=== PATIENT | female | born 1945 | race Caucasian/White ===

== ENCOUNTER 2024-03-21 19:04 | Inpatient (IN) ==
--- NOTE | 2024-03-21 19:21 | Emergency Department Note ---
Impression & Plan AMS (altered mental status), Elevated troponin, Elevated bilirubin, Anemia ED Provider Note NAME: TAMIKA PORTER AGE: 78 SEX: F : 1945 ARRIVES VIA: Ambulance INFORMANT: Patient ED PROVIDER(S): Riaz Donahue DO CHIEF COMPLAINT: Altered mental status HPI: Patient is a 78-year-old female who was just admitted [facility] today from [place] following left knee replacement. Per EMS she has been deteriorating over the past 2 days and has become more combative and more confused. Patient denies any headache or chest pain. No belly pain. History is fairly limited as she has no complaints at this time and is confused. ADDITIONAL HISTORY OBTAINED: Per HPI Chronic Medical/Social Conditions Affecting Care: Per HPI PAST MEDICAL HISTORY:See Below PAST SURGICAL HISTORY:See Below FAMILY HISTORY:See Below SOCIAL HISTORY:See Below HOME MEDICATIONS:See Below ALLERGIES:See Below VITALS:See Below PHYSICAL EXAMINATION: GENERAL: Sitting up in bed, alert, no acute distress, disheveled EYE EXAM: normal conjunctiva. PERRL and EOM's grossly intact. OROPHARYNX: no exudate, no erythema, lips, buccal mucosa, and tongue normal and mucous membranes are moist NECK: supple, no nuchal rigidity, no adenopathy, non-tender LUNGS: Clear to auscultation. Normal chest wall mechanics HEART: no murmurs, S1 normal and S2 normal ABDOMEN: abdomen soft, non-tender, normo-active bowel sounds, no masses, no rebound or guarding. UPPER EXTREMITIES: upper extremities are grossly normal. LOWER EXTREMITIES: Incision is clean dry and intact over the left knee. DPs and PTs 2 out of 4. Gross sensation intact. NEURO EXAM: Awake alert oriented to person but not place or year moving upper extremities and lower extremities without any focal deficit MEDICAL DECISION MAKING: Patient is a 78-year-old female who presents the ER for confusion. She was just discharged from [facility] to rehab facility. Upon arrival at the rehab facility she was shipped here for the confusion. IV was established medicals obtained. Labs show no significant leukocytosis. Mild anemia at 9.8. INR unremarkable. BMP with glucose 123. VBG was fairly unremarkable as well. Lactate and magnesium are unremarkable. LFTs were normal. Troponin was mildly elevated at 116. Pro-Ovidio was normal. UA without white cells to suggest infection. CT of the head was unremarkable. Chest x-ray with no focal infiltrate. Patient was updated bedside discussed case with the hospitalist for further evaluation management treatment. She was given IV fluids and Rocephin upon arrival for possible UTI and setting of altered mental status. Consults/Care Managements Discussions: Per [facility] Triage Nursing notes reviewed. Limited review of prior medical records performed Vital Signs: reviewed and remarkable for HTN Differential diagnosis: Differential diagnoses includes but is not limited to toxic, metabolic, infectious, traumatic, cardiac, neurologic, hematologic, psychiatric and inflammatory etiologies. ER treatment provided: See below Diagnostics interpreted by me include EKG and cardiac monitoring as listed below: -Cardiac Monitoring: An order was placed for continuous cardiac monitoring. The monitor shows a rate of 80 with sinus rhythm. -ECG: Sinus rhythm rate 85 Normal axis No PVCs QTc 468 -Laboratory studies:Interpreted by me as stated above in MDM and shown below. Imaging studies: Xrays: As interpreted by me: Portable AP upright 1 view of the chest shows no focal CTs show: CT head was negative per radiology Procedures:none Critical Care: None Past Med/Surg History Problem List (Updated 03/21/24 @ 23:15 by Riaz Donahue DO) Anemia (Acute) Elevated bilirubin (Acute) Elevated troponin (Acute) AMS (altered mental status) (Acute) Home Meds Home Medications Medication Instructions Recorded Confirmed acetaminophen 325 mg capsule 325 mg PO QID PRN Pain 03/21/24 03/21/24 (Tylenol) albuterol sulfate 90 mcg/actuation 2 puff inhalation QID PRN sob 03/21/24 03/21/24 aerosol inhaler (Ventolin HFA) alendronate 70 mg tablet 70 mg PO WK 03/21/24 03/21/24 amoxicillin 500 mg capsule 2,000 mg PO USEASDIRECTD PRN 03/21/24 03/21/24 Dental Procedures apixaban 2.5 mg tablet (Eliquis) 2.5 mg PO BID 03/21/24 03/21/24 atorvastatin 20 mg tablet 20 mg PO 1XD 03/21/24 03/21/24 cephalexin 500 mg capsule 500 mg PO 4XD 03/21/24 03/21/24 citalopram 20 mg tablet 20 mg PO 1XD 03/21/24 03/21/24 fluticasone propionate 50 1 spray intranasal DIRECTED PRN 03/21/24 03/21/24 mcg/actuation nasal Congestion spray,suspension hydrochlorothiazide 25 mg tablet 25 mg PO QAM 03/21/24 03/21/24 loratadine 10 mg tablet 10 mg PO PM 03/21/24 03/21/24 losartan 100 mg tablet 100 mg PO 1XD 03/21/24 03/21/24 melatonin 3 mg disintegrating 3 mg PO HS PRN Insomnia 03/21/24 03/21/24 tablet metformin 500 mg tablet 500 mg PO 1XD 03/21/24 03/21/24 metoprolol succinate 25 mg 25 mg PO DAILY 03/21/24 03/21/24 tablet,extended release 24 hr polyethylene glycol 3350 17 gram 17 g PO QAM 03/21/24 03/21/24 oral powder packet (Miralax) prednisolone acetate 1 % eye 1 drp ophthalmic (eye) QID 03/21/24 03/21/24 drops,suspension [id number] 1 mg 1 tab PO 1XD 03/21/24 03/21/24 tablet tramadol 25 mg tablet 25 mg PO Q8 PRN Pain 03/21/24 03/21/24 trazodone 50 mg tablet 50 mg PO HS 03/21/24 03/21/24 Results & Data (ED) Vital Signs Vital Signs - 24 hr 03/21/24 19:13 03/21/24 19:15 03/21/24 19:30 Temperature 36.9 C Temperature Source Axillary Pulse Rate 86 85 86 Respiratory Rate 22 24 Respiratory Effort / Characteristics Non-Labored Spontaneous Respiratory Depth Normal Respiratory Pattern Regular Blood Pressure 167/79 H Blood Pressure Mean 108 Pulse Oximetry 93 93 Oxygen Delivery Method Room Air Room Air Sepsis Recent Fever Within 48 Hours No Sepsis New/Unexplained Change in Mental Status Yes Sepsis Action Taken by Nursing Physician Notified 03/21/24 19:48 03/21/24 19:54 03/21/24 20:19 Temperature Temperature Source Pulse Rate 85 85 Respiratory Rate 22 23 Respiratory Effort / Characteristics Respiratory Depth Respiratory Pattern Blood Pressure 185/89 H Blood Pressure Mean 148 Pulse Oximetry 97 94 Oxygen Delivery Method Room Air Room Air Sepsis Recent Fever Within 48 Hours Sepsis New/Unexplained Change in Mental Status Sepsis Action Taken by Nursing 03/21/24 20:21 03/21/24 20:30 03/21/24 21:00 Temperature Temperature Source Pulse Rate 88 93 H 90 Respiratory Rate 21 17 22 Respiratory Effort / Characteristics Respiratory Depth Respiratory Pattern Blood Pressure Blood Pressure Mean Pulse Oximetry 95 94 93 Oxygen Delivery Method Room Air Room Air Room Air Sepsis Recent Fever Within 48 Hours Sepsis New/Unexplained Change in Mental Status Sepsis Action Taken by Nursing 03/21/24 21:27 03/21/24 21:31 03/21/24 21:44 Temperature Temperature Source Pulse Rate 101 H Respiratory Rate 17 Respiratory Effort / Characteristics Respiratory Depth Respiratory Pattern Blood Pressure 135/88 157/101 H Blood Pressure Mean 114 109 Pulse Oximetry 92 Oxygen Delivery Method Room Air Sepsis Recent Fever Within 48 Hours Sepsis New/Unexplained Change in Mental Status Sepsis Action Taken by Nursing 03/21/24 21:48 Temperature Temperature Source Pulse Rate 90 Respiratory Rate 21 Respiratory Effort / Characteristics Respiratory Depth Respiratory Pattern Blood Pressure Blood Pressure Mean Pulse Oximetry 95 Oxygen Delivery Method Room Air Sepsis Recent Fever Within 48 Hours Sepsis New/Unexplained Change in Mental Status Sepsis Action Taken by Nursing Laboratory Data 03/21/24 20:42 03/21/24 20:42 Lab Results 03/21/24 03/21/24 03/21/24 Range/Units 19:26 19:59 20:42 WBC 5.57 (4.8-10.8) K/ul RBC 3.28 L (4.20-5.40) M/uL Hgb 9.8 L (12.0-16.0) g/dl Hct 28.6 L (37.0-47.0) % MCV 87.2 (80.0-100.0) fL MCH 29.9 (25.0-34.0) pg MCHC 34.3 (32.0-36.0) g/dL RDW Std Deviation 40.2 (36.4-46.3) fL RDW Coeff of [place] 12.6 (11.5-14.5) % Plt Count 176 (130-400) K/uL MPV 9.3 L (9.4-12.4) fL Immature Gran % (Auto) 0.4 % Neut % (Auto) 55.1 % Lymph % (Auto) 23.2 % Stone % (Auto) 17.6 % Eos % (Auto) 3.2 % Baso % (Auto) 0.5 % Neut # (Auto) 3.07 (1.40-6.50) K/uL Lymph # (Auto) 1.29 (1.20-3.40) K/uL Stone # (Auto) 0.98 H (0.11-0.59) K/uL Eos # (Auto) 0.18 (0.00-0.50) K/uL Baso # (Auto) 0.03 (0.00-0.20) K/uL Immature Gran # (Auto) 0.02 (0.01-0.20) K/uL PT 11.3 (9.0-12.0) Seconds INR 1.0 (0.9-1.1) VBG pH 7.49 H (7.36-7.41) VBG pCO2 32 L (38-50) mmHg VBG pO2 80 mmHg VBG HCO3 24 mmol/L VBG O2 Saturation 98.0 % VBG Base Excess 1.7 mEq/L Sodium 138 (136-145) mmol/L Potassium 3.8 (3.5-5.1) mmol/L Chloride 107 (98-107) mmol/L Carbon Dioxide 23 (21-32) mmol/L Anion Gap 8 (3-11) BUN 22 (6-23) mg/dl Creatinine 0.73 (0.6-1.2) mg/dl Est Cr Clr Drug Dosing Not Reportable Est GFR ( Amer) 92.1 ml/min Est GFR (Non-Af Amer) 79.4 ml/min BUN/Creatinine Ratio 30.1 H (10-20) Glucose 123 H (70-99(Fasting)) mg/dl Lactate 1.0 (0.4-2.0) mmol/L Calcium 8.3 L (8.6-10.3) mg/dl Magnesium 1.7 (1.7-2.4) mg/dl Total Bilirubin 1.9 H (0.2-1.0) mg/dl Direct Bilirubin 0.4 H (0-0.2) mg/dl AST 26 (13-39) U/L ALT 12 (7-52) U/L Alkaline Phosphatase 51 (34-104) U/L Troponin I High Sens 116.5 H* (0-14) pg/ml Total Protein 5.7 L (6.0-8.3) gm/dl Albumin 3.2 L (3.4-5.0) gm/dl Procalcitonin 0.38 (0-0.5) ng/ml Urine Color Dark Yellow Urine Appearance Clear (Clear) Urine pH 5.5 (4.5-7.5) Ur Specific [place] 1.021 (1.000-1.030) Urine Protein Trace H (Negative) Urine Glucose (UA) Negative (Negative) Urine Ketones Trace H (Negative) Urine Blood Negative (Negative) Urine Nitrite Negative (Negative) Urine Bilirubin 1+ H (Negative) Urine Urobilinogen Positive H (Negative) Ur Leukocyte Esterase Trace H (Negative) Urine WBC (Auto) 0-5 (0-5) /hpf Urine RBC (Auto) 6-10 H (0-2) /hpf U Hyaline Cast (Auto) 0-2 (0-2) /lpf U Epithel Cells (Auto) 0-2 (0-2) /hpf Urine Bacteria (Auto) None Seen (None Seen) Administered Medications Discontinued Medications Sodium Chloride (Nss) 1,000 mls @ 999 mls/hr IV .Q1H1M MAGUI Stop: 03/21/24 20:15 Last Admin: 03/21/24 20:17 Dose: 999 mls/hr Documented By: [facility] Ceftriaxone Sodium (Rocephin) 2,000 mg in 50 mls @ 100 mls/hr IV NOW STA Stop: 03/21/24 19:40 Last Infusion: 03/21/24 22:24 Dose: Infused Documented By: [facility] Admin: 03/21/24 21:01 Dose: 100 mls/hr Documented By: TEENA Sodium Chloride (Nss) 1,000 mls @ 999 mls/hr IV .Q1H1M ONE Stop: 03/21/24 20:11 Last Infusion: 03/21/24 22:24 Dose: Infused Documented By: [facility] Admin: 03/21/24 20:17 Dose: 999 mls/hr Documented By: [facility] Imaging Data Radiologist's Impression: Head CT 03/21/24 19:15 Exam(s): CT HEAD Without Contrast EXAM: CT Head Without Intravenous Contrast CLINICAL HISTORY: Reason for exam: ams. TECHNIQUE: Axial computed tomography images of the head/brain without intravenous contrast. CTDI is 114.84 mGy and DLP is 938 mGy-cm. Automated exposure control was utilized for the study. A dose lowering technique was utilized adhering to the principles of ALARA. COMPARISON: No relevant prior studies available. FINDINGS: Brain: Unremarkable. No hemorrhage. No significant white matter disease. No edema. Ventricles: Unremarkable. No ventriculomegaly. Bones/joints: Unremarkable. No acute fracture. Soft tissues: Unremarkable. Sinuses: Chronic right sphenoid sinusitis. No acute sinusitis. Mastoid air cells: Unremarkable as visualized. No mastoid effusion. IMPRESSION: No evidence of acute intracranial pathology. Chronic obstructive right sphenoid sinusitis. Recommend ENT consult to evaluate for obstructing lesion. Electronically signed by: Jessie Lema MD 03/21/24 23:02 PM Discharge Plan Visit Data Chief Complaint: Altered Mental Status Stated Complaint: ALTERED MENTAL STATUS, COMBATIVE ED Provider: Riaz Donahue Discharge Problem: AMS (altered mental status), Elevated troponin, Elevated bilirubin, Anemia Forms Stand Alone Forms: My [facility] Prescriptions Prescriptions: No Action amoxicillin 500 mg Capsule 2,000 mg PO USEASDIRECTD PRN (Reason: Dental Procedures) metformin 500 mg tablet 500 mg PO 1XD atorvastatin 20 mg tablet 20 mg PO 1XD trazodone 50 mg Tablet 50 mg PO HS polyethylene glycol 3350 [Miralax] 17 gram Powder In Packet 17 g PO QAM alendronate 70 mg tablet 70 mg PO WK citalopram 20 mg tablet 20 mg PO 1XD prednisolone acetate 1 % drops,suspension 1 drp ophthalmic (eye) QID Rx Instructions: Instill 1 drop into both eyes in the morning and 1 drop at noon and 1 drop in the evening and 1 drop before bedtime cephalexin 500 mg capsule 500 mg PO 4XD 1 mg Tablet 1 tab PO 1XD hydrochlorothiazide 25 mg tablet 25 mg PO QAM metoprolol succinate 25 mg Tablet Extended Release 24 Hr 25 mg PO DAILY albuterol sulfate [Ventolin HFA] 90 mcg/actuation Hfa Aerosol Inhaler 2 puff INHALATION QID PRN (Reason: sob) losartan 100 mg tablet 100 mg PO 1XD fluticasone propionate [Flonase] 50 mcg/actuation [place],Suspension 1 spray INTRANASAL DIRECTED PRN (Reason: Congestion) Rx Instructions: administer into each nostril loratadine 10 mg Tablet 10 mg PO PM acetaminophen [Tylenol] 325 mg Capsule 325 mg PO QID PRN (Reason: Pain) Eliquis 2.5 mg tablet 2.5 mg PO BID melatonin 3 mg Tablet,Disintegrating 3 mg PO HS PRN (Reason: Insomnia) tramadol 25 mg Tablet 25 mg PO Q8 PRN (Reason: Pain) Referrals Referrals: PCP,NO [Physician] - Discharge Problem: AMS (altered mental status) Qualifiers: Altered mental status type: unspecified Qualified Code(s): R41.82 - Altered mental status, unspecified Anemia Qualifiers: Anemia type: unspecified type Qualified Code(s): D64.9 - Anemia, unspecified
[2024-03-21] MEDS: SODIUM CHLORIDE 0.9% 1,000 ML IV ONE (20:17)
[2024-03-21] MEDS: SODIUM CHLORIDE 0.9% 1,000 ML IV SCH (20:17)
[2024-03-21 20:35] LABS: Appearance Urine Clear (Clear); Bacteria Urine Automated None Seen (None Seen); Bilirubin Urine 1+ (Negative); Blood Urine Negative (Negative); Cast Urine Automated 0-2 /lpf (0-2); Color Urine Dark Yellow; Epithelial Cell Urine Auto 0-2 /hpf (0-2); Glucose Urine UA Negative (Negative); Ketones Urine Trace (Negative); Leukocyte Esterase Urine Trace (Negative); Nitrite Urine Negative (Negative); Protein Urine Trace (Negative); Specific Gravity Urine 1.021 (1.000-1.030); Urobilinogen Urine Positive (Negative); WBC Urine Automated 0-5 /hpf (0-5); pH Urine 5.5 (4.5-7.5)
[2024-03-21 20:58] LABS: Base Excess VBG 1.7 mEq/L; HCO3 VBG 24 mmol/L; PCO2 VBG 32 mmHg (38-50); PO2 VBG 80 mmHg; pH VBG 7.49 (7.36-7.41)
[2024-03-21] MEDS: cefTRIAXone SODIUM 2,000 MG/50 ML BAG IV STA (21:01)
[2024-03-21 21:09] LABS: Basophils # (auto) 0.03 K/uL (0.00-0.20); Basophils % (auto) 0.5 %; Eosinophils # (auto) 0.18 K/uL (0.00-0.50); Eosinophils % (auto) 3.2 %; Hematocrit (blood only) 28.6 % (37.0-47.0); Hemoglobin 9.8 g/dl (12.0-16.0); Immature Granulocytes # (auto) 0.02 K/uL (0.01-0.20); Immature Granulocytes % (auto) 0.4 %; Lymphocytes # (auto) 1.29 K/uL (1.20-3.40); Lymphocytes % (auto) 23.2 %; Mean Corpuscular Hemoglobin 29.9 pg (25.0-34.0); Mean Corpuscular Hgb Conc 34.3 g/dL (32.0-36.0); Mean Corpuscular Volume 87.2 fL (80.0-100.0); Mean Platelet Volume 9.3 fL (9.4-12.4); Monocytes # (auto) 0.98 K/uL (0.11-0.59); Monocytes % (auto) 17.6 %; Neutrophils # (auto) 3.07 K/uL (1.40-6.50); Neutrophils % (auto) 55.1 %; Platelet Count 176 K/uL (130-400); RDW Coefficient of Variation 12.6 % (11.5-14.5); RDW Standard Deviation 40.2 fL (36.4-46.3); Red Blood Count 3.28 M/uL (4.20-5.40); White Blood Count 5.57 K/ul (4.8-10.8)
[2024-03-21 21:27] LABS: Alanine Aminotransferase 12 U/L (7-52); Albumin Level 3.2 gm/dl (3.4-5.0); Alkaline Phosphatase 51 U/L (34-104); Anion Gap 8 (3-11); Aspartate Aminotransferase 26 U/L (13-39); BUN Creatinine Ratio 30.1 (10-20); Bilirubin Direct 0.4 mg/dl (0-0.2); Bilirubin,Total 1.9 mg/dl (0.2-1.0); Blood Urea Nitrogen 22 mg/dl (6-23); Calcium 8.3 mg/dl (8.6-10.3); Carbon Dioxide 23 mmol/L (21-32); Chloride 107 mmol/L (98-107); Est GFR (African American) 92.1 ml/min; Est GFR (Non-African American) 79.4 ml/min; Glucose 123 mg/dl (70-99(Fasting)); Magnesium 1.7 mg/dl (1.7-2.4); Potassium 3.8 mmol/L (3.5-5.1); Sodium 138 mmol/L (136-145); Total Protein 5.7 gm/dl (6.0-8.3)
[2024-03-21 21:53] LABS: Prothrombin Time 11.3 Seconds (9.0-12.0)
[2024-03-21 22:21] LABS: Troponin I High Sensitivity 116.5 pg/ml (0-14)
[2024-03-21] MEDS ORDERED: OLANZapine 10 MG/2.1 ML SDV IM PRN (22:29)
[2024-03-21] MEDS: OLANZapine 10 MG/2.1 ML SDV IM ONE ×2 (22:41→23:09)
--- NOTE | 2024-03-21 23:03 | CT Scan Report ---
Exam(s): CT HEAD Without Contrast EXAM: CT Head Without Intravenous Contrast CLINICAL HISTORY: Reason for exam: ams. TECHNIQUE: Axial computed tomography images of the head/brain without intravenous contrast. CTDI is 114.84 mGy and DLP is 938 mGy-cm. Automated exposure control was utilized for the study. A dose lowering technique was utilized adhering to the principles of ALARA. COMPARISON: No relevant prior studies available. FINDINGS: Brain: Unremarkable. No hemorrhage. No significant white matter disease. No edema. Ventricles: Unremarkable. No ventriculomegaly. Bones/joints: Unremarkable. No acute fracture. Soft tissues: Unremarkable. Sinuses: Chronic right sphenoid sinusitis. No acute sinusitis. Mastoid air cells: Unremarkable as visualized. No mastoid effusion. IMPRESSION: No evidence of acute intracranial pathology. Chronic obstructive right sphenoid sinusitis. Recommend ENT consult to evaluate for obstructing lesion. Electronically signed by: Jessie Lema MD 03/21/24 23:02 PM
--- NOTE | 2024-03-21 23:21 | History & Physical Report ---
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 bronchial asthma, CLEMENT[place] CPAP noncompliant, pulmonary hypertension, patient currently without lung issues DM2 on oral medications, well-controlled as of recent hemoglobin A1c of 5.7 last month cirrhosis as per records, likely NAFLD anxiety/mood disorder postop UTI ongoing Keflex Rx Medical telemetry Zyprexa as needed agitation not relieved by trazodone as needed IV Lopressor 1 dose now, titrate home BP meds Follow troponin, TTE for progression Monitor CPK response to IVF Follow H&H, transfuse PRBC if hemoglobin less than 8 and or for symptomatic anemia (hx CAD as per records), hold Eliquis for now until H&H stable ISS BG goal 1 10-1 40, carb count coverage DVT prophylaxis. SCDs while Eliquis on hold Full code Patient family requesting updates providers. Ms. Karolina Hogan (daughter), contact #[phone] Mr. Devon Groves (), contact #[phone] Text document was generated using [employer] voice recognition software. It may contain grammatical or spelling errors. Kindly contact undersigned for clarification of any documentation item in question. History of Present Illness Chief Complaint: Agitation as per records Primary Care Provider: Tabitha Cunningham MD History obtained from patient, family, and records. Limited history from patient secondary to confusion. Medical history significant for nonocclusive CAD, status post TAVR, mild MR/TR, hypertension, bronchial asthma, CLEMENT[place] CPAP noncompliance, pulmonary hypertension, DM2 on oral medications, GERD, cirrhosis as per records, anxiety/mood disorder, chronic back pain status post surgery, recent left knee surgery, postop UTI ongoing Keflex Rx. Recent confinement [facility] last March 17 to 2023 for elective left knee surgery. Marked delirium postprocedure. Patient started on Keflex course for possible UTI. Specimen not sent for urine CS. CT head was negative. Psychiatry note pharmacologic recommendations as follows: Continue patient's home trazodone 50 mg p.o. HS. Melatonin 3 mg p.o. at bedtime as needed insomnia Trazodone 12.5 mg 3 times daily as needed agitation Zyprexa 2.5 mg PO/IM every 6 hours as needed agitation not responsive to trazodone. Patient still not back to baseline upon discharge to rehab facility today as per daughter. Postop hemoglobin on discharge last March 20 was 10.9. Patient discharged on Xarelto for postop DVT prophylaxis. Home aspirin held on discharge. Patient noted to be combative and agitated upon arrival at [facility] rehab facility. Patient unable to answer questions regarding chest pain, SOB, abdominal pain, or worsening knee pain. Patient brought to ER for evaluation. 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 Allergies Allergy/AdvReac Type Severity Reaction Status Date / Time No Known Allergies Allergy Unverified 03/22/24 00:04 Home Medications Medication Instructions Recorded Confirmed Type acetaminophen 325 mg capsule 325 mg PO QID PRN Pain 03/21/24 03/21/24 History (Tylenol) albuterol sulfate 90 mcg/actuation 2 puff inhalation QID PRN sob 03/21/24 03/21/24 History aerosol inhaler (Ventolin HFA) alendronate 70 mg tablet 70 mg PO WK 03/21/24 03/21/24 History amoxicillin 500 mg capsule 2,000 mg PO USEASDIRECTD PRN 03/21/24 03/21/24 History Dental Procedures apixaban 2.5 mg tablet (Eliquis) 2.5 mg PO BID 03/21/24 03/21/24 History atorvastatin 20 mg tablet 20 mg PO 1XD 03/21/24 03/21/24 History cephalexin 500 mg capsule 500 mg PO 4XD 03/21/24 03/21/24 History citalopram 20 mg tablet 20 mg PO 1XD 03/21/24 03/21/24 History fluticasone propionate 50 1 spray intranasal DIRECTED PRN 03/21/24 03/21/24 History mcg/actuation nasal Congestion spray,suspension hydrochlorothiazide 25 mg tablet 25 mg PO QAM 03/21/24 03/21/24 History loratadine 10 mg tablet 10 mg PO PM 03/21/24 03/21/24 History losartan 100 mg tablet 100 mg PO 1XD 03/21/24 03/21/24 History melatonin 3 mg disintegrating 3 mg PO HS PRN Insomnia 03/21/24 03/21/24 History tablet metformin 500 mg tablet 500 mg PO 1XD 03/21/24 03/21/24 History metoprolol succinate 25 mg 25 mg PO DAILY 03/21/24 03/21/24 History tablet,extended release 24 hr polyethylene glycol 3350 17 gram 17 g PO QAM 03/21/24 03/21/24 History oral powder packet (Miralax) prednisolone acetate 1 % eye 1 drp ophthalmic (eye) QID 03/21/24 03/21/24 History drops,suspension [id number] 1 mg 1 tab PO 1XD 03/21/24 03/21/24 History tablet tramadol 25 mg tablet 25 mg PO Q8 PRN Pain 03/21/24 03/21/24 History trazodone 50 mg tablet 50 mg PO HS 03/21/24 03/21/24 History Past Med/Surg History Problem List (Updated 03/22/24 @ 03:57 by Kahlil Garcia MD) Delirium Anemia (Acute) Elevated bilirubin (Acute) Elevated troponin (Acute) AMS (altered mental status) (Acute) Social History Hx Alcohol Use: No (unknown pt confused) Hx Substance Use: No (unknown pt confused) Preferred Language: Pakistani Communication Ability: Impaired 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: No Beliefs That Will Affect Care: None Review of Systems Review of Systems: Could not be reliably obtained secondary to agitation Physical Exam Physical Exam: GENERAL: Agitated, uncomfortable, obese, no respiratory distress SKIN: Pallor, warm HEENT: Pale palpebral conjunctivae, no ptosis, dry buccal mucosa NECK : Supple, short neck, no tenderness CHEST : Decreased breath sounds, no tenderness HEART : Tachycardic,, no obvious murmurs ABDOMEN: Some distention, nontender EXTREMITIES : LE swelling, minimal left knee tenderness, no other conspicuous deformities noted NEUROLOGIC : Agitated, no facial asymmetry, gait and stance not assessed Results & Data Results & Data Vital Signs (Past 12 Hours) Vital Signs Temp Pulse Resp BP Pulse Ox O2 Del Method 03/21/24 23:16 108 H 03/21/24 21:48 90 21 95 Room Air 03/21/24 21:44 157/101 H 03/21/24 21:31 135/88 03/21/24 21:27 101 H 17 92 Room Air 03/21/24 21:00 90 22 93 Room Air 03/21/24 20:30 93 H 17 94 Room Air 03/21/24 20:21 88 21 95 Room Air 03/21/24 20:19 185/89 H 03/21/24 19:54 85 23 94 Room Air 03/21/24 19:48 85 22 97 Room Air 03/21/24 19:30 86 24 93 Room Air 03/21/24 19:15 85 03/21/24 19:13 36.9 C 86 22 167/79 H 93 Room Air Laboratory Results Laboratory Results WBC 5.57 K/ul (4.8-10.8) 03/21/24 20:42 RBC 3.28 M/uL (4.20-5.40) L 03/21/24 20:42 Hgb 9.8 g/dl (12.0-16.0) L 03/21/24 20:42 Hct 28.6 % (37.0-47.0) L 03/21/24 20:42 MCV 87.2 fL (80.0-100.0) 03/21/24 20:42 MCH 29.9 pg (25.0-34.0) 03/21/24 20:42 MCHC 34.3 g/dL (32.0-36.0) 03/21/24 20:42 RDW Std Deviation 40.2 fL (36.4-46.3) 03/21/24 20:42 RDW Coeff of [place] 12.6 % (11.5-14.5) 03/21/24 20:42 Plt Count 176 K/uL (130-400) 03/21/24 20:42 MPV 9.3 fL (9.4-12.4) L 03/21/24 20:42 Immature Gran % (Auto) 0.4 % 03/21/24 20:42 Neut % (Auto) 55.1 % 03/21/24 20:42 Lymph % (Auto) 23.2 % 03/21/24 20:42 [place] % (Auto) 17.6 % 03/21/24 20:42 Eos % (Auto) 3.2 % 03/21/24 20:42 Baso % (Auto) 0.5 % 03/21/24 20:42 Neut # (Auto) 3.07 K/uL (1.40-6.50) 03/21/24 20:42 Lymph # (Auto) 1.29 K/uL (1.20-3.40) 03/21/24 20:42 [place] # (Auto) 0.98 K/uL (0.11-0.59) H 03/21/24 20:42 Eos # (Auto) 0.18 K/uL (0.00-0.50) 03/21/24 20:42 Baso # (Auto) 0.03 K/uL (0.00-0.20) 03/21/24 20:42 Immature Gran # (Auto) 0.02 K/uL (0.01-0.20) 03/21/24 20:42 PT 11.3 Seconds (9.0-12.0) 03/21/24 20:42 INR 1.0 (0.9-1.1) 03/21/24 20:42 VBG pH 7.49 (7.36-7.41) H 03/21/24 20:42 VBG pCO2 32 mmHg (38-50) L 03/21/24 20:42 VBG pO2 80 mmHg 03/21/24 20:42 VBG HCO3 24 mmol/L 03/21/24 20:42 VBG O2 Saturation 98.0 % 03/21/24 20:42 VBG Base Excess 1.7 mEq/L 03/21/24 20:42 Sodium 138 mmol/L (136-145) 03/21/24 20:42 Potassium 3.8 mmol/L (3.5-5.1) 03/21/24 20:42 Chloride 107 mmol/L (98-107) 03/21/24 20:42 Carbon Dioxide 23 mmol/L (21-32) 03/21/24 20:42 Anion Gap 8 (3-11) 03/21/24 20:42 BUN 22 mg/dl (6-23) 03/21/24 20:42 Creatinine 0.73 mg/dl (0.6-1.2) 03/21/24 20:42 Est Cr Clr Drug Dosing Not Reportable 03/21/24 20:42 Est GFR ( Amer) 92.1 ml/min 03/21/24 20:42 Est GFR (Non-Af Amer) 79.4 ml/min 03/21/24 20:42 BUN/Creatinine Ratio 30.1 (10-20) H 03/21/24 20:42 Glucose 123 mg/dl (70-99(Fasting)) H 03/21/24 20:42 Lactate 1.0 mmol/L (0.4-2.0) 03/21/24 19:26 Calcium 8.3 mg/dl (8.6-10.3) L 03/21/24 20:42 Magnesium 1.7 mg/dl (1.7-2.4) 03/21/24 20:42 Total Bilirubin 1.9 mg/dl (0.2-1.0) H 03/21/24 20:42 Direct Bilirubin 0.4 mg/dl (0-0.2) H 03/21/24 20:42 AST 26 U/L (13-39) 03/21/24 20:42 ALT 12 U/L (7-52) 03/21/24 20:42 Alkaline Phosphatase 51 U/L (34-104) 03/21/24 20:42 Troponin I High Sens 116.5 pg/ml (0-14) H* 03/21/24 20:42 Total Protein 5.7 gm/dl (6.0-8.3) L 03/21/24 20:42 Albumin 3.2 gm/dl (3.4-5.0) L 03/21/24 20:42 Procalcitonin 0.38 ng/ml (0-0.5) 03/21/24 20:42 Urine Color Dark Yellow 03/21/24 19:59 Urine Appearance Clear (Clear) 03/21/24 19:59 Urine pH 5.5 (4.5-7.5) 03/21/24 19:59 Ur Specific [place] 1.021 (1.000-1.030) 03/21/24 19:59 Urine Protein Trace (Negative) H 03/21/24 19:59 Urine Glucose (UA) Negative (Negative) 03/21/24 19:59 Urine Ketones Trace (Negative) H 03/21/24 19:59 Urine Blood Negative (Negative) 03/21/24 19:59 Urine Nitrite Negative (Negative) 03/21/24 19:59 Urine Bilirubin 1+ (Negative) H 03/21/24 19:59 Urine Urobilinogen Positive (Negative) H 03/21/24 19:59 Ur Leukocyte Esterase Trace (Negative) H 03/21/24 19:59 Urine WBC (Auto) 0-5 /hpf (0-5) 03/21/24 19:59 Urine RBC (Auto) 6-10 /hpf (0-2) H 03/21/24 19:59 U Hyaline Cast (Auto) 0-2 /lpf (0-2) 03/21/24 19:59 U Epithel Cells (Auto) 0-2 /hpf (0-2) 03/21/24 19:59 Urine Bacteria (Auto) None Seen (None Seen) 03/21/24 19:[address] 03/21/24 19:15 Exam(s): CT HEAD Without Contrast EXAM: CT Head Without Intravenous Contrast CLINICAL HISTORY: Reason for exam: ams. TECHNIQUE: Axial computed tomography images of the head/brain without intravenous contrast. CTDI is 114.84 mGy and DLP is 938 mGy-cm. Automated exposure control was utilized for the study. A dose lowering technique was utilized adhering to the principles of ALARA. COMPARISON: No relevant prior studies available. FINDINGS: Brain: Unremarkable. No hemorrhage. No significant white matter disease. No edema. Ventricles: Unremarkable. No ventriculomegaly. Bones/joints: Unremarkable. No acute fracture. Soft tissues: Unremarkable. Sinuses: Chronic right sphenoid sinusitis. No acute sinusitis. Mastoid air cells: Unremarkable as visualized. No mastoid effusion. IMPRESSION: No evidence of acute intracranial pathology. Chronic obstructive right sphenoid sinusitis. Recommend ENT consult to evaluate for obstructing lesion. Electronically signed by: Jessie Lema MD 03/21/24 23:02 PM Diagnostic Findings EKG as per my interpretation : Rate 85, NSR, LAD, LAFB, nonspecific T wave abnormalities, PVCs
[2024-03-21] MEDS ORDERED: PROMETHAZINE HCL 6.25 MG in SODIUM CHLORIDE 0.9% 50 ML IV PRN (23:25)
[2024-03-21] MEDS: Patient's ALLERGY Info needs ENTERED STA (23:51)
[2024-03-22] MEDS: OLANZapine 10 MG/2.1 ML SDV IM STA ×2 (00:20→00:56)
[2024-03-22] MEDS: ZIPRASIDONE 20 MG/ML SDV IM STA ×2 (00:23→00:54)
[2024-03-22] MEDS: ACETAMINOPHEN 1,000 MG/100 ML VIAL IV STA (00:27)
[2024-03-22] MEDS: NSS + 20MEQ KCL 20 MEQ/1,000 ML BAG IV ONE (00:27)
[2024-03-22] MEDS: MAGNESIUM SULFATE / D5W 1 GM/100 ML BAG IV ONE (00:27)
[2024-03-22] MEDS: traZODone HCL 50 MG TAB PO SCH ×2 (00:36→03:27)
[2024-03-22] MEDS: Patient's ALLERGY Info needs ENTERED STA (00:36)
[2024-03-22] MEDS: METOPROLOL TARTRATE 1 MG/ML VIAL IV STA ×2 (00:42→04:07)
[2024-03-22] MEDS ORDERED: OLANZapine 10 MG/2.1 ML SDV IM PRN (00:46)
[2024-03-22] MEDS ORDERED: GLUCOSE 40% GEL 15 GM TUBE PO PRN (02:50)
[2024-03-22] MEDS ORDERED: GLUCAGON FOR INJ 1 MG VIAL SQ PRN (02:50)
[2024-03-22] MEDS ORDERED: FLUTICASONE PROPIONATE NA SPR 16 GM BTL PRN (02:50)
[2024-03-22] MEDS ORDERED: DEXTROSE 50% 50 ML SYRINGE IV PRN (02:50)
[2024-03-22] MEDS ORDERED: GLUCOSE 10 TAB/TUBE PO PRN (02:50)
[2024-03-22] MEDS ORDERED: CARBOHYDRATES FOR HYPOGLYCEMIA PO PRN (02:50)
[2024-03-22] MEDS: ACETAMINOPHEN 325 MG TAB PO PRN (03:14)
[2024-03-22] MEDS: MELATONIN 3 MG TAB PO PRN (03:15)
[2024-03-22] MEDS: INSULIN ASPART PER UNIT CHARGE SC SCH (03:26)
[2024-03-22 04:25] LABS: Thyroid Stimulating Hormone 1.899 uIu/ml (0.300-4.500)
[2024-03-22 04:36] LABS: Basophils # (auto) 0.03 K/uL (0.00-0.20); Basophils % (auto) 0.5 %; Eosinophils # (auto) 0.15 K/uL (0.00-0.50); Eosinophils % (auto) 2.7 %; Hematocrit (blood only) 29.2 % (37.0-47.0); Hemoglobin 9.9 g/dl (12.0-16.0); Immature Granulocytes # (auto) 0.01 K/uL (0.01-0.20); Immature Granulocytes % (auto) 0.2 %; Lymphocytes # (auto) 1.46 K/uL (1.20-3.40); Lymphocytes % (auto) 26.6 %; Mean Corpuscular Hemoglobin 30.3 pg (25.0-34.0); Mean Corpuscular Hgb Conc 33.9 g/dL (32.0-36.0); Mean Corpuscular Volume 89.3 fL (80.0-100.0); Mean Platelet Volume 9.1 fL (9.4-12.4); Monocytes # (auto) 0.84 K/uL (0.11-0.59); Monocytes % (auto) 15.3 %; Neutrophils # (auto) 2.99 K/uL (1.40-6.50); Neutrophils % (auto) 54.7 %; Platelet Count 156 K/uL (130-400); RDW Coefficient of Variation 12.6 % (11.5-14.5); RDW Standard Deviation 41.4 fL (36.4-46.3); Red Blood Count 3.27 M/uL (4.20-5.40); White Blood Count 5.48 K/ul (4.8-10.8)
[2024-03-22 04:45] LABS: Calcium 8.5 mg/dl (8.6-10.3); Creatinine Clr Calc Pharmacy 69.3 ml/min; Est GFR (African American) 82.4 ml/min; Est GFR (Non-African American) 71.1 ml/min; Potassium 4.2 mmol/L (3.5-5.1)
--- OUTSIDE RECORDS SUMMARY | 2024-03-22 07:42 | External Medical Summary ---
Author Name Unknown Address Unknown Organization : Laboratory Report Ordering Provider Test Date Status JANIS CAMPUZANO 03/21/2024 08:01:21 Final Observation Date Value Abnormality Reference (Units ) Status Glucose Point of Care 03/21/2024 08:01:21 124 Above high normal 70-120 (mg/dL) Final Performing Location
--- OUTSIDE RECORDS SUMMARY | 2024-03-22 07:42 | External Medical Summary ---
Author Name Unknown Address Unknown Organization [id number]:LABORATORY [place] [address] [place] [address] Laboratory Report Ordering Provider Test Date Status JANIS CAMPUZANO 03/21/2024 04:24:00 Final Observation Date Value Abnormality Reference (Units ) Status Magnesium 03/21/2024 04:24:00 1.7 1.5-2.6 (m g/dL) Final Performing Location LABORATORY [address] [place] [address]
--- OUTSIDE RECORDS SUMMARY | 2024-03-22 07:42 | External Medical Summary ---
Author Name Unknown Address Unknown Organization : Laboratory Report Ordering Provider Test Date Status JANIS CAMPUZANO 03/20/2024 20:53:22 Final Observation Date Value Abnormality Reference (Units ) Status Glucose Point of Care 03/20/2024 20:53:22 132 Above high normal 70-120 (mg/dL) Final Performing Location
--- OUTSIDE RECORDS SUMMARY | 2024-03-22 07:42 | External Medical Summary ---
Author Name Unknown Address Unknown Organization [id number]:LABORATORY [facility] - [address] [place] [address] [place] [address] Laboratory Report Ordering Provider Test Date Status JANIS CAMPUZANO 03/20/2024 14:13:10 Final Observation Date Value Abnormality Reference (Units ) Status Color of Urine by Auto 03/20/2024 14:13:10 Yellow Light Yellow, Yellow, Dark Yellow Final Clarity, Urine 03/20/2024 14:13:10 Clear Clear Final Glucose [Mass/volume] in Urine by Automated test strip 03/20/2024 14:13:10 Negative Negative (mg/dL) Final Bilirubin.total [Presence] in Urine by Automated test strip 03/20/2024 14:13:10 Negative Negative Final Ketones [Mass/volume] in Urine by Automated test strip 03/20/2024 14:13:10 Negative Negative (mg/dL) Final Specific gravity, Urine 03/20/2024 14:13:10 1.019 1.003-1.030 Final Hemoglobin [Presence] in Urine by Automated test strip 03/20/2024 14:13:10 Negative Negative Final pH, Urine 03/20/2024 14:13:10 6.5 5.0-7.5 (Units) Final Protein [Mass/volume] in Urine by Automated test strip 03/20/2024 14:13:10 Trace Abnormal Negative (mg/dL) Final Urobilinogen [Mass/volume] in Urine by Automated test strip 03/20/2024 14:13:10 4.0 Abnormal 0.2, 1.0 (mg/dL) Final Nitrite [Presence] in Urine by Automated test strip 03/20/2024 14:13:10 Negative Negative Final Leukocyte esterase [Presence] in Urine by Automated test strip 03/20/2024 14:13:10 Negative Negative Final RBC, Urine 03/20/2024 14:13:10 0-2 0-2 (/HPF) Final WBC, Urine 03/20/2024 14:13:10 0-2 0-2 (/HPF) Final Bacteria [#/area] in Urine sediment by Microscopy high power field 03/20/2024 14:13:10 0-25 0-25 (/HPF) Final CULTURE, URINE - [facility] 03/20/2024 14:13:10 Final Culture not indicated by uri nalysis results\[id number]\ Performing Location LABORATORY [facility] - [address] [facility] [address]
--- OUTSIDE RECORDS SUMMARY | 2024-03-22 07:42 | External Medical Summary ---
Author Name Unknown Address Unknown Organization : Laboratory Report Ordering Provider Test Date Status JANIS CAMPUZANO 03/20/2024 11:32:08 Final Observation Date Value Abnormality Reference (Units ) Status Glucose Point of Care 03/20/2024 11:32:08 138 Above high normal 70-120 (mg/dL) Final Performing Location
--- OUTSIDE RECORDS SUMMARY | 2024-03-22 07:42 | External Medical Summary ---
Author Name Unknown Address Unknown Organization [id number]:LABORATORY [facility] [place] - [address] [place] [address] Laboratory Report Ordering Provider Test Date Status JANIS CAMPUZANO 03/21/2024 04:24:00 Final Observation Date Value Abnormality Reference (Units ) Status Iron 03/21/2024 04:24:00 22 Below low normal 33-151 (ug/dL) Final Iron-binding capacity 03/21/2024 04:24:00 206 Below low normal 250-425 (ug/dL) Final Transferrin Sat % 03/21/2024 04:24:00 11 Below low normal 15-55 (%) Final Performing Location LABORATORY [facility] - [address] [place] [address]
--- OUTSIDE RECORDS SUMMARY | 2024-03-22 07:42 | External Medical Summary ---
Author Name Unknown Address Unknown Organization [id number]:LABORATORY [facility] [place] - [address] [place] [address] Laboratory Report Ordering Provider Test Date Status JANIS CAMPUZANO 03/21/2024 04:24:00 Final Observation Date Value Abnormality Reference (Units ) Status Vitamin B12 03/21/2024 04:24:00 205 Below low normal 2 32-1245 (pg/mL) Final Performing Location LABORATORY [facility] - [address] [place] [address]
--- OUTSIDE RECORDS SUMMARY | 2024-03-22 07:42 | External Medical Summary ---
Author Name Unknown Address Unknown Organization K0X:LABORATORY [place] [address] [place] [address] Laboratory Report Ordering Provider Test Date Status JANIS CAMPUZANO 03/20/2024 07:31:00 Final Observation Date Value Abnormality Reference (Units ) Status Magnesium 03/20/2024 07:31:00 1.7 1.5-2.6 (m g/dL) Final Performing Location LABORATORY [address] [place] [address]
--- OUTSIDE RECORDS SUMMARY | 2024-03-22 07:42 | External Medical Summary ---
Author Name Unknown Address Unknown Organization : Laboratory Report Ordering Provider Test Date Status JANIS CAMPUZANO 03/21/2024 11:38:06 Final Observation Date Value Abnormality Reference (Units ) Status Glucose Point of Care 03/21/2024 11:38:06 120 70-120 (mg/dL) Final Performing Location
--- OUTSIDE RECORDS SUMMARY | 2024-03-22 07:42 | External Medical Summary ---
Author Name Unknown Address Unknown Organization K0X:LABORATORY [address] [place] [address] Laboratory Report Ordering Provider Test Date Status JANIS CAMPUZANO 03/21/2024 04:24:00 Final Observation Date Value Abnormality Reference (Units ) Status BUN 03/21/2024 04:24:00 19 6-20 (mg/dL) Final Creatinine 03/21/2024 04:24:00 0.8 0.5-1.0 (mg/dL) Final Glomerular filtration rate/1.73 sq M.predicted [Volume Rate/Area] in Serum, Plasma or Blood by Creatinine-based formula (CKD-EPI) 03/21/2024 04:24:00 74 >=60 (mL/min) Final eGFR is calculated based on the CKD-EPI 2020 equation Sodium 03/21/2024 04:24:00 137 135-146 (m mol/L) Final Potassium 03/21/2024 04:24:00 3.8 3.5-5.1 (m mol/L) Final Cl 03/21/2024 04:24:00 101 98-107 (mm ol/L) Final CO2 03/21/2024 04:24:00 26 22-32 (mmo l/L) Final Anion gap 03/21/2024 04:24:00 10 7-15 (mmol /L) Final Glucose 03/21/2024 04:24:00 116 70-120 (mg /dL) Final Calcium 03/21/2024 04:24:00 8.9 8.4-10.2 ( mg/dL) Final Performing Location LABORATORY [address] [place] [facility] [place] [address]
--- OUTSIDE RECORDS SUMMARY | 2024-03-22 07:42 | External Medical Summary ---
Author Name Unknown Address Unknown Organization : Laboratory Report Ordering Provider Test Date Status JANIS CAMPUZANO 03/20/2024 16:05:56 Final Observation Date Value Abnormality Reference (Units ) Status Glucose Point of Care 03/20/2024 16:05:56 126 Above high normal 70-120 (mg/dL) Final Performing Location
--- OUTSIDE RECORDS SUMMARY | 2024-03-22 07:42 | External Medical Summary ---
Author Name Unknown Address Unknown Organization [id number]:LABORATORY [facility] [place] - [address] [place] [address] Laboratory Report Ordering Provider Test Date Status JANIS CAMPUZANO 03/21/2024 04:24:00 Final Observation Date Value Abnormality Reference (Units ) Status Folic Acid 03/21/2024 04:24:00 12.7 >4.5 (ng/ mL) Final Performing Location LABORATORY [facility] - [address] [place] [address]
--- OUTSIDE RECORDS SUMMARY | 2024-03-22 07:43 | External Medical Summary ---
Author Name Unknown Address Unknown Organization : Laboratory Report Ordering Provider Test Date Status JANIS CAMPUZANO 03/19/2024 11:47:13 Final Observation Date Value Abnormality Reference (Units ) Status Glucose Point of Care 03/19/2024 11:47:13 103 70-120 (mg/dL) Final Performing Location
--- OUTSIDE RECORDS SUMMARY | 2024-03-22 07:43 | External Medical Summary ---
Author Name Unknown Address Unknown Organization : Laboratory Report Ordering Provider Test Date Status CHRISTINA DE LEÓN 03/17/2024 21:01:06 Final Observation Date Value Abnormality Reference (Units ) Status Glucose Point of Care 03/17/2024 21:01:06 169 Above high normal 70-120 (mg/dL) Final Performing Location
--- OUTSIDE RECORDS SUMMARY | 2024-03-22 07:43 | External Medical Summary ---
Author Name Unknown Address Unknown Organization : Laboratory Report Ordering Provider Test Date Status JAVIER MERCADO 03/17/2024 08:35:28 Final Observation Date Value Abnormality Reference (Units ) Status Glucose Point of Care 03/17/2024 08:35:28 122 Above high normal 70-120 (mg/dL) Final Performing Location
--- OUTSIDE RECORDS SUMMARY | 2024-03-22 07:43 | External Medical Summary ---
Author Name Unknown Address Unknown Organization K0X:LABORATORY [address] [place] [address] Laboratory Report Ordering Provider Test Date Status JANIS CAMPUZANO 03/20/2024 04:10:00 Final Observation Date Value Abnormality Reference (Units ) Status SYNC LEUKOCYTES IN BLOOD BY AUTOMATED COUNT 03/20/2024 04:10:00 6.50 4.00-10.80 (K/uL) Final Segs 03/20/2024 04:10:00 64.0 40.0-75.0 (%) Final Lymphs % 03/20/2024 04:10:00 20.3 18.0-42.0 (%) Final Monos 03/20/2024 04:10:00 12.6 Above high normal 1.0-11.0 (%) Final Eosinophils 03/20/2024 04:10:00 2.3 0.0-6.0 (%) Final Basos 03/20/2024 04:10:00 0.5 0.0-2.0 (%) Final Immature Granulocyte, Percent 03/20/2024 04:10:00 0.3 0.0-2.0 (%) Final Absolute Segs 03/20/2024 04:10:00 4.16 1.80-7.70 (K/uL) Final Lymphs, absolute 03/20/2024 04:10:00 1.32 1.00-4.80 (K/ul) Final Monos, Abs 03/20/2024 04:10:00 0.82 0.00-1.10 (K/uL) Final Eos, Abs 03/20/2024 04:10:00 0.15 0.00-0.70 (K/uL) Final Basos, Abs 03/20/2024 04:10:00 0.03 0.00-0.20 (K/uL) Final Immature Granulocytes, Number 03/20/2024 04:10:00 0.02 0.00-0.20 (K/uL) Final Performing Location LABORATORY [facility] - [address] [facility] [address]
--- OUTSIDE RECORDS SUMMARY | 2024-03-22 07:43 | External Medical Summary ---
Author Name Unknown Address Unknown Organization K0X:LABORATORY [address] [place] [address] Laboratory Report Ordering Provider Test Date Status GADIEL PARRISH 03/18/2024 16:40:00 Final Observation Date Value Abnormality Reference (Units ) Status Body temperature 03/18/2024 16:40:00 37.0 (C) Final pH of Venous blood 03/18/2024 16:40:00 7.342 7.320-7.430 (units) Final Carbon dioxide [Partial pressure] in Venous blood 03/18/2024 16:40:00 54.7 40.0-60.0 (mmHg) Final Oxygen [Partial pressure] in Venous blood 03/18/2024 16:40:00 25.2 25.0-50.0 (mmHg) Final Base excess, Capillary 03/18/2024 16:40:00 2.7 Above high normal -2.0-2.0 (mmol/L) Final Hemoglobin [Mass/volume] in Blood by Oximetry 03/18/2024 16:40:00 12.6 12.0-15.3 (g/dL) Final Oxyhemoglobin, Venous (FO2HB) 03/18/2024 16:40:00 46.9 40.0-85.0 (% total Hgb) Final Carboxyhemoglobin 03/18/2024 16:40:00 1.9 Above high normal <=1.5 (% total Hgb) Final Smokers: 0-9.0 % Methemoglobin 03/18/2024 16:40:00 1.0 <=1.5 (% total Hgb) Final Deoxyhemoglobin/Hemoglobin.t otal in Venous blood 03/18/2024 16:40:00 50.2 (% total Hgb) Ilana l Oxygen content in Venous blood 03/18/2024 16:40:00 8.3 7.0-18.0 (%vol) Final Bicarbonate, Venous, POC (i-STAT) 03/18/2024 16:40:00 29.6 23.0-31.0 (mmol/L) Fi nal Performing Location LABORATORY [facility] - [address] [facility] [address]
--- OUTSIDE RECORDS SUMMARY | 2024-03-22 07:43 | External Medical Summary ---
Author Name Unknown Address Unknown Organization : Laboratory Report Ordering Provider Test Date Status JANIS CAMPUZANO 03/19/2024 07:22:59 Final Observation Date Value Abnormality Reference (Units ) Status Glucose Point of Care 03/19/2024 07:22:59 151 Above high normal 70-120 (mg/dL) Final Performing Location
--- OUTSIDE RECORDS SUMMARY | 2024-03-22 07:43 | External Medical Summary ---
Author Name Unknown Address Unknown Organization : Laboratory Report Ordering Provider Test Date Status GADIEL PARRISH 03/18/2024 07:10:54 Final Observation Date Value Abnormality Reference (Units ) Status Glucose Point of Care 03/18/2024 07:10:54 151 Above high normal 70-120 (mg/dL) Final Performing Location
--- OUTSIDE RECORDS SUMMARY | 2024-03-22 07:43 | External Medical Summary | Summary of Care ---
Author Name Unknown Organization [facility] Address [address] [place] [address] Phone [phone] Care Team Providers Care Sap Mobility Architect Name Role Phone Tabitha Cunningham MD Primary Care Provider [phone] Reason for Visit * Reason Onset Date Comments Other 03/09/2024 Encounter Details Date Type Department Care Team (Late st Contact Info) Description 03/09/2024 Telephone Orthopaedics [facility] [address] [place] [address] Rodriguez Jones MD [address] [place] [address] Other Allergies Active Allergy Reactions Criticality Noted Date Comments Adhesive Tape 07/06/1998 rash Lisinopril 04/04/2014 cough Oxycodone-Acetaminophen Other (Please comment) 02/05/2017 "jittery" Nauseated Silver Sulfadiazine Rash 12/07/2002 rash Carisoprodol Other (Please comment) 03/29/2012 Restless, jittery Sulfa Antibiotics 10/15/1998 Tendency towards yeast infections. documented as of this encounter (statuses as of 03/09/2024) Medications Medication Sig Dispensed Refills Start Date End Date Status ASPIRIN EC LOW STRENGTH 81 MG PO TBECIndications:Other nonspecific abnormal cardiovascular system function study one by mouth daily 34 5 09/12/2005 Active Amoxicillin 500 MG Oral Capsule (Amoxil) Take 4 tablets by mouth one hour prior to any dental procedure or cleaning 12 Cap 03 12/04/2020 Active Loratadine 10 MG Oral Tablet (Claritin)Indications :Allergic disorder, subsequent encounter One tab each julisa for allergies 30 Tab 5 12/10/2020 Active Fluticasone Propionate 50 MCG/ACT Nasal Suspension Administer [address] [place] into nostril as needed. 15.8 mL 3 01/22/2021 Active Tylenol 325 MG Oral Capsule (Acetaminophen) Take 325 mg by mouth every 6 hours. 30 Capsule 07/25/2021 Active traZODone HCl 50 MG Oral Tablet (Desyrel)Indications: Fatigue, unspecified type TAKE ONE TABLET BY MOUTH NIGHTLY AT BEDTIME 90 Tablet 3 10/20/2022 Active Ventolin HFA 108 (90 Base) MCG/ACT Inhalation Aerosol SolutionIndications:M ild intermittent extrinsic asthma without complication Inhale 2 Puffs by mouth 4 times a day as needed for Cough or Shortness of Breath. 18 g 3 12/24/2022 Active Polyethylene Glycol 3350 17 GM/SCOOP Oral Powder (MiraLax) Take 17 g by mouth in the morning. Active hydroCHLOROthiazide 25 MG Oral Tablet (Hydrodiuril)Indicati ons:HTN, goal below 140/90 TAKE ONE TABLET BY MOUTH EVERY MORNING for fluid and blood pressure 90 Tablet 3 09/09/2023 Active Atorvastatin Calcium 20 MG Oral Tablet (Lipitor)Indications: Mixed hyperlipidemia TAKE ONE (1) TABLET BY MOUTH EVERY DAY 90 Tablet 1 09/28/2023 Active Metoprolol Succinate ER 25 MG Oral Tablet Extended Release 24 Hour (toPROL XL) TAKE ONE (1) TABLET BY MOUTH EVERY DAY 90 Tablet 3 12/28/2023 Active prednisoLONE Acetate 1 % Ophthalmic Suspension (Pred Forte) Instill 1 Drop into both eyes in the morning and 1 Drop at noon and 1 Drop in the evening and 1 Drop before bedtime. 10 mL 12/28/2023 Active metFORMIN HCl 500 MG Oral Tablet (Glucophage)Indicatio ns:Type 2 diabetes mellitus with hemoglobin A1c goal of 7.0%-8.0% (HCC) TAKE ONE (1) TABLET BY MOUTH EVERY DAY 90 Tablet 1 12/29/2023 Active Alendronate Sodium 70 MG Oral Tablet (Fosamax) Take 1 tablet once weekly 30 minutes before breakfast with 8oz of water. Remain upright for 30 minutes after taking medication. 12 Tablet 1 01/01/2024 Active Losartan Potassium 100 MG Oral Tablet (Cozaar)Indications:H TN, goal below 140/90 TAKE ONE (1) TABLET BY MOUTH EVERY DAY. Must make appt for refills 90 Tablet 02/16/2024 Active Citalopram Hydrobromide 20 MG Oral Tablet (CeleXA)Indications:A djustment disorder with depressed mood TAKE ONE TABLET BY MOUTH EVERY DAY IN THE MORNING. for mood 90 Tablet 1 03/07/2024 Active documented as of this encounter (statuses as of 03/09/2024) Active Problems Problem Noted Date Diagnosed Date Chronic kidney disease, stage 3a 09/14/2023 Overview: Per CKD protocol Type 2 diabetes mellitus with diabetic neuropath y 01/15/2022 Bilateral carpal tunnel syndrome 07/08/2021 Overview: Bilateral by EMG mild median nerve Hypertensive heart disease with heart failure S/P TAVR (transcatheter aortic valve replacement ) 11/27/2020 Iron deficiency anemia secondary to blood loss ( chronic) 11/23/2020 Severe aortic stenosis 11/15/2020 H. pylori infection 11/05/2020 Overview: by EGD at [facility] Other cirrhosis of liver 10/29/2020 Portal hypertension 10/29/2020 Morbid obesity due to excess calories 10/19/2020 Iron deficiency anemia 10/12/2020 S/P insertion of spinal cord stimulator 06/06/20 Overview: at [facility] per Dr Doty HTN, goal below 150/90 04/02/2020 Sleep apnea in adult 09/07/2018 Overview: seen by Dr Jenifer Carson sleep medicine Obesity, Class II, BMI 35-39.9, isolated (see ac tual BMI) 09/28/2017 Lumbar spine pain 12/23/2016 Adjustment disorder with depressed mood 08/30/20 15 ACEI/ARB contraindicated 05/18/2014 Overview: hypotension Hyperlipemia 12/17/2011 Spinal stenosis of lumbar re gion without neurogenic claudication 03/06/2010 Osteoarthritis of knee 08/27/2009 POSTLAMINECT SYND-LUMBAR 11/10/2005 ADVANCE DIRECTIVE INFORMATION 01/28/2005 Overview: No, Advance Directive brochure given to patient. GERD (gastroesophageal reflux disease) 3 Menopause GENERAL OSTEOARTHROSIS SENSORNEUR HEAR LOSS NOS Allergic rhinitis Other osteoporosis without current pathological fracture Overview: by DEXA ICD-10 update of inactive term Type 2 diabetes mellitus wit h hemoglobin A1c goal of less than 8.0% Overview: ICD-10 update of inactive term Asthma in remission Overview: Asthma, mild, intermittent----sees Dr. Lundy documented as of this encounter (statuses as of 03/09/2024) Resolved Problems Problem Noted Date Diagnosed Date Resolved Date Anemia 11/05/2020 11/15/2020 Chronic back pain 06/07/2020 11/15/2020 Encounter for examination fo r normal comparison and control in clinical research program 09/14/2018 04/09/2020 Overview: DO NOT DELETE [facility] DETECT Study: Project # [id number], Hr Operations Advisor: Sarbjit Garcia, PhD. SUMMARY: Goal: Establish test characteristics (sensitivity, specificity, PPV, NPV) of a circulating tumor DNA (ctDNA)-based test for cancer. Hypothesis: Circulating tumor DNA (ctDNA) and elevated protein biomarkers (together, the marker panel) can be detected in asymptomatic individuals with early cancer. Specific Aim 1: Determine the prevalence of a positive marker panel test in a prospective clinical cohort of 10,000 asymptomatic women ages 65 to 75 years. Specific Aim 2: Determine the sensitivity, specificity, positive predictive value (PPV) and negative predictive value (NPV) of a marker panel test to identify histologically proven cancers that develop within 5-years of the marker panel evaluation. CONTACTS: During normal business hours, contact study staff at ; after hours Hr Operations Advisor via the [facility] hospital nitric acid plant operator . Please contact study team before resolving/deleting from patients problem list. Study phone number: [phone]. Diagnosis changed due to Research Module. Go to Snapshot for study details. Encounter for examination fo r normal comparison and control in clinical research program 09/14/2018 05/08/2022 Overview: DO NOT DELETE - Richy Cisneros PINKY Study: Project # [id number], Hr Operations Advisor: Mario Rene, MS, MPH. SUMMARY: Goal: Establish test characteristics (sensitivity, specificity, PPV, NPV) of a circulating tumor DNA (ctDNA)-based test for cancer. - Hypothesis: Circulating tumor DNA (ctDNA) and elevated protein biomarkers (together, the marker panel) can be detected in asymptomatic individuals with early cancer. - Specific Aim 1: Determine the prevalence of a positive marker panel test in a prospective clinical cohort of 10,000 asymptomatic women ages 65 to 75 years. - Specific Aim 2: Determine the sensitivity, specificity, positive predictive value (PPV) and negative predictive value (NPV) of a marker panel test to identify histologically proven cancers that develop within 5-years of the marker panel evaluation. - CONTACTS: During normal business hours, contact study staff at ; after hours Hr Operations Advisor via the [facility] hospital nitric acid plant operator . - Please contact study team before resolving/deleting from patients problem list. Study phone number: [phone]. Diagnosis changed due to Research Module. Go to Snapshot for study details. Extrinsic asthma without complication 09/28/2017 10/11/2020 Body mass index (BMI) of 40. 0 to 44.9 in adult 06/08/2017 09/28/2017 Overview: Per Obesity protocol #1 Full thickness rotator cuff tear 12/20/2015 09/28/2017 MEDICATION USE AGREEMENT 08/16/2014 Overview: 08/16/2014 - Vicodin Type 2 diabetes mellitus wit h hemoglobin A1c goal of 7.0%-8.0% 08/11/2013 10/11/2020 Overview: ICD-10 update of inactive term Myofascial muscle pain 06/30/201209/28 Myalgia and myositis 06/30/2012 018 Joint pain, knee 08/27/2009 09/28/2017 Inflammation of sacroiliac joint 03/15/2007 01/22/2015 Thoracic and lumbosacral neuritis 11/10/2005 09/28/2017 dependent edema 10/15/1998 09/28/2017 Back disorder 09/28/2017 Adjustment disorder with depressed mood 03/12/2016 Dyslipidemia, goal to be determined 08/25/2005 Diabetes mellitus due to und erlying condition without complications 05/13/2014 Diabetes mellitus due to und erlying condition without complications 05/13/2014 documented as of this encounter (statuses as of 03/09/2024) Immunizations Name Administration Dates Next Due COVID-19 mRNA, LNP-s, No Pre serve, 2-Dose Series (Moderna) 09/13/2021,12/03/2020 Pneumococcal Conjugate Vacc, 13 Valent (Prevnar) 08/30/2015 Pneumococcal Polysaccharide PPV23 (Pneumovax) 12/16/2011 Season Influenza, Cell Cultu re, 18+ Yrs, With Preserv (Flucelvax) 08/03/2013 Seasonal Influenza, PF, 6 M & above, IM , (FluLaval or Fluzone) 08/24/2020,11/17/2018,09/28/2017 Seasonal Influenza, Quadriva lent Hd (Fluzone Hd) 06/23/2023,07/01/2021 Seasonal Influenza, Quadriva lent, No Preserve, IM 07/01/2016 Seasonal Influenza, Split, I IV3, With Preserve, Inj 05/30/2014,07/23/2012,06/03/2011,09/09,06/11/2009 Seasonal Influenza, Trivalen t, Adjuvanted, 65+ yrs 09/22/2019 Seasonal Influenza, Trivalen t, High Dose, No Preserve, IM 08/30/2015 TD, Preservative Free 03/30/2017 TDAP, Age 7 and older, IM (Adacel) 11/05/2006 Varicella Zoster Vaccine (Adult) 08/11/2013 documented as of this encounter Social History Tobacco Use Types Packs/Day Years Used Date Smoking Tobacco: Never Smokeless Tobacco: Never Alcohol Use Standard Drinks/Week Comments No 0 (1 standard drink = 0.6 oz pur e alcohol) PHQ-2 Answer Date Recorded PHQ Adult Total Score 2 04/10/2023 Hunger Vital Sign Answer Date Recorded Within the past 12 months, y ou worried that your food would run out before you got the money to buy more. Never true 10/21/19 24 Within the past 12 months, t he food you bought just didn't last and you didn't have money to get more. Never true 10/21/2023 Childcare Answer Date Recorded Do you feel overwhelmed with taking care of a child, family member or friend? No 10/21/2023 Does your family need help f inding childcare? (Household - for ages 0-17 years) Not on file 10/21/2023 Clothing Answer Date Recorded Have you been unable to get clothing when it was really needed? No 10/21/2023 Is your family able to get c lothes or diapers when needed? (Household - for ages 0-17 years) Not on file 10/21/2023 Personal Safety Answer Date Recorded Do you feel unsafe or have concerns for your saf ety? No 10/21/2023 Do you have concerns for you r family's safety? (Household - for ages 0-17 years) Not on file 10/21/2023 Utilities Answer Date Recorded Do you have trouble paying y our heating, water, or electric bill? No 10/21/2023 Is your family able to pay t he heat, water, or electric bill? (Household - for ages 0-17 years) Not on file 10/21/2023 Does your family have access to good internet? (Household - for ages 0-17 years) Not on file 10/21/2023 Employment Status Answer Date Recorded Are you unemployed or without regular income? No 10/21/2023 Does the household have a [facility] source [facility] income? (Household - for ages 0-17 years) Not on file 10/21/2023 Social Connections Answer Date Recorded How often do you feel lonely or isolated from th ose around you? Never 10/21/2023 Financial Resource Strain Answer Date R ecorded Do you have any trouble payi ng for your medications, or do you think you might in the future? No 10/21/2023 Does your family have troubl e paying for medicine? (Household - for ages 0-17 years) Not on file 10/21/2023 Transportation Needs Answer Date Record ed READ ONLY Do you have troubl e getting a ride to medical visits or work? Never True 10/21/2023 Does your family have a hard time getting a ride to doctors visits? (Household - for ages 0-17 years) Not on file 10/21/2023 Has lack of transportation k ept you from medical appointments, meetings, work, or from getting things needed for daily living? Check all that apply. (Adult - for ages 18 years and over) Not on file 10/21/2023 Do you (or your family) have trouble finding or paying for a ride (transportation)? (Household - for ages 0-17 years) Not on file 10/21/2023 Housing Stability Answer Date Recorded Do you currently live in a s helter or have no steady place to sleep at night? No 10/21/2023 READ ONLY Do you think you a re at risk of becoming homeless? No 10/21/2023 Does your family worry about paying for your home or becoming homeless? (Household - for ages 0-17 years) Not on file 0 10/21/2023 Are you homeless or worried that you might be in the future? (Adult - for ages 18 years and over) Not on file Are you (or your family) oanh eless or worried that you might be in the future? (Household - for ages 0-17 years) Not on file Food Insecurity Answer Date Recorded Do you need food for this week? No 10/21/2023 Are you able to get enough f ood for your family? (Household - for ages 0-17 years) Not on file 10/21/2023 Does your family need food t his week? (Household - for ages 0-17 years) Not on file 10/21/2023 Do you always have enough fo od for your family? (Household - for ages 0-17 years) Not on file 10/21/2023 Sex and Gender Information Value Date Recorded Sex Assigned at Female 10/18/2019 10:37 AM EST Gender Identity Female 10/18/2019 10:37 AM EST Sexual Orientation Straight 10/18/2019 10 :37 AM EST Job Start Date Occupation Industry Not on file Not on file Not on file documented as of this encounter Functional Status Functional Status Response Date of Assess ment Are you deaf or do you have serious difficulty h earing? No 01/09/2023 Are you blind or do you have serious difficulty seeing, even when wearing glasses? No 01/09/2023 Do you have serious difficul ty walking or climbing stairs? (5 years old or older) No 01/09/2023 Do you have difficulty dress ing or bathing? (5 years old or older) No 01/09/2023 Because of a physical, menta l, or emotional condition, do you have difficulty doing errands alone such as visiting a doctor s office or shopping? (15 years old or older) No 01/10/20 Cognitive Status Response Date of Assessm ent Because of a physical, menta l, or emotional condition, do you have serious difficulty concentrating, remembering, or making decisions? (5 years old or older) No 01/09/2023 documented as of this encounter Miscellaneous Notes * Telephone Encounter - Alexia Burns RN - 03/09/2024 9:01 AM EDT Called patient, spouse answered. Spouse does not believe that she has any open areas. He will have her call if there are any concerns. Alexia Burns RN documented in this encounter Plan of Treatment Upcoming Encounters Date Type Department Care Team (Late st Contact Info) Description 03/17/2024 8:45 AM EDT Hospital Encounter OR [facility], Operating Room [facility] 1st [address] [place] [address] Rodriguez Jones MD [address] [place] [address] 03/17/2024 8:45 AM EDT - 03/17/2024 11:02 AM EDT Surgery OR [facility], Operating Room [address] [address] Rodriguez Jones MD [address] [place] [id number] ROBOTIC ARTHROPLASTY KNEE TOTAL 04/18/2024 9:00 AM EDT Office Visit [facility] [address] [facility] [place] [address] Tabitha Cunningham MD [address] [facility] [place] [address] 04/20/2024 12:00 PM EDT Office Visit Cardiology, [place] [address] [place] [address] Bernarda De Los Santos CRNP [address] [place] [address] 06/28/2024 8:30 AM EDT [facility] [address] [place] [phone] Sarbjit Vera MD [address] [place] [address] 08/18/2024 9:20 AM EST Office Visit Hepatology, [facility] [address] [place] [id number] Cassi Pugh MD [address] [place] [address] 09/16/2024 8:20 AM EST Office Visit [facility] [address] [facility] [place] [address] Tabitha Cunningham MD [address] [place] [address] 11/04/2024 8:45 AM EST [facility] [address] [facility] [place] [address] Franck Soriano DO [address] [facility] [address] Scheduled Procedures Name Priority Associated Diagnoses Date/Ti nh ROBOTIC ARTHROPLASTY KNEE TOTAL Primary osteoarthritis of left knee 03/17/2024 8:45 AM EDT Computer-Assisted Musculoskeletal Surgical Navigation CT/MRI Primary osteoarthritis of left knee 03/17/2024 8:45 AM EDT ROBOTIC SURGICAL SYSTEM Primary osteoarthritis of left knee 03/17/2024 8:45 AM EDT COLONOSCOPY FLEXIBLE PROXIMAL DIAGNOSTIC Recall Change in bowel habits Health Maintenance Due Date Last Done Comments CKD PHOS USE SMARTSET 58169 1963 Hepatitis B Vaccine (1 of 3 - Risk 3-dose series) 2006 Zoster Vaccines (2 of 3) 10/06/2013 08/11/2013 COVID-19 Vaccine ( season) 2023 09/13/2021, 12/03/2020 Albumin/Creatinine Ratio 03/31/2024 023, 01/15/2022, 08/16/2014, Additional history exists B-12 03/31/2024 03/31/2023, 03/08, 10/11/2020, Additional history exists Depression Screening 04/10/2024 04/10/2023 Influenza Vaccine (FLU shot) (#1) 2024 06/23/2023, 07/01/2021, 08/24/2020, Additional history exists GFR 09/01/2024 03/02/2024, 08/07, 03/31/2023, Additional history exists HbA1c 09/01/2024 03/02/2024, 08/07, 03/31/2023, Additional history exists Diabetic Foot Exam 10/21/2024 10/21/2023, 1 10/16/2021, 11/15/2020, Additional history exists DXA Scan 11/13/2024 11/13/2022, 10/08, 10/05/2017, Additional history exists Diabetic Eye Exam 01/24/2025 01/25/2024, , 01/25/2024, Additional history exists CKD HGB USE SMARTSET 50326 03/02/202503/02, 03/02/2024, 08/21/2023, Additional history exists Colonoscopy 11/06/2025 11/06/2020, 10/2020, 09/21/2014, Additional history exists DTaP,Tdap,and Td Vaccines (3 - Td or Tdap) 03/30/2027 03/30/2017, 11/05/2006, 10/17/1996 Pneumococcal Vaccine: 65+ Years Completed 08/30/2015, 12/16/2011 VITAMIN D LEVEL ONCE IN A LIFETIME-USE SMARTSET# 06236 Completed 03/30/2017, 09/17/2009 RETIRED - COLONOSCOPY-EVERY 5 YRS AGES 18-100 Discontinued 11/06/2020, 11/06/2020, 09/21/2014, Additional history exists HPV (Gardasil) Vaccine Aged Out No lo nger eligible based on patient's age to complete this topic MENINGOCOCCAL (MENACTRA/MENVEO) Aged Out No longer eligible based on patient's age to complete this topic documented as of this encounter Medical Devices Implanted Type Area Watch Band Assembler Device Identifier Shelf Expiration Date Model / Serial / Lot Dbx 10cc [id number] - [id number] Implanted:Qt y: 1 on 03/15/2010 at OR [facility] Tissue - Human N/A: Spine Lumbar MUSCULOSKELETAL TRANSPLANT FND 12/14/2011 [id number] / [id number] / Chip Cancellous 30cc [id number] - [id number] - [id number] Implanted:Qt y: 1 on 01/09/2023 by Sarbjit Vera MD at OR [facility] Tissue - Human N/A: Spine Lumbar MUSCULOSKELETAL TRANSPLANT FND 10/12/2024 [id number] / [id number] / [id number] Screw 7x50 Poly Si [id number] - [id number] Implanted:Qt y: 2 on 03/15/2010 at OR [facility] N/A: Spine Lumbar JNJ : [employer] [id number] / / Corkscrew Bio Composite - [id number] Implanted:Qt y: 2 on 01/25/2016 by Ken Will MD at OR [facility] Left: Shoulder [employer] 06/06/2016 [id number] / / [id number] Dbx 2.5cc [id number] - [id number] Implanted:Qt y: 1 on 02/18/2017 by Sarbjit Vera MD at OR [facility] N/A: Spine Lumbar MUSCULOSKELETAL TRANSPLANT FND 09/26/2018 [id number] / / Screw 7x45 Poly Si [id number] - [id number] Implanted:Qt y: 2 on 02/18/2017 by Sarbjit Vera MD at OR [facility] N/A: Spine Lumbar JNJ : [employer] [id number] / / Description:In Set Expedium Ti Sfx 5.5 Lat A5 - [id number] Implanted:Qt y: 1 on 02/18/2017 by Sarbjit Vera MD at OR [facility] N/A: Spine Lumbar JNJ : [employer] [id number] / / Description:In Set Clik Lolo - [id number] Implanted:Qt y: 1 on 06/06/2020 by Sarbjit Vera MD at OR [facility] N/A: Spine Thoracic [employer] : PAIN MGMT 04/17/2022 [id number] / / [id number] Description:bilateral Valve Lexie 3 Ultra 23mm - [id number] Implanted:Qt y: 1 on 11/27/2020 at CARDIAC LABS [facility] [employer] [id number] / / Gener Wvewriter Alpha Prime 16 - [id number] Implanted:Qt y: 1 on 02/14/2022 by Sarbjit Vera MD at OR [facility] Left: Back [employer] 01/20/2024 [id number] / / [id number] Description:left lower back Screw 6x40 Poly Si [id number] - [id number] Implanted:Qt y: 1 on 01/09/2023 by Sarbjit Vera MD at OR [facility] N/A: Spine Lumbar JNJ : [employer] [id number] / / Screw Set Sng Inner [id number] - [id number] Implanted:Qt y: 8 on 01/09/2023 by Sarbjit Vera MD at OR [facility] N/A: Spine Lumbar JNJ : [employer] [id number] / / Expedium Ti Sfx 5.5 Lat A5 - [id number] Implanted:Qt y: 1 on 01/09/2023 by Sarbjit Vera MD at OR [facility] N/A: Spine Lumbar JNJ : [employer] [id number] / / Screw 6x45 Poly Si [id number] - [id number] Implanted:Qt y: 3 on 01/09/2023 by Sarbjit Vera MD at OR [facility] N/A: Spine Lumbar JNJ : [employer] [id number] / / 100mm [place] Implanted:Qt y: 2 on 01/09/2023 by Sarbjit Vera MD at OR [facility] N/A: Spine Lumbar [employer] 0 / / Graft Infuse Bone Lg [id number] - [id number] Implanted:Qt y: 1 on 01/09/2023 by Sarbjit Vera MD at OR [facility] N/A: Spine Lumbar [employer] : NEURO CARE [id number] 09/06/2024 [id number] / / [id number] documented as of this encounter Advance Directives * Full Code (Latest Code Status on File) Date Activated Date Inactivated Comments 01/09/2023 1:45 PM 01/13/2023 4:00 PM This order ref lects the patients wishes and were consensually agreed upon. Question Answer Comments Discussion of Advance Directives occurred with: Patient Does the patient have a Living Will? No Does the patient have Health Care Power of Attor arnold? No * Full Code Date Activated Date Inactivated Comments 01/09/2023 9:33 AM 01/09/2023 1:45 PM This order ref lects the patients wishes and were consensually agreed upon. Question Answer Comments Discussion of Advance Directives occurred with: Patient Does the patient have a Living Will? No Does the patient have Health Care Power of Attor arnold? No * Full Code Date Activated Date Inactivated Comments 02/14/2022 8:41 AM 02/15/2022 4:12 PM This order r eflects the patients wishes and were consensually agreed upon. Question Answer Comments Discussion of Advance Directives occurred with: Not Discussed * Full Code Date Activated Date Inactivated Comments 04/05/2021 6:52 AM 04/05/2021 3:34 PM This order r eflects the patients wishes and were consensually agreed upon. Question Answer Comments Discussion of Advance Directives occurred with: Not Discussed * Full Code Date Activated Date Inactivated Comments 11/27/2020 9:56 AM 11/28/2020 4:59 PM This order r eflects the patients wishes and were consensually agreed upon. Question Answer Comments Discussion of Advance Directives occurred with: Patient Does the patient have a Living Will? No Does the patient have Health Care Power of Attor arnold? No Care Teams Sap Mobility Architect Relationship Specialty Start Date End Date Tabitha Cunningham MD [address] [facility] [place] [address] PCP - General 04/21/1996 documented as of this encounter
--- OUTSIDE RECORDS SUMMARY | 2024-03-22 07:43 | External Medical Summary ---
Author Name Unknown Address Unknown Organization : Laboratory Report Ordering Provider Test Date Status JAVIER MERCADO 03/17/2024 11:38:48 Final Observation Date Value Abnormality Reference (Units ) Status Glucose Point of Care 03/17/2024 11:38:48 137 Above high normal 70-120 (mg/dL) Final Performing Location
--- OUTSIDE RECORDS SUMMARY | 2024-03-22 07:43 | External Medical Summary ---
Author Name Unknown Address Unknown Organization : Laboratory Report Ordering Provider Test Date Status JANIS CAMPUZANO 03/19/2024 16:51:07 Final Observation Date Value Abnormality Reference (Units ) Status Glucose Point of Care 03/19/2024 16:51:07 123 Above high normal 70-120 (mg/dL) Final Performing Location
--- OUTSIDE RECORDS SUMMARY | 2024-03-22 07:43 | External Medical Summary ---
Author Name Unknown Address Unknown Organization [facility] [address] [place] [address] Laboratory Report Ordering Provider Test Date Status GADILE PARRISH 03/18/2024 16:40:00 Final Observation Date Value Abnormality Reference (Units ) Status WBC, Total 03/18/2024 16:40:00 6.99 4.00-10.80 (K/uL) Final RBC 03/18/2024 16:40:00 3.96 3.85-5.15 (M/uL) Final Hemoglobin 03/18/2024 16:40:00 11.9 Below low normal 12.0-15.3 (g/dL) Final HCT 03/18/2024 16:40:00 36.2 36.0-45.2 (%) Final MCV 03/18/2024 16:40:00 91.4 81.5-97.5 (fL) Final MCH 03/18/2024 16:40:00 30.1 27.0-34.0 (pg) Final MCHC 03/18/2024 16:40:00 32.9 32.0-36.0 (g/dL) Final RDW 03/18/2024 16:40:00 12.4 11.5-15.5 (%) Final Platelets 03/18/2024 16:40:00 101 Below low normal 140-400 (K/uL) Final MPV 03/18/2024 16:40:00 9.4 6.6-11.1 (fL) Final Nucleated erythrocytes/100 leukocytes [Ratio] in Blood by Automated count 03/18/2024 16:40:00 0 <=0 (/100 WBCs) Final Performing Location LABORATORY [address] [place] [address]
--- OUTSIDE RECORDS SUMMARY | 2024-03-22 07:43 | External Medical Summary ---
Author Name Unknown Address Unknown Organization [facility] [address] [place] [address] Laboratory Report Ordering Provider Test Date Status VALARIE DE LEÓNR 03/18/2024 04:12:00 Final Observation Date Value Abnormality Reference (Units ) Status WBC, Total 03/18/2024 04:12:00 5.10 4.00-10.80 (K/uL) Final RBC 03/18/2024 04:12:00 3.80 3.85-5.15 (M/uL) Final Hemoglobin 03/18/2024 04:12:00 11.7 Below low normal 12.0-15.3 (g/dL) Final HCT 03/18/2024 04:12:00 34.5 Below low normal 36.0-45.2 (%) Final MCV 03/18/2024 04:12:00 90.8 81.5-97.5 (fL) Final MCH 03/18/2024 04:12:00 30.8 27.0-34.0 (pg) Final MCHC 03/18/2024 04:12:00 33.9 32.0-36.0 (g/dL) Final RDW 03/18/2024 04:12:00 12.5 11.5-15.5 (%) Final Platelets 03/18/2024 04:12:00 88 Below low normal 140-400 (K/uL) Final MPV 03/18/2024 04:12:00 9.9 6.6-11.1 (fL) Final Nucleated erythrocytes/100 leukocytes [Ratio] in Blood by Automated count 03/18/2024 04:12:00 0 <=0 (/100 WBCs) Final Performing Location LABORATORY [address] [place] [address]
--- OUTSIDE RECORDS SUMMARY | 2024-03-22 07:43 | External Medical Summary ---
Author Name Unknown Address Unknown Organization [facility] [address] [place] [address] Laboratory Report Ordering Provider Test Date Status JANIS CAMPUZANO 03/20/2024 04:10:00 Final Observation Date Value Abnormality Reference (Units ) Status WBC, Total 03/20/2024 04:10:00 6.50 4.00-10.80 (K/uL) Final RBC 03/20/2024 04:10:00 3.58 3.85-5.15 (M/uL) Final Hemoglobin 03/20/2024 04:10:00 10.9 Below low normal 12.0-15.3 (g/dL) Final HCT 03/20/2024 04:10:00 32.4 Below low normal 36.0-45.2 (%) Final MCV 03/20/2024 04:10:00 90.5 81.5-97.5 (fL) Final MCH 03/20/2024 04:10:00 30.4 27.0-34.0 (pg) Final MCHC 03/20/2024 04:10:00 33.6 32.0-36.0 (g/dL) Final RDW 03/20/2024 04:10:00 12.3 11.5-15.5 (%) Final Platelets 03/20/2024 04:10:00 116 Below low normal 140-400 (K/uL) Final MPV 03/20/2024 04:10:00 9.8 6.6-11.1 (fL) Final Nucleated erythrocytes/100 leukocytes [Ratio] in Blood by Automated count 03/20/2024 04:10:00 0 <=0 (/100 WBCs) Final Performing Location LABORATORY [address] [place] [address]
--- OUTSIDE RECORDS SUMMARY | 2024-03-22 07:43 | External Medical Summary ---
Author Name Unknown Address Unknown Organization : Laboratory Report Ordering Provider Test Date Status JANIS CAMPUZANO 03/20/2024 07:15:01 Final Observation Date Value Abnormality Reference (Units ) Status Glucose Point of Care 03/20/2024 07:15:01 132 Above high normal 70-120 (mg/dL) Final Performing Location
--- OUTSIDE RECORDS SUMMARY | 2024-03-22 07:43 | External Medical Summary ---
Author Name Unknown Address Unknown Organization : Laboratory Report Ordering Provider Test Date Status CHRISTINA DE LEÓN 03/17/2024 17:04:43 Final Observation Date Value Abnormality Reference (Units ) Status Glucose Point of Care 03/17/2024 17:04:43 167 Above high normal 70-120 (mg/dL) Final Performing Location
--- OUTSIDE RECORDS SUMMARY | 2024-03-22 07:43 | External Medical Summary ---
Author Name Unknown Address Unknown Organization [facility] [address] [place] [address] Laboratory Report Ordering Provider Test Date Status GADIEL PARRISH 03/19/2024 04:13:00 Final Observation Date Value Abnormality Reference (Units ) Status WBC, Total 03/19/2024 04:13:00 7.03 4.00-10.80 (K/uL) Final RBC 03/19/2024 04:13:00 3.75 3.85-5.15 (M/uL) Final Hemoglobin 03/19/2024 04:13:00 11.5 Below low normal 12.0-15.3 (g/dL) Final HCT 03/19/2024 04:13:00 34.1 Below low normal 36.0-45.2 (%) Final MCV 03/19/2024 04:13:00 90.9 81.5-97.5 (fL) Final MCH 03/19/2024 04:13:00 30.7 27.0-34.0 (pg) Final MCHC 03/19/2024 04:13:00 33.7 32.0-36.0 (g/dL) Final RDW 03/19/2024 04:13:00 12.4 11.5-15.5 (%) Final Platelets 03/19/2024 04:13:00 101 Below low normal 140-400 (K/uL) Final MPV 03/19/2024 04:13:00 9.9 6.6-11.1 (fL) Final Nucleated erythrocytes/100 leukocytes [Ratio] in Blood by Automated count 03/19/2024 04:13:00 0 <=0 (/100 WBCs) Final Performing Location LABORATORY [address] [place] [address]
--- OUTSIDE RECORDS SUMMARY | 2024-03-22 07:43 | External Medical Summary ---
Author Name Unknown Address Unknown Organization [facility] [address] [place] [address] Laboratory Report Ordering Provider Test Date Status JANIS CAMPUZANO 03/20/2024 07:31:00 Final Observation Date Value Abnormality Reference (Units ) Status BUN 03/20/2024 07:31:00 18 6-20 (mg/dL) Final Creatinine 03/20/2024 07:31:00 0.8 0.5-1.0 (mg/dL) Final Glomerular filtration rate/1.73 sq M.predicted [Volume Rate/Area] in Serum, Plasma or Blood by Creatinine-based formula (CKD-EPI) 03/20/2024 07:31:00 72 >=60 (mL/min) Final eGFR is calculated based on the CKD-EPI 2020 equation Sodium 03/20/2024 07:31:00 137 135-146 (m mol/L) Final Potassium 03/20/2024 07:31:00 3.5 3.5-5.1 (m mol/L) Final Cl 03/20/2024 07:31:00 100 98-107 (mm ol/L) Final CO2 03/20/2024 07:31:00 24 22-32 (mmo l/L) Final Anion gap 03/20/2024 07:31:00 13 7-15 (mmol /L) Final Glucose 03/20/2024 07:31:00 127 Above high normal 70 -120 (mg/dL) Final Calcium 03/20/2024 07:31:00 8.7 8.4-10.2 ( mg/dL) Final Performing Location LABORATORY [address] [place] [address]
--- OUTSIDE RECORDS SUMMARY | 2024-03-22 07:43 | External Medical Summary ---
Author Name Unknown Address Unknown Organization : Laboratory Report Ordering Provider Test Date Status GADIEL PARRISH 03/18/2024 11:16:13 Final Observation Date Value Abnormality Reference (Units ) Status Glucose Point of Care 03/18/2024 11:16:13 145 Above high normal 70-120 (mg/dL) Final Performing Location
--- OUTSIDE RECORDS SUMMARY | 2024-03-22 07:43 | External Medical Summary ---
Author Name Unknown Address Unknown Organization [facility] [address] [place] [address] Laboratory Report Ordering Provider Test Date Status CHRISTINA DE LEÓN 03/18/2024 04:12:00 Final Observation Date Value Abnormality Reference (Units ) Status BUN 03/18/2024 04:12:00 14 6-20 (mg/dL) Final Creatinine 03/18/2024 04:12:00 0.8 0.5-1.0 (mg/dL) Final Glomerular filtration rate/1.73 sq M.predicted [Volume Rate/Area] in Serum, Plasma or Blood by Creatinine-based formula (CKD-EPI) 03/18/2024 04:12:00 74 >=60 (mL/min) Final eGFR is calculated based on the CKD-EPI 2020 equation Sodium 03/18/2024 04:12:00 136 135-146 (m mol/L) Final Potassium 03/18/2024 04:12:00 3.8 3.5-5.1 (m mol/L) Final Cl 03/18/2024 04:12:00 102 98-107 (mm ol/L) Final CO2 03/18/2024 04:12:00 24 22-32 (mmo l/L) Final Anion gap 03/18/2024 04:12:00 10 7-15 (mmol /L) Final Glucose 03/18/2024 04:12:00 170 Above high normal 70 -120 (mg/dL) Final Calcium 03/18/2024 04:12:00 8.3 Below low normal 8.4 -10.2 (mg/dL) Final Performing Location LABORATORY [address] [place] [address]
--- OUTSIDE RECORDS SUMMARY | 2024-03-22 07:44 | External Medical Summary | Summary of Care ---
Author Name Unknown Organization [facility] Address [address] [place] [address] Phone [phone] Care Team Providers Care Warranty Administrator Name Role Phone Tabitha Cunningham MD Primary Care Provider [phone] Reason for Visit * Reason Comments Outpatient Testing Encounter Details Date Type Department Care Team (Late st Contact Info) Description 03/02/2024 2:50 PM EDT [facility] [phone] [address] [phone] Pre-operative cardiovascular examination; Type 2 diabetes mellitus with diabetic mononeuropathy, unspecified whether [facility] insulin use ([facility]) Allergies Active Allergy Reactions Criticality Noted Date Comments Adhesive Tape 07/06/1998 rash Lisinopril 04/04/2014 cough Oxycodone-Acetaminophen Other (Please comment) 02/05/2017 "jittery" Nauseated Silver Sulfadiazine Rash 12/07/2002 rash Carisoprodol Other (Please comment) 03/29/2012 Restless, jittery Sulfa Antibiotics 10/15/1998 Tendency towards yeast infections. documented as of this encounter (statuses as of 03/02/2024) Medications Medication Sig Dispensed Refills Start Date [...] Propionate 50 MCG/ACT Nasal Suspension Administer 1 [place] into nostril as needed. 15.8 mL 3 [...] of Breath. 18 g 3 12/24/2022 Active Citalopram Hydrobromide 20 MG Oral Tablet (CeleXA)Indications:A djustment disorder with depressed mood TAKE 1 TABLET BY MOUTH DAILY in the morning for mood. 90 Tablet 3 03/02/2023 Active Polyethylene Glycol 3350 17 GM/SCOOP Oral [...] appt for refills 90 Tablet 02/16/2024 Active documented as of this encounter (statuses as of 03/02/2024) Active Problems Problem Noted Date Diagnosed Date [...] pylori infection 11/05/2020 Overview: by [place] [facility] Other cirrhosis of liver 10/29/2020 Portal hypertension 10/29/2020 Morbid obesity due to excess calories 10/19/2020 Iron deficiency anemia 10/12/2020 S/P insertion of spinal cord stimulator 06/06/20 20 Overview: at [facility] [place] Doty HTN, goal below 150/90 [...] as of this encounter (statuses as of 03/02/2024) Resolved Problems Problem Noted Date Diagnosed Date Resolved Date Anemia 11/05/2020 11/15/2020 Chronic back pain 06/07/2020 11/15/2020 Encounter for examination fo r normal comparison and control in clinical research program 09/14/2018 04/09/2020 Overview: DO NOT DELETE [facility] [place] DETECT Study: Project # [id number], Licensed Practical Nurse: Sarbjit Garcia, PhD. SUMMARY: Goal: Establish test [...] contact study staff at ; after hours Licensed Practical Nurse via the [facility] hospital slitter operator . Please contact study team before resolving/deleting from patients problem list. Study phone number: [phone]. Diagnosis changed due to Research Module. Go to Snapshot for study details. Encounter for examination fo r normal comparison and control in clinical research program 09/14/2018 05/08/2022 Overview: DO NOT DELETE - [facility] [place] DETECT Study: Project # [id number], Licensed Practical Nurse: Mario Rene, MS, MPH. SUMMARY: Goal: Establish [...] contact study staff at ; after hours Licensed Practical Nurse via the [facility] hospital slitter operator . - Please contact study team before resolving/deleting from patients problem list. Study phone number: [phone]. Diagnosis changed due to Research Module. Go [...] as of this encounter (statuses as of 03/02/2024) Immunizations Name Administration Dates Next Due COVID-19 [...] No 10/21/2023 Does the household have a re gular source of income? (Household - for ages [...] No 01/09/2023 documented as of this encounter Plan of Treatment Upcoming Encounters Date Type Department Care Team (Late st Contact Info) Description 03/17/2024 8:45 AM EDT Hospital Encounter OR [facility], Operating Room [facility] [address] [place] [address] Rodriguez Jones MD [address] [place] [address] 03/17/2024 8:45 AM EDT - 03/17/2024 11:02 AM EDT Surgery OR [facility], Operating Room [facility] [address]st [address] [place] [address] Rodriguez Jones MD [address] [place] [address] ROBOTIC ARTHROPLASTY KNEE TOTAL 04/18/2024 9:00 AM EDT Office Visit Jenelle Small [address] [facility] [place] [address] Tabitha Cunningham MD [address] [facility] [place] [address] 04/20/2024 12:00 PM EDT Office Visit Cardiology, [place] [address] [facility] [place] [address] Bernarda De Los Santos CRNP [address] [facility] [place] [address] 06/28/2024 8:30 AM EDT Office Visit Orthopaedics Spine Surgery, [place] [address] [place] [address] Sarbjit Vera MD [address] [place] [address] 09/16/2024 8:20 AM EST Office Visit Family [facility], [place] [address] [facility] [place] [address] Tabitha Cunningham MD 27 [place] [address] 11/04/2024 8:45 AM EST Office Visit Ophthalmology, [place] [address] [place] [phone] Franck Soriano DO [address] [place] [phone] Pending Results Name Type Priority Associated Diagnoses Date /Time ALBUMIN Lab Routine Pre-operative cardiovascular examination 03/02/2024 2:47 PM EDT BASIC METABOLIC PANEL Lab Routine Pre-operative cardiovascular examination 03/02/2024 2:47 PM EDT CBC WITH WBC DIFFERENTIAL AND ANEMIA REFLEX WORKUP Lab Routine Pre-operative cardiovascular examination 03/02/2024 2:47 PM EDT TYPE AND SCREEN Lab Routine Pre-operative cardiovascular examination 03/02/2024 2:47 PM EDT HEMOGLOBIN A1C Lab Routine Type 2 diabetes mellitus with diabetic mononeuropathy, unspecified whether terminal operations manager insulin use (HCC) 03/02/2024 2:47 PM EDT ANEMIA CBC Lab Routine Pre-operative cardiovascular examination 03/02/2024 2:47 PM EDT DIFFERENTIAL, AUTOMATED Lab Routine Pre-operative cardiovascular examination 03/02/2024 2:47 PM EDT ANEMIA REFLEX CHEMISTRY HOLD Lab Routine Pre-operative cardiovascular examination 03/02/2024 2:47 PM EDT Scheduled Procedures Name Priority Associated Diagnoses Date/Ti me ROBOTIC ARTHROPLASTY KNEE TOTAL Primary osteoarthritis of left knee 03/17/2024 8:45 AM EDT Computer-Assisted Musculoskeletal Surgical Navigation CT/MRI Primary osteoarthritis of left knee 03/17/2024 8:45 AM EDT ROBOTIC SURGICAL SYSTEM Primary osteoarthritis of left knee 03/17/2024 8:45 AM EDT COLONOSCOPY FLEXIBLE PROXIMAL DIAGNOSTIC Recall Change in bowel habits Health Maintenance Due Date Last Done Comments CKD PHOS USE SMARTSET 21248 1963 Hepatitis B (1 of 3 - Risk 3-dose series) 2006 Zoster Vaccines (2 of 3) 10/06/2013 08/11/2013 COVID-19 Vaccine ( season) 2023 09/13/2021, 12/03/2020 GFR 02/20/2024 08/21/2023, 03/08, 01/30/2023, Additional history exists HbA1c 02/20/2024 08/21/2023, 03/08, 12/04/2022, Additional history exists Albumin/Creatinine Ratio 03/31/2024 023, 01/15/2022, 08/16/2014, Additional history exists B-12 03/31/2024 03/31/2023, 03/08, 10/11/2020, Additional history exists Depression Screening 04/10/2024 04/10/2023 CKD HGB USE SMARTSET 91115 08/21/202408/21, 08/21/2023, 01/30/2023, Additional history exists Diabetic Foot Exam 10/21/2024 10/21/2023, 1 10/16/2021, 11/15/2020, Additional history exists DXA Scan 11/13/2024 11/13/2022, 10/08, 10/05/2017, Additional history exists Diabetic Eye Exam 01/24/2025 01/25/2024, , 01/25/2024, Additional history exists Colonoscopy 11/06/2025 11/06/2020, 10/2020, 09/21/2014, Additional history exists DTaP,Tdap,and Td Vaccines (3 - Td or Tdap) 03/30/2027 03/30/2017, 11/05/2006, 10/17/1996 Pneumococcal Vaccine: 65+ Years Completed 08/30/2015, 12/16/2011 VITAMIN D LEVEL ONCE IN A LIFETIME-USE SMARTSET# 38333 Completed 03/30/2017, 09/17/2009 RETIRED - COLONOSCOPY-EVERY 5 YRS AGES 18-100 Discontinued 11/06/2020, 11/06/2020, 09/21/2014, Additional history exists Influenza Vaccine (FLU shot) Completed 06/23/2023, 07/01/2021, 08/24/2020, Additional history exists GARDASIL-HPV IMMUNIZATION SERIES Aged Out No longer eligible based on patient's age to complete this topic MENINGOCOCCAL (MENACTRA/MENVEO) Aged Out No longer eligible based on patient's age to complete this topic documented as of this encounter Medical Devices Implanted Type Area Risk Investigator Device Identifier Shelf Expiration Date Model / Serial / Lot Dbx 10cc [id number] - [id number] Implanted:Qt y: 1 on 03/15/2010 at [place] [facility] Tissue - Human N/A: Spine Lumbar MUSCULOSKELETAL TRANSPLANT FND 12/14/2011 [id number] / [id number] / Chip Cancellous 30cc [id number] - [id number] - [id number] Implanted:Qt y: 1 on 01/09/2023 by Sarbjit Vera MD at OR [facility] Tissue - Human N/A: Spine Lumbar MUSCULOSKELETAL TRANSPLANT FND 10/12/2024 [id number] / [id number] / [id number] Screw 7x50 Poly Si [id number] - [id number] Implanted:Qt y: 2 on 03/15/2010 at OR [facility] N/A: Spine Lumbar JNJ : [employer] [id number] / / TitusIndotradingrajesh [employer] - [id number] Implanted:Qt y: 2 on 01/25/2016 by Ken Will MD at OR [facility] Left: Shoulder [employer] 06/06/2016 [id number] / / [id number] Dbx 2.5cc [id number] - [id number] Implanted:Qt y: 1 on 02/18/2017 by Sarbjit Vera MD at [place] [facility] N/A: Spine Lumbar MUSCULOSKELETAL TRANSPLANT FND 09/26/2018 [id number] / / Screw 7x45 Poly Si [id number] - [id number] Implanted:Qt y: 2 on 02/18/2017 by Sarbjit Vera MD at [place] [facility] N/A: Spine Lumbar JNJ : [employer] [id number] / / Description:In Set Expedium Ti Sfx 5.5 Lat A5 - [id number] Implanted:Qt y: 1 on 02/18/2017 by Sarbjit Vera MD at [place] [facility] N/A: Spine Lumbar JNJ : [employer] [id number] / / Description:In Set [employer] [place] - [id number] Implanted:Qt y: 1 on 06/06/2020 by Sarbjit Vera MD at [place] [facility] N/A: Spine Thoracic [employer] : PAIN MGMT 04/17/2022 [id number] / / [id number] Description:bilateral Valve Lexie 3 Ultra 23mm - [id number] Implanted:Qt y: 1 on 11/27/2020 at CARDIAC [facility]S [facility] [employer] [id number] / / Gener Wvewriter Alpha Prime 16 - [id number] Implanted:Qt y: 1 on 02/14/2022 by Sarbjit Vera MD at OR [facility] Left: Back [employer] 01/20/2024 [id number] / / [id number] Description:left lower back Screw 6x40 Poly Si [id number] - [id number] Implanted:Qt y: 1 on 01/09/2023 by Sarbjit Vera MD at OR [facility] N/A: Spine Lumbar JNJ : [employer] [id number] / / Screw Set Sng Inner [id number] - [id number] Implanted:Qt y: 8 on 01/09/2023 by Sarbjit Vera MD at [place] [facility] N/A: Spine Lumbar JNJ : [employer] [id number] / / Expedium Ti Sfx 5.5 Lat A5 - [id number] Implanted:Qt y: 1 on 01/09/2023 by Sarbjit Vera MD at OR [facility] N/A: Spine Lumbar JNJ : [employer] [id number] / / Screw 6x45 Poly Si [id number] - [id number] Implanted:Qt y: 3 on 01/09/2023 by Sarbjit Vera MD at OR [facility] N/A: Spine Lumbar JNJ : [employer] [id number] / / 100mm [place] Implanted:Qt y: 2 on 01/09/2023 by Sarbjit Vera MD at OR [facility] N/A: Spine Lumbar [employer] 0 / / Graft Infuse Bone Lg [id number] - [id number] Implanted:Qt y: 1 on 01/09/2023 by Sarbjit Vera MD at OR [facility] N/A: Spine Lumbar [employer] : NEURO CARE [id number] 09/06/2024 [id number] / / [id number] documented as of this encounter Visit Diagnoses Diagnosis Osteoarthritis of knee- Primary Osteoarthrosis, unspecified whether generalized or localized, lower leg Pre-operative cardiovascular examination Type 2 diabetes mellitus with diabetic mononeuropathy, unspecified whether terminal operations manager insulin use (HCC) Primary osteoarthritis of left knee Primary localized osteoarthrosis, lower leg documented in this encounter Advance Directives * Full Code [...] Power of Attor arnold? No Care Teams Warranty Administrator Relationship Specialty Start Date End Date Tabitha Cunningham MD [address] [facility] [address] [place] [address] PCP - General 04/21/1996 documented as of this encounter
--- OUTSIDE RECORDS SUMMARY | 2024-03-22 07:44 | External Medical Summary | Summary of Care ---
Author Name Unknown Organization [facility] Address [address] [place] [address] Phone [phone] Care Team Providers Care Pants Presser Name Role Phone Tabitha Brink MD Primary Care Provider [phone] Reason for Visit * Reason Comments eRx-Medication Refill Encounter Details Date Type Department Care Team (Late st Contact Info) Description 03/07/2024 Refill [facility], [place] [address] [facility] [place] [id number] Tabitha Brink MD [address] [facility] [place] [address] Adjustment disorder with depressed mood Allergies Active Allergy Reactions Criticality Noted Date Comments Adhesive Tape 07/06/1998 rash Lisinopril 04/04/2014 cough Oxycodone-Acetaminophen Other (Please comment) 02/05/2017 "jittery" Nauseated Silver Sulfadiazine Rash 12/07/2002 rash Carisoprodol Other (Please comment) 03/29/2012 Restless, jittery Sulfa Antibiotics 10/15/1998 Tendency towards yeast infections. documented as of this encounter (statuses as of 03/07/2024) Medications Medication Sig Dispensed Refills Start Date End Date Status ASPIRIN EC LOW STRENGTH 81 MG PO TBECIndications:Oth er nonspecific abnormal cardiovascular system function study one by mouth daily 34 5 6 Active Amoxicillin 500 MG Oral Capsule (Amoxil) Take 4 tablets by mouth one hour prior to any dental procedure or cleaning 12 Cap 03 1 Active Loratadine 10 MG Oral Tablet (Claritin)Indicatio ns:Allergic disorder, subsequent encounter One tab each julisa for allergies 30 Tab 5 1 Active Fluticasone Propionate 50 MCG/ACT Nasal Suspension Administer 1 [place] into nostril as needed. 15.8 mL 3 1 Active Tylenol 325 MG Oral Capsule (Acetaminophen) Take 325 mg by mouth every 6 hours. 30 Capsule 1 Active traZODone HCl 50 MG Oral Tablet (Desyrel)Indication s:Fatigue, unspecified type TAKE ONE TABLET BY MOUTH NIGHTLY AT BEDTIME 90 Tablet 3 3 Active Ventolin HFA 108 (90 Base) MCG/ACT Inhalation Aerosol SolutionIndications :Mild intermittent extrinsic asthma without complication Inhale 2 Puffs by mouth 4 times a day as needed for Cough or Shortness of Breath. 18 g 3 3 Active Polyethylene Glycol 3350 17 GM/SCOOP Oral Powder (MiraLax) Take 17 g by mouth in the morning. Active hydroCHLOROthiazide 25 MG Oral Tablet (Hydrodiuril)Indica tions:HTN, goal below 140/90 TAKE ONE TABLET BY MOUTH EVERY MORNING for fluid and blood pressure 90 Tablet 3 4 Active Atorvastatin Calcium 20 MG Oral Tablet (Lipitor)Indication s:Mixed hyperlipidemia TAKE ONE (1) TABLET BY MOUTH EVERY DAY 90 Tablet 1 4 Active Metoprolol Succinate ER 25 MG Oral Tablet Extended Release 24 Hour (toPROL XL) TAKE ONE (1) TABLET BY MOUTH EVERY DAY 90 Tablet 3 4 Active prednisoLONE Acetate 1 % Ophthalmic Suspension (Pred Forte) Instill 1 Drop into both eyes in the morning and 1 Drop at noon and 1 Drop in the evening and 1 Drop before bedtime. 10 mL 4 Active metFORMIN HCl 500 MG Oral Tablet (Glucophage)Indicat ions:Type 2 diabetes mellitus with hemoglobin A1c goal of 7.0%-8.0% (HCC) TAKE ONE (1) TABLET BY MOUTH EVERY DAY 90 Tablet 1 4 Active Alendronate Sodium 70 MG Oral Tablet (Fosamax) Take 1 tablet once weekly 30 minutes before breakfast with 8oz of water. Remain upright for 30 minutes after taking medication. 12 Tablet 1 4 Active Losartan Potassium 100 MG Oral Tablet (Cozaar)Indications :HTN, goal below 140/90 TAKE ONE (1) TABLET BY MOUTH EVERY DAY. Must make appt for refills 90 Tablet 4 Active Citalopram Hydrobromide 20 MG Oral Tablet (CeleXA)Indications :Adjustment disorder with depressed mood TAKE ONE TABLET BY MOUTH EVERY DAY IN THE MORNING. for mood 90 Tablet 1 4 Active Citalopram Hydrobromide 20 MG Oral Tablet (CeleXA)Indications :Adjustment disorder with depressed mood TAKE 1 TABLET BY MOUTH DAILY in the morning for mood. 90 Tablet 3 3 03/07/20 24 Discontinued documented as of this encounter (statuses as of 03/07/2024) Active Problems Problem Noted Date Diagnosed Date [...] pylori infection 11/05/2020 [place] [facility] Other cirrhosis of liver 10/29/2020 Portal hypertension 10/29/2020 Morbid obesity due to excess calories 10/19/2020 Iron deficiency anemia 10/12/2020 S/P insertion of spinal cord stimulator 06/06/20 20 Overview: [place] [facility] [place] Doty HTN, goal below 150/90 [...] as of this encounter (statuses as of 03/07/2024) Resolved Problems Problem Noted Date Diagnosed Date Resolved Date Anemia 11/05/2020 11/15/2020 Chronic back pain 06/07/2020 11/15/2020 Encounter for examination fo r normal comparison and control in clinical research program 09/14/2018 04/09/2020 Overview: DO NOT DELETE [facility] DETECT Study: Project # [id number], Electric Truck Crane Operator: Sarbjit Garcia, PhD. SUMMARY: Goal: Establish test [...] contact study staff at ; after hours [employer] Operator via the [facility] beauty operator . Please contact study team before resolving/deleting from patients problem list. Study phone number: [phone]. Diagnosis changed due to Research Module. Go to Snapshot for study details. Encounter for examination fo r normal comparison and control in clinical research program 09/14/2018 05/08/2022 Overview: DO NOT DELETE - [facility] DETECT Study: Project # [id number], Electric Truck Crane Operator: Mario Rene, MS, MPH. SUMMARY: Goal: Establish [...] contact study staff at ; after hours Electric [employer] Crane Operator via the [facility] beauty operator . - Please contact study team before resolving/deleting from patients problem list. Study phone number: [phone]. Diagnosis changed due to Research Module. Go [...] as of this encounter (statuses as of 03/07/2024) Immunizations Name Administration Dates Next Due COVID-19 [...] (15 years old or older) No 01/10/20 23 Cognitive Status Response Date of Assessm ent Because of a physical, menta l, or emotional condition, do you have serious difficulty concentrating, remembering, or making decisions? (5 years old or older) No 01/09/2023 documented as of this encounter Miscellaneous Notes * Telephone Encounter - Tabitha Brink MD - 03/07/2024 1:10 PM EDTSigned Prescriptions: Disp Refills Citalopram Hydrobromide 20 MG Oral Tablet *90 Tab*1 Sig: TAKE ONE TABLET BY MOUTH EVERY DAY IN THE MORNING. for moodAuthorizing Provider: TABITHA BRINK * Telephone Encounter - Dwayne Woodward LPN - 03/07/2024 11:40 AM EDTPending Prescriptions: Disp Refills Citalopram Hydrobromide 20 MG Oral Tablet *90 Tab*0 Sig: TAKE ONE TABLET BY MOUTH EVERY DAY IN THE MORNING. for mood * Telephone Encounter - Dwayne Woodward LPN - 03/07/2024 11:39 AM EDT Did you pend patient's preferred pharmacy and medication before forwarding?yes Pharmacy: [id number] [place] Pending Prescriptions: Disp Refills Citalopram Hydrobromide 20 MG Oral Tablet*90 Tab*0 Sig: TAKE ONE TABLET BY MOUTH EVERY DAY IN THE MORNING. for mood Last Visit: 10/21/2023 (in office), Visit date not found (telemedicine) Next Visit: 04/18/2024 If no future appointments scheduled, and last appointment is greater than a year ago, please schedule patient for a follow-up appointment Last date the medication was ordered: 03/02/23 Is this request for a controlled substance?No Urine Drug Screen:No results found. However, due to the size of the patient record, not all encounters were searched. Please check Results Review for a complete set of results. Patient Phone Numbers Labs: Lab Results Component Value Date/Time CREAT 1.0 03/02/2024 02:47 PM CREAT 0.9 06/07/2020 05:35 AM CREAT 0.7 10/17/1996 12:00 PM POTASSIUM 4.0 03/02/2024 02:47 PM POTASSIUM 3.8 06/07/2020 05:35 AM POTASSIUM 4.4 10/17/1996 12:00 PM TSH 3.05 10/11/2020 11:37 AM TSH 3.65 11/17/2018 10:26 AM LDLCALC 64 08/21/2023 12:00 PM LDLCALC 90 06/01/2019 09:07 AM LDLDIRECT 123 03/28/2021 11:09 AM LDLDIRECT 118 11/17/2018 10:26 AM ALT 26 08/21/2023 12:00 PM ALT 24 06/01/2019 09:07 AM ALT 28 10/17/1996 12:00 PM HGBA1C 5.5 03/02/2024 02:47 PM HGBA1C 6.0 (H) 05/29/2020 01:23 PM documented in this encounter Plan of Treatment Upcoming Encounters Date Type Department Care Team (Late st Contact Info) Description 03/17/2024 8:45 AM EDT Hospital Encounter [facility], Operating Room [address] Floor [address] [place] [id number] Rodriguez Jones MD [address] [place] [address] 03/17/2024 8:45 AM EDT - 03/17/2024 11:02 AM EDT Surgery [facility], Operating Room [address] [address] Rodriguez Jones MD [address] [place] [address] ROBOTIC ARTHROPLASTY KNEE TOTAL 04/18/2024 9:00 AM EDT Office Visit [facility] [address] [place] [address] Tabitha Brink MD [address] [place] [address] 04/20/2024 12:00 PM EDT Office Visit Cardiology, [place] [address] [facility] [place] [address] Bernarda De Los Santos CRNP [address] [facility] [place], [place] [id number] 06/28/2024 8:30 AM EDT Office Visit Orthopaedics Spine Surgery, [place] [address] [facility] [phone] Sarbjit Vera MD [address] [place] [address] 08/18/2024 9:20 AM EST Office Visit Hepatology, [facility] [address] [place] [address] Cassi Pugh MD [address] [place] [address] 09/16/2024 8:20 AM EST Office Visit [facility] [address] [place] [address] Tabitha Brink MD [address] [place] [address] 11/04/2024 8:45 AM EST [facility] [address] [place] [address] Renuka Soriano DO [address] [place] [address] Scheduled Procedures Name Priority Associated Diagnoses Date/Ti [...] Last Done Comments CKD PHOS USE SMARTSET 33988 1963 Hepatitis B (1 of 3 - [...] Additional history exists CKD HGB USE SMARTSET 97064 03/02/202503/02, 03/02/2024, 08/21/2023, Additional history exists Colonoscopy 11/06/2025 11/06/2020, 10/2020, 09/21/2014, Additional history exists DTaP,Tdap,and Td Vaccines (3 - Td or Tdap) 03/30/2027 03/30/2017, 11/05/2006, 10/17/1996 Pneumococcal Vaccine: 65+ Years Completed 08/30/2015, 12/16/2011 VITAMIN D LEVEL ONCE IN A LIFETIME-USE SMARTSET# 78550 Completed 03/30/2017, 09/17/2009 RETIRED - COLONOSCOPY-EVERY 5 YRS AGES 18-100 Discontinued 11/06/2020, 11/06/2020, 09/21/2014, Additional history exists GARDASIL-HPV IMMUNIZATION SERIES Aged Out No longer eligible based on patient's age to complete this topic MENINGOCOCCAL (MENACTRA/MENVEO) Aged Out No longer eligible based on patient's age to complete this topic documented as of this encounter Medical Devices Implanted Type Area Brass Sorter Device Identifier Shelf Expiration Date Model / Serial / Lot Dbx 10cc [id number] - [id number] Implanted:Qt y: 1 on 03/15/2010 [place] [facility] Tissue - Human N/A: Spine Lumbar MUSCULOSKELETAL TRANSPLANT FND 12/14/2011 [id number] / [id number] / Chip Cancellous 30cc [id number] - [id number] - [id number] Implanted:Qt y: 1 on 01/09/2023 by Sarbjit Vera MD [place] [facility] Tissue - Human N/A: Spine Lumbar MUSCULOSKELETAL TRANSPLANT FND 10/12/2024 [id number] / [id number] / [id number] Screw 7x50 Poly Si [id number] - [id number] Implanted:Qt y: 2 on 03/15/2010 at [place] [facility] N/A: Spine Lumbar JNJ : [employer] [id number] / / Corkscrew [employer] Composite - [id number] Implanted:Qt y: 2 on 01/25/2016 by Ken Will MD at OR [facility] Left: Shoulder [employer] 06/06/2016 [id number] / / [id number] Dbx 2.5cc [id number] - [id number] Implanted:Qt y: 1 on 02/18/2017 by Sarbjit Vera MD [place] [facility] N/A: Spine Lumbar MUSCULOSKELETAL TRANSPLANT FND 09/26/2018 [id number] / / Screw 7x45 Poly Si [id number] - [id number] Implanted:Qt y: 2 on 02/18/2017 by Sarbjit Vera MD at [place] [facility] N/A: Spine Lumbar JNJ : [employer] [id number] / / Description:In Set Expedium Ti Sfx 5.5 Lat A5 - [id number] Implanted:Qt y: 1 on 02/18/2017 by Sarbjit Vera MD at [place] [facility] N/A: Spine Lumbar JNJ : [employer] [id number] / / Description:In Set Clik Adams - [id number] Implanted:Qt y: 1 on 06/06/2020 by Sarbjit Vera MD at [place] [facility] N/A: Spine Thoracic [employer] : PAIN MGMT 04/17/2022 [id number] / / [id number] Description:bilateral Valve Lexie 3 Ultra 23mm - [id number] Implanted:Qt y: 1 on 11/27/2020 at [facility] [employer] [id number] / / Gener Wvewriter Alpha Prime 16 - [id number] Implanted:Qt y: 1 on 02/14/2022 by Sarbjit Vera MD at [place] [facility] Left: Back [employer] 01/20/2024 [id number] / / [id number] Description:left lower back Screw 6x40 Poly Si [id number] - [id number] Implanted:Qt y: 1 on 01/09/2023 by Sarbjit Vera MD at [place] [facility] N/A: Spine Lumbar JNJ : [employer] [id number] / / Screw Set Sng Inner [id number] - [id number] Implanted:Qt y: 8 on 01/09/2023 by Sarbjit Vera MD [place] [facility] N/A: Spine Lumbar JNJ : [employer] [id number] / / Expedium Ti Sfx 5.5 Lat A5 - [id number] Implanted:Qt y: 1 on 01/09/2023 by Sarbjit Vera MD [place] [facility] N/A: Spine Lumbar JNJ : [employer] [id number] / / Screw 6x45 Poly Si [id number] - [id number] Implanted:Qt y: 3 on 01/09/2023 by Sarbjit Vera MD [place] [facility] N/A: Spine Lumbar JNJ : [employer] [id number] / / 100mm [place] Implanted:Qt y: 2 on 01/09/2023 by Sarbjit Vera MD at [place] [facility] N/A: Spine Lumbar [employer] 0 / / Graft Infuse Bone Lg [id number] - [id number] Implanted:Qt y: 1 on 01/09/2023 by Sarbjit Vera MD at [place] [facility] N/A: Spine Lumbar [employer] : NEURO CARE [id number] 09/06/2024 [id number] / / [id number] documented as of this encounter Visit Diagnoses Diagnosis Osteoarthritis of knee- Primary Osteoarthrosis, unspecified whether generalized or localized, lower leg Adjustment disorder with depressed mood Primary osteoarthritis of left knee Primary localized [...] Power of Attor arnold? No Care Teams Pants Presser Relationship Specialty Start Date End Date Tabitha Brink MD [address] [facility] [place] [address] PCP - General 04/21/1996 documented as of this encounter
--- OUTSIDE RECORDS SUMMARY | 2024-03-22 07:44 | External Medical Summary | Summary of Care ---
Author Name Unknown Organization [facility] Address [address] [place] [address] Phone [phone] Care Team Providers Care Sound Art Instructor Name Role Phone Tabitha Cunningham MD Primary Care Provider [phone] Reason for Visit * Reason Comments Follow Up H and p Encounter Details Date Type Department Care Team (Late st Contact Info) Description 03/02/2024 2:00 PM EDT Office Visit Orthopaedics [facility] [address] [place] [address] Jyoti Phelan PA-C [address] [place] [address] Type 2 diabetes mellitus with diabetic mononeuropathy, unspecified whether director long term care insulin use (HCC)*; Pre-operative cardiovascular examination; Arthralgia of left lower leg Allergies Active Allergy Reactions Criticality Noted Date [...] Propionate 50 MCG/ACT Nasal Suspension Administer 1 [place] into nostril as needed. 15.8 mL 3 [...] pylori infection 11/05/2020 Overview: by EGD at [facility] Other cirrhosis of liver 10/29/2020 Portal hypertension 10/29/2020 Morbid obesity due to excess calories 10/19/2020 Iron deficiency anemia 10/12/2020 S/P insertion of spinal cord stimulator 06/06/20 Overview: at [facility] per Dr Doty HTN, goal below 150/90 [...] program 09/14/2018 04/09/2020 Overview: DO NOT DELETE [facility] DETECT Study: Project # [id number], [employer]: Tyler Garcia, PhD. SUMMARY: Goal: Establish test characteristics [...] contact study staff at ; after hours [employer] via the [facility] roll operator . Please contact study team before resolving/deleting from patients problem list. Study phone number: [phone]. Diagnosis changed due to Research Module. Go to Snapshot for study details. Encounter for examination fo r normal comparison and control in clinical research program 09/14/2018 05/08/2022 Overview: DO NOT DELETE - [facility] PINKY Study: Project # [id number], [employer]: Mario Rene, MS, MPH. SUMMARY: Goal: Establish [...] contact study staff at ; after hours [employer] via the [facility] roll operator . - Please contact study team before resolving/deleting from patients problem list. Study phone number: [phone]. Diagnosis changed due to Research Module. Go [...] on file documented as of this encounter Last Filed Vital Signs Vital Sign Reading Time Taken Comments Blood Pressure - - Pulse - - Temperature - - Respiratory Rate - - Oxygen Saturation - - Inhaled Oxygen Concentration - - Weight 89.4 kg (197 lb) 03/02/2024 1:38 PM EDT Height 160 cm (5' 3") 03/02/2024 1:38 PM EDT Body Mass Index 34.9 03/02/2024 1:38 PM EDT documented in this encounter Functional Status Functional Status Response [...] No 01/09/2023 documented as of this encounter Progress Notes * Jyoti Phelan PA-C - 03/02/2024 2:40 PM EDT Orthopaedic Clinic History and Physical 03/02/2024 Name: Hannah Groves [id number] History of Present Illness: Patient is a 78 year old female presenting to clinic for a pre-operative evaluation prior to left total knee arthroplasty. The patient has been seen and evaluated previously and has been scheduled for surgery. The patient has function limiting pain secondary to osteoarthritis. The patient does not use any assistive devices and has tried intra-articular injections of corticosteroid without significant, persistent relief of pain. Past Medical History: Diagnosis Date Allergic rhinitis Asthma in remission Asthma, mild, intermittent----sees Dr. Lundy Benign neoplasm of colon 09/28/2012 adenomatous polyps, repeat 2 yrs Bilateral carpal tunnel syndrome 07/08/2021 Bilateral by EMG mild median nerve COVID-19 08/2023 presumed positive Diverticulosis of sigmoid colon 09/21/2014 DM type 2, goal A1C below 8.0 Dyslipidemia, goal to be determined Full thickness rotator cuff tear 12/20/2015 Generalized osteoarthritis GERD (gastroesophageal reflux disease) 11/2002 H. pylori infection 11/2020 by EGD at [facility] HTN, goal below 140/90 INFORMATION 02/05/1998 R Ovarian Cyst--Us by [employer] INFORMATION 12/18/1997 Neuroma, B feet---saw Dr. Ariza Lumbar spine pain 12/23/2016 Menopause Other osteoporosis 11/2008 by DEXA Other specified glaucoma 07/09/2004 narrow angle glaucoma suspect OU, Dr. Mccallum S/P insertion of spinal cord stimulator 06/06/2020 at [facility] per Dr Doty Sensorineural hearing loss left ear hearing aid Sleep apnea in adult 09/[address] Jenifer Carson sleep medicine Spinal stenosis of lumbar region without neurogenic claudication 03/06/2010 Type 2 diabetes mellitus with hemoglobin A1c goal of less than 8.0% ([facility]) ICD-10 update of inactive term Past Surgical History: Procedure Laterality Date ANESTH, LUMBAR SPINE/CORD SURGERY 02/17/2000 lumbar stenosis surgery at [facility] per Dr Medina L4-5-see scan ARTHO,SHOUL,W/ROTATOR CUFF Left 01/25/2016 ARTHROSCOPY SHOULDER ROTATOR CUFF performed by Jassi Dooley MD at [facility] CARDIAC CATHETERIZATION REPORT 11/06/2020 Right Heart Catheterization: RA = 14 mmHg; RV = 54/14 mmHg; PA = 44/14 (26) mmHg; PW = 26 mmHg; CO (Janak) = 6.18 L/min, CI = 3.1 L/min/m2; Saturations: Arterial 95% and PA 53%. Elevated filling pressures. * Left Cx has 30% stenosis in the mid-segment. Other vessels without any disease CARPAL TUNNEL SURGERY Right 07/25/2021 NEUROPLASTY MEDIAN NERVE AT CARPAL TUNNEL performed by [facility] COLONOSCOPY 11/24/2001 wnl per Yoav COLONOSCOPY 11/06/2020 wnl COLONOSCOPY, DIAGNOSTIC (RECTUM) 09/28/2012 adenomatous polyps, repeat 2 yrs/COLONOSCOPY FLEXIBLE PROXIMAL DIAGNOSTIC performed by Sloan Day MD at [facility]COPY [facility] COLONOSCOPY, DIAGNOSTIC (RECTUM) N/A 09/21/2014 Diverticulosis in the sigmoid colon. several hyperplastic polyps, repeat in 5 yrs/COLONOSCOPY FLEXIBLE PROXIMAL DIAGNOSTIC performed by Sloan Day MD at [facility] COLONOSCOPY, DIAGNOSTIC (RECTUM) N/A 11/06/2020 COLONOSCOPY FLEXIBLE PROXIMAL DIAGNOSTIC performed by Kavita Solomon DO at ENDOSCOPY [facility] CORONARY ANGIOGRAPHY W/RIGHT+LEFT CATH 11/05/2020 CORONARY ANGIOGRAPHY W/RIGHT+LEFT CATH performed by Richard Leggett MD at [facility] CREATE SPINAL CORD LESION/STEREOTAX 06/06/2020 spinal cord stimulator [id number] GENERATOR(NO MRI) [id number] LEAD implant at [facility] per Dr Falcon CT 3D RECON TAVR 11/27/2020 at [facility] DECOMPRESS LUMBAR SPINAL CORD SEG 02/18/2017 HWR L3-4, L2-3 lami, psf per Dr Navarro at [facility] DEXA SCAN/BONE MINERAL AXIAL 11/08/2008 high risk-start tx DEXA SCAN/BONE MINERAL AXIAL 01/20/2011 still high risk-no tx change-repeat 2yr ECHO (2-D COMPLETE) 10/07/2005 mild LVH but essentially wnl ECHO (2-D COMPLETE) 10/31/2020 Severe aortic stenosis EF 67% EGD, FLEXIBLE, DIAGNOSTIC N/A 11/06/2020 ESOPHAGOGASTRODUODENOSCOPY (EGD), FLEXIBLE, TRANSORAL, DIAGNOSTIC performed by Kavita Solomon DO at ENDOSCOPY [facility] EMG 2 EXTREMITY 07/08/2021 Mild bilateral medial carpal tunnel syndrome FLUORO UPPER GI WITHOUT AIR WO KUB 11/2002 reflux IMPLANT EPIDURAL NEUROELECTRODES Bilateral 06/06/2020 LAMINECTOMY POSTERIOR FOR IMPLANTATION NEUROSTIMULATOR ELECTRODES EPIDURAL performed by Tyler Vera MD at OR [facility] INFORMATION 02/05/1998 R Ovarian cyst INJECTION LUMBAR/SACRAL 11/27/2005 at [facility]-steroid injection INJECTION LUMBAR/SACRAL winter 2006 Dr June [facility] KNEE ARTHROSCOPY/MENISCECTOMY 09/25/2009 ARTHROSCOPY KNEE MEDIAL OR LATERAL MENISCECTOMY performed by JASSI DOOLEY at OR [facility]-left LAMINECTOMY FOR EXPLORATION/DECOMPRESSION OF SPINAL CORD AND/OR CAUDA EQUINA, MO 01/08/[address] [facility] Dr Rutherford-Post op HWR L3-4, L2-3 laminectomy, L1-3 psf, L1-4 instrumentation LAMINOTOMY, SINGLE LUMBAR 03/15/2010 Revision spine , L3/L4 Laminectomy and PSFper Lydia LUMBAR HEMILAMINECTOMY 01/27/2006 L4-L5 laminectomy posterior spinal fusion LUMBAR SPINE FUSION, POSTEROLATERAL 03/15/2010 ARTHRODESIS SPINE POSTERIOR LUMBAR performed by TYLER VERA at [facility] LUMBAR SPINE FUSION, POSTEROLATERAL N/A 02/18/2017 ARTHRODESIS SPINE POSTERIOR LUMBAR L2-3 performed by Tyler Vera MD at [facility] LUMBAR SPINE FUSION, POSTEROLATERAL N/A 01/09/2023 ARTHRODESIS SPINE POSTERIOR LUMBAR performed by Tyler Vera MD at [facility] MOBILE DXA 10/19/2015 mod risk-no tx-repeat 2 yr MRI L SPINE WO CONTRAST 01/31/2010 L3-4 disc bulging is resulting in moderate to severe central spinal canal stenosis which has worsened since the prior examination. REMOVAL OF EYELID LESION 08/19/2011 lesion WILMAN/LLL REMOVE FOOT NERVE LESION (ROBINS) 07/1998 BILAT- DONE BY JOANN REMOVE LUMBAR SPINE LAMINA, 1 SEG 03/15/2010 LAMINECTOMY FACETECTOMY AND FORAMINOTOMY LUMBAR performed by TYLER VERA at [facility] REMOVE LUMBAR SPINE LAMINA, 1 SEG N/A 02/18/2017 LAMINECTOMY FACETECTOMY AND FORAMINOTOMY LUMBAR performed by Tyler Vera MD at OR [facility] REMOVE LUMBAR SPINE LAMINA, 1-2 N/A 01/09/2023 LAMINECTOMY POSTERIOR LUMBAR ONE OR TWO SEGMENTS performed by Tyler Vera MD at OR [facility] REMOVE SPINE FIXATION DEVICE, POST 03/15/2010 REMOVAL POSTERIOR SPINAL NONSEGMENTAL INSTRUMENTATION performed by TYLER VERA at [facility] REMOVE SPINE FIXATION DEVICE, POST N/A 02/18/2017 REMOVAL POSTERIOR SPINAL NONSEGMENTAL INSTRUMENTATION performed by Tyler Vera MD at OR [facility] REPLACE AORTIC VALVE, PERCUTANEOUS FEMORAL N/A 11/27/2020 REPLACE AORTIC VALVE, PERCUTANEOUS FEMORAL performed by Richard Leggett MD at [facility] REPLACE AORTIC VALVE, PERCUTANEOUS FEMORAL 11/27/2020 REPLACE AORTIC VALVE, PERCUTANEOUS FEMORAL performed by Fernando Garcia MD at [facility] REVISE/REMOVE SPINAL NEURORECEIVER N/A 04/05/2021 REVISION OR REMOVAL IMPLANTED SPINAL NEUROSTIMULATOR performed by Tyler Vera MD at OR [facility] REVISE/REMOVE SPINAL NEURORECEIVER N/A 01/09/2023 REVISION OR REMOVAL IMPLANTED SPINAL NEUROSTIMULATOR performed by Tyler Vera MD at OR [facility] SACROILIAC JOINT INJECT W/GUIDANCE Bilateral 12/24/2023 INJECTION SACROILIAC JOINT performed by Rosa Rojas MD at OR [facility] SHOULDER ARTHROSCOPY SURGERY Left 01/25/[address] [facility] [address] Dooley SHOULDER ARTHROSCOPY SURGERY Left 01/25/2016 ARTHROSCOPY SHOULDER DISTAL CLAVICLE RESECTION performed by Jassi Dooley MD at [facility] SHOULDER ARTHROSCOPY/DECOMPRESSION Left 01/25/2016 ARTHROSCOPY SHOULDER SUBACROMIAL DECOMPRESSION performed by Jassi Dooley MD at [facility] SPINAL NEUROSTIM ELECTRODE PERC ARRAY,REMOV N/A 02/14/2022 REMOVAL SPINAL NEUROSTIM ELECTRODE PERC ARRAY performed by Tyler Vera MD at OR [facility] SPINAL NEUROSTIM ELECTRODE PERC ARRAY,EVELYN N/A 02/14/2022 REVISION SPINAL NEUROSTIM ELECTRODE PERC ARRAY performed by Tyler Vera MD at OR [facility] SPINE FUSION, EACH ADD'L INTERSPACE N/A 01/09/2023 ARTHRODESIS SPINE POSTERIOR WITH LAMINECTOMY EACH ADDITIONAL performed by Tyler Vera MD atOR [facility] TENDON SHEATH INCISION, FINGER Right 07/25/2021 TRIGGER FINGER RELEASE performed by Emmett H[facility] MD at [facility] TOTAL HYSTERECTOMY age 37 USO US ABDOMEN LIMITED 10/2002 neg for gallstones Family History: Non-contributory Social History: Social History Socioeconomic History Marital status: Occupational History 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 (Adult - for ages 18 years and over): No Food Insecurity: No Food Insecurity (10/21/2023) Food Insecurity Do you need food for this week? (Adult - for ages 18 years and over): No Transportation Needs: No Transportation Needs (10/21/2023) Transportation Needs Do you have trouble getting a ride to medical visits or work? (Adult - for ages 18 years and over):Never True Social Connections: Socially Integrated (10/21/2023) Social Connections How often do you feel lonely or isolated from those around you? (Adult - for ages 18 years and over): Never Housing Stability: Low Risk (10/21/2023) Housing Stability Do you currently live in a halfway or have no steady place to sleep at night? (Adult - for ages 18 years and over): No Do you think you are at risk of becoming homeless? (Adult - for ages 18 years and over): No Smoking cessation discussed? The patient is a current nonsmoker; smoking cessation is not indicated. Social History Substance and Sexual Activity Drug Use No Medications Current Outpatient Medications Medication Sig Dispense Refill ASPIRIN EC LOW STRENGTH 81 MG PO TBEC one by mouth daily 34 5 Amoxicillin 500 MG Oral Capsule (Amoxil) Take 4 tablets by mouth one hour prior to any dental procedure or cleaning 12 Cap 03 Loratadine 10 MG Oral Tablet (Claritin) One tab each julisa for allergies 30 Tab 5 Fluticasone Propionate 50 MCG/ACT Nasal Suspension Administer 1 [place] into nostril as needed. 15.8 mL 3 Tylenol 325 MG Oral Capsule (Acetaminophen) Take 325 mg by mouth every 6 hours. 30 Capsule 0 traZODone HCl 50 MG Oral Tablet (Desyrel) TAKE ONE TABLET BY MOUTH NIGHTLY AT BEDTIME 90 Tablet 3 Ventolin HFA 108 (90 Base) MCG/ACT Inhalation Aerosol Solution Inhale 2 Puffs by mouth 4 times a day as needed for Cough or Shortness of Breath. 18 g 3 Citalopram Hydrobromide 20 MG Oral Tablet (CeleXA) TAKE 1 TABLET BY MOUTH DAILY in the morning for mood. 90 Tablet 3 Polyethylene Glycol 3350 17 GM/SCOOP Oral Powder (MiraLax) Take 17 g by mouth in the morning. hydroCHLOROthiazide 25 MG Oral Tablet (Hydrodiuril) TAKE ONE TABLET BY MOUTH EVERY MORNING for fluid and blood pressure 90 Tablet 3 Atorvastatin Calcium 20 MG Oral Tablet (Lipitor) TAKE ONE (1) TABLET BY MOUTH EVERY DAY 90 Tablet 1 Metoprolol Succinate ER 25 MG Oral Tablet Extended Release 24 Hour (toPROL XL) TAKE ONE (1) TABLET BY MOUTH EVERY DAY 90 Tablet 3 prednisoLONE Acetate 1 % Ophthalmic Suspension (Pred Forte) Instill 1 Drop into both eyes in the morning and 1 Drop at noon and 1 Drop in the evening and 1 Drop before bedtime. 10 mL 0 metFORMIN HCl 500 MG Oral Tablet (Glucophage) TAKE ONE (1) TABLET BY MOUTH EVERY DAY 90 Tablet 1 Alendronate Sodium 70 MG Oral Tablet (Fosamax) Take 1 tablet once weekly 30 minutes before breakfast with 8oz of water. Remain upright for 30 minutes after taking medication. 12 Tablet 1 Losartan Potassium 100 MG Oral Tablet (Cozaar) TAKE ONE (1) TABLET BY MOUTH EVERY DAY. Must make appt for refills 90 Tablet 0 No current facility-administered medications for this visit. Allergies Review of patient's allergies indicates: Allergen Reactions Adhesive Tape rash Lisinopril cough Percocet [Oxycodone-Acetaminophen] Other (Please comment) "jittery" Nauseated Silver Sulfadiazine Rash rash Soma [Carisoprodol] Other (Please comment) Restless, jittery Sulfa Antibiotics Tendency towards yeast infections. Review of Systems CONSTITUTIONAL: no weight loss, no weakness, and no fatigue RESP: no cough, no sputum, no wheezing, and no SOB CARDIAC: no chest pain, no orthopnea, and no dyspnea on exertion GI: no pain, no heartburn, no diarrhea, no constipation MSK: as above NEURO: no memory loss and no weakness PSYCH: denies feeling down, depressed or hopeless in past month, denies being bothered by little interest or pleasure in doing things in past month, and no insomnia HEME: no fever, no chills, no sweats, and no bleeding/bruising ENDO: no unplanned weight change SKIN: no rash, no itching, and no new/changing skin lesions Physical Exam Ht 1.6 m (5' 3") | Wt 89.4 kg (197 lb) | BMI 34.90 kg/m | BSA 1.99 m CONSTITUTIONAL State of Health: well Level of consciousness: alert Distress: none Build: average NEURO: oriented to self, place, and time PSYCH: normal mood and affect EYES: sclera and conjunctiva normal HEART: normal rate, normal rhythm LUNGS: normal respiratory effort, breath sounds normal SKIN: warm, dry, intact MUSCULOSKELETAL GAIT: normal, does not use any assistive devices Left Lower Extremity KNEE: no gross lesions or skin abnormalities; normal alignment; no tenderness to palpation; cool totouch; full extension; ; LEG: no deformity ANKLE/FOOT: 5/5 dorsiflexion; ; cool to touch Labs: Ordered at this encounter Imaging: Knee radiograph shows severe DJD with osteophytes Were Outside Films reviewed? Not Applicable Assessment and Plan: 78 year old, female with function limiting pain secondary to osteoarthritis. Due to failure of non-operative interventions, a total knee arthroplasty is indicated. -surgery scheduled for 03/17/24 -Chlorhexidine information and education presented to the patient? Yes -TXA indicated? Yes Consent obtained/confirmed Use of chronic narcotics for greater than or equal to 90 days: No Patient does not have pain in the non-operative lower extremity. The patient does not have back pain. -Patient uses ASA and has been instructed to discontinue 10 days before surgery. Jyoti Phelan PA-C 03/02/2024 2:41 PM documented in this encounter Plan of Treatment Upcoming Encounters Date Type Department Care Team (Late st Contact Info) Description 03/17/2024 8:45 AM EDT Hospital Encounter [facility], Operating Room [facility] 1st Floor [address] [place] [address] Rodriguez Jones MD [address] [place] [address] 03/17/2024 8:45 AM EDT - 03/17/2024 11:02 AM EDT Surgery [facility], Operating Room [address] [address] Rodriguez Jones MD [address] [place] [address] ROBOTIC ARTHROPLASTY KNEE TOTAL 04/18/2024 9:00 AM EDT Office Visit [facility] [address] [place] [address] Tabitha Cunningham MD [address] [place] [address] 04/20/2024 12:00 PM EDT Office Visit Cardiology, [place] [address] [place] [address] Bernarda De Los Santos CRNP [address] [place] [address] 06/28/2024 8:30 AM EDT [facility] [address] [place] [phone] Tyler Vera MD [facility] [place] [address] 09/16/2024 8:20 AM EST Office Visit [facility] [address] [place] [address] Tabitha Cunningham MD [address] [place] [address] 11/04/2024 8:45 AM EST Office Visit Ophthalmology, [place] [address] [place] [address] Franck Soriano DO [address] [place] [address] Pending Results Name Type Priority Associated Diagnoses [...] diabetes mellitus with diabetic mononeuropathy, unspecified whether alf insulin use (HCC) 03/02/2024 2:47 PM EDT Scheduled Orders Name Type Priority Associated Diagnoses Orde r Schedule ALBUMIN Lab Routine Pre-operative cardiovascular examination Expected: 03/02/2024 (Approximate), Expires: 04/13/2024 BASIC METABOLIC PANEL Lab Routine Pre-operative cardiovascular examination Expected: 03/02/2024 (Approximate), Expires: 08/29/2024 CBC WITH WBC DIFFERENTIAL AND ANEMIA REFLEX WORKUP Lab Routine Pre-operative cardiovascular examination Expected: 03/02/2024 (Approximate), Expires: 04/13/2024 STAPH AUREUS PCR Lab Routine Pre-operative cardiovascular examination Ordered: 03/02/2024 TYPE AND SCREEN Lab Routine Pre-operative cardiovascular examination Expected: 03/02/2024 (Approximate), Expires: 08/29/2024 HEMOGLOBIN A1C Lab Routine Type 2 diabetes mellitus with diabetic mononeuropathy, unspecified whether director long term care insulin use (HCC) Expected: 03/02/2024, Expires: 03/02/2025 EKG EKG Routine Pre-operative cardiovascular examination Expected: 03/02/2024 (Approximate), Expires: 04/01/2025 Scheduled Procedures Name Priority Associated Diagnoses Date/Ti [...] Last Done Comments CKD PHOS USE SMARTSET 10159 1964 Hepatitis B (1 of 3 - Risk 3-dose series) 2006 Zoster Vaccines (2 of 3) 10/06/2013 08/11/2013 COVID-19 Vaccine ( - season) 2023 09/13/2021, 12/03/2020 GFR 02/20/2024 08/21/2023, 03/08, 01/30/2023, Additional history exists HbA1c 02/20/2024 08/21/2023, 03/08, 12/04/2022, Additional history exists Albumin/Creatinine Ratio 03/31/2024 023, 01/15/2022, 08/16/2014, Additional history exists B-12 03/31/2024 03/31/2023, 03/08, 10/11/2020, Additional history exists Depression Screening 04/10/2024 04/10/2023 CKD HGB USE SMARTSET 59843 08/21/202408/21, 08/21/2023, 01/30/2023, Additional history exists Diabetic Foot Exam 10/21/2024 10/21/2023, 1 10/16/2021, 11/15/2020, Additional history exists DXA Scan 11/13/2024 11/13/2022, 10/08, 10/05/2017, Additional history exists Diabetic Eye Exam 01/24/2025 01/25/2024, , 01/25/2024, Additional history exists Colonoscopy 11/06/2025 11/06/2020, 03/0 10/2020, 09/21/2014, Additional history exists DTaP,Tdap,and Td Vaccines (3 - Td or Tdap) 03/30/2027 03/30/2017, 11/05/2006, 10/17/1996 Pneumococcal Vaccine: 65+ Years Completed 08/30/2015, 12/16/2011 VITAMIN D LEVEL ONCE IN A LIFETIME-USE SMARTSET# 43156 Completed 03/30/2017, 09/17/2009 RETIRED - COLONOSCOPY-EVERY 5 [...] this encounter Medical Devices Implanted Type Area Beef Pusher Device Identifier Shelf Expiration Date Model / Serial / Lot Dbx 10cc [id number] - [id number] Implanted:Qt y: 1 on 03/15/2010 at OR [facility] Tissue - Human N/A: Spine Lumbar MUSCULOSKELETAL TRANSPLANT FND 12/14/2011 [id number] / [id number] / Chip Cancellous 30cc [id number] - [id number] - [id number] Implanted:Qt y: 1 on 01/09/2023 by Tyler Vera MD at OR [facility] Tissue - Human N/A: Spine Lumbar MUSCULOSKELETAL TRANSPLANT FND 10/12/2024 [id number] / [id number] / [id number] Screw 7x50 Poly Si [id number] - [id number] Implanted:Qt y: 2 on 03/15/2010 at OR [facility] N/A: Spine Lumbar JNJ : [employer] [id number] / / [employer] - [id number] Implanted:Qt y: 2 on 01/25/2016 by Jassi Dooley MD at OR [facility] Left: Shoulder [employer] 06/06/2016 [id number] / / [id number] Dbx 2.5cc [id number] - [id number] Implanted:Qt y: 1 on 02/18/2017 by Tyler Vera MD at OR [facility] N/A: Spine Lumbar MUSCULOSKELETAL TRANSPLANT FND 09/26/2018 [id number] / / Screw 7x45 Poly Si [id number] - [id number] Implanted:Qt y: 2 on 02/18/2017 by Tyler Vera MD at OR [facility] N/A: Spine Lumbar JNJ : [employer] [id number] / / Description:In Set Expedium Ti Sfx 5.5 Lat A5 - [id number] Implanted:Qt y: 1 on 02/18/2017 by Tyler Vera MD at OR [facility] N/A: Spine Lumbar JNJ : [employer] [id number] / / Description:In Set [employer] [place] - [id number] Implanted:Qt y: 1 on 06/06/2020 by Tyler Vera MD at OR [facility] N/A: Spine Thoracic [employer] : PAIN MGMT 04/17/2022 [id number] / / [id number] Description:bilateral Valve Lexie 3 Ultra 23mm - [id number] Implanted:Qt y: 1 on 11/27/2020 at [facility] [employer] [id number] / / Gener Wvewriter Alpha Prime 16 - [id number] Implanted:Qt y: 1 on 02/14/2022 by Tyler Vera MD at OR [facility] Left: Back Conecta 2 01/20/2024 [id number] / / [id number] Description:left lower back Screw 6x40 Poly Si [id number] - [id number] Implanted:Qt y: 1 on 01/09/2023 by Tyler Vera MD at OR [facility] N/A: Spine Lumbar JNJ : [employer] [id number] / / Screw Set Sng Inner [id number] - [id number] Implanted:Qt y: 8 on 01/09/2023 by Tyler Vera MD at OR [facility] N/A: Spine Lumbar JNJ : [employer] [id number] / / Expedium Ti Sfx 5.5 Lat A5 - [id number] Implanted:Qt y: 1 on 01/09/2023 by Tyler Vera MD at OR [facility] N/A: Spine Lumbar JNJ : [employer] [id number] / / Screw 6x45 Poly Si [id number] - [id number] Implanted:Qt y: 3 on 01/09/2023 by Tyler Vera MD at OR [facility] N/A: Spine Lumbar JNJ : [employer] [id number] / / 100mm Sidney Implanted:Qt y: 2 on 01/09/2023 by Tyler Vera MD at OR [facility] N/A: Spine Lumbar [employer] 0 / / Graft Infuse Bone Lg [id number] - [id number] Implanted:Qt y: 1 on 01/09/2023 by Tyler Vera MD at OR [facility] N/A: Spine Lumbar [employer] : NEURO CARE [id number] 09/06/2024 [id number] / / [id number] documented as of this encounter Visit Diagnoses Diagnosis Osteoarthritis of knee- Primary Osteoarthrosis, unspecified whether generalized or localized, lower leg Type 2 diabetes mellitus with diabetic mononeuropathy, unspecified whether director long term care insulin use (HCC)- Primary Pre-operative cardiovascular examination Arthralgia of left lower leg Pain in joint, lower leg Primary osteoarthritis of left knee Primary localized [...] Power of Attor arnold? No Care Teams Sound Art Instructor Relationship Specialty Start Date End Date Tabitha Cunningham MD [address] [place] [address] PCP - General 04/21/1996 documented as of this encounter
--- OUTSIDE RECORDS SUMMARY | 2024-03-22 07:44 | External Medical Summary ---
Author Name Unknown Address Unknown Organization K01:[facility] B LOOD BANK - [address] [place] [address] Laboratory Report Ordering Provider Test Date Status CORNELIUS PENA 03/02/2024 14:47:00 Final Observation Date Value Abnormality Reference (Units ) Status ABO 03/02/2024 14:47:00 B Final RH 03/02/2024 14:47:00 Positive Final RED BLOOD CELL ANTIBODY SCREEN 03/02/2024 14:47:00 Negative Final SPECIMEN EXPIRATION DATE 03/02/2024 14:47:00 03/20/2024 23:59 Final Performing Location [facility] BLOOD BANK - [address] [place] [address]
--- OUTSIDE RECORDS SUMMARY | 2024-03-22 07:44 | External Medical Summary ---
Author Name Unknown Address Unknown Organization K01:[facility] [place] - [address] [facility] [place] [address] Laboratory Report Ordering Provider Test Date Status CORNELIUS PENA 03/02/2024 14:47:00 Final Observation Date Value Abnormality Reference (Units ) Status SYNC LEUKOCYTES IN BLOOD BY AUTOMATED COUNT 03/02/2024 14:47:00 5.28 4.00-10.80 (K/uL) Final Segs 03/02/2024 14:47:00 50.0 40.0-75.0 (%) Final Lymphs % 03/02/2024 14:47:00 36.2 18.0-42.0 (%) Final Monos 03/02/2024 14:47:00 8.9 1.0-11.0 (%) Final Eosinophils 03/02/2024 14:47:00 3.6 0.0-6.0 (%) Final Basos 03/02/2024 14:47:00 0.9 0.0-2.0 (%) Final Immature Granulocyte, Percent 03/02/2024 14:47:00 0.4 0.0-2.0 (%) Final Absolute Segs 03/02/2024 14:47:00 2.64 1.80-7.70 (K/uL) Final Lymphs, absolute 03/02/2024 14:47:00 1.91 1.00-4.80 (K/ul) Final Monos, Abs 03/02/2024 14:47:00 0.47 0.00-1.10 (K/uL) Final Eos, Abs 03/02/2024 14:47:00 0.19 0.00-0.70 (K/uL) Final Basos, Abs 03/02/2024 14:47:00 0.05 0.00-0.20 (K/uL) Final Immature Granulocytes, Number 03/02/2024 14:47:00 0.02 0.00-0.20 (K/uL) Final Performing Location [facility] [place] - [address] [facility] [place] [address]
--- OUTSIDE RECORDS SUMMARY | 2024-03-22 07:45 | External Medical Summary | Summary of Care ---
Author Name Unknown Organization [facility] Address [address] [place] [address] Phone [phone] Care Team Providers Care Anaesthetic Technician Name Role Phone Tabitha Cunningham MD Primary Care Provider [phone] Encounter Details Date Type Department Care Team (Late st Contact Info) Description 02/15/2024 Orders Only Outcomes Research Department [address] [place] [address] Ade Astorga CHRA MyCode Research Other*[id number] Allergies Active Allergy Reactions Criticality Noted Date Comments Adhesive Tape 07/06/1998 rash Lisinopril 04/04/2014 cough Oxycodone-Acetaminophen Other (Please comment) 02/05/2017 "jittery" Nauseated Silver Sulfadiazine Rash 12/07/2002 rash Carisoprodol Other (Please comment) 03/29/2012 Restless, jittery Sulfa Antibiotics 10/15/1998 Tendency towards yeast infections. documented as of this encounter (statuses as of 02/15/2024) Medications Medication Sig Dispensed Refills Start Date [...] Propionate 50 MCG/ACT Nasal Suspension Administer 1 [place] into nostril as needed. 15.8 mL 3 [...] EVERY DAY 90 Tablet 1 09/28/2023 Active Losartan Potassium 100 MG Oral Tablet (Cozaar)Indications:H TN, goal below 140/90 TAKE ONE (1) TABLET BY MOUTH EVERY DAY 90 Tablet 11/19/2023 Active Metoprolol Succinate ER 25 MG Oral [...] taking medication. 12 Tablet 1 01/01/2024 Active documented as of this encounter (statuses as of 02/15/2024) Active Problems Problem Noted Date Diagnosed Date [...] pylori infection 11/05/2020 Overview: [place] [facility] Other cirrhosis of liver 10/29/2020 Portal hypertension 10/29/2020 Morbid obesity due to excess calories 10/19/2020 Iron deficiency anemia 10/12/2020 S/P insertion of spinal cord stimulator 06/06/20 Overview: [place] [facility] [place] Doty HTN, goal below 150/90 [...] as of this encounter (statuses as of 02/15/2024) Resolved Problems Problem Noted Date Diagnosed Date Resolved Date Anemia 11/05/2020 11/15/2020 Chronic back pain 06/07/2020 11/15/2020 Encounter for examination fo r normal comparison and control in clinical research program 09/14/2018 04/09/2020 Overview: DO NOT DELETE [facility] DETECT Study: Project # [id number], Odd Bundle Worker: Sarbjit Garcia, PhD. SUMMARY: Goal: Establish test [...] contact study staff at ; after hours Odd Bundle Worker via the [facility] tunnel kiln operator . Please contact study team before resolving/deleting from patients problem list. Study phone number: [phone]. Diagnosis changed due to Research Module. Go to Snapshot for study details. Encounter for examination fo r normal comparison and control in clinical research program 09/14/2018 05/08/2022 Overview: DO NOT DELETE - [facility] DETECT Study: Project # [id number], Odd Bundle Worker: Mario Rene, MS, MPH. SUMMARY: Goal: Establish [...] contact study staff at ; after hours Odd Bundle Worker via the [facility] hospital tunnel kiln operator . - Please contact study team before resolving/deleting from patients problem list. Study phone number: [phone]. Diagnosis changed due to Research Module. Go [...] as of this encounter (statuses as of 02/15/2024) Immunizations Name Administration Dates Next Due COVID-19 [...] money to get more. Never true 10/21/2023 Sex and Gender Information Value Date [...] 03/02/2024 2:00 PM EDT [facility] [address] [place] [id number] Jyoti Phelan PA-C [address] [place] [address] 03/17/2024 10:58 AM EDT Hospital Encounter [facility], Operating Room [facility] 1st Floor [address] [place] [address] Rodriguez Jones MD [address] [facility] [place] [address] 03/17/2024 10:58 AM EDT - 03/17/2024 1:45 PM EDT Surgery [facility], Operating Room [facility] 1st Floor [address] [place] [address] Rodriguez Jones MD [address] [place] [address] ROBOTIC ARTHROPLASTY KNEE TOTAL 04/18/2024 9:00 AM EDT Office Visit [facility] [address] [place] [address] Tabitha Cunningham MD [address] [place] [address] 06/28/2024 8:30 AM EDT [facility] [address] [place] [address] Sarbjit Vera MD [address] [place] [address] 09/16/2024 8:20 AM EST Office Visit [facility] [address] [place] [address] Tabitha Cunningham MD [address] [place] [address] 11/04/2024 8:45 AM EST Office Visit Ophthalmology, [place] [address] [facility] [place] [address] Franck Soriano DO [address] [facility] [place] [address] Scheduled Orders Name Type Priority Associated Diagnoses Orde r Schedule MYCODE SUBSEQUENT ADULT Lab Routine MyCode Research Other*[id number] Every 6 Months for 2 Occurrences starting 02/15/2024 until 03/06/2025 Scheduled Procedures Name Priority Associated Diagnoses Date/Ti mi ROBOTIC ARTHROPLASTY KNEE TOTAL Primary osteoarthritis of left knee 03/17/2024 10:58 AM EDT Computer-Assisted Musculoskeletal Surgical Navigation CT/MRI Primary osteoarthritis of left knee 03/17/2024 10:58 AM EDT ROBOTIC SURGICAL SYSTEM Primary osteoarthritis of left knee 03/17/2024 10:58 AM EDT COLONOSCOPY FLEXIBLE PROXIMAL DIAGNOSTIC Recall Change in bowel habits Health Maintenance Due Date Last Done Comments CKD PHOS USE SMARTSET 50478 1963 Hepatitis B (1 of 3 - Risk 3-dose series) 2006 Zoster Vaccines (2 of 3) 10/06/2013 08/11/2013 COVID-19 Vaccine (3 - season) 2023 09/13/2021, 12/03/2020 GFR 02/20/2024 08/21/2023, 03/08, 01/30/2023, Additional history exists HbA1c 02/20/2024 08/21/2023, 03/08, 12/04/2022, Additional history exists Albumin/Creatinine Ratio 03/31/2024 023, 01/15/2022, 08/16/2014, Additional history exists B-12 03/31/2024 03/31/2023, 03/08, 10/11/2020, Additional history exists Depression Screening 04/10/2024 04/10/2023 CKD HGB USE SMARTSET 93278 08/21/202408/21, 08/21/2023, 01/30/2023, Additional history exists Diabetic [...] D LEVEL ONCE IN A LIFETIME-USE SMARTSET# 27218 Completed 03/30/2017, 09/17/2009 RETIRED - COLONOSCOPY-EVERY 5 [...] this encounter Medical Devices Implanted Type Area Accounts Payable Accountant Device Identifier Shelf Expiration Date Model / Serial / Lot Dbx 10cc [id number] - [id number] Implanted:Qt y: 1 on 03/15/2010 at [place] [facility] Tissue - Human N/A: Spine Lumbar MUSCULOSKELETAL TRANSPLANT FND 12/14/2011 [id number] / [id number] / Chip Cancellous 30cc [id number] - [id number] - [id number] Implanted:Qt y: 1 on 01/09/2023 by Sarbjit Vera MD at [place] [facility] Tissue - Human N/A: Spine Lumbar MUSCULOSKELETAL TRANSPLANT FND 10/12/2024 [id number] / [id number] / [id number] Screw 7x50 Poly Si [id number] - [id number] Implanted:Qt y: 2 on 03/15/2010 at [place] [facility] N/A: Spine Lumbar JNJ : [employer] [id number] / / Corkscrew [employer] - [id number] Implanted:Qt y: 2 on 01/25/2016 by Ken Will MD at [facility] Left: Shoulder [employer] 06/06/2016 [id number] / / [id number] Dbx 2.5cc [id number] - [id number] Implanted:Qt y: 1 on 02/18/2017 by Sarbjit Vera MD at [facility] N/A: Spine Lumbar MUSCULOSKELETAL TRANSPLANT FND 09/26/2018 [id number] / / Screw 7x45 Poly Si [id number] - [id number] Implanted:Qt y: 2 on 02/18/2017 by Sarbjit Vera MD [place] [facility] N/A: Spine Lumbar JNJ : [employer] [id number] / / Description:In Set Expedium Ti Sfx 5.5 Lat A5 - [id number] Implanted:Qt y: 1 on 02/18/2017 by Sarbjit Vera MD at [place] [facility] N/A: Spine Lumbar JNJ : [employer] [id number] / / Description:In Set [employer] [place] - [id number] Implanted:Qt y: 1 on 06/06/2020 by Sarbjit Vera MD at [place] [facility] N/A: Spine Thoracic [employer] : PAIN MGMT 04/17/2022 [id number] / / [id number] Description:bilateral Valve Lexie 3 Ultra 23mm - [id number] Implanted:Qt y: 1 on 11/27/2020 at [facility] [employer] [id number] / / Gener Wvewriter Alpha Prime 16 - [id number] Implanted:Qt y: 1 on 02/14/2022 by Sarbjit Vera MD at [place] [facility] Left: Back [employer] 01/20/2024 [id number] / / [id number] Description:left lower back Screw 6x40 Poly Si [id number] - [id number] Implanted:Qt y: 1 on 01/09/2023 by Sarbjit Vera MD at [place] [facility] N/A: Spine Lumbar JNJ : [employer] [id number] / / Screw Set Sng Inner [id number] - [id number] Implanted:Qt y: 8 on 01/09/2023 by Sarbjit Vera MD at [place] [facility] N/A: Spine Lumbar JNJ : [employer] [id number] / / Expedium Ti Sfx 5.5 Lat A5 - [id number] Implanted:Qt y: 1 on 01/09/2023 by Sarbjit Vera MD at [place] [facility] N/A: Spine Lumbar JNJ : [employer] [id number] / / Screw 6x45 Poly Si [id number] - [id number] Implanted:Qt y: 3 on 01/09/2023 by Sarbjit Vera MD at [place] [facility] N/A: Spine Lumbar JNJ : [employer] [id number] / / 100mm [place] Implanted:Qt y: 2 on 01/09/2023 by Sarbjit Vera MD at [place] [facility] N/A: Spine Lumbar [employer] 0 / / Graft Infuse Bone Lg [id number] - [id number] Implanted:Qt y: 1 on 01/09/2023 by Sarbjit Vera MD at [place] [facility] N/A: Spine Lumbar [employer] : NEURO CARE [id number] 09/06/2024 [id number] / / [id number] documented as of this encounter Visit Diagnoses Diagnosis Osteoarthritis of knee- Primary Osteoarthrosis, unspecified whether generalized or localized, lower leg MyCode Research Other*[id number] Primary osteoarthritis of left knee Primary localized [...] Power of Attor arnold? No Care Teams Anaesthetic Technician Relationship Specialty Start Date End Date Tabitha Cunningham MD [address] [facility] [place] [address] PCP - General 04/21/1996 documented as of this encounter
--- OUTSIDE RECORDS SUMMARY | 2024-03-22 07:45 | External Medical Summary | Summary of Care ---
Author Name Unknown Organization [facility] Address [address] [place] [address] Phone [phone] Care Team Providers Care Hair Or Beauty Salon Manager Name Role Phone Tabitha Cunningham MD Primary Care Provider [phone] Encounter Details Date Type Department Care Team (Latest Contact Info) Description 01/18/2024 8:10 AM EDT - 01/18/2024 11:59 PM EDT Hospital Encounter Radiology [facility] [address] [place] [address] Arrived Discharge Disposition: Home - Self Care Allergies Active Allergy Reactions Criticality Noted Date Comments Adhesive Tape 07/06/1998 rash Lisinopril 04/04/2014 cough Oxycodone-Acetaminophen Other (Please comment) 02/05/2017 "jittery" Nauseated Silver Sulfadiazine Rash 12/07/2002 rash Carisoprodol Other (Please comment) 03/29/2012 Restless, jittery Sulfa Antibiotics 10/15/1998 Tendency towards yeast infections. documented as of this encounter (statuses as of 01/19/2024) Medications Medication Sig Dispensed Refills Start Date End Date Status ASPIRIN EC LOW STRENGTH 81 MG PO TBECIndications:Other nonspecific abnormal cardiovascular system function study one by mouth daily 34 5 09/12/2005 Active Amoxicillin 500 MG Oral Capsule (Amoxil) Take 4 tablets by mouth one hour prior to any dental procedure or cleaning 12 Cap 3 12/04/2020 Active Loratadine 10 MG Oral Tablet (Claritin)Indications :Allergic disorder, subsequent encounter One tab each julisa for allergies 30 Tab 5 12/10/2020 Active Fluticasone Propionate 50 MCG/ACT Nasal Suspension Administer 1 [place] into nostril as needed. 15.8 mL 3 01/22/2021 Active Tylenol 325 MG Oral Capsule (Acetaminophen) Take 325 mg by mouth every 6 hours. 30 Capsule 0 07/25/2021 Active traZODone HCl 50 MG Oral [...] 17 g by mouth in the morning. 0 Active hydroCHLOROthiazide 25 MG Oral Tablet (Hydrodiuril)Indicati [...] TABLET BY MOUTH EVERY DAY 90 Tablet 0 11/19/2023 Active Metoprolol Succinate ER 25 MG [...] 1 Drop before bedtime. 10 mL 0 12/28/2023 Active metFORMIN HCl 500 MG Oral [...] as of this encounter (statuses as of 01/19/2024) Active Problems Problem Noted Date Diagnosed Date [...] pylori infection 11/05/2020 Overview: by EGD at [facility] Other cirrhosis of liver 10/29/2020 Portal hypertension 10/29/2020 Morbid obesity due to excess calories 10/19/2020 Iron deficiency anemia 10/12/2020 S/P insertion of spinal cord stimulator 06/06/20 20 Overview: at [facility] per Dr Doty HTN, goal below 150/90 [...] as of this encounter (statuses as of 01/19/2024) Resolved Problems Problem Noted Date Diagnosed Date Resolved Date Anemia 11/05/2020 11/15/2020 Chronic back pain 06/07/2020 11/15/2020 Encounter for examination fo r normal comparison and control in clinical research program 09/14/2018 04/09/2020 Overview: DO NOT DELETE [facility] DETECT Study: Project # [id number], Casino Runner: Sarbjit Garcia, PhD. SUMMARY: Goal: Establish test [...] contact study staff at ; after hours Casino Runner via the [facility] hospital threshing machine operator . Please contact study team before resolving/deleting from patients problem list. Study phone number: [phone]. Diagnosis changed due to Research Module. Go to Snapshot for study details. Encounter for examination fo r normal comparison and control in clinical research program 09/14/2018 05/08/2022 Overview: DO NOT DELETE - [facility] DETECT Study: Project # [id number], Casino Runner: Mario Rene, MS, MPH. SUMMARY: Goal: Establish [...] contact study staff at ; after hours Casino Runner via the [facility] hospital threshing machine operator . - Please contact study team before resolving/deleting from patients problem list. Study phone number: [phone]. Diagnosis changed due to Research Module. Go [...] as of this encounter (statuses as of 01/19/2024) Immunizations Name Administration Dates Next Due COVID-19 [...] Preserve, IM 08/30/2015 TD, Preservative Free 03/30/2017 TDAP (age 11 and older)(Adacel) 11/05/2006 Varicella Zoster Vaccine (Adult) 08/11/2013 documented [...] Care Team (Late st Contact Info) Description 01/20/2024 10:30 AM EDT Office Visit Interventional Pain Center, [facility] [address] [place] [address] [facility] [address] [facility] [address] 01/25/2024 1:30 PM EDT Office Visit Ophthalmology, [place] [address] [place] [address] Franck Soriano DO [address] [place] [address] 03/02/2024 2:00 PM EDT Office Visit Orthopaedics [facility] [address] [place] [id number] Jyoti Phelan PA-C [address] [place] [address] 03/17/2024 10:58 AM EDT Hospital Encounter [facility], Operating Room [facility] 1st Floor [address] [place] [address] Rodriguez Jones MD [address] [place] [address] 03/17/2024 10:58 AM EDT - 03/17/2024 1:45 PM EDT Surgery [facility], Operating Room [facility] [address]st Floor [address] [place] [address] Rodriguez Jones MD [address] [place] [address] ROBOTIC ARTHROPLASTY KNEE TOTAL 04/18/2024 9:00 AM EDT Office Visit [facility] [address] [place] [address] Tabitha Cunningham MD [address] [place] [address] 06/28/2024 8:30 AM EDT [facility] [address] [place] [address] Sarbjit Vera MD [address] [place] [address] 09/16/2024 8:20 AM EST Office Visit [facility] [address] [place] [address] Tabitha Cunningham MD [address] [place] [address] Scheduled Procedures Name Priority Associated Diagnoses Date/Ti [...] Last Done Comments CKD PHOS USE SMARTSET 89740 1964 Hepatitis B (1 of 3 - Risk 3-dose series) 2006 Zoster Vaccines (2 of 3) 10/06/2013 08/11/2013 Diabetic Eye Exam 12/04/2022 12/04/2021, , 02/14/2019, Additional history exists COVID-19 Vaccine ( season) 2023 09/13/2021, 12/03/2020 GFR 02/20/2024 08/21/2023, 03/08, 01/30/2023, Additional history exists HbA1c 02/20/2024 08/21/2023, 03/08, 12/04/2022, Additional history exists Albumin/Creatinine Ratio 03/31/2024 023, 01/15/2022, 08/16/2014, Additional history exists B-12 03/31/2024 03/31/2023, 03/08, 10/11/2020, Additional history exists Depression Screening 04/10/2024 04/10/2023 CKD HGB USE SMARTSET 01215 08/21/202408/21, 08/21/2023, 01/30/2023, Additional history exists Diabetic Foot Exam 10/21/2024 10/21/2023, 1 10/16/2021, 11/15/2020, Additional history exists DXA Scan 11/13/2024 11/13/2022, 10/08, 10/05/2017, Additional history exists Colonoscopy 11/06/2025 11/06/2020, 0310/2020, 09/21/2014, Additional history exists DTaP,Tdap,and Td Vaccines (3 - Td or Tdap) 03/30/2027 03/30/2017, 11/05/2006, 10/17/1996 Pneumococcal Vaccine: 65+ Years Completed 08/30/2015, 12/16/2011 VITAMIN D LEVEL ONCE IN A LIFETIME-USE SMARTSET# 97193 Completed 03/30/2017, 09/17/2009 RETIRED - COLONOSCOPY-EVERY 5 [...] this encounter Medical Devices Implanted Type Area Personal Lines Insurance Advisor Device Identifier Shelf Expiration Date Model / Serial / Lot Dbx 10cc [id number] - [id number] Implanted:Qt y: 1 on 03/15/2010 at OR [facility] Tissue - Human N/A: Spine Lumbar MUSCULOSKELETAL TRANSPLANT FND 12/14/2011 [id number] / [id number] / Chip Cancellous 30cc [id number] - [id number] - [id number] Implanted:Qt y: 1 on 01/09/2023 by Sarbjit Vera MD at OR [facility] Tissue - Human N/A: Spine Lumbar MUSCULOSKELETAL TRANSPLANT FND 10/12/2024 [id number] / [id number] / [id number] Screw 7x50 Poly Si [id number] - [id number] Implanted:Qt y: 2 on 03/15/2010 at OR [facility] N/A: Spine Lumbar JNJ : [employer] [id number] / / CorSwoopow [employer]posite - [id number] Implanted:Qt y: 2 on 01/25/2016 by Ken Will MD at OR [facility] Left: Shoulder [employer] 06/06/2016 [id number] / / [id number] Dbx 2.5cc [id number] - [id number] Implanted:Qt y: 1 on 02/18/2017 by Sarbjit Vera MD at OR [facility] N/A: Spine Lumbar MUSCULOSKELETAL TRANSPLANT FND 09/26/2018 [id number] / / Screw 7x45 Poly Si [id number] - [id number] Implanted:Qt y: 2 on 02/18/2017 by Sarbjit Vera MD at OR [facility] N/A: Spine Lumbar JNJ : [employer] [id number] / / Description:In Set Expedium Ti Sfx 5.5 Lat A5 - [id number] Implanted:Qt y: 1 on 02/18/2017 by Sarbjit Vera MD at OR [facility] N/A: Spine Lumbar JNJ : [employer] [id number] / / Description:In Set Clik [place] - [id number] Implanted:Qt y: 1 on 06/06/2020 by Sarbjit Vera MD at OR [facility] N/A: Spine Thoracic [employer] : PAIN MGMT 04/17/2022 [id number] / / [id number] Description:bilateral Valve Lexie 3 Ultra 23mm - [id number] Implanted:Qt y: 1 on 11/27/2020 at CARDIAC LABS [facility] [employer] [id number] / / Gener Wvewriter Alpha Prime 16 - [id number] Implanted:Qt y: 1 on 02/14/2022 by Sarbjit Vera MD at OR [facility] Left: Back [employer] 01/20/2024 [id number] / / [id number] Description:left lower back Screw 6x40 Poly Si [id number] - [id number] Implanted:Qt y: 1 on 01/09/2023 by Sarbjit Vera MD at OR [facility] N/A: Spine Lumbar JNJ : [employer] [id number] / / Screw Set Sng Inner [id number] - [id number] Implanted:Qt y: 8 on 01/09/2023 by Sarbjit Vera MD at OR [facility] N/A: Spine Lumbar JNJ : [employer] [id number] / / Expedium Ti Sfx 5.5 Lat A5 - [id number] Implanted:Qt y: 1 on 01/09/2023 by Sarbjit Vera MD at OR [facility] N/A: Spine Lumbar JNJ : [employer] [id number] / / Screw 6x45 Poly Si [id number] - [id number] Implanted:Qt y: 3 on 01/09/2023 by Sarbjit Vera MD at OR [facility] N/A: Spine Lumbar JNJ : [employer] [id number] / / 100mm [place] Implanted:Qt y: 2 on 01/09/2023 by Sarbjit Vera MD at OR [facility] N/A: Spine Lumbar [employer] 0 / / Graft Infuse Bone Lg [id number] - [id number] Implanted:Qt y: 1 on 01/09/2023 by Sarbjit Vera MD at OR [facility] N/A: Spine Lumbar [employer] : NEURO CARE [id number] 09/06/2024 [id number] / / [id number] documented as of this encounter Procedures Procedure Name Priority Date/Time Associated Diagnosis Comments XR KNEE 3 VIEWS Routine 01/18/2024 8:28 AM EDT documented in this encounter Results * XR KNEE 3 VIEWS (01/18/2024 8:28 AM EDT) Anatomical Region Laterality Modality Knee, Lower Extremity Computed R adiography 01/18/2024 7:56 PM EDT Impressions 01/18/2024 7:53 PM EDT IMPRESSION Moderate bilateral knee arthrosis as above with moderate chondrocalcinosis. Right lateral patellar tilt. Narrative 01/18/2024 7:53 PM EDT EXAM Bilateral knees -01/18/2024 8:28 am HISTORY b/l knee pain with no injury or falls COMPARISON 12/25/2021 TECHNIQUE Three views of each knee FINDINGS Moderate medial compartment arthrosis bilaterally. Moderate chondrocalcinosis bilaterally. At least mild right lateral patellar tilt. Mild bilateral patellofemoral arthrosis, left greater than right. No significant joint effusion. Bulky quadriceps and patellar tendon enthesophytes. Procedure Note Brandan Gutierrez MD - 01/18/2024 EXAM Bilateral knees -01/18/2024 8:28 am HISTORY b/l knee pain with no injury or falls COMPARISON 12/25/2021 TECHNIQUE Three views of each knee FINDINGS Moderate medial compartment arthrosis bilaterally. Moderatechondrocalcinosis bilaterally. At least mild right lateral patellar tilt.Mild bilateral patellofemoral arthrosis, left greater than right. Nosignificant joint effusion. Bulky quadriceps and patellar tendonenthesophytes. IMPRESSION IMPRESSION Moderate bilateral knee arthrosis as above with moderatechondrocalcinosis. Right lateral patellar tilt. [facility] (RAD GENE RAL) documented in this encounter Advance Directives Latest Code Status on File Code Status Date Activated Date Inactivated Comments Full Code 01/09/2023 1:45 PM 01/13/2023 4:00 PM This or sabrina reflects the patients wishes and were consensually agreed upon. Question Answer Comments Discussion of Advance Directives occurred with: Patient Does the patient have a Living Will? No Does the patient have Health Care Power of County Home Demonstration Agent? No Code Status History Code Status Date Activated Date Inactivated Comments Full Code 01/09/2023 9:33 AM 01/09/2023 1:45 PM This or sabrina reflects the patients wishes and were consensually agreed upon. Question Answer Comments Discussion of Advance Directives occurred with: Patient Does the patient have a Living Will? No Does the patient have Health Care Power of County Home Demonstration Agent? No Full Code 02/14/2022 8:41 AM 02/15/2022 4:12 PM This order reflects the patients wishes and were consensually agreed upon. Question Answer Comments Discussion of Advance Directives occurred with: Not Discussed Full Code 04/05/2021 6:52 AM 04/05/2021 3:34 PM This order reflects the patients wishes and were consensually agreed upon. Question Answer Comments Discussion of Advance Directives occurred with: Not Discussed Full Code 11/27/2020 9:56 AM 11/28/2020 4:59 PM This order reflects the patients wishes and were consensually agreed upon. Question Answer Comments Discussion of Advance Directives occurred with: Patient Does the patient have a Living Will? No Does the patient have Health Care Power of County Home Demonstration Agent? No Care Teams Hair Or Beauty Salon Manager Relationship Specialty Start Date End Date Tabitha Cunningham MD [address] [facility] [place] [address] PCP - General 04/21/1996 documented as of this encounter
--- OUTSIDE RECORDS SUMMARY | 2024-03-22 07:45 | External Medical Summary | Summary of Care ---
Author Name Unknown Organization [facility] Address [address] [facility] [place] [address] Phone [phone] Care Team Providers Care Therapy Site Coordinator Name Role Phone Tabitha Cunningham MD Primary Care Provider [phone] Reason for Visit * Reason Comments eRx-Medication Refill Encounter Details Date Type Department Care Team (Late st Contact Info) Description 02/15/2024 Refill Cardiology [place] Yamileth Ortiz [address] [place] [address] Sera Rondon [address] [facility] [place] [address] HTN, goal below 140/90 Allergies Active Allergy Reactions Criticality Noted Date Comments Adhesive Tape 07/06/1998 rash Lisinopril 04/04/2014 cough Oxycodone-Acetaminophen Other (Please comment) 02/05/2017 "jittery" Nauseated Silver Sulfadiazine Rash 12/07/2002 rash Carisoprodol Other (Please comment) 03/29/2012 Restless, jittery Sulfa Antibiotics 10/15/1998 Tendency towards yeast infections. documented as of this encounter (statuses as of 02/16/2024) Medications Medication Sig Dispensed Refills Start Date [...] Propionate 50 MCG/ACT Nasal Suspension Administer 1 [place] into nostril as needed. 15.8 mL 3 [...] of Breath. 18 g 3 3 Active Citalopram Hydrobromide 20 MG Oral Tablet (CeleXA)Indications :Adjustment disorder with depressed mood TAKE 1 TABLET BY MOUTH DAILY in the morning for mood. 90 Tablet 3 3 Active Polyethylene Glycol 3350 17 [...] mellitus with hemoglobin A1c goal of 7.0%-8.0% ([facility]) TAKE ONE (1) TABLET BY MOUTH EVERY [...] appt for refills 90 Tablet 4 Active Losartan Potassium 100 MG Oral Tablet (Cozaar)Indications :HTN, goal below 140/90 TAKE ONE (1) TABLET BY MOUTH EVERY DAY 90 Tablet 4 02/16/20 24 Discontinued documented as of this encounter (statuses as of 02/16/2024) Active Problems Problem Noted Date Diagnosed Date [...] pylori infection 11/05/2020 [place] [facility] [place] cirrhosis of liver 10/29/2020 Portal hypertension 10/29/2020 Morbid obesity due to excess calories 10/19/2020 Iron deficiency anemia 10/12/2020 S/P insertion of spinal cord stimulator 06/06/20 20 Overview: [place] [facility] [place] Doty HTN, [...] as of this encounter (statuses as of 02/16/2024) Resolved Problems Problem Noted Date Diagnosed Date Resolved Date Anemia 11/05/2020 11/15/2020 Chronic back pain 06/07/2020 11/15/2020 Encounter for examination fo r normal comparison and control in clinical research program 09/14/2018 04/09/2020 Overview: DO NOT DELETE [facility] DETECT Study: Project # [id number], Bond Writer: Sarbjit Garcia, PhD. SUMMARY: Goal: Establish test [...] contact study staff at ; after hours Bond Writer via the [facility] benzol still operator . Please contact study team before resolving/deleting from patients problem list. Study phone number: [phone]. Diagnosis changed due to Research Module. Go to Snapshot for study details. Encounter for examination fo r normal comparison and control in clinical research program 09/14/2018 05/08/2022 Overview: DO NOT DELETE - [facility] DETECT Study: Project # [id number], Bond Writer: Mario Rene, MS, MPH. SUMMARY: Goal: Establish [...] contact study staff at ; after hours Bond Writer via the [facility] benzol still operator . - Please contact study team before resolving/deleting from patients problem list. Study phone number: [phone]. Diagnosis changed due to Research Module. Go [...] as of this encounter (statuses as of 02/16/2024) Immunizations Name Administration Dates Next Due COVID-19 mRNA, LNP-s, No Pre serve, 2-Dose Series (Moderna) 09/13/2021,12/03/2020 PPD 08/17/1998 Pneumococcal Conjugate Vacc, 13 Valent (Prevnar) 08/30/2015 [...] t, High Dose, No Preserve, IM 08/30/2015 TD - Tetanus/Diptheria (ADULT) 10/17/1996 TD, Preservative Free 03/30/2017 TDAP, Age 8 [...] encounter Miscellaneous Notes * Telephone Encounter - Ju Mello OSA - 02/16/2024 2:51 PM EDT Contacted pt, scheduled appt for 04/20/24 * Telephone Encounter - Celi Nugent [facility] - 02/16/2024 9:50 AM EDTSigned Prescriptions: Disp Refills Losartan Potassium 100 MG Oral Tablet (Coz*90 Tab*0 Sig: TAKE ONE (1) TABLET BY MOUTH EVERY DAY. Must make appt for refillsAuthorizing Provider: BRANDIE DE LOS SANTOS User: CELI NUGENT * Telephone Encounter - Celi Nugent [facility] - 02/16/2024 9:50 AM EDT Pt needs appt, please schedule' 90 day supply with 0 refills * Telephone Encounter - Kim Valentine LPN - 02/15/2024 1:49 PM EDTPending Prescriptions: Disp Refills Losartan Potassium 100 MG Oral Tablet (Coz*90 Tab*3 Sig: TAKE ONE (1) TABLET BY MOUTH EVERY DAY * Telephone Encounter - Kim Valentine LPN - 02/15/2024 1:49 PM EDT Pending Prescriptions: Disp Refills Losartan Potassium 100 MG Oral Tablet (Co*90 Tab*3 Sig: TAKE ONE (1) TABLET BY MOUTH EVERY DAY documented in this encounter Plan of Treatment Upcoming Encounters Date Type Department Care Team (Late st Contact Info) Description 03/02/2024 2:00 PM EDT Office Visit Orthopaedics [facility] [address] [place] [address] Jyoti Phelan PA-C [address] [place] [address] 03/17/2024 10:58 AM EDT Hospital Encounter [facility], Operating Room [facility] [address]st [address] [place] [address] Rodriguez Jones MD [address] [place] [address] 03/17/2024 10:58 AM EDT - 03/17/2024 1:45 PM EDT Surgery [facility], Operating Room [address] [address] Rodriguez Jones MD [address] [place] [address] ROBOTIC ARTHROPLASTY KNEE TOTAL 04/18/2024 9:00 AM EDT [facility] [address] [place] [address] Tabitha Cunningham MD [address] [place] [address] 04/20/2024 12:00 PM EDT Office Visit CardiologyYamileth [address] [place] [id number] Brandie De Los Santos CRNP 400 [facility] [place] [address] 06/28/2024 8:30 AM EDT Office Visit Orthopaedics Spine [facility], [place] [address] [place] [address] Sarbjit Vera MD [address] [place], [place] [id number] 09/16/2024 8:20 AM EST Office Visit [facility] [place] [address] [place] [address] Tabitha Cunningham MD [address] [place] [address] 11/04/2024 8:45 AM EST Office Visit Ophthalmology, [place] [address] [place] [address] Franck Soriano DO [address] [place] [address] Scheduled Procedures Name Priority Associated Diagnoses Date/Ti [...] Last Done Comments CKD PHOS USE SMARTSET 83391 1963 Hepatitis B (1 of 3 - [...] Screening 04/10/2024 04/10/2023 CKD HGB USE SMARTSET 50702 08/21/202408/21, 08/21/2023, 01/30/2023, Additional history exists Diabetic [...] D LEVEL ONCE IN A LIFETIME-USE SMARTSET# 66932 Completed 03/30/2017, 09/17/2009 RETIRED - COLONOSCOPY-EVERY 5 [...] this encounter Medical Devices Implanted Type Area Survey Cad Technician Device Identifier Shelf Expiration Date Model / Serial / Lot Dbx 10cc [id number] - [id number] Implanted:Qt y: 1 on 03/15/[place] [facility] [place] - Human N/A: Spine Lumbar MUSCULOSKELETAL TRANSPLANT FND 12/14/2011 [id number] / [id number] / Chip Cancellous 30cc [id number] - [id number] 055 - [id number] Implanted:Qt y: 1 on 01/09/2023 by Sarbjit Vera MD [place] [facility] [place] - Human N/A: Spine Lumbar MUSCULOSKELETAL TRANSPLANT FND 10/12/2024 [id number] / [id number] / [id number] Screw 7x50 Poly Si [id number] - [id number] Implanted:Qt y: 2 on 03/15/2010 [place] [facility] [place] N/A: Spine Lumbar JNJ : [employer]ON [employer] [id number] / / Corkscrew [employer]posite - [id number] Implanted:Qt y: 2 on 01/25/2016 by Ken Will MD at [facility] Left: Shoulder [employer] 06/06/2016 [id number] / / [id number] Dbx 2.5cc [id number] - [id number] Implanted:Qt y: 1 on 02/18/2017 by Sarbjit Vera [place] [facility] [place]/A: Spine Lumbar MUSCULOSKELETAL TRANSPLANT FND 09/26/2018 [id number] / / Screw 7x45 Poly Si [id number] - [id number] Implanted:Qt y: 2 on 02/18/2017 by Sarbjit Vera MD [place] [facility] [place] N/A: Spine Lumbar JNJ : ETH[employer]ON C[employer]ATIONS [id number] / / Description:In Set Expedium Ti Sfx 5.5 Lat A5 - [id number] Implanted:Qt y: 1 on 02/18/2017 by Sarbjit Vera MD [place] [facility] [place]/A: Spine Lumbar JNJ : ETH[employer]ON C[employer]ATIONS [id number] / / Description:In Set Clik [place] - [id number] Implanted:Qt y: 1 on 06/06/2020 by Sarbjit Vera MD [place] [facility] [place]/A: Spine Thoracic [employer] : PAIN MGMT 04/17/2022 [id number] / / [id number] Description:bilateral Valve Lexie 3 Ultra 23mm - [id number] Implanted:Qt y: 1 on 11/27/2020 at [facility] [facility] [place] [employer] [id number] / / Gener Wvewriter Alpha Prime 16 - [id number] Implanted:Qt y: 1 on 02/14/2022 by Sarbjit Vera MD [place] [facility] [place] Left: Back [employer] 01/20/2024 [id number] / / [id number] Description:left lower back Screw 6x40 Poly Si [id number] - [id number] Implanted:Qt y: 1 on 01/09/2023 by Sarbjit Vera MD [place] [facility] [place] N/A: Spine Lumbar JNJ : [employer] [id number] / / Screw Set Sng Inner [id number] - [id number] Implanted:Qt y: 8 on 01/09/2023 by Sarbjit Vera MD [place] [facility] [place]/A: Spine Lumbar JNJ : [employer]ON [employer] [id number] / / Expedium Ti Sfx 5.5 Lat A5 - [id number] Implanted:Qt y: 1 on 01/09/2023 by Sarbjit Vrea MD [place] [facility] [place]/A: Spine Lumbar JNJ : [employer] [id number] / / Screw 6x45 Poly Si [id number] - [id number] Implanted:Qt y: 3 on 01/09/2023 by Sarbjit Vera MD [place] [facility] [place] N/A: Spine Lumbar JNJ : [employer] [id number] / / 100mm [place] Implanted:Qt y: 2 on 01/09/2023 by Sarbjit Vera MD at [place] [facility] [place] N/A: Spine Lumbar [employer] 0 / / Graft Infuse Bone Lg [id number] - [id number] Implanted:Qt y: 1 on 01/09/2023 by Sarbjit Vera MD [place] [facility] [place] N/A: Spine Lumbar [employer] : NEURO CARE [id number] 09/06/2024 [id number] / / [id number] documented as of this encounter Visit Diagnoses Diagnosis Osteoarthritis of knee- Primary Osteoarthrosis, unspecified whether generalized or localized, lower leg HTN, goal below 140/90 Unspecified essential hypertension Primary osteoarthritis of left knee Primary localized [...] Power of Attor arnold? No Care Teams Therapy Site Coordinator Relationship Specialty Start Date End Date Tabitha Cunningham MD [address] [facility] [place] [address] PCP - General 04/21/1996 documented as of this encounter
--- OUTSIDE RECORDS SUMMARY | 2024-03-22 07:45 | External Medical Summary | Summary of Care ---
Author Name Unknown Organization [facility] Address [address] [place] [address] Phone [phone] Care Team Providers Care Stoner Hand Name Role Phone Tabitha Cunningham MD Primary Care Provider [phone] Reason for Visit * Reason Comments eRx-Medication Refill Encounter Details Date Type Department Care Team (Late st Contact Info) Description 02/15/2024 Refill Cardiology [place] Yamileth Ortiz [address] [place] [address] Sera Rondon [address] [facility] [place] [address] HTN, goal below 140/90 Allergies Active [...] Propionate 50 MCG/ACT Nasal Suspension Administer 1 [place] into nostril as needed. 15.8 mL 3 [...] mellitus with hemoglobin A1c goal of 7.0%-8.0% ([facility]) TAKE ONE (1) TABLET BY MOUTH EVERY [...] spinal cord stimulator 06/06/20 20 Overview: at [facility] per Dr [...] 04/09/2020 Overview: DO NOT DELETE [facility] DETECT Study: Project # [id number], Regulatory Compliance Specialist: Sarbjit Garcia, PhD. SUMMARY: Goal: Establish test [...] contact study staff at ; after hours Regulatory Compliance Specialist via the [facility] pole lift operator . Please contact study team before resolving/deleting from patients problem list. Study phone number: [phone]. Diagnosis changed due to Research Module. Go to Snapshot for study details. Encounter for examination fo r normal comparison and control in clinical research program 09/14/2018 05/08/2022 Overview: DO NOT DELETE - [facility] DETECT Study: Project # [id number], Regulatory Compliance Specialist: Mario Rene, MS, MPH. SUMMARY: Goal: Establish [...] contact study staff at ; after hours Regulatory Compliance Specialist via the [facility] pole lift operator . - Please contact study team before resolving/deleting from patients problem list. Study phone number: [phone]. Diagnosis changed due to Research Module. Go [...] encounter Miscellaneous Notes * Telephone Encounter - Celi Nugent [facility] - 02/16/2024 9:50 AM EDTSigned Prescriptions: Disp Refills Losartan Potassium 100 MG Oral Tablet (Coz*90 Tab*0 Sig: TAKE ONE (1) TABLET BY MOUTH EVERY DAY. Must make appt for refillsAuthorizing Provider: BRANDIE AZAR User: CELI NUGENT * Telephone Encounter - Celi Nugent [facility] - 02/16/2024 9:50 AM EDT Pt needs appt, please schedule' 90 day supply with 0 refills * Telephone Encounter - Kim Valnetine LPN - 02/15/2024 1:49 PM EDTPending Prescriptions: Disp Refills Losartan Potassium 100 MG Oral Tablet (Coz*90 Tab*3 Sig: TAKE ONE (1) TABLET BY MOUTH EVERY DAY * Telephone Encounter - Kim aVlentine LPN - 02/15/2024 1:49 PM EDT Pending Prescriptions: Disp Refills Losartan Potassium 100 MG Oral Tablet (Co*90 Tab*3 Sig: TAKE ONE (1) TABLET BY MOUTH EVERY DAY documented in this encounter Plan of Treatment Upcoming Encounters Date Type Department Care Team (Late st Contact Info) Description 03/02/2024 2:00 PM EDT Office Visit Orthopaedic[address] [address] Jyoti Phelan PA-C [address] [place] [address] 03/17/2024 10:58 AM EDT Hospital Encounter [facility], Operating Room [facility] 1st Floor [address] [place] [address] Rodriguez Jones MD [address] [place] [address] 03/17/2024 10:58 AM EDT - 03/17/2024 1:45 PM EDT Surgery [facility], Operating Room [facility] 1st Floor [address] [place] [address] Rodriguez Jones MD [address] [place] [address] ROBOTIC ARTHROPLASTY KNEE TOTAL 04/18/2024 9:00 AM EDT Office Visit [facility] [place] [address] [place] [address] Tabitha Cunningham MD [address] [place] [address] 06/28/2024 8:30 AM EDT Office Visit Orthopaedics Spine Surgery, [place] [address] [place] [address] Sarbjit Vera MD [address] [place] [address] 09/16/2024 8:20 AM EST Office Visit [facility] [place] [address] [facility] [place] [address] Tabitha Cunningham MD [address] [place] [address] 11/04/2024 8:45 AM EST Office Visit Yamileth Carrillo [address] [place] [address] Franck Soriano, DO [address] [place] [address] Scheduled Procedures Name Priority Associated Diagnoses Date/Ti [...] Last Done Comments CKD PHOS USE SMARTSET 90371 1963 Hepatitis B (1 of 3 - [...] Screening 04/10/2024 04/10/2023 CKD HGB USE SMARTSET 35558 08/21/202408/21, 08/21/2023, 01/30/2023, Additional history exists Diabetic Foot Exam 10/21/2024 10/21/2023, 1 10/16/2021, 11/15/2020, Additional history exists DXA Scan 11/13/2024 11/13/2022, 0209/2020, 10/05/2017, Additional history exists Diabetic Eye Exam 01/24/2025 01/25/2024, , 01/25/2024, Additional history exists Colonoscopy 11/06/2025 11/06/2020, 10/2020, 09/21/2014, Additional history exists DTaP,Tdap,and Td Vaccines (3 - Td or Tdap) 03/30/2027 03/30/2017, 11/05/2006, 10/17/1996 Pneumococcal Vaccine: 65+ Years Completed 08/30/2015, 12/16/2011 VITAMIN D LEVEL ONCE IN A LIFETIME-USE SMARTSET# 72216 Completed 03/30/2017, 09/17/2009 RETIRED - COLONOSCOPY-EVERY 5 [...] this encounter Medical Devices Implanted Type Area Certified Indoor Environmentalist Device Identifier Shelf Expiration Date Model / Serial / Lot Dbx 10cc [id number] - [id number] Implanted:Qt y: 1 on 03/15/2010 at OR [facility] Tissue - Human N/A: Spine Lumbar MUSCULOSKELETAL TRANSPLANT FND 12/14/2011 [id number] / [id number] / Chip Cancellous 30cc 881665 - [id number] 055 - [id number] Implanted:Qt y: 1 on 01/09/2023 by Sarbjit Vera MD at OR [facility] Tissue - Human N/A: Spine Lumbar MUSCULOSKELETAL TRANSPLANT FND 10/12/2024 416935 / [id number] 1055 / [id number] Screw 7x50 Poly Si [id number] - [id number] Implanted:Qt y: 2 on 03/15/2010 at OR [facility] N/A: Spine Lumbar JNJ : ETH[employer]ON [employer] [id number] / / Cellay [employer]posite - [id number] Implanted:Qt y: 2 on 01/25/2016 by Ken Will MD at OR [facility] Left: Shoulder [employer] 06/06/2016 [id number] / / [id number] Dbx 2.5cc [id number] - [id number] Implanted:Qt y: 1 on 02/18/2017 by Sarbjit Vera MD at OR [facility] N/A: Spine Lumbar MUSCULOSKELETAL TRANSPLANT FND 09/26/2018 [id number] / / Screw 7x45 Poly Si [id number] - [id number] Implanted:Qt y: 2 on 02/18/2017 by Sarbjit Vera MD at OR [facility] N/A: Spine Lumbar JNJ : [employer] [id number] / / Description:In Set Expedium Ti Sfx 5.5 Lat A5 - [id number] Implanted:Qt y: 1 on 02/18/2017 by Sarbjit Vera MD at OR [facility] N/A: Spine Lumbar JNJ : ETH[employer] C[employer] [id number] / / Description:In Set Clik [place] - [id number] Implanted:Qt y: 1 on 06/06/2020 by Sarbjit Vera MD at OR [facility] N/A: Spine Thoracic [employer] : PAIN MGMT 04/17/2022 [id number] / / [id number] Description:bilateral Valve Lexie 3 Ultra 23mm - [id number] Implanted:Qt y: 1 on 11/27/2020 at CARDIAC LABS [facility] [employer] [id number] / / Gener Wvewriter Alpha Prime 16 - [id number] Implanted:Qt y: 1 on 02/14/2022 by Sarbjit Vera MD at OR [facility] Left: Back [employer] 01/20/2024 [id number] / / [id number] Description:left lower back Screw 6x40 Poly Si [id number] - [id number] Implanted:Qt y: 1 on 01/09/2023 by Sarbjit Vera MD at OR [facility] N/A: Spine Lumbar JNJ : [employer] [id number] / / Screw Set Sng Inner [id number] - [id number] Implanted:Qt y: 8 on 01/09/2023 by Sarbjit Vera MD at OR [facility] N/A: Spine Lumbar JNJ : [employer] [id number] / / Expedium Ti Sfx 5.5 Lat A5 - [id number] Implanted:Qt y: 1 on 01/09/2023 by Sarbjit Vera MD at OR [facility] N/A: Spine Lumbar JNJ : [employer] [id number] / / Screw 6x45 Poly Si [id number] - [id number] Implanted:Qt y: 3 on 01/09/2023 by Sarbjit Vera MD at OR [facility] N/A: Spine Lumbar JNJ : [employer] [id number] / / 100mm [place] Implanted:Qt y: 2 on 01/09/2023 by Sarbjit Vera MD at OR [facility] N/A: Spine Lumbar [employer] 0 / / Graft Infuse Bone Lg [id number] - [id number] Implanted:Qt y: 1 on 01/09/2023 by Sarbjit Vera MD at OR [facility] N/A: Spine Lumbar [employer] : NEURO CARE [id number] 09/06/2024 [id number] / / [id number] documented as of this encounter Visit Diagnoses [...] Power of Attor arnold? No Care Teams Stoner Hand Relationship Specialty Start Date End Date Tabitha Cunningham MD [address] [facility] [facility] [address] [place] [address] PCP - General 04/21/1996 documented as of this encounter
--- OUTSIDE RECORDS SUMMARY | 2024-03-22 07:45 | External Medical Summary ---
Author Name Unknown Address Unknown Organization K01:[facility] [address] [place] [address] Laboratory Report Ordering Provider Test Date Status CORNELIUS PENA 03/02/2024 14:47:00 Final Observation Date Value Abnormality Reference (Units ) Status Albumin 03/02/2024 14:47:00 4.6 3.8-5.0 (g /dL) Final Performing Location [facility] [address] [place] [address]
--- OUTSIDE RECORDS SUMMARY | 2024-03-22 07:45 | External Medical Summary | Summary of Care ---
Author Name Unknown Organization [facility] Address [address] [place] [address] Phone [phone] Care Team Providers Care Teacher Of The Emotionally Disturbed Name Role Phone Tabitha Cunningham MD Primary Care Provider [phone] Reason for Visit * Reason Onset Date Comments No Show 01/20/2024 Encounter Details Date Type Department Care Team (Late st Contact Info) Description 01/20/2024 Telephone Interventional [facility], [facility] [address] [place] [address] Rex Pickard CRNP [address] [place] [address] No Show Allergies Active Allergy Reactions Criticality Noted Date Comments Adhesive Tape 07/06/1998 rash Lisinopril 04/04/2014 cough Oxycodone-Acetaminophen Other (Please comment) 02/05/2017 "jittery" Nauseated Silver Sulfadiazine Rash 12/07/2002 rash Carisoprodol Other (Please comment) 03/29/2012 Restless, jittery Sulfa Antibiotics 10/15/1998 Tendency towards yeast infections. documented as of this encounter (statuses as of 01/20/2024) Medications Medication Sig Dispensed Refills Start Date [...] Propionate 50 MCG/ACT Nasal Suspension Administer 1 [place] into nostril as needed. 15.8 mL 3 [...] mellitus with hemoglobin A1c goal of 7.0%-8.0% ([facility]) TAKE ONE (1) TABLET BY MOUTH EVERY DAY 90 Tablet 1 12/29/2023 Active Alendronate Sodium 70 MG Oral Tablet (Fosamax) Take 1 tablet once weekly 30 minutes before breakfast with 8oz of water. Remain upright for 30 minutes after taking medication. 12 Tablet 1 01/01/2024 Active documented as of this encounter (statuses as of 01/20/2024) Active Problems Problem Noted Date Diagnosed Date [...] pylori infection 11/05/2020 Overview: [place] [facility] Other cirrhosis of liver 10/29/2020 Portal hypertension 10/29/2020 Morbid obesity due to excess calories 10/19/2020 Iron deficiency anemia 10/12/2020 S/P insertion of spinal cord stimulator 06/06/20 Overview: at [facility] [place] Doty HTN, goal below 150/90 [...] as of this encounter (statuses as of 01/20/2024) Resolved Problems Problem Noted Date Diagnosed Date Resolved Date Anemia 11/05/2020 11/15/2020 Chronic back pain 06/07/2020 11/15/2020 Encounter for examination fo r normal comparison and control in clinical research program 09/14/2018 04/09/2020 Overview: DO NOT DELETE [facility] DETECT Study: Project # [id number], Liquor Maker: Sarbjit Garcia, PhD. SUMMARY: Goal: Establish test [...] contact study staff at ; after hours Liquor Maker via the [facility] hospital engine room operator . Please contact study team before resolving/deleting from patients problem list. Study phone number: [phone]. Diagnosis changed due to Research Module. Go to Snapshot for study details. Encounter for examination fo r normal comparison and control in clinical research program 09/14/2018 05/08/2022 Overview: DO NOT DELETE - [facility] Study: Project # [id number], Liquor Maker: Mario Rene, MS, MPH. SUMMARY: Goal: Establish [...] contact study staff at ; after hours Liquor Maker via the [facility] hospital engine room operator . - Please contact study team before resolving/deleting from patients problem list. Study phone number: [phone]. Diagnosis changed due to Research Module. Go to [employer] for study details. Extrinsic asthma without complication [...] as of this encounter (statuses as of 01/20/2024) Immunizations Name Administration Dates Next Due COVID-19 [...] encounter Miscellaneous Notes * Telephone Encounter - Elizabeth Chin LPN - 01/20/2024 3:32 PM EDT No show letter printed. documented in this encounter Plan of Treatment Upcoming Encounters Date Type Department Care Team (Late st Contact Info) Description 01/25/2024 1:30 PM EDT Office Visit Ophthalmology, [place] [address] [place] [address] Franck Soriano DO [address] [place] [address] 03/02/2024 2:00 PM EDT Office Visit Orthopaedics [address] [phone] Jyoti Phelan PA-C [address] [place] [address] 03/17/2024 10:58 AM EDT Hospital Encounter [facility], Operating Room [facility] [address]st [address] [place] [address] Rodriguez Jones MD [address] [place] [address] 03/17/2024 10:58 AM EDT - 03/17/2024 1:45 PM EDT Surgery OR [facility], Operating Room [facility] 1st [address] [place] [address] Rodriguez Jones MD [address] [place] [address] ROBOTIC ARTHROPLASTY KNEE TOTAL 04/18/2024 9:00 AM EDT Office Visit [facility] [place] [address] [facility] [place] [address] Tabitha Cunningham MD [address] [place] [address] 06/28/2024 8:30 AM EDT [facility] [address] [place] [phone] Sarbjit Vera MD [address] [place] [address] 09/16/2024 8:20 AM EST Office Visit [facility] [address] [facility] [place] [address] Tabitha Cunningham MD [address] [place] [address] Scheduled Procedures Name Priority Associated Diagnoses Date/Ti [...] Last Done Comments CKD PHOS USE SMARTSET 83488 1963 Hepatitis B (1 of 3 - Risk 3-dose series) 2006 Zoster Vaccines (2 of 3) 10/06/2013 08/11/2013 Diabetic Eye Exam 12/04/2022 12/04/2021, , 02/14/2019, Additional history exists COVID-19 Vaccine ( season) 2023 09/13/2021, 12/03/2020 GFR 02/20/2024 08/21/2023, 03/08, 01/30/2023, Additional history exists HbA1c 02/20/2024 08/21/2023, 03/08, 12/04/2022, Additional history exists Albumin/Creatinine Ratio 03/31/2024 023, 01/15/2022, 08/16/2014, Additional history exists B-12 03/31/2024 03/31/2023, 072 10/2020, 10/11/2020, Additional history exists Depression Screening 04/10/2024 04/10/2023 CKD HGB USE SMARTSET 57960 08/21/202408/21, 08/21/2023, 01/30/2023, Additional history exists Diabetic Foot Exam 10/21/2024 10/21/2023, 1 10/16/2021, 11/15/2020, Additional history exists DXA Scan 11/13/2024 11/13/2022, 10/08, 10/05/2017, Additional history exists Colonoscopy 11/06/2025 11/06/2020, 030 10/2020, 09/21/2014, Additional history exists DTaP,Tdap,and Td Vaccines (3 - Td or Tdap) 03/30/2027 03/30/2017, 11/05/2006, 10/17/1996 Pneumococcal Vaccine: 65+ Years Completed 08/30/2015, 12/16/2011 VITAMIN D LEVEL ONCE IN A LIFETIME-USE SMARTSET# 28285 Completed 03/30/2017, 09/17/2009 RETIRED - COLONOSCOPY-EVERY 5 [...] this encounter Medical Devices Implanted Type Area [employer] Senior Sergeant Device Identifier Shelf Expiration Date Model / Serial / Lot Dbx 10cc [id number] - [id number] Implanted:Qt y: 1 on 03/15/2010 at [place] [facility] Tissue - Human N/A: Spine Lumbar MUSCULOSKELETAL TRANSPLANT FND 12/14/2011 [id number] / [id number] / Chip Cancellous 30cc [id number] - [id number] - [id number] Implanted:Qt y: 1 on 01/09/2023 by Sarbjit Vera MD at OR [facility] Tissue - Human N/A: Spine Lumbar MUSCULOSKELETAL TRANSPLANT FND 10/12/2024 [id number] / [id number] / [id number] Screw 7x50 Poly Si [id number] - [id number] Implanted:Qt y: 2 on 03/15/2010 at [place] [facility] N/A: Spine Lumbar JNJ : [employer] [id number] / / Corkscrejesse [employer] Composite - [id number] Implanted:Qt y: 2 on 01/25/2016 by Ken Will MD at OR [facility] Left: Shoulder [employer] 06/06/2016 [id number] / / [id number] Dbx 2.5cc [id number] - [id number] Implanted:Qt y: 1 on 02/18/2017 by Sarbjit Vera MD at OR [facility] N/A: Spine Lumbar MUSCULOSKELETAL TRANSPLANT FND 09/26/2018 [id number] / / Screw 7x45 Poly Si [id number] - [id number] Implanted:Qt y: 2 on 02/18/2017 by Sarbjit Vera MD at OR [facility] N/A: Spine Lumbar JNJ : ETH[employer]ON [employer]ATIONS [id number] / / Description:In Set Expedium Ti Sfx 5.5 Lat A5 - [id number] Implanted:Qt y: 1 on 02/18/2017 by Sarbjit Vera MD at OR [facility] N/A: Spine Lumbar JNJ : ETH[employer]ON C[employer]ATIONS [id number] / / Description:In Set Clik [place] - [id number] Implanted:Qt y: 1 on 06/06/2020 by Sarbjit Vera MD at OR [facility] N/A: Spine Thoracic [employer] : PAIN MGMT 04/17/2022 [id number] / / [id number] Description:bilateral Valve Lexie 3 Ultra 23mm - [id number] Implanted:Qt y: 1 on 11/27/2020 at [facility]ARDIAC [facility] [employer] [id number] / / Gener Wvewriter Alpha Prime 16 - [id number] Implanted:Qt y: 1 on 02/14/2022 by Sarbjit Vera MD at [place] [facility] Left: Back [employer] 01/20/2024 [id number] / / [id number] Description:left lower back Screw 6x40 Poly Si [id number] - [id number] Implanted:Qt y: 1 on 01/09/2023 by Sarbjit Vera MD at OR [facility] N/A: Spine Lumbar JNJ : [employer] [id number] / / Screw Set Sng Inner [id number] - [id number] Implanted:Qt y: 8 on 01/09/2023 by Sarbjit Vera MD at OR [facility] N/A: Spine Lumbar JNJ : [employer] [id number] / / Expedium Ti Sfx 5.5 Lat A5 - [id number] Implanted:Qt y: 1 on 01/09/2023 by Sarbjit Vera MD at OR [facility] N/A: Spine Lumbar JNJ : [employer] [id number] / / Screw 6x45 Poly Si [id number] - [id number] Implanted:Qt y: 3 on 01/09/2023 by Sarbjit Vera MD at OR [facility] N/A: Spine Lumbar JNJ : [employer] [id number] / / 100mm [place] Implanted:Qt y: 2 on 01/09/2023 by Sarbjit Vera MD at OR [facility] N/A: Spine Lumbar [employer] 0 / / Graft Infuse Bone Lg [id number] - [id number] Implanted:Qt y: 1 on 01/09/2023 by Sarbjit Vera MD at OR [facility] N/A: Spine Lumbar [employer] : NEURO CARE [id number] 09/06/2024 [id number] / / [id number] documented as of this encounter Advance Directives Latest Code Status on File Code Status Date Activated Date Inactivated Comments Full Code 01/09/2023 1:45 PM 01/13/2023 4:00 PM This or sabrina reflects the patients wishes and were consensually agreed upon. Question Answer Comments Discussion of Advance Directives occurred with: Patient Does the patient have a Living Will? No Does the patient have Health Care Power of Foot Orthopedist? No Code Status History Code Status Date Activated Date Inactivated Comments Full Code 01/09/2023 9:33 AM 01/09/2023 1:45 PM This or sabrina reflects the patients wishes and were consensually agreed upon. Question Answer Comments Discussion of Advance Directives occurred with: Patient Does the patient have a Living Will? No Does the patient have Health Care Power of Foot Orthopedist? No Full Code 02/14/2022 8:41 AM 02/15/2022 [...] the patient have Health Care Power of Foot Orthopedist? No Care Teams Teacher Of The Emotionally Disturbed Relationship Specialty Start Date End Date Tabitha Cunningham MD [address] [place] [address] PCP - General 04/21/1996 documented as of this encounter
--- OUTSIDE RECORDS SUMMARY | 2024-03-22 07:45 | External Medical Summary | Summary of Care ---
Author Name Unknown Organization [facility] Address [address] [place] [address] Phone [phone] Care Team Providers Care Dry Cleaning Teacher Name Role Phone Tabitha Cunningham MD Primary Care Provider [phone] Reason for Visit * Reason Onset Date Comments Advice 11/16/2023 Encounter Details Date Type Department Care Team (Late st Contact Info) Description 11/16[facility]2023 [facility] [address] [place] [address] Sarbjit Vera MD [address] [place] [address] Advice Allergies Active Allergy Reactions Criticality Noted Date [...] ASPIRIN EC LOW STRENGTH 81 MG PO TBECIndications:Ot her nonspecific abnormal cardiovascular system function study one by mouth daily 34 5 6 Active Amoxicillin 500 MG Oral Capsule (Amoxil) Take 4 tablets by mouth one hour prior to any dental procedure or cleaning 12 Cap 03 1 Active Loratadine 10 MG Oral Tablet (Claritin)Indicati ons:Allergic disorder, subsequent encounter One tab each julisa for allergies 30 Tab 5 1 Active Fluticasone Propionate 50 MCG/ACT Nasal Suspension Administer 1 [place] into nostril as needed. 15.8 mL 3 1 Active Tylenol 325 MG Oral Capsule (Acetaminophen) Take 325 mg by mouth every 6 hours. 30 Capsule 1 Active traZODone HCl 50 MG Oral Tablet (Desyrel)Indicatio ns:Fatigue, unspecified type TAKE ONE TABLET BY MOUTH NIGHTLY AT BEDTIME 90 Tablet 3 3 Active Ventolin HFA 108 (90 Base) MCG/ACT Inhalation Aerosol SolutionIndication s:Mild intermittent extrinsic asthma without complication Inhale 2 Puffs by mouth 4 times a day as needed for Cough or Shortness of Breath. 18 g 3 3 Active Citalopram Hydrobromide 20 MG Oral Tablet (CeleXA)Indication s:Adjustment disorder with depressed mood TAKE 1 TABLET BY MOUTH DAILY in the morning for mood. 90 Tablet 3 3 Active Polyethylene Glycol 3350 17 GM/SCOOP Oral Powder (MiraLax) Take 17 g by mouth in the morning. Active hydroCHLOROthiazid e 25 MG Oral Tablet (Hydrodiuril)Indic ations:HTN, goal below 140/90 TAKE ONE TABLET BY MOUTH EVERY MORNING for fluid and blood pressure 90 Tablet 3 4 Active Atorvastatin Calcium 20 MG Oral Tablet (Lipitor)Indicatio ns:Mixed hyperlipidemia TAKE ONE (1) TABLET BY MOUTH EVERY DAY 90 Tablet 1 4 Active Metoprolol Succinate ER 25 MG Oral Tablet Extended Release 24 Hour (toPROL XL) TAKE ONE (1) TABLET BY MOUTH EVERY DAY 90 Tablet 3 3 12/28/19 24 Discontinued(Re fill) Alendronate Sodium 70 MG Oral Tablet (Fosamax) Take 1 Tablet by mouth once a week. 3 11/30/19 24 Discontinued metFORMIN HCl 500 MG Oral Tablet (Glucophage)Indica tions:Type 2 diabetes mellitus with hemoglobin A1c goal of 7.0%-8.0% (HCC) TAKE ONE (1) TABLET BY MOUTH EVERY DAY 90 Tablet 1 3 12/29/19 24 Discontinued(Re fill) Losartan Potassium 100 MG Oral Tablet (Cozaar)Indication s:HTN, goal below 140/90 TAKE ONE (1) TABLET BY MOUTH EVERY DAY 90 Tablet 3 11/17/19 24 Discontinued(Re fill) documented as of this encounter (statuses as [...] pylori infection 11/05/2020 Overview: by EGD at [facility] Other cirrhosis of liver 10/29/2020 Portal hypertension 10/29/2020 Morbid obesity due to excess calories 10/19/2020 Iron deficiency anemia 10/12/2020 S/P insertion of spinal cord stimulator 06/06/20 Overview: at [facility] per Dr Doty HTN, goal below 150/90 [...] program 09/14/2018 04/09/2020 Overview: DO NOT DELETE [facility] DETECT Study: Project # [id number], Risk Prevention Engineer: Sarbjit Garcia, PhD. SUMMARY: Goal: Establish test [...] contact study staff at ; after hours Risk Prevention Engineer via the [facility] hospital data entry machine operator . Please contact study team before resolving/deleting from patients problem list. Study phone number: [phone]. Diagnosis changed due to Research Module. Go to Snapshot for study details. Encounter for examination fo r normal comparison and control in clinical research program 09/14/2018 05/08/2022 Overview: DO NOT DELETE - [facility] DETECT Study: Project # [id number], Risk Prevention Engineer: Mario Rene, MS, MPH. SUMMARY: Goal: Establish [...] contact study staff at ; after hours Risk Prevention Engineer via the [facility] hospital data entry machine operator . - Please contact study team before resolving/deleting from patients problem list. Study phone number: [phone]. Diagnosis changed due to Research Module. Go [...] encounter Miscellaneous Notes * Telephone Encounter - Elina Lizama MED ASSIST - 11/16/2023 8:08 AM EDT Patients ([place]) calling asking for sooner appointment , patients pain level has increased over the last week or so , please advise [phone] documented in this encounter Plan of Treatment Upcoming Encounters Date Type Department Care Team (Late st Contact Info) Description 03/02/2024 2:00 PM EDT Office Visit Orthopaedics [address] [place] [phone] [place] [address] 03/17/2024 10:58 AM EDT Hospital Encounter OR [facility], Operating Room [facility] 1st [address] [place] [address] Rodriguez Jones MD [address] [place] [address] 03/17/2024 10:58 AM EDT - 03/17/2024 1:45 PM EDT Surgery OR GSACH, Operating Room [facility] [address]st [address] [place] [address] Rodriguez Jones MD [address] [place] [address] ROBOTIC ARTHROPLASTY KNEE TOTAL 04/18/2024 9:00 AM EDT Office Visit [facility] [address] [place] [address] Tabitha Cunningham MD [address] [place] [address] 06/28/2024 8:30 AM EDT [facility] [address] [place] [phone] Sarbjit Vera MD [address] [place] [address] 09/16/2024 8:20 AM EST Office Visit [facility] [address] [facility] [place] [address] Tabitha Cunningham MD [address] [place] [address] 11/04/2024 8:45 AM EST Office Visit [place] [address] [facility] [place] [address] Franck Soriano DO [address] [place] [address] Scheduled Procedures Name Priority Associated Diagnoses Date/Ti [...] Last Done Comments CKD PHOS USE SMARTSET 47330 1963 Hepatitis B (1 of 3 - [...] Screening 04/10/2024 04/10/2023 CKD HGB USE SMARTSET 13345 08/21/202408/21, 08/21/2023, 01/30/2023, Additional history exists Diabetic [...] D LEVEL ONCE IN A LIFETIME-USE SMARTSET# 33013 Completed 03/30/2017, 09/17/2009 RETIRED - COLONOSCOPY-EVERY 5 [...] this encounter Medical Devices Implanted Type Area Radiographer Device Identifier Shelf Expiration Date Model / Serial / Lot Dbx 10cc [id number] - [id number] Implanted:Qt y: 1 on 03/15/2010 at OR [facility] Tissue - Human N/A: Spine Lumbar MUSCULOSKELETAL TRANSPLANT FND 12/14/2011 [id number] / [id number] / Chip Cancellous 30cc 114879 - [id number] - [id number] Implanted:Qt y: 1 on 01/09/2023 by Sarbjit Vera MD at OR [facility] Tissue - Human N/A: Spine Lumbar MUSCULOSKELETAL TRANSPLANT FND 10/12/2024 [id number] / [id number] / [id number] Screw 7x50 Poly Si [id number] - [id number] Implanted:Qt y: 2 on 03/15/2010 at OR [facility] N/A: Spine Lumbar JNJ : [employer] [id number] / / Titusksrajesh Bio Composite - [id number] Implanted:Qt y: 2 on 01/25/2016 by Ken Will MD at OR [facility] Left: Shoulder [employer] 06/06/2016 [id number] / / [id number] Dbx 2.5cc [id number] - [id number] Implanted:Qt y: 1 on 02/18/2017 by Sarbjit Vera MD at OR [facility] N/A: Spine Lumbar MUSCULOSKELETAL TRANSPLANT FND 09/26/2018 [id number] / / Screw 7x45 Poly Si [id number] - [id number] Implanted:Qt y: 2 on 02/18/2017 by Sarbjit Vera MD at OR [facility] N/A: Spine Lumbar JNJ : [employer] [id number] / / Description:In Set Expedium Ti Sfx 5.5 Lat A5 - [id number] Implanted:Qt y: 1 on 02/18/2017 by Sarbjit Vera MD at OR [facility] N/A: Spine Lumbar JNJ : [employer] [id number] / / Description:In Set Clik [place] - [id number] Implanted:Qt y: 1 on 06/06/2020 by Sarbjit Vera MD at OR [facility] N/A: Spine Thoracic [employer] : PAIN MGMT 04/17/2022 [id number] / / [id number] Description:bilateral Valve Lexie 3 Ultra 23mm - [id number] Implanted:Qt y: 1 on 11/27/2020 at [facility]ARDIAC LABS [facility] [employer] [id number] / / Gener Wvewriter Alpha Prime 16 - [id number] Implanted:Qt y: 1 on 02/14/2022 by Sarbjit Vera MD at OR [facility] Left: Back [employer] 01/20/2024 [id number] / / [id number] Description:left lower back Screw 6x40 Poly Si [id number] - [id number] Implanted:Qt y: 1 on 01/09/2023 by Sarbjit Vera MD at OR [facility] N/A: Spine Lumbar JNJ : [employer] [id number] / / Screw Set Sng Inner [id number] - [id number] Implanted:Qt y: 8 on 01/09/2023 by Sarbjit Vera MD at OR [facility] N/A: Spine Lumbar JNJ : [employer] [id number] / / Expedium Ti Sfx 5.5 Lat A5 - [id number] Implanted:Qt y: 1 on 01/09/2023 by Sarbjit Vera MD at OR [facility] N/A: Spine Lumbar JNJ : [employer] [id number] / / Screw 6x45 Poly Si [id number] - [id number] Implanted:Qt y: 3 on 01/09/2023 by Sarbjit Vera MD at OR [facility] N/A: Spine Lumbar JNJ : [employer] [id number] / / 100mm [place] Implanted:Qt y: 2 on 01/09/2023 by Sarbjit Vera MD at OR [facility] N/A: Spine Lumbar [employer] 0 / / Graft Infuse Bone Lg [id number] - [id number] Implanted:Qt y: 1 on 01/09/2023 by Sarbjit Vera MD at OR [facility] N/A: Spine Lumbar [employer] : NEURO CARE [id number] 09/06/2024 [id number] / / [id number] documented as of this encounter Advance Directives [...] Power of Attor arnold? No Care Teams Dry Cleaning Teacher Relationship Specialty Start Date End Date [facility]a [facility] [address] [facility] [address] PCP - General 04/21/1996 documented as of this encounter
--- OUTSIDE RECORDS SUMMARY | 2024-03-22 07:45 | External Medical Summary ---
Author Name Unknown Address Unknown Organization K01:LABORATORY [facility] - [address] [facility] [address] Laboratory Report Ordering Provider Test Date Status CORNELIUS PENA 03/02/2024 14:47:00 Final Observation Date Value Abnormality Reference (Units ) Status HbA1C 03/02/2024 14:47:00 5.5 4.0-5.6 (% ) Final The use of HbA1c to monitor glycemic status is based on normal hemoglobin and HbA composition. This test should not be used in patients with abnormal hemoglobin that affects the half life of the red blood cell or the in vivo glycation rates. Glucose, estimated average 03/02/2024 14:47:00 111 <126 (mg/dL) Final Performing Location [facility] - [address] [facility] [address]
--- OUTSIDE RECORDS SUMMARY | 2024-03-22 07:45 | External Medical Summary | Summary of Care ---
Author Name Unknown Organization [facility] Address [address] [place] [address] Phone [phone] Care Team Providers Care [employer] Agent Name Role Phone Tabitha Cunningham MD Primary Care Provider [phone] Reason for Visit * Reason Comments Follow Up Encounter Details Date Type Department Care Team (Late st Contact Info) Description 01/25/2024 1:30 PM EDT Office Visit Ophthalmology, [place] [address] [facility] [address] Franck Soriano DO [address] [facility] [place] [address] Anatomical narrow angle*; Dry eyes, bilateral; Combined forms of age-related cataract of both eyes; Type 2 diabetes mellitus with hemoglobin A1c goal of less than 7.0% ([facility]); Diabetic eye exam ([facility]) Allergies Active Allergy Reactions Criticality Noted Date Comments Adhesive Tape 07/06/1998 rash Lisinopril 04/04/2014 cough Oxycodone-Acetaminophen Other (Please comment) 02/05/2017 "jittery" Nauseated Silver Sulfadiazine Rash 12/07/2002 rash Carisoprodol Other (Please comment) 03/29/2012 Restless, jittery Sulfa Antibiotics 10/15/1998 Tendency towards yeast infections. documented as of this encounter (statuses as of 01/25/2024) Medications Medication Sig Dispensed Refills Start Date [...] Propionate 50 MCG/ACT Nasal Suspension Administer 1 [place] into nostril as needed. 15.8 mL 3 [...] mellitus with hemoglobin A1c goal of 7.0%-8.0% ([facility]) TAKE ONE (1) TABLET BY MOUTH EVERY DAY 90 Tablet 1 12/29/2023 Active Alendronate Sodium 70 MG Oral Tablet (Fosamax) Take 1 tablet once weekly 30 minutes before breakfast with 8oz of water. Remain upright for 30 minutes after taking medication. 12 Tablet 1 01/01/2024 Active documented as of this encounter (statuses as of 01/25/2024) Active Problems Problem Noted Date Diagnosed Date [...] as of this encounter (statuses as of 01/25/2024) Resolved Problems Problem Noted Date Diagnosed Date Resolved Date Anemia 11/05/2020 11/15/2020 Chronic back pain 06/07/2020 11/15/2020 Encounter for examination fo r normal comparison and control in clinical research program 09/14/2018 04/09/2020 Overview: DO NOT DELETE [facility] DETECT Study: Project # [id number], Tabulating Clerk: Sarbjit Garcia, PhD. SUMMARY: Goal: Establish test [...] contact study staff at ; after hours Tabulating Clerk via the [facility] flight control tower operator . Please contact study team before resolving/deleting from patients problem list. Study phone number: [phone]. Diagnosis changed due to Research Module. Go to Snapshot for study details. Encounter for examination fo r normal comparison and control in clinical research program 09/14/2018 05/08/2022 Overview: DO NOT DELETE - [facility] PINKY Study: Project # [id number], Tabulating Clerk: Mario Rene, MS, MPH. SUMMARY: Goal: Establish [...] contact study staff at ; after hours Tabulating Clerk via the [facility] flight control tower operator . - Please contact study team before resolving/deleting from patients problem list. Study phone number: [phone]. Diagnosis changed due to Research Module. Go [...] as of this encounter (statuses as of 01/25/2024) Immunizations Name Administration Dates Next Due COVID-19 [...] as of this encounter Progress Notes * Franck Soriano, DO - 01/25/2024 1:30 PM EDT 01/25/24 [facility] Ophthalmology Clinic Note HPI: Hannah Groves is a 78 year old pt who presents to the eye clinic today as a return - referral Dr. Winslow. Location: OU Severity: Mild Quality: Post LPI OU Exacerbating/Remitting Factors: Denies Associated Sx: Denies Past Ocular History: T2DM without hx of retinopathy Cataract OU Anatomic narrow angle OU S/p LPI OU AMMON Eye Medications: Systane QID OU Family Ocular History: Denies ROS: Pt denies acute vision changes Pt denies new onset double vision Pt denies new TAYLOR Pt denies new issues surrounding eyes Pt admits to above Please see below for full exam details. Base Eye Exam Visual Acuity (Snellen - Linear) Right Left Dist cc 20/25 -1 20/25 -1 Tonometry (Tonopen, 1:08 PM) Right Left Pressure 19 20 Pupils Pupils Dark Light Shape React APD Right PERRL 3 2 Round Brisk None Left PERRL 3 2 Round Brisk None Visual Sosa (Counting fingers) Right Left Full Full Extraocular Movement Right Left Full Full Neuro/Psych Oriented x3: Yes Mood/Affect: Normal Dilation Both eyes: 1.0% Mydriacyl @ 1:39 PM Slit Lamp and Fundus Exam External Exam Right Left External Normal Normal Slit Lamp Exam Right Left Lids/Lashes Normal Normal Conjunctiva/Sclera White and quiet White and quiet Cornea PEK inferior PEK inferior Anterior Chamber Narrow Narrow Iris Round and reactive, small patent PI 12 o'clock Round and reactive, patent LPI 10:30 o'clock Lens 1.5+ NSC, vacuoles 1.5+ NSC, vacuoles Fundus Exam Right Left Vitreous PVD PVD Disc Normal Normal Macula Normal Normal Vessels Normal Normal Periphery Normal Normal A/P: Anatomic narrow angle, OU -Post LPI OU -Looks good -Will gonio next visit to check for stability Diabetic Eye Exam -No evidence of Diabetic findings on anterior or posterior exam -Cont blood glucose control and HTN control -Explained pathophysiology of how diabetes affects eyes -RTC in 1 year for routine f/u Last performed 01/2024 Due next 01/2025 Dry Eyes, OU -Recommend artificial tears up to 4 times daily Cataract, OU -Monitor for now, good vision RTC Sep or Oct 2024 (examine here, then decide if optometry eval needed) or sooner prn. Franck Soriano, DO 01/25/24 I spent a total of 20-29 minutes (exact time 20 mins) on the date of service in preparation, delivery, and documentation of the care provided to Hannah Groves excluding any time spent in the performance of separately billed services. documented in this encounter Nursing Notes * Brenda Peacock TECH - 01/25/2024 1:04 PM EDT Pt presents today for a follow up yag PI OU documented in this encounter Plan of Treatment Upcoming Encounters Date Type Department Care Team (Late st Contact Info) Description 03/02/2024 2:00 PM EDT Office Visit [facility]opaedics [facility] [address] [place] [id number] Jyoti Phelan PA-C [address] [place] [address] 03/17/2024 10:58 AM EDT Hospital Encounter [facility], Operating Room [facility] [address]st [address] [place] [address] Rodriguez Jones MD [address] [place] [address] 03/17/2024 10:58 AM EDT - 03/17/2024 1:45 PM EDT Surgery OR [facility], Operating Room [facility] [address]st [address] [place] [address] Rodriguez Jones MD [address] [place] [address] ROBOTIC ARTHROPLASTY KNEE TOTAL 04/18/2024 9:00 AM EDT Office Visit [facility] [address] [place] [address] Tabitha Cunningham MD [address] [place] [address] 06/28/2024 8:30 AM EDT Office Visit Orthopaedics Spine Surgery, [place] [address] [place] [phone] Sarbjit Vera MD [address] [place] [address] 09/16/2024 8:20 AM EST Office Visit [facility] [place] [address] [place] [address] Tabitha Cunningham MD [address] [place] [address] 11/04/2024 8:45 AM EST Office Visit Ophthalmology, [place] [address] [facility] [place] [address] Franck Soriano DO [address] [facility] [place] [address] Scheduled Procedures Name Priority Associated Diagnoses Date/Ti [...] Last Done Comments CKD PHOS USE SMARTSET 66359 1963 Hepatitis B (1 of 3 - Risk 3-dose series) 2006 Zoster Vaccines (2 of 3) 10/06/2013 08/11/2013 COVID-19 Vaccine ( season) 2023 09/13/2021, 12/03/2020 GFR 02/20/2024 08/21/2023, 03/08, 01/30/2023, Additional history exists HbA1c 02/20/2024 08/21/2023, 03/08, 12/04/2022, Additional history exists Albumin/Creatinine Ratio 03/31/2024 023, 01/15/2022, 08/16/2014, Additional history exists B-12 03/31/2024 03/31/2023, 07/10/2020, 10/11/2020, Additional history exists Depression Screening 04/10/2024 04/10/2023 CKD HGB USE SMARTSET 24444 08/21/202408/21, 08/21/2023, 01/30/2023, Additional history exists Diabetic [...] D LEVEL ONCE IN A LIFETIME-USE SMARTSET# 72948 Completed 03/30/2017, 09/17/2009 RETIRED - COLONOSCOPY-EVERY 5 [...] this encounter Medical Devices Implanted Type Area Top Tile Decorator Device Identifier Shelf Expiration Date Model / Serial / Lot Dbx 10cc [id number] - [id number] Implanted:Qt y: 1 on 03/15/2010 at OR [facility] [place] Tissue - Human N/A: Spine Lumbar MUSCULOSKELETAL TRANSPLANT FND 12/14/2011 [id number] / [id number] / Chip Cancellous 30cc [id number] - [id number] - [id number] Implanted:Qt y: 1 on 01/09/2023 by Sarbjit Vera MD at OR [facility] [place] Tissue - Human N/A: Spine Lumbar MUSCULOSKELETAL TRANSPLANT FND 10/12/2024 [id number] / [id number] / [id number] 1055 Screw 7x50 Poly Si [id number] - [id number] Implanted:Qt y: 2 on 03/15/2010 at OR [facility] [place] N/A: Spine Lumbar JNJ : [employer] [id number] / / Corkscrew [employer]posite - [id number] Implanted:Qt y: 2 on 01/25/2016 by Ken Will MD at OR [facility] Left: Shoulder [employer] 06/06/2016 [id number] / / [id number] Dbx 2.5cc [id number] - [id number] Implanted:Qt y: 1 on 02/18/2017 by Sarbjit Vera MD at OR [facility] [place] N/A: Spine Lumbar MUSCULOSKELETAL TRANSPLANT FND 09/26/2018 [id number] / / Screw 7x45 Poly Si [id number] - [id number] Implanted:Qt y: 2 on 02/18/2017 by Sarbjit Vera MD at OR [facility] [place] N/A: Spine Lumbar JNJ : [employer] [id number] / / Description:In Set Expedium Ti Sfx 5.5 Lat A5 - [id number] Implanted:Qt y: 1 on 02/18/2017 by Sarbjit Vera MD at OR [facility] [place] N/A: Spine Lumbar JNJ : [employer] [id number] / / Description:In Set Clik [place] - [id number] Implanted:Qt y: 1 on 06/06/2020 by Sarbjit Vera MD at OR [facility] [place] N/A: Spine Thoracic [employer] : PAIN MGMT 04/17/2022 [id number] / / [id number] Description:bilateral Valve Lexie 3 Ultra 23mm - [id number] Implanted:Qt y: 1 on 11/27/2020 at CARDIAC LABS [facility] [place] [employer] [id number] / / Clarice Wvewriter Alpha Prime 16 - [id number] Implanted:Qt y: 1 on 02/14/2022 by Sarbjit Vera MD at OR [facility] [place] Left: Back Cyphort 01/20/2024 [id number] / / [id number] Description:left lower back Screw 6x40 Poly Si [id number] - [id number] Implanted:Qt y: 1 on 01/09/2023 by Sarbjit Vera MD at OR [facility] [place] N/A: Spine Lumbar JNJ : [employer] [id number] / / Screw Set Sng Inner [id number] - [id number] Implanted:Qt y: 8 on 01/09/2023 by Sarbjit Vera MD at OR [facility] [place] N/A: Spine Lumbar JNJ : [employer] [id number] / / Expedium Ti Sfx 5.5 Lat A5 - [id number] Implanted:Qt y: 1 on 01/09/2023 by Sarbjit Vera MD at OR [facility] [place] N/A: Spine Lumbar JNJ : [employer] [id number] / / Screw 6x45 Poly Si [id number] - [id number] Implanted:Qt y: 3 on 01/09/2023 by Sarbjit Vera MD at OR [facility] [place] N/A: Spine Lumbar JNJ : [employer] [id number] / / 100mm [place] Implanted:Qt y: 2 on 01/09/2023 by Sarbjit Vera MD at OR [facility] [place] N/A: Spine Lumbar [employer] 0 / / Graft Infuse Bone Lg [id number] - [id number] Implanted:Qt y: 1 on 01/09/2023 by Sarbjit Vera MD at OR [facility] [place] N/A: Spine Lumbar [employer] : NEURO CARE [id number] 09/06/2024 [id number] / / [id number] documented as of this encounter Visit Diagnoses Diagnosis Osteoarthritis of knee- Primary Osteoarthrosis, unspecified whether generalized or localized, lower leg Anatomical narrow angle- Primary Anatomical narrow angle borderline glaucoma Dry eyes, bilateral Tear film insufficiency, unspecified Combined forms of age-related cataract of both eyes Other and combined forms of senile cataract Type 2 diabetes mellitus with hemoglobin A1c goal of less than 7.0% ([facility]) Diabetic eye exam (HCC) Type II or unspecified type diabetes mellitus without mention of complication, not stated as uncontrolled Primary osteoarthritis of left knee Primary localized [...] Power of Attor arnold? No Care Teams Tariff Publishing Agent Relationship Specialty Start Date End Date Tabitha Cunningham MD [address] [place] [address] PCP - General 04/21/1996 documented as of this encounter
--- OUTSIDE RECORDS SUMMARY | 2024-03-22 07:45 | External Medical Summary ---
Author Name Unknown Address Unknown Organization [id number][facility] [place] [facility] [address] [place] [address] Laboratory Report Ordering Provider Test Date Status CORNELIUS PENA 03/02/2024 14:25:00 Final Observation Date Value Abnormality Reference (Units ) Status Staphylococcus aureus methicillin resistance SCCmec [Presence] in Nose by ARTI with probe detection 03/02/2024 14:25:00 Negative Negative Final No Methicillin resistant Sta phylococcus aureus detected by PCR (amplified probe). Methicillin susceptible Stap hylococcus aureus DNA [Presence] in Specimen by ARTI with probe detection 03/02/2024 14:25:00 Negative Negative Final No Staphylococcus aureus det ected by PCR (amplified probe). Performing Location [facility] [place] [facility] [place] [address]
--- OUTSIDE RECORDS SUMMARY | 2024-03-22 07:45 | External Medical Summary ---
Author Name Unknown Address Unknown Organization [id number][facility] [place] [address] [facility] [address] Laboratory Report Ordering Provider Test Date Status CORNELIUS PENA 03/02/2024 14:47:00 Final Observation Date Value Abnormality Reference (Units ) Status BUN 03/02/2024 14:47:00 19 6-20 (mg/dL) Final Creatinine 03/02/2024 14:47:00 1.0 0.5-1.0 (mg/dL) Final Glomerular filtration rate/1.73 sq M.predicted [Volume Rate/Area] in Serum, Plasma or Blood by Creatinine-based formula (CKD-EPI) 03/02/2024 14:47:00 60 >=60 (mL/min) Final eGFR is calculated based on the CKD-EPI 2020 equation Sodium 03/02/2024 14:47:00 141 135-146 (m mol/L) Final Potassium 03/02/2024 14:47:00 4.0 3.5-5.1 (m mol/L) Final Cl 03/02/2024 14:47:00 104 98-107 (mm ol/L) Final CO2 03/02/2024 14:47:00 25 22-32 (mmo l/L) Final Anion gap 03/02/2024 14:47:00 12 7-15 (mmol /L) Final Glucose 03/02/2024 14:47:00 102 70-120 (mg /dL) Final Calcium 03/02/2024 14:47:00 9.3 8.4-10.2 ( mg/dL) Final Performing Location [facility] [place] [address] [place] [address]
--- OUTSIDE RECORDS SUMMARY | 2024-03-22 07:45 | External Medical Summary | Summary of Care ---
Author Name Unknown Organization [facility] Address [address] [place] [address] Phone [phone] Care Team Providers Care Wash Crew Person Name Role Phone Tabitha Cunningham MD Primary Care Provider [phone] Reason for Visit * Reason Onset Date Comments Letter Requests 02/08/2024 Jury duty excuse kash Encounter Details Date Type Department Care Team (Late st Contact Info) Description 02/08/[address] [facility] [place] [address] [place] [address] Tabitha Cunningham MD [address] [place] [address] Letter Requests (Jury duty excuse kash) Allergies Active Allergy Reactions Criticality Noted Date Comments Adhesive Tape 07/06/1998 rash Lisinopril 04/04/2014 cough Oxycodone-Acetaminophen Other (Please comment) 02/05/2017 "jittery" Nauseated Silver Sulfadiazine Rash 12/07/2002 rash Carisoprodol Other (Please comment) 03/29/2012 Restless, jittery Sulfa Antibiotics 10/15/1998 Tendency towards yeast infections. documented as of this encounter (statuses as of 02/08/2024) Medications Medication Sig Dispensed Refills Start Date [...] Propionate 50 MCG/ACT Nasal Suspension Administer 1 [place] into nostril as needed. 15.8 mL 3 [...] mellitus with hemoglobin A1c goal of 7.0%-8.0% ([facility]) TAKE ONE (1) TABLET BY MOUTH EVERY DAY 90 Tablet 1 12/29/2023 Active Alendronate Sodium 70 MG Oral Tablet (Fosamax) Take 1 tablet once weekly 30 minutes before breakfast with 8oz of water. Remain upright for 30 minutes after taking medication. 12 Tablet 1 01/01/2024 Active documented as of this encounter (statuses as of 02/08/2024) Active Problems Problem Noted Date Diagnosed Date [...] pylori infection 11/05/2020 Overview: by E[place] at [facility] Other cirrhosis of liver 10/29/2020 Portal hypertension 10/29/2020 Morbid obesity due to excess calories 10/19/2020 Iron deficiency anemia 10/12/2020 S/P insertion of spinal cord stimulator 06/06/20 Overview: at [facility] per [place] Doty HTN, goal below 150/90 [...] as of this encounter (statuses as of 02/08/2024) Resolved Problems Problem Noted Date Diagnosed Date Resolved Date Anemia 11/05/2020 11/15/2020 Chronic back pain 06/07/2020 11/15/2020 Encounter for examination fo r normal comparison and control in clinical research program 09/14/2018 04/09/2020 Overview: DO NOT DELETE [facility] DETECT Study: Project # [id number], Real Estate Legal Secretary: Sarbjit Garcia, PhD. SUMMARY: Goal: Establish test [...] contact study staff at ; after hours Real Estate Legal Secretary via the [facility] hospital simplex operator . Please contact study team before resolving/deleting from patients problem list. Study phone number: [phone]. Diagnosis changed due to Research Module. Go to Snapshot for study details. Encounter for examination fo r normal comparison and control in clinical research program 09/14/2018 05/08/2022 Overview: [facility] NOT DELETE [facility] Study: Project # [id number], Real Estate Legal Secretary: Mario Rene, MS, MPH. SUMMARY: Goal: Establish [...] contact study staff at ; after hours Real Estate Legal Secretary via the [facility] hospital simplex operator . - Please contact study team before resolving/deleting from patients problem list. Study phone number: [phone]. Diagnosis changed due to Research Module. Go to [employer] for study details. Extrinsic asthma without complication [...] as of this encounter (statuses as of 02/08/2024) Immunizations Name Administration Dates Next Due COVID-19 [...] encounter Miscellaneous Notes * Telephone Encounter - Trinidad Patten LPN - 02/08/2024 3:55 PM EDT LC - I am unable to close chart. Are you able to close your note? * Telephone Encounter - Trinidad Patten LPN - 02/08/2024 3:54 PM EDT Pt notified. Letter at frontend engineer for pick up man. * Telephone Encounter - Tabitha Cunningham MD - 02/08/2024 12:20 PM EDT signed * Telephone Encounter - Trinidad Patten LPN - 02/08/2024 12:02 PM EDT Jury duty letter pending * Telephone Encounter - Raissa Kahn OSA - 02/08/2024 10:22 AM EDT Patient is called for jury duty. She is asking for an excuse for jury duty. Can you do a jury duty excuse kash as it needs received to them by 02/15/24? Please call and he will pick up man the excuse. documented in this encounter Plan of Treatment Upcoming Encounters Date Type Department Care Team (Late st Contact Info) Description 03/02/2024 2:00 PM EDT Office Visit Orthopaedics [address] [phone] Jyoti Phelan PA-C [address] [place] [address] 03/17/2024 10:58 AM EDT Hospital Encounter [facility], Operating Room [facility] 1st Floor [address] [place] [address] Rodriguez Jones MD [address] [place] [address] 03/17/2024 10:58 AM EDT - 03/17/2024 1:45 PM EDT Surgery OR [facility], Operating Room [facility] 1st Floor [address] [place] [address] Rodriguez Jones MD [address] [place] [address] ROBOTIC ARTHROPLASTY KNEE TOTAL 04/18/2024 9:00 AM EDT Office Visit [facility] [address] [place] [address] Tabitha Cunningham MD [address] [place] [address] 06/28/2024 8:30 AM EDT [facility] [address] [place] [phone] Sarbjit Vera MD [address], [place] [phone] 09/16/2024 8:20 AM EST Office Visit [facility] [address] [place] [address] Tabitha Cunningham MD [address] [place] [address] 11/04/2024 8:45 AM EST Office Visit [facility] [address] [place] [address] [facility] Sor[facility] [place] [address] Scheduled Procedures Name Priority Associated Diagnoses Date/Ti in ROBOTIC ARTHROPLASTY KNEE TOTAL Primary osteoarthritis of left knee 03/17/2024 10:58 AM EDT Computer-Assisted Musculoskeletal Surgical Navigation CT/MRI Primary osteoarthritis of left knee 03/17/2024 10:58 AM EDT ROBOTIC SURGICAL SYSTEM Primary osteoarthritis of left knee 03/17/2024 10:58 AM EDT COLONOSCOPY FLEXIBLE PROXIMAL DIAGNOSTIC Recall Change in bowel habits Health Maintenance Due Date Last Done Comments CKD PHOS USE SMARTSET 47554 1963 Hepatitis B (1 of 3 - Risk 3-dose series) 2006 Zoster Vaccines (2 of 3) 10/06/2013 08/11/2013 COVID-19 Vaccine (3 - 2022- season) 2023 09/13/2021, 12/03/2020 GFR 02/20/2024 08/21/2023, 03/08, 01/30/2023, Additional history exists HbA1c 02/20/2024 08/21/2023, 03/08, 12/04/2022, Additional history exists Albumin/Creatinine Ratio 03/31/2024 023, 01/15/2022, 08/16/2014, Additional history exists B-12 03/31/2024 03/31/2023, 03/08, 10/11/2020, Additional history exists Depression Screening 04/10/2024 04/10/2023 CKD HGB USE SMARTSET 62947 08/21/202408/21, 08/21/2023, 01/30/2023, Additional history exists Diabetic [...] D LEVEL ONCE IN A LIFETIME-USE SMARTSET# 88680 Completed 03/30/2017, 09/17/2009 RETIRED - COLONOSCOPY-EVERY 5 [...] this encounter Medical Devices Implanted Type Area Pretzel Cooker Device Identifier Shelf Expiration Date Model / Serial / Lot Dbx 10cc [id number] - [id number] Implanted:Qt y: 1 on 03/15/2010 at OR [facility] Tissue - Human N/A: Spine Lumbar MUSCULOSKELETAL TRANSPLANT FND 12/14/2011 [id number] / [id number] / Chip Cancellous 30cc [id number] - [id number] - [id number] Implanted:Qt y: 1 on 01/09/2023 by Sarbjit Vera MD at OR [facility] Tissue - Human N/A: Spine Lumbar MUSCULOSKELETAL TRANSPLANT FND 10/12/2024 [id number] / [id number] / [id number] Screw 7x50 Poly Si [id number] - [id number] Implanted:Qt y: 2 on 03/15/2010 at OR [facility] N/A: Spine Lumbar JNJ : [employer] [id number] / / Titusksrajesh [employer]posite - [id number] Implanted:Qt y: 2 on 01/25/2016 by Ken Will MD at OR [facility] Left: Shoulder [employer] 06/06/2016 [id number] / / [id number] Dbx 2.5cc [id number] - [id number] Implanted:Qt y: 1 on 02/18/2017 by Sarbjit Vera MD at OR [facility] N/A: Spine Lumbar MUSCULOSKELETAL TRANSPLANT FND 09/26/2018 [id number] / / Screw 7x45 Poly Si [id number] - [id number] Implanted:Qt y: 2 on 02/18/2017 by Sarbjit Vrea MD at OR [facility] N/A: Spine Lumbar JNJ : [employer] [id number] / / Description:In Set Expedium Ti Sfx 5.5 Lat A5 - [id number] Implanted:Qt y: 1 on 02/18/2017 by Sarbjit Vera MD at OR [facility] N/A: Spine Lumbar JNJ : [employer] [id number] / / Description:In Set [employer] [place] - [id number] Implanted:Qt y: 1 on 06/06/2020 by Sarbjit Vera MD at OR [facility] N/A: Spine Thoracic [employer] : PAIN MGMT 04/17/2022 [id number] / / [id number] Description:bilateral Valve Lexie 3 Ultra 23mm - [id number] Implanted:Qt y: 1 on 11/27/2020 at CARDIAC LABS [facility] [employer] [id number] / / Gener Wvewriter Alpha Prime 16 - [id number] Implanted:Qt y: 1 on 02/14/2022 by Sarbjit Vera MD at OR [facility] Left: Back [employer] 01/20/2024 [id number] / / [id number] Description:left lower back Screw 6x40 Poly Si [id number] - [id number] Implanted:Qt y: 1 on 01/09/2023 by Sarbjit Vera MD at OR [facility] N/A: Spine Lumbar JNJ : [employer] [id number] / / Screw Set Sng Inner [id number] - [id number] Implanted:Qt y: 8 on 01/09/2023 by Sarbjit Vera MD at OR [facility] N/A: Spine Lumbar JNJ : [employer] [id number] / / Expedium Ti Sfx 5.5 Lat A5 - [id number] Implanted:Qt y: 1 on 01/09/2023 by Sarbjit Vera MD at OR [facility] N/A: Spine Lumbar JNJ : [employer] [id number] / / Screw 6x45 Poly Si [id number] - [id number] Implanted:Qt y: 3 on 01/09/2023 by Sarbjit Vera MD at OR [facility] N/A: Spine Lumbar JNJ : [employer] [id number] / / 100mm [place] Implanted:Qt y: 2 on 01/09/2023 by Sarbjit Vera MD at OR [facility] N/A: Spine Lumbar [employer] 0 / / Graft Infuse Bone Lg [id number] - [id number] Implanted:Qt y: 1 on 01/09/2023 by Sarbjit Vera MD at OR [facility] N/A: Spine Lumbar [employer] : NEURO CARE [id number] 09/06/2024 [id number] / / [id number] documented as of this encounter Advance Directives [...] Power of Attor arnold? No Care Teams Wash Crew Person Relationship Specialty Start Date End Date Tabitha Cunningham MD [address] [facility] [place] [address] PCP - General 04/21/1996 documented as of this encounter
--- OUTSIDE RECORDS SUMMARY | 2024-03-22 07:46 | External Medical Summary | Summary of Care ---
Author Name Unknown Organization [facility] Address [address] [facility] [address] Phone [phone] Care Team Providers Care Certified Ophthalmic Technologist Name Role Phone Tabitha Cunningham MD Primary Care Provider [phone] Reason for Visit * Reason Comments Other Pt here for LPI OS Encounter Details Date Type Department Care Team (Late st Contact Info) Description 01/04/2024 3:00 PM EDT Office Visit Ophthalmology, [place] [address] [place] [address] Franck Soriano DO [facility] [place] [address] Anatomical narrow angle* Allergies Active Allergy Reactions Criticality Noted Date Comments Adhesive Tape 07/06/1998 rash Lisinopril 04/04/2014 cough Oxycodone-Acetaminophen Other (Please comment) 02/05/2017 "jittery" Nauseated Silver Sulfadiazine Rash 12/07/2002 rash Carisoprodol Other (Please comment) 03/29/2012 Restless, jittery Sulfa Antibiotics 10/15/1998 Tendency towards yeast infections. documented as of this encounter (statuses as of 01/04/2024) Medications Medication Sig Dispensed Refills Start Date [...] Propionate 50 MCG/ACT Nasal Suspension Administer 1 [place] into nostril as needed. 15.8 mL 3 [...] as of this encounter (statuses as of 01/04/2024) Active Problems Problem Noted Date Diagnosed Date [...] pylori infection 11/05/2020 Overview: by EGD at [facility] Other cirrhosis of liver 10/29/2020 Portal hypertension 10/29/2020 Morbid obesity due to excess calories 10/19/2020 Iron deficiency anemia 10/12/2020 S/P insertion of spinal cord stimulator 06/06/20 20 Overview: at [facility] per Dr Doty HTN, goal below 150/90 [...] as of this encounter (statuses as of 01/04/2024) Resolved Problems Problem Noted Date Diagnosed Date Resolved Date Anemia 11/05/2020 11/15/2020 Chronic back pain 06/07/2020 11/15/2020 Encounter for examination fo r normal comparison and control in clinical research program 09/14/2018 04/09/2020 Overview: DO NOT DELETE [facility] DETECT Study: Project # [id number], Concrete Block Layer: Sarbjit Garcia, PhD. SUMMARY: Goal: Establish test [...] contact study staff at ; after hours Concrete Block Layer via the [facility] hospital clerk operator . Please contact study team before resolving/deleting from patients problem list. Study phone number: [phone]. Diagnosis changed due to Research Module. Go to Snapshot for study details. Encounter for examination fo r normal comparison and control in clinical research program 09/14/2018 05/08/2022 Overview: [facility] Study: Project # [id number], Concrete Block Layer: Mario Rene, MS, MPH. SUMMARY: Goal: Establish [...] contact study staff at ; after hours Concrete Block Layer via the [facility] hospital clerk operator . - Please contact study team before resolving/deleting from patients problem list. Study phone number: [phone]. Diagnosis changed due to Research Module. Go to [employer] for study details. Extrinsic asthma without complication [...] as of this encounter (statuses as of 01/04/2024) Immunizations Name Administration Dates Next Due COVID-19 [...] this encounter Progress Notes * Franck Soriano, - 01/04/2024 3:00 PM EDT 01/04/24 [facility] Ophthalmology Clinic Note HPI: Hannah Groves is a 78 year old pt who presents to the eye clinic today as a return - referral Dr. Winslow. 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 Base Eye Exam Visual Acuity (Snellen - Linear) Right Left Dist cc 20/25 -1 20/40 Dist ph cc 20/30 -1 Correction: Glasses Tonometry (Tonopen, 3:09 PM) Right Left Pressure 17 16 Tonometry #2 (Applanation, 3:40 PM) Right Left Pressure 19 Pupils Light Shape React APD Right 3 Round Brisk None Left 3 Round Brisk None Visual Sosa (Counting fingers) Right Left Full Full Extraocular Movement Right Left Full Full Neuro/Psych Oriented x3: Yes Mood/Affect: Normal Slit Lamp and Fundus Exam External Exam Right Left External Normal Normal Slit Lamp Exam Right Left Lids/Lashes Normal Normal Conjunctiva/Sclera White and quiet White and quiet Cornea PEK inferior PEK inferior Anterior Chamber Narrow Narrow Iris Round and reactive, small patent PI 12 o'clock Round and reactive Lens NSC NSC A/P: Anatomic narrow angle, OU -Potentially occludable on gonioscopy Plan: -Post LPI OD - looks good - stop pred forte OD -Recommend LPI OS, pred forte QID OS x 1 week RTC as scheduled or sooner prn. Franck Soriano, DO 01/04/24 Diagnosis: BRONSON OU Recommend LPI left eye. Discussed risks, benefits, and alternatives, including but not limited to: pain, inflammation, abnormal IOP, vision change, need for drops, need for further treatment, bleeding, retinal tear, retinal detachment, temporary or permanent loss of vision, loss of eye, and/or glaucomatous progression s/p procedure. Explained indication for procedure, which is to decrease the risk of vision loss, not to improve vision. Explained the elective nature of the procedure and that no surgery is without risk. Discussed the option of continued non-surgical management and risks of worsening disease. The patient verbalized understanding of options, risks/benefits/alternatives of options, and that all questions/concerns were addressed. The patient verbalized a desire to proceed and and provided informed written consent for LPI Left EYE (with staff for scanning into [facility]). LPI Left eye 01/04/2024 A ''time out'' was initiated by the physicians prior to procedure. The patient was identified by name and date of . The procedure matches verbalized consent. Correct site identified and marked. Correct positioning (as applicable). There is availability of necessary equipment. Pre-procedure [facility] klist was completed. Alcaine x 1 to operative eye before LPI Nd:YAG, superior E: 3.2 Pulses: 1 per burst #: 040 Good pigment portillo and Aq flow. No heme Patent LPI confirmed at slit lamp post-LPI Patient tolerated well and there were no complications IOP, VA, VS all stable at discharge at least 30 min post-LPI PF to operative eye: QID x 7 days documented in this encounter Nursing Notes * Gena Pak COA - 01/04/2024 3:05 PM EDT Pt states "Vision seems okay" documented in this encounter Plan of Treatment Upcoming Encounters Date Type Department Care Team (Late st Contact Info) Description 01/18/2024 8:45 AM EDT Office Visit Orthopaedics [facility] [address] [place] [address] Rodriguez Jones MD [address] [place] [address] 01/18/2024 10:00 AM EDT [facility] [place] [facility] [address] Franck Soriano DO [address] [facility] [place] [address] 01/20/2024 10:30 AM EDT Office Visit [facility] [address] [facility] [address] Rex Pickard CRNP [address] [place] [address] 04/18/2024 9:00 AM EDT [facility] Visit [facility] [address] [place] [address] Tabitha Cunningham MD [address] [place] [address] 06/28/2024 8:30 AM EDT [facility] [address] [place] [phone] Sarbjit Vera MD [address] [place], [place] [address] 09/16/2024 8:20 AM EST Office [facility] [address] [place] [address] Tabitha Cunningham MD [address] [place] [address] Scheduled Orders Name Type Priority Associated Diagnoses Orde r Schedule IRIDOTOMY / IRIDECTOMY, LASER Procedures Routine Anatomical narrow angle Ordered: 01/04/2024 Scheduled Procedures Name Priority Associated Diagnoses Date/Ti me COLONOSCOPY FLEXIBLE PROXIMAL DIAGNOSTIC Recall Change in bowel habits Health Maintenance Due Date Last Done Comments CKD PHOS USE SMARTSET 15136 1963 Hepatitis B (1 of 3 - [...] Screening 04/10/2024 04/10/2023 CKD HGB USE SMARTSET 31207 08/21/202408/21, 08/21/2023, 01/30/2023, Additional history exists Diabetic Foot Exam 10/21/2024 10/21/2023, 1 10/16/2021, 11/15/2020, Additional history exists DXA Scan 11/13/2024 11/13/2022, 10/08, 10/05/2017, Additional history exists Colonoscopy 11/06/2025 11/06/2020, 10/2020, 09/21/2014, Additional history exists DTaP,Tdap,and Td Vaccines (3 - Td or Tdap) 03/30/2027 03/30/2017, 11/05/2006, 10/17/1996 Pneumococcal Vaccine: 65+ Years Completed 08/30/2015, 12/16/2011 VITAMIN D LEVEL ONCE IN A LIFETIME-USE SMARTSET# 07783 Completed 03/30/2017, 09/17/2009 RETIRED - COLONOSCOPY-EVERY 5 [...] this encounter Medical Devices Implanted Type Area Casting Finisher Device Identifier Shelf Expiration Date Model / Serial / Lot Dbx 10cc [id number] - [id number] Implanted:Qt y: 1 on 03/15/2010 at [facility] Tissue - Human N/A: Spine Lumbar MUSCULOSKELETAL TRANSPLANT FND 12/14/2011 [id number] / [id number] / Chip Cancellous 30cc [id number] - [id number] - [id number] Implanted:Qt y: 1 on 01/09/2023 by Sarbjit Vera MD at OR [facility] Tissue - Human N/A: Spine Lumbar MUSCULOSKELETAL TRANSPLANT FND 10/12/2024 [id number] / [id number] / [id number] Screw 7x50 Poly Si [id number] - [id number] Implanted:Qt y: 2 on 03/15/2010 at OR [facility] N/A: Spine Lumbar JNJ : [employer] [id number] / / Corkscrew Bio Composite - [id number] Implanted:Qt y: 2 on 01/25/2016 by Ken Will MD at [facility] Left: Shoulder [employer] 06/06/2016 [id number] / / [id number] Dbx 2.5cc [id number] - [id number] Implanted:Qt y: 1 on 02/18/2017 by Sarbjit Vera MD at OR [facility] N/A: Spine Lumbar MUSCULOSKELETAL TRANSPLANT FND 09/26/2018 [id number] / / Screw 7x45 Poly Si [id number] - [id number] Implanted:Qt y: 2 on 02/18/2017 by Sarbjit Vera MD at OR [facility] N/A: Spine Lumbar JNJ : ETH[employer]ON [employer] [id number] / / Description:In Set Expedium Ti Sfx 5.5 Lat A5 - [id number] Implanted:Qt y: 1 on 02/18/2017 by Sarbjit Vera MD at OR [facility] N/A: Spine Lumbar JNJ : ETH[employer]ON C[employer]ATIONS [id number] / / Description:In Set Clik [place] - [id number] Implanted:Qt y: 1 on 06/06/2020 by Sarbjit Vera MD at OR [facility] N/A: Spine Thoracic [employer] : PAIN MGMT 04/17/2022 [id number] / / [id number] Description:bilateral Valve Lexie 3 Ultra 23mm - [id number] Implanted:Qt y: 1 on 11/27/2020 at CARDIAC LABS [facility] [employer] [id number] / / Gener Wvewriter Alpha Prime 16 - [id number] Implanted:Qt y: 1 on 02/14/2022 by Sarbjit Vera MD at OR [facility] Left: Back [employer] 01/20/2024 [id number] / / [id number] Description:left lower back Screw 6x40 Poly Si [id number] - [id number] Implanted:Qt y: 1 on 01/09/2023 by Sarbjit Vera MD at OR [facility] N/A: Spine Lumbar JNJ : [employer] [id number] / / Screw Set Sng Inner [id number] - [id number] Implanted:Qt y: 8 on 01/09/2023 by Sarbjit Vera MD at OR [facility] N/A: Spine Lumbar JNJ : [employer] [id number] / / Expedium Ti Sfx 5.5 Lat A5 - [id number] Implanted:Qt y: 1 on 01/09/2023 by Sarbjit Vera MD at OR [facility] N/A: Spine Lumbar JNJ : [employer] [id number] / / Screw 6x45 Poly Si [id number] - [id number] Implanted:Qt y: 3 on 01/09/2023 by Sarbjit Vera MD at [facility] N/A: Spine Lumbar JNJ : [employer] [id number] / / 100mm [place] Implanted:Qt y: 2 on 01/09/2023 by Sarbjit Vera MD at OR [facility] N/A: Spine Lumbar [employer] 0 / / Graft Infuse Bone Lg [id number] - [id number] Implanted:Qt y: 1 on 01/09/2023 by Sarbjit Vera MD at [facility] N/A: Spine Lumbar [employer] : NEURO CARE [id number] 09/06/2024 [id number] / / [id number] documented as of this encounter Visit Diagnoses Diagnosis Anatomical narrow angle- Primary Anatomical narrow angle borderline glaucoma documented in this encounter Advance Directives Latest [...] the patient have Health Care Power of Clay Machine Operator? No Code Status History Code Status Date Activated Date Inactivated Comments Full Code 01/09/2023 9:33 AM 01/09/2023 1:45 PM This or sabrina reflects the patients wishes and were consensually agreed upon. Question Answer Comments Discussion of Advance Directives occurred with: Patient Does the patient have a Living Will? No Does the patient have Health Care Power of Clay Machine Operator? No Full Code 02/14/2022 8:41 AM 02/15/2022 [...] the patient have Health Care Power of Clay Machine Operator? No Care Teams Certified Ophthalmic Technologist Relationship Specialty Start Date End Date Tabitha Cunningham MD [address] [place] [address] PCP - General 04/21/1996 documented as of this encounter
--- OUTSIDE RECORDS SUMMARY | 2024-03-22 07:46 | External Medical Summary | Summary of Care ---
Author Name Unknown Organization [facility] Address [address] [place] [address] Phone [phone] Care Team Providers Care Control Room Tender Name Role Phone Tabitha Cunningham MD Primary Care Provider [phone] Encounter Details Date Type Department Care Team (Late st Contact Info) Description 01/18/2024 Telephone Orthopaedics [facility] [address] [place] [address] Rodriguez Jones MD [address] [place] [address] Allergies Active Allergy Reactions Criticality Noted Date Comments Adhesive Tape 07/06/1998 rash Lisinopril 04/04/2014 cough Oxycodone-Acetaminophen Other (Please comment) 02/05/2017 "jittery" Nauseated Silver Sulfadiazine Rash 12/07/2002 rash Carisoprodol Other (Please comment) 03/29/2012 Restless, jittery Sulfa Antibiotics 10/15/1998 Tendency towards yeast infections. documented as of this encounter (statuses as of 01/18/2024) Medications Medication Sig Dispensed Refills Start Date [...] Propionate 50 MCG/ACT Nasal Suspension Administer 1 [place] into nostril as needed. 15.8 mL 3 [...] mellitus with hemoglobin A1c goal of 7.0%-8.0% ([facility]) TAKE ONE (1) TABLET BY MOUTH EVERY DAY 90 Tablet 1 12/29/2023 Active Alendronate Sodium 70 MG Oral Tablet (Fosamax) Take 1 tablet once weekly 30 minutes before breakfast with 8oz of water. Remain upright for 30 minutes after taking medication. 12 Tablet 1 01/01/2024 Active documented as of this encounter (statuses as of 01/18/2024) Active Problems Problem Noted Date Diagnosed Date [...] pylori infection 11/05/2020 Overview: by EGD at [facility] Other cirrhosis of liver 10/29/2020 Portal hypertension 10/29/2020 Morbid obesity due to excess calories 10/19/2020 Iron deficiency anemia 10/12/2020 S/P insertion of spinal cord stimulator 06/06/20 20 Overview: at [facility] per Dr Doty HTN, goal below [...] as of this encounter (statuses as of 01/18/2024) Resolved Problems Problem Noted Date Diagnosed Date Resolved Date Anemia 11/05/2020 11/15/2020 Chronic back pain 06/07/2020 11/15/2020 Encounter for examination fo r normal comparison and control in clinical research program 09/14/2018 04/09/2020 Overview: DO NOT DELETE [facility] DETECT Study: Project # [id number], Automatic Lehr Operator: Sarbjit Garcia, PhD. SUMMARY: Goal: Establish [...] contact study staff at ; after hours Automatic Lehr Operator via the [facility] sulfide head operator . Please contact study team before resolving/deleting from patients problem list. Study phone number: [phone]. Diagnosis changed due to Research Module. Go to Snapshot for study details. Encounter for examination fo r normal comparison and control in clinical research program 09/14/2018 05/08/2022 Overview: DO NOT DELETE - [facility] PINKY Study: Project # [id number], Automatic Lehr Operator: Mario Rene, MS, MPH. SUMMARY: Goal: [...] contact study staff at ; after hours Automatic Lehr Operator via the [facility] hospital sulfide head operator . - Please contact study team before resolving/deleting from patients problem list. Study phone number: [phone]. Diagnosis changed due to Research Module. Go [...] as of this encounter (statuses as of 01/18/2024) Immunizations Name Administration Dates Next Due COVID-19 [...] AM EDT Office Visit Interventional Pain Center, [facility] [address] [place] [address] Rex Pickard CRNP [address] [place] [address] 01/25/2024 1:30 PM EDT Office Visit Ophthalmology, [place] [address] [place] [address] Franck Soriano DO [address] [place] [address] 03/17/2024 10:58 AM EDT Hospital Encounter [facility], Operating Room [facility] 1st Floor [address] [place] [address] Rodriguez Jones MD [address] [place] [address] 03/17/2024 10:58 AM EDT - 03/17/2024 1:45 PM EDT Surgery OR [facility], Operating Room [facility] 1st Floor [address] [place] [address] Rodriguez Jones MD [address] [place] [address] ROBOTIC ARTHROPLASTY KNEE TOTAL 04/18/2024 9:00 AM EDT Office Visit [facility] [address] [place] [address] Tabitha Cunningham MD [address] [place] [address] 06/28/2024 8:30 AM EDT [facility] [address] [place] [address] Sarbjit Vera MD [address] [place] [address] 09/16/2024 8:20 AM EST Office Visit [facility] [address] [place] [address] Tabitha Cunningham MD [address] [place] [address] Scheduled Procedures Name Priority Associated Diagnoses Date/Ti pa ROBOTIC ARTHROPLASTY KNEE TOTAL Primary osteoarthritis of left knee 03/17/2024 10:58 AM EDT Computer-Assisted Musculoskeletal Surgical Navigation CT/MRI Primary osteoarthritis of left knee 03/17/2024 10:58 AM EDT ROBOTIC SURGICAL SYSTEM Primary osteoarthritis of left knee 03/17/2024 10:58 AM EDT COLONOSCOPY FLEXIBLE PROXIMAL DIAGNOSTIC Recall Change in bowel habits Health Maintenance Due Date Last Done Comments CKD PHOS USE SMARTSET 79200 1963 Hepatitis B (1 of 3 - [...] Screening 04/10/2024 04/10/2023 CKD HGB USE SMARTSET 55582 08/21/202408/21, 08/21/2023, 01/30/2023, Additional history exists Diabetic Foot Exam 10/21/2024 10/21/2023, 1 10/16/2021, 11/15/2020, Additional history exists DXA Scan 11/13/2024 11/13/2022, 10/08, 10/05/2017, Additional history exists Colonoscopy 11/06/2025 11/06/2020, 0310/2020, 09/21/2014, Additional history exists DTaP,Tdap,and Td Vaccines (3 - Td or Tdap) 03/30/2027 03/30/2017, 11/05/2006, 10/17/1996 Pneumococcal Vaccine: 65+ Years Completed 08/30/2015, 12/16/2011 VITAMIN D LEVEL ONCE IN A LIFETIME-USE SMARTSET# 46614 Completed 03/30/2017, 09/17/2009 RETIRED - COLONOSCOPY-EVERY 5 [...] this encounter Medical Devices Implanted Type Area Prevention Specialist Device Identifier Shelf Expiration Date Model / Serial / Lot Dbx 10cc [id number] - [id number] Implanted:Qt y: 1 on 03/15/2010 at OR [facility] Tissue - Human N/A: Spine Lumbar MUSCULOSKELETAL TRANSPLANT FND 12/14/2011 512293 / [id number] / Chip Cancellous 30cc 628631 - [id number] - [id number] Implanted:Qt y: 1 on 01/09/2023 by Sarbjit Vera MD at OR [facility] Tissue - Human N/A: Spine Lumbar MUSCULOSKELETAL TRANSPLANT FND 10/12/2024 [id number] / [id number] / [id number] Screw 7x50 Poly Si [id number] - [id number] Implanted:Qt y: 2 on 03/15/2010 at OR [facility] N/A: Spine Lumbar JNJ : ETH[employer] [id number] / / Corkscrew Bio Composite - [id number] Implanted:Qt y: 2 on 01/25/2016 by Ken Will MD at OR [facility] Left: Shoulder [employer] 06/06/2016 [id number] / / [id number] Dbx 2.5cc [id number] - [id number] Implanted:Qt y: 1 on 02/18/2017 by Sarbjit Vera MD at OR [facility] N/A: Spine Lumbar MUSCULOSKELETAL TRANSPLANT FND 09/26/2018 [id number] / / Screw 7x45 Poly Si [id number] - [id number] Implanted:Qt y: 2 on 02/18/2017 by Sarbjit Vera MD at OR [facility] N/A: Spine Lumbar JNJ : ETH[employer] C[employer]ATIONS [id number] / / Description:In Set Expedium Ti Sfx 5.5 Lat A5 - [id number] Implanted:Qt y: 1 on 02/18/2017 by Sarbjit Vera MD at OR [facility] N/A: Spine Lumbar JNJ : ETH[employer]ON C[employer]ATIONS [id number] / / Description:In Set Clik [place] - [id number] Implanted:Qt y: 1 on 06/06/2020 by Sarbjit Vera MD at OR [facility] N/A: Spine Thoracic [employer] : PAIN MGMT 04/17/2022 [id number] / / [id number] Description:bilateral Valve Lexie 3 Ultra 23mm - [id number] Implanted:Qt y: 1 on 11/27/2020 at CARDIAC LABS [facility] [employer] [id number] / / Gener Wvewriter Alpha Prime 16 - [id number] Implanted:Qt y: 1 on 02/14/2022 by Sarbjit Vera MD at OR [facility] Left: Back [employer] 01/20/2024 [id number] / / [id number] Description:left lower back Screw 6x40 Poly Si [id number] - [id number] Implanted:Qt y: 1 on 01/09/2023 by Sarbjit Vera MD at OR [facility] N/A: Spine Lumbar JNJ : ETH[employer]ON CARDI[employer]ATIONS [id number] / / Screw Set Sng Inner [id number] - [id number] Implanted:Qt y: 8 on 01/09/2023 by Sarbjit Vera MD at OR [facility] N/A: Spine Lumbar JNJ : ETH[employer]ON C[employer]ATIONS [id number] / / Expedium Ti Sfx 5.5 Lat A5 - [id number] Implanted:Qt y: 1 on 01/09/2023 by Sarbjit Vera MD at OR [facility] N/A: Spine Lumbar JNJ : [employer] [id number] / / Screw 6x45 Poly Si [id number] - [id number] Implanted:Qt y: 3 on 01/09/2023 by Sarbjit Vera MD at OR [facility] N/A: Spine Lumbar JNJ : ETH[employer] [id number] / / 100mm [place] Implanted:Qt y: 2 on 01/09/2023 by Sarbjit Vera MD at OR [facility] N/A: Spine Lumbar [employer] 0 / / Graft Infuse Bone Lg [id number] - [id number] Implanted:Qt y: 1 on 01/09/2023 by Sarbjit Vera MD at OR [facility] N/A: Spine Lumbar [employer] : NEURO CARE [id number] 09/06/2024 [id number] / / [id number] documented as of this encounter Advance Directives [...] the patient have Health Care Power of Flight Teacher? No Code Status History Code Status Date Activated Date Inactivated Comments Full Code 01/09/2023 9:33 AM 01/09/2023 1:45 PM This or sabrina reflects the patients wishes and were consensually agreed upon. Question Answer Comments Discussion of Advance Directives occurred with: Patient Does the patient have a Living Will? No Does the patient have Health Care Power of Flight Teacher? No Full Code 02/14/2022 8:41 AM 02/15/2022 [...] the patient have Health Care Power of Flight Teacher? No Care Teams Control Room Tender Relationship Specialty Start Date End Date Tabitha Cunningham MD [address] [facility] [place] [address] PCP - General 04/21/1996 documented as of this encounter
--- OUTSIDE RECORDS SUMMARY | 2024-03-22 07:46 | External Medical Summary | Summary of Care ---
Author Name Unknown Organization [facility] Address [address] [place] [address] Phone [phone] Care Team Providers Care It Security Engineer Name Role Phone Tabitha uCnningham MD Primary Care Provider [phone] Reason for Referral * Evaluate & Treat - Unlimited Visits (Within 10 days (routine)) - Authorized Specialty Diagnoses / Procedures Referred By Contact Referred To Contact Cardiovascular Medicine / Cardiology Diagnoses Primary osteoarthritis of left knee Jyoti Phelan PA-C [address] [place] [address] Sera Rondon, [address] [address] Referral ID Status Reason Start Date Expiration Date Visits Requested Visits Authorized [id number] Authorized Specialty Services Required 01/18/2024 999 999 Question Answer Referral Priority Within 10 days (routine) Where should this appointment be scheduled? [facility] To which of the following clinics are you referring your patient? General Cardiology Clinic Comments Cardiology clearance for total knee replacement 03/17/24 * Precert (Within 10 days (routine)) - Authorized Specialty Diagnoses / Procedures Referred By Andres daniels Referred To Contact Radiology Diagnoses Primary osteoarthritis of left knee Procedures CT LOWER EXTREMITY LEFT WO CONTRAST Jyoti Phelan PA-C [address] [place] [address] Referral ID Status Reason Start Date Expiration Date V isits Requested Visits Authorized [id number] Authorized 02/18/2024 999 999 Reason for Visit * Reason Comments NEW PATIENT B/l knee pain with n o recent injury or falls * Evaluate & Treat - Unlimited Visits (Within 10 days (routine)) - Authorized Specialty Diagnoses / Procedures Referred By Andres t Referred To Contact Orthopaedic Surgery / Orthopedics Diagnoses Chronic pain of both knees Erica Maldonado PA-C [address] [place] [address] Rodriguez Jones MD [address] [place] [address] Referral ID Status Reason Start Date Expiration Date Visits Requested Visits Authorized [id number] Authorized Specialty Services Required 12/08/2023 999 999 Encounter Details Date Type Department Care Team (Late st Contact Info) Description 01/18/2024 8:45 AM EDT Office Visit Orthopaedics [address] [phone] Rodriguez Jones MD [address] [place] [address] Primary osteoarthritis of left knee* Allergies Active Allergy Reactions Criticality Noted Date [...] Propionate 50 MCG/ACT Nasal Suspension Administer 1 Ramona into nostril as needed. 15.8 mL 3 [...] mellitus with hemoglobin A1c goal of 7.0%-8.0% ([facility]) TAKE ONE (1) TABLET BY [...] pylori infection 11/05/2020 Overview: by EGD at [facility] Other cirrhosis of liver 10/29/2020 Portal hypertension 10/29/2020 Morbid obesity due to excess calories 10/19/2020 Iron deficiency anemia 10/12/2020 S/P insertion of spinal cord stimulator 06/06/20 20 Overview: at [facility] per [place] Doty HTN, goal below 150/90 [...] 09/14/2018 04/09/2020 Overview: DO NOT DELETE [facility] DETECT Study: Project # [id number], Equipment Service Lead: Sarbjit Garcia, PhD. SUMMARY: Goal: Establish test [...] contact study staff at ; after hours Equipment Service Lead via the [facility] hospital paper reel operator . Please contact study team before resolving/deleting from patients problem list. Study phone number: [phone]. Diagnosis changed due to Research Module. Go to Snapshot for study details. Encounter for examination fo r normal comparison and control in clinical research program 09/14/2018 05/08/2022 Overview: DO NOT DELETE - [facility] PINKY Study: Project # [id number], Equipment Service Lead: Mario Rene, MS, MPH. SUMMARY: Goal: Establish [...] contact study staff at ; after hours Equipment Service Lead via the [facility] hospital paper reel operator . - Please contact study team before resolving/deleting from patients problem list. Study phone number: [phone]. Diagnosis changed due to Research Module. Go [...] Office Visit Interventional [facility], [facility] [address] [address] Rex Pickard CRNP [address] [place] [address] 01/25/2024 1:30 PM EDT Office Visit Ophthalmology, [place] [address] [place] [address] Franck Soriano, DO [address] [place] [address] 03/11/2024 12:00 PM EDT Office Visit Orthopaedics [address] [phone] Jyoti Phelan PA-C [address] [place] [address] 03/17/2024 10:58 AM EDT Hospital Encounter OR [facility], Operating Room [facility] [address], [facility] [address]st [address] [place] [address] Rodriguez Jones MD [address] [place] [address] 03/17/2024 10:58 AM EDT - 03/17/2024 1:45 PM EDT Surgery OR [facility], Operating Room [facility] [address]st [address] [place] [address] Rodriguez Jones MD [address] [place] [address] ROBOTIC ARTHROPLASTY KNEE TOTAL 04/18/2024 9:00 AM EDT Office Visit [address] [address] Tabitha Cunningham MD [address] [place] [address] 06/28/2024 8:30 AM EDT [facility] [address] [place] [phone] Sarbjit Vera MD [address] [place] [address] 09/16/2024 8:20 AM EST Office Visit [facility] [address] [facility] [place] [address] Tabitha Cunningham MD [address] [facility] [place] [address] Pending Results Name Type Priority Associated Diagnoses Date /Time XR KNEE 3 VIEWS Medical Imaging Routine 01/05 8:[address] LOWER EXTREMITY LEFT WO CONTRAST Medical Imaging Routine Primary osteoarthritis of left knee 01/18/2024 10:30 AM EDT Scheduled Orders Name Type Priority Associated Diagnoses Orde r Schedule CT LOWER EXTREMITY LEFT WO CONTRAST Medical Imaging Routine Primary osteoarthritis of left knee Expected: 02/18/2024 (Approximate), Expires: 02/17/2025 Scheduled Procedures Name Priority Associated Diagnoses Date/Ti id ROBOTIC ARTHROPLASTY KNEE TOTAL Primary osteoarthritis of left knee 03/17/2024 10:58 AM EDT Computer-Assisted Musculoskeletal Surgical Navigation CT/MRI Primary osteoarthritis of left knee 03/17/2024 10:58 AM EDT ROBOTIC SURGICAL SYSTEM Primary osteoarthritis of left knee 03/17/2024 10:58 AM EDT COLONOSCOPY FLEXIBLE PROXIMAL DIAGNOSTIC Recall Change in bowel habits Scheduled Referrals Name Type Priority Associated Diagnoses Orde r Schedule CARDIOLOGY REFERRAL OP Referral Within 10 days (routine) Primary osteoarthritis of left knee Ordered: 01/18/2024 Health Maintenance Due Date Last Done Comments CKD PHOS USE SMARTSET 96415 1963 Hepatitis B (1 of 3 - [...] Screening 04/10/2024 04/10/2023 CKD HGB USE SMARTSET 54704 08/21/202408/21, 08/21/2023, 01/30/2023, Additional history exists Diabetic Foot Exam 10/21/2024 10/21/2023, 1 10/16/2021, 11/15/2020, Additional history exists DXA Scan 11/13/2024 11/13/2022, 10/08, 10/05/2017, Additional history exists Colonoscopy 11/06/2025 11/06/2020, 10/2020, 09/21/2014, Additional history exists DTaP,Tdap,and Td Vaccines (3 - Td or Tdap) 03/30/2027 03/30/2017, 11/05/2006, 10/17/1996 Pneumococcal Vaccine: 65+ Years Completed 08/30/2015, 12/16/2011 VITAMIN D LEVEL ONCE IN A LIFETIME-USE SMARTSET# 79018 Completed 03/30/2017, 09/17/2009 RETIRED - COLONOSCOPY-EVERY 5 [...] this encounter Medical Devices Implanted Type Area It Risk Advisor Device Identifier Shelf Expiration Date Model / Serial / Lot Dbx 10cc [id number] - [id number] Implanted:Qt y: 1 on 03/15/2010 at [place] [facility] Tissue - Human N/A: Spine Lumbar MUSCULOSKELETAL TRANSPLANT FND 12/14/2011 [id number] / [id number] / Chip Cancellous 30cc [id number] - [id number] - [id number] Implanted:Qt y: 1 on 01/09/2023 by Sarbjit Vera MD at OR [facility] Tissue - Human N/A: Spine Lumbar MUSCULOSKELETAL TRANSPLANT FND 10/12/2024 [id number] / [id number] / [id number] Screw 7x50 Poly Si [id number] - [id number] Implanted:Qt y: 2 on 03/15/2010 at OR [facility] N/A: Spine Lumbar JNJ : [employer] [id number] / / [employer] - [id number] Implanted:Qt y: 2 on 01/25/2016 by Ken Will MD at [facility] Left: Shoulder [employer] 06/06/2016 [id number] / / [id number] Dbx 2.5cc [id number] - [id number] Implanted:Qt y: 1 on 02/18/2017 by Sarbjit Vera MD at [facility] N/A: Spine Lumbar MUSCULOSKELETAL TRANSPLANT FND 09/26/2018 [id number] / / Screw 7x45 Poly Si [id number] - [id number] Implanted:Qt y: 2 on 02/18/2017 by Sarbjit Vera MD at OR [facility] N/A: Spine Lumbar JNJ : [employer] [id number] / / Description:In Set Expedium Ti Sfx 5.5 Lat A5 - [id number] Implanted:Qt y: 1 on 02/18/2017 by Sarbjit Vera MD at OR [facility] N/A: Spine Lumbar JNJ : [employer] [id number] / / Description:In Set Clik [place] - [id number] Implanted:Qt y: 1 on 06/06/2020 by Sarbjit Vera MD at [place] [facility] N/A: Spine Thoracic [employer] : PAIN MGMT 04/17/2022 [id number] / / [id number] Description:bilateral Valve Lexie 3 Ultra 23mm - [id number] Implanted:Qt y: 1 on 11/27/2020 at CARDIAC [facility] [employer] [id number] / / Gener Wvewriter Alpha Prime 16 - [id number] Implanted:Qt y: 1 on 02/14/2022 by Sarbjit Vera MD at [place] [facility] Left: Back [employer] 01/20/2024 [id number] / / [id number] Description:left lower back Screw 6x40 Poly Si [id number] - [id number] Implanted:Qt y: 1 on 01/09/2023 by Sarbjit Vera MD at OR [facility] N/A: Spine Lumbar JNJ : [employer] [id number] / / Screw Set Sng Inner [id number] - [id number] Implanted:Qt y: 8 on 01/09/2023 by Sarbjit Vera MD at [place] [facility] N/A: Spine Lumbar JNJ : [employer] [id number] / / Expedium Ti Sfx 5.5 Lat A5 - [id number] Implanted:Qt y: 1 on 01/09/2023 by Sarbjit Vera MD at OR [facility] N/A: Spine Lumbar JNJ : [employer] [id number] / / Screw 6x45 Poly Si [id number] - [id number] Implanted:Qt y: 3 on 01/09/2023 by Sarbjit Vera MD at OR [facility] N/A: Spine Lumbar JNJ : [employer] [id number] / / 100mm [place] Implanted:Qt y: 2 on 01/09/2023 by Sarbjit Vera MD at OR [facility] N/A: Spine Lumbar [employer] 0 / / Graft Infuse Bone Lg [id number] - [id number] Implanted:Qt y: 1 on 01/09/2023 by Sarbjit Vera MD at OR [facility] N/A: Spine Lumbar [employer] : NEURO CARE [id number] 09/06/2024 [id number] / / [id number] documented as of this encounter Visit Diagnoses Diagnosis Primary osteoarthritis of left knee- Primary Primary localized osteoarthrosis, lower leg Osteoarthritis of knee- Primary Osteoarthrosis, unspecified whether generalized or localized, lower leg Primary osteoarthritis of left knee Primary localized osteoarthrosis, lower leg documented in this encounter Advance Directives Latest [...] the patient have Health Care Power of Housekeeping Aid? No Code Status History Code Status Date Activated Date Inactivated Comments Full Code 01/09/2023 9:33 AM 01/09/2023 1:45 PM This or sabrina reflects the patients wishes and were consensually agreed upon. Question Answer Comments Discussion of Advance Directives occurred with: Patient Does the patient have a Living Will? No Does the patient have Health Care Power of Housekeeping Aid? No Full Code 02/14/2022 8:41 AM 02/15/2022 [...] the patient have Health Care Power of Housekeeping Aid? No Care Teams It Security Engineer Relationship Specialty Start Date End Date Tabitha Cunningham MD [address] [place] [address] PCP - General 04/21/1996 documented as of this encounter
--- OUTSIDE RECORDS SUMMARY | 2024-03-22 07:46 | External Medical Summary | Summary of Care ---
Author Name Unknown Organization [facility] Address [address] [place] [address] Phone [phone] Care Team Providers Care Alteration Tailor Apprentice Name Role Phone Tabitha Cunningham MD Primary Care Provider [phone] Reason for Referral * Evaluate & Treat - Unlimited Visits (Within 10 days (routine)) - Authorized Specialty Diagnoses / Procedures Referred By Contact Referred To Contact Cardiovascular Medicine / Cardiology Diagnoses Primary osteoarthritis of left knee Jyoti Phelan PA-C [address] [place] [address] Sera Rondon, [address] [address] Referral ID Status Reason Start Date Expiration Date Visits Requested Visits Authorized [id number] Authorized Specialty Services Required 01/18/2024 999 999 [...] LEFT WO CONTRAST Jyoti Phelan PA-C [address] [place] [address] Referral ID Status Reason Start Date Expiration Date V isits Requested Visits Authorized [id number] Authorized 02/18/2024 999 999 Reason for Visit * Reason Comments NEW PATIENT B/l knee pain with n o recent injury or falls * Evaluate & Treat - Unlimited Visits (Within 10 days (routine)) - Authorized Specialty Diagnoses / Procedures Referred By Andres t Referred To Contact Orthopaedic Surgery / Orthopedics Diagnoses Chronic pain of both knees Erica Maldonado PA-C [address] [place] [address] Rodriguez Jones MD [address] [place] [id number] Referral ID Status Reason Start Date Expiration Date Visits Requested Visits Authorized [id number] Authorized Specialty Services Required 12/08/2023 999 999 Encounter Details Date Type Department Care Team (Late st Contact Info) Description 01/18/2024 8:45 AM EDT Office Visit Orthopaedics [address] [address] Rodriguez Jones MD [address] [place] [address] Primary osteoarthritis of left knee* Allergies [...] Propionate 50 MCG/ACT Nasal Suspension Administer 1 Sarona into nostril as needed. 15.8 mL 3 [...] mellitus with hemoglobin A1c goal of 7.0%-8.0% ([facility]) TAKE ONE (1) TABLET BY MOUTH [...] infection 11/05/2020 Overview: by EGD at [facility] Other cirrhosis of liver 10/29/2020 Portal hypertension 10/29/2020 Morbid obesity due to excess calories 10/19/2020 Iron deficiency anemia 10/12/2020 S/P insertion of spinal cord stimulator 06/06/20 20 Overview: at [facility] per Dr Doty HTN, goal below 150/90 [...] [facility] DET[facility] Study: Project # [id number], Chief Orthoptist: Sarbjit Garcia, PhD. SUMMARY: Goal: Establish test [...] contact study staff at ; after hours Chief Orthoptist via the [facility] hospital deodorizer operator . Please contact study team before resolving/deleting from patients problem list. Study phone number: [phone]. Diagnosis changed due to Research Module. Go to Snapshot for study details. Encounter for examination fo r normal comparison and control in clinical research program 09/14/2018 05/08/2022 Overview: DO NOT DELETE - [facility] PINKY Study: Project # [id number], Chief Orthoptist: Mario Rene, MS, MPH. SUMMARY: Goal: Establish [...] contact study staff at ; after hours Chief Orthoptist via the [facility] hospital deodorizer operator . - Please contact study team before resolving/deleting from patients problem list. Study phone number: [phone]. Diagnosis changed due to Research Module. Go [...] as of this encounter Progress Notes * Prasanna Padilla DO - 01/18/2024 8:55 AM EDT Hannah Groves [id number] Hannah Groves is a 78 year old female who presents for consultation to [facility] for left greater than right knee injury/pain. Consult requested by Erica Maldonado PA-C. Hannah Groves is here unaccompanied History: This is a 78 y/o coming in for evaluation of bilateral knee pain, left worse than right knee pain. Has been going on for 2-3 years. Has tried numerous steroid knee injections, with last one being 3 months ago which did not help. She reports intermittent pain but continuous over the last 3-4 months.She uses Aleve and Tylenol as needed. She reports swelling intermittently and pain with walking, kneeling. This is complicated with her back pain. She has not tried gel injections as they are expensive. She reports trying rehab. Previous knee injuries include: -no previous knee injuries or surgeries ROS EXAM:Constitional: No change in weight, No weakness, No fatigue, and No fevers, sweats, or chills Past Medical History: Diagnosis Date Allergic rhinitis [...] pylori infection 11/2020 by EGD at [facility] HTN, goal below 140/90 INFORMATION 02/05/1998 R Ovarian Cyst--Us by [employer] INFORMATION 12/18/1997 Neuroma, B feet---saw Dr. Ariza Lumbar spine pain 12/23/2016 Menopause Other osteoporosis 11/2008 by DEXA Other specified glaucoma 07/09/2004 narrow angle glaucoma suspect OU, Dr. Mccallum S/P insertion of spinal cord stimulator 06/06/2020 at [facility] per Dr Doty Sensorineural hearing loss left ear hearing aid Sleep apnea in adult 09/[address] Jenifer [place] sleep medicine Spinal stenosis of lumbar region without neurogenic claudication 03/06/2010 Type 2 diabetes mellitus with hemoglobin A1c goal of less than 8.0% ([facility]) ICD-10 update of inactive term Family History Problem Relation Age of Onset Heart Disorder Mother valve Replacement Other (Alzheimer's dementia) Father Diabetes Grandmother (Maternal) Diabetes Uncle (Unspecified) mat Heart Disorder Sister cardiac stents Social History Socioeconomic History Marital status: Spouse name: Not on file Number of children: Not on file Years of education: Not on file Highest education level: Not on file Occupational History 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 Comment: [employer] Employer: [employer] Tobacco Use Smoking status: Never Smokeless tobacco: Never Vaping Use Vaping Use: Never used Substance and Sexual Activity Alcohol use: No Drug use: No Sexual activity: Yes Partners: Male Other Topics Concern Service Not Asked Blood Transfusions Not Asked Caffeine Concern Not Asked Occupational Exposure Not Asked Hobby Hazards Not Asked Sleep Concern Not Asked Stress Concern Not Asked Weight Concern Not Asked Special Diet Not Asked Back Care Not Asked Exercise Not Asked Bike Helmet Not Asked Seat Belt Not Asked Self-Exams Not Asked Social History Narrative 3 boys-one son=Charli and a daughter Karolina 9 grandkids and 4 step grandkids 2022 with 9 great grandkids Social Determinants of Health Financial Resource Strain: Not on file Food Insecurity: No Food Insecurity (10/21/2023) Hunger Vital Sign Worried About Running Out of Food in the Last Year: Never true Ran Out of Food in the Last Year: Never true Transportation Needs: Not on file Physical Activity: Not on file Stress: Not on file Social Connections: Not on file Intimate Partner Violence: Not on file Housing Stability: Not on file Physical Exam General: in no acute distress Mood and Affect: normal Knee Exam, bilateral Effusion: trace-1+ Left, trace on right Palpation: tenderness to palpation medial patellar facet, anterior knee, generalized on the left greater than right ROM: R - Flexion - 120 degrees, Extension - 0 degrees L - Flexion - 120 degrees, Extension -0 degrees Popliteal angle (hamstring flexibility) 30 degrees Bilateral R- Strength: Extension - 5/5 Flexion - 5/5 L - Strength: Extension - 5/5 Flexion - 5/5 quadriceps tone is Fair Ligament tests/stability: ACL: Ho - negative Bilateral Ant Drawer - negative Bilateral PCL: Sag - negative Bilateral Post Drawer - negative Bilateral MCL: Medial opening @ 30: negative Bilateral LCL: Lateral opening @ 30: negative Bilateral Meniscus tests: Thessaly test - positive Bilateral Pain with forced flexion - positive Bilateral Popliteal mass - negative Bilateral Patellar tests: Toñito's positive Bilateral Grind positive Bilateral Radiology (I have personally reviewed the films done today): Bilateral knee x- ray reveals no fracture, moderate-severe OA bilaterally. Assessment and Plan: 1) Bilateral knee pain Due to significant OA, worse on medial side. Discussed risks/benefits and conservative management vs injections vs. Knee replacement After careful discussion, patient has opted for left knee replacement 03/17/[address] ordered F/u for H&P Prasanna Padilla DO Primary Care Sports Medicine Orthopaedics [facility] [address] [facility] [address] I performed a history and physical examination of the patient, and my impression and plan is left knee end stage arthritis. Discussed the nature of the problem and potential treatment plans. She will require cards eval prior to TKR for clearance. She otherwise would like to proceed with TKR. Discussed risks, benefits, nature of surgery and expected outcomes from total knee replacement . Although I anticipate an excellent result, sometimes negative outcomes occur including but not limitedto knee stiffness, infection, premature wear and loosening, continued knee pain, vascular injury, blood clots, loss of leg and life. she will be anticoagulated. Most imperative after surgery is to restore full extension and beyond 90' of flexion, and to control and manage leg edema. she understands. Will schedule. . I have discussed the patient's management with Prasanna Padilla DO. Please refer to the Fellow's note for the documented findings and plan of care. Rodriguez Jones MD Sports Medicine Knee and Shoulder Arthroscopy and Reconstruction Department Orthopaedic Surgery [facility] [address] documented in this encounter Plan of Treatment Upcoming Encounters Date Type Department Care Team (Late st Contact Info) Description 01/20/2024 10:30 AM EDT [facility] [address] [place] [address] Rex Pickard CRNP [address] [facility] [place] [address] 01/25/2024 1:30 PM EDT [facility] [address] [facility] [place] [address] Fran[facility] [address] 03/11/2024 12:00 PM EDT Office Visit Orthopaedics [address] [phone] Jyoti Phelan PA-C [address] [place] [address] 03/17/2024 10:58 AM EDT Hospital Encounter [facility], Operating Room [address] [address] Rodriguez Jones MD [address] [place] [address] 03/17/2024 10:58 AM EDT - 03/17/2024 1:45 PM EDT Surgery [facility], Operating Room [address] [address] Rodriguez Jones MD [address] [place] [address] ROBOTIC ARTHROPLASTY KNEE TOTAL 04/18/2024 9:00 AM EDT Office Visit [facility] [address] [place] [address] Tabitha Cunningham MD [address] [place] [address] 06/28/2024 8:30 AM EDT Office Visit Orthopaedics [facility] [place] [address] [place] [phone] Sarbjit Vera MD [address] [place], [place] [id number] 09/16/2024 8:20 AM EST Office Visit [facility] [address] [place] [address] Tabitha Cunningham MD [address] [facility] [place] [address] Scheduled Procedures Name Priority Associated Diagnoses Date/Ti [...] Last Done Comments CKD PHOS USE SMARTSET 23763 1963 Hepatitis B (1 of 3 - [...] Screening 04/10/2024 04/10/2023 CKD HGB USE SMARTSET 69857 08/21/202408/21, 08/21/2023, 01/30/2023, Additional history exists Diabetic Foot Exam 10/21/2024 10/21/2023, 1 10/16/2021, 11/15/2020, Additional history exists DXA Scan 11/13/2024 11/13/2022, 10/08, 10/05/2017, Additional history exists Colonoscopy 11/06/2025 11/06/2020, 10/2020, 09/21/2014, Additional history exists DTaP,Tdap,and Td Vaccines (3 - Td or Tdap) 03/30/2027 03/30/2017, 11/05/2006, 10/17/1996 Pneumococcal Vaccine: 65+ Years Completed 08/30/2015, 12/16/2011 VITAMIN D LEVEL ONCE IN A LIFETIME-USE SMARTSET# [id number] Completed 03/30/2017, 09/17/2009 RETIRED - COLONOSCOPY-EVERY 5 [...] this encounter Medical Devices Implanted Type Area Senior Technical Editor Device Identifier Shelf Expiration Date Model / Serial / Lot Dbx 10cc [id number] - [id number] Implanted:Qt y: 1 on 03/15/2010 at OR [facility] Tissue - Human N/A: Spine Lumbar MUSCULOSKELETAL TRANSPLANT FND 12/14/2011 [id number] / [id number] / Chip Cancellous 30cc [id number] - [id number] - [id number] Implanted:Qt y: 1 on 01/09/2023 by Sarbjit Vera MD at OR [facility] Tissue - Human N/A: Spine Lumbar MUSCULOSKELETAL TRANSPLANT FND 10/12/2024 [id number] / [id number] / [id number] Screw 7x50 Poly Si [id number] - [id number] Implanted:Qt y: 2 on 03/15/2010 at OR [facility] N/A: Spine Lumbar JNJ : [employer] [id number] / / Neterion Bio Composite - [id number] Implanted:Qt y: 2 on 01/25/2016 by Ken Will MD at OR [facility] Left: Shoulder [employer] 06/06/2016 [id number] / / [id number] Dbx 2.5cc [id number] - [id number] Implanted:Qt y: 1 on 02/18/2017 by Sarbjit Vera MD at OR [facility] N/A: Spine Lumbar MUSCULOSKELETAL TRANSPLANT FND 09/26/2018 [id number] / / Screw 7x45 Poly Si [id number] - [id number] Implanted:Qt y: 2 on 02/18/2017 by Sarbjit Vera MD at OR [facility] N/A: Spine Lumbar JNJ : [employer] [id number] / / Description:In Set Expedium Ti Sfx 5.5 Lat A5 - [id number] Implanted:Qt y: 1 on 02/18/2017 by Sarbjit Vera MD at OR [facility] N/A: Spine Lumbar JNJ : [employer] [id number] / / Description:In Set Clik [place] - [id number] Implanted:Qt y: 1 on 06/06/2020 by Sarbjit Vera MD at OR [facility] N/A: Spine Thoracic [employer] : PAIN MGMT 04/17/2022 [id number] / / [id number] Description:bilateral Valve Lexie 3 Ultra 23mm - [id number] Implanted:Qt y: 1 on 11/27/2020 at CARDIAC LABS [facility] [employer] [id number] / / Gener Wvewriter Alpha Prime 16 - [id number] Implanted:Qt y: 1 on 02/14/2022 by Sarbjit Vera MD at OR [facility] Left: Back [employer] 01/20/2024 [id number] / / [id number] Description:left lower back Screw 6x40 Poly Si [id number] - [id number] Implanted:Qt y: 1 on 01/09/2023 by Sarbjit Vera MD at OR [facility] N/A: Spine Lumbar JNJ : [employer] [id number] / / Screw Set Sng Inner [id number] - [id number] Implanted:Qt y: 8 on 01/09/2023 by Sarbjit Vera MD at OR [facility] N/A: Spine Lumbar JNJ : [employer] [id number] / / Expedium Ti Sfx 5.5 Lat A5 - [id number] Implanted:Qt y: 1 on 01/09/2023 by Sarbjit Vera MD at OR [facility] N/A: Spine Lumbar JNJ : [employer] [id number] / / Screw 6x45 Poly Si [id number] - [id number] Implanted:Qt y: 3 on 01/09/2023 by Sarbjit Vera MD at OR [facility] N/A: Spine Lumbar JNJ : [employer] [id number] / / 100mm [place] Implanted:Qt y: 2 on 01/09/2023 by Sarbjit Vera MD at OR [facility] N/A: Spine Lumbar [employer] 0 / / Graft Infuse Bone Lg [id number] - [id number] Implanted:Qt y: 1 on 01/09/2023 by Sarbjit Vera MD at OR [facility] N/A: Spine Lumbar [employer] : NEURO CARE [id number] 09/06/2024 [id number] / / [id number] documented as of this encounter Procedures Procedure Name Priority Date/Time Associated Diagnosis Comments XR KNEE 3 VIEWS Routine 01/18/2024 8:28 AM EDT documented in this encounter Results * CT LOWER EXTREMITY LEFT WO CONTRAST (01/18/2024 10:30 AM EDT) Anatomical Region Laterality Modality Lower Extremity, Ankle, Femu r, Foot, Hip, Knee, Musculoskeletal, TibFib Computed Tomography 01/18/2024 3:33 PM EDT Impressions 01/18/2024 3:31 PM EDT IMPRESSION Tricompartmental osteoarthritis of the left knee. Narrative 01/18/2024 3:[address] LOWER EXTREMITY LEFT WO CONTRAST - 01/18/2024 10:30 am HISTORY Preop for TKA TECHNIQUE CT of the left hip, knee, and ankle was performed for preoperative planning. COMPARISON Knee radiographs 01/18/2024. CT of the pelvis 07/10/2021. FINDINGS Hip: Mild osteoarthritis of the left hip. There arthritic changes in the visualized SI joints and pubic symphysis as well. No acute fracture or dislocation. Status post hysterectomy. Scattered vascular calcifications. Knee: Tricompartmental osteoarthritis, most pronounced and moderate to severe in the medial compartment. Chondrocalcinosis is present as well. No acute fracture or dislocation. No joint effusion. Vascular calcifications. Ankle: The joint spaces are maintained. No acute fracture or dislocation. There are corticated ossicles inferior to the medial malleolus, and chronic periosteal reaction around the distal tibiofibular syndesmosis, all likely sequelae of an old injury. Small Achilles enthesophyte. Small plantar calcaneal spur. Vascular calcifications. Procedure Note Tom Vaz MD - 01/18/[address] LOWER EXTREMITY LEFT WO CONTRAST - 01/18/2024 10:30 am HISTORY Preop for TKA TECHNIQUE CT of the left hip, knee, and ankle was performed for preoperativeplanning. COMPARISON Knee radiographs 01/18/2024. CT of the pelvis 07/10/2021. FINDINGS Hip: Mild osteoarthritis of the left hip. There arthritic changes in thevisualized SI joints and pubic symphysis as well. No acute fracture ordislocation. Status post hysterectomy. Scattered vascularcalcifications. Knee: Tricompartmental osteoarthritis, most pronounced and moderate tosevere in the medial compartment. Chondrocalcinosis is present as well.No acute fracture or dislocation. No joint effusion. Vascularcalcifications. Ankle: The joint spaces are maintained. No acute fracture or dislocation.There are corticated ossicles inferior to the medial malleolus, andchronic periosteal reaction around the distal tibiofibular syndesmosis,all likely sequelae of an old injury. Small Achilles enthesophyte. Smallplantar calcaneal spur. Vascular calcifications. IMPRESSION IMPRESSION Tricompartmental osteoarthritis of the left knee. Jyoti Phelan PA-C RAD CT * XR KNEE 3 VIEWS (01/18/2024 8:28 [...] lateral patellar tilt. Elisa MICHAEL RADIOLOGY ([facility]) documented in this encounter Visit Diagnoses Diagnosis Primary osteoarthritis of left knee- Primary Primary localized osteoarthrosis, lower leg Osteoarthritis of knee- Primary Osteoarthrosis, unspecified whether generalized or localized, lower leg Primary osteoarthritis of left knee Primary localized osteoarthrosis, lower leg Primary osteoarthritis of left knee [...] the patient have Health Care Power of Mattress Specialist? No Code Status History Code Status Date Activated Date Inactivated Comments Full Code 01/09/2023 9:33 AM 01/09/2023 1:45 PM This or sabrina reflects the patients wishes and were consensually agreed upon. Question Answer Comments Discussion of Advance Directives occurred with: Patient Does the patient have a Living Will? No Does the patient have Health Care Power of Mattress Specialist? No Full Code 02/14/2022 8:41 AM 02/15/2022 [...] the patient have Health Care Power of Mattress Specialist? No Care Teams Alteration Tailor Apprentice Relationship Specialty Start Date End Date Tabitha Cunningham MD [address] [place] [address] PCP - General 04/21/1996 documented as of this encounter
--- OUTSIDE RECORDS SUMMARY | 2024-03-22 07:47 | External Medical Summary | Summary of Care ---
Author Name Unknown Organization [facility] Address [address] [place] [address] Phone [phone] Care Team Providers Care Gas Maker Helper Name Role Phone Tabitha Brink MD Primary Care Provider Reason for Visit * Reason Onset Date Comments Medication Refill 12/29/2023 Encounter Details Date Type Department Care Team (Late st Contact Info) Description 12/29/2023 Refill Family [facility] [place] [address] [place], [place] [id number] Tabitha Brink MD [address] [place] [address] Type 2 diabetes mellitus with hemoglobin A1c goal of 7.0%-8.0% ([facility]) Allergies Active Allergy Reactions Criticality Noted Date Comments Adhesive Tape 07/06/1998 rash Lisinopril 04/04/2014 cough Oxycodone-Acetaminophen Other (Please comment) 02/05/2017 "jittery" Nauseated Silver Sulfadiazine Rash 12/07/2002 rash Carisoprodol Other (Please comment) 03/29/2012 Restless, jittery Sulfa Antibiotics 10/15/1998 Tendency towards yeast infections. documented as of this encounter (statuses as of 12/29/2023) Medications Medication Sig Dispensed Refills Start Date End Date Status ASPIRIN EC LOW STRENGTH 81 MG PO TBECIndications:Oth er nonspecific abnormal cardiovascular system function study one by mouth daily 34 5 09/12/2005 Active Amoxicillin 500 MG Oral Capsule (Amoxil) Take 4 tablets by mouth one hour prior to any dental procedure or cleaning 12 Cap 3 12/04/2020 Active Loratadine 10 MG Oral Tablet (Claritin)Indicatio ns:Allergic disorder, subsequent encounter One tab each julisa for allergies 30 Tab 5 12/10/2020 Active Fluticasone Propionate 50 MCG/ACT Nasal Suspension Administer 1 [place] into nostril as needed. 15.8 mL 3 [...] 0 Active hydroCHLOROthiazide 25 MG Oral Tablet (Hydrodiuril)Indica [...] EVERY DAY 90 Tablet 0 11/19/2023 Active Alendronate Sodium 70 MG Oral Tablet (Fosamax) Take 1 tablet once weekly 30 minutes before breakfast with 8oz of water. Remain upright for 30 minutes after taking medication. 4 Tablet 0 11/30/2023 Active Metoprolol Succinate ER 25 MG Oral [...] EVERY DAY 90 Tablet 1 12/29/2023 Active metFORMIN HCl 500 MG Oral Tablet (Glucophage)Indicat ions:Type 2 diabetes mellitus with hemoglobin A1c goal of 7.0%-8.0% (HCC) TAKE ONE (1) TABLET BY MOUTH EVERY DAY 90 Tablet 1 06/23/2023 Discontinue d(Refill) documented as of this encounter (statuses as of 12/29/2023) Active Problems Problem Noted Date Diagnosed Date [...] infection 11/05/2020 Overview: by EGD at [facility] Other cirrhosis of liver 10/29/2020 Portal hypertension 10/29/2020 Morbid obesity due to excess calories 10/19/2020 Iron deficiency anemia 10/12/2020 S/P insertion of spinal cord stimulator 06/06/20 Overview: at [facility] per Dr Doty HTN, goal below 150/90 04/02/2020 Sleep apnea in adult 09/07/2018 Overview: seen by Dr Burgess [place] sleep medicine Obesity, Class II, BMI 35-39.9, [...] as of this encounter (statuses as of 12/29/2023) Resolved Problems Problem Noted Date Diagnosed Date Resolved Date Anemia 11/05/2020 11/15/2020 Chronic back pain 06/07/2020 11/15/2020 Encounter for examination fo r normal comparison and control in clinical research program 09/14/2018 04/09/2020 Overview: DO NOT DELETE [facility] DETECT Study: Project # [id number], Paradi Tender: Sarbjit Garcia, PhD. SUMMARY: Goal: Establish test [...] contact study staff at ; after hours Paradi Tender via the [facility] dedicated owner operator . Please contact study team before resolving/deleting from patients problem list. Study phone number: [phone]. Diagnosis changed due to Research Module. Go to Snapshot for study details. Encounter for examination fo r normal comparison and control in clinical research program 09/14/2018 05/08/2022 Overview: DO NOT DELETE - [facility] Study: Project # [id number], Paradi Tender: Mario Rene, MS, MPH. SUMMARY: Goal: Establish [...] contact study staff at ; after hours Paradi Tender via the [facility] dedicated owner operator . - Please contact study team before resolving/deleting from patients problem list. Study phone number: [phone]. Diagnosis changed due to Research Module. Go [...] as of this encounter (statuses as of 12/29/2023) Immunizations Name Administration Dates Next Due COVID-19 [...] Telephone Encounter - Tabitha Brink MD - 12/29/2023 3:26 PM EDTSigned Prescriptions: Disp Refills metFORMIN HCl 500 MG Oral Tablet (Glucopha*90 Tab*1 Sig: TAKE ONE (1) TABLET BY MOUTH EVERY DAY Authorizing Provider: TABITHA BRINK * Telephone Encounter - Trinidad Patten LPN - 12/29/2023 3:07 PM EDT Pending Prescriptions: Disp Refills metFORMIN HCl 500 MG Oral Tablet (Glucoph*90 Tab*1 Sig: TAKE ONE (1) TABLET BY MOUTH EVERY DAY Last Visit: 10/21/2023 (in office), Visit date not found (telemedicine) Next Visit: 04/18/2024 If no future appointments scheduled, and last appointment is greater than a year ago, please schedule patient for a follow-up appointment -Last date the medication was ordered: - 06-23-23 Is this request for a controlled substance?No Urine Drug Screen:No results found. However, due to the size of the patient record, not all encounters were searched. Please check Results Review for a complete set of results. Patient Phone Numbers Labs: Lab Results Component Value Date/Time CREAT 1.0 08/21/2023 12:00 PM CREAT 0.9 06/07/2020 05:35 AM CREAT 0.7 10/17/1996 12:00 PM POTASSIUM 4.2 08/21/2023 12:00 PM POTASSIUM 3.8 06/07/2020 05:35 AM POTASSIUM 4.4 10/17/1996 12:00 PM TSH 3.05 10/11/2020 11:37 AM TSH 3.65 11/17/2018 10:26 AM LDLCALC 64 08/21/2023 12:00 PM LDLCALC 90 06/01/2019 09:07 AM LDLDIRECT 123 03/28/2021 11:09 AM LDLDIRECT 118 11/17/2018 10:26 AM ALT 26 08/21/2023 12:00 PM ALT 24 06/01/2019 09:07 AM ALT 28 10/17/1996 12:00 PM HGBA1C 5.8 (H) 08/21/2023 12:00 PM HGBA1C 6.0 (H) 05/29/2020 01:23 PM documented in this encounter Plan of Treatment Upcoming Encounters Date Type Department Care Team (Late st Contact Info) Description 01/04/2024 3:00 PM EDT Office Visit Ophthalmology, [place] [address] [place] [address] Franck Soriano DO [address] [place] [address] 01/18/2024 8:45 AM EDT Office Visit Orthopaedics [facility] [address] [place] [phone] Rodriguez Jones MD [address] [place] [address] 01/18/2024 10:00 AM EDT Office Visit Ophthalmology, [place] [address] [place] [address] Franck Soriano DO [address] [place] [address] 01/20/2024 10:30 AM EDT Office Visit Interventional Pain Center, [facility] [address] [place] [address] Rex Pickard CRNP [address] [place] [address] 04/18/2024 9:00 AM EDT Office [facility] [address] [place] [address] Tabitha Brink MD [address] [facility] [place] [address] 06/28/2024 8:30 AM EDT Office Visit Orthopaedics [facility], [place] [address] [place] [phone] Sarbjit Vera MD [address] [place] [address] 09/16/2024 8:20 AM EST Office [facility] [address] [place] [address] Tabitha Brink MD [address] [place] [address] Scheduled Procedures Name Priority Associated Diagnoses Date/Ti me COLONOSCOPY FLEXIBLE PROXIMAL DIAGNOSTIC Recall Change in bowel habits Health Maintenance Due Date Last Done Comments CKD PHOS USE SMARTSET 87888 1963 Hepatitis B (1 of 3 - [...] Screening 04/10/2024 04/10/2023 CKD HGB USE SMARTSET 99913 08/21/202408/21, 08/21/2023, 01/30/2023, Additional history exists Diabetic Foot Exam 10/21/2024 10/21/2023, 1 10/16/2021, 11/15/2020, Additional history exists DXA Scan 11/13/2024 11/13/2022, 10/08, 10/05/2017, Additional history exists COLONOSCOPY-EVERY 5 YRS AGES 18-100 11/06/2025 11/06/2020, 11/06/2020, 09/21/2014, Additional history exists DTaP,Tdap,and Td Vaccines (3 - Td or Tdap) 03/30/2027 03/30/2017, 11/05/2006, 10/17/1996 Pneumococcal Vaccine: 65+ Years Completed 08/30/2015, 12/16/2011 VITAMIN D LEVEL ONCE IN A LIFETIME-USE SMARTSET# 61746 Completed 03/30/2017, 09/17/2009 Influenza Vaccine (FLU shot) Completed , 07/01/2021, 08/24/2020, Additional history exists GARDASIL-HPV IMMUNIZATION SERIES Aged Out No longer eligible based on patient's age to complete this topic MENINGOCOCCAL (MENACTRA/MENVEO) Aged Out No longer eligible based on patient's age to complete this topic documented as of this encounter Medical Devices Implanted Type Area Faa Certified Powerplant Mechanic Device Identifier Shelf Expiration Date Model / Serial / Lot Dbx 10cc [id number] - [id number] Implanted:Qt y: 1 on 03/15/2010 at [place] [facility] Tissue - Human N/A: Spine Lumbar MUSCULOSKELETAL TRANSPLANT FND 12/14/2011 [id number] / [id number] / Chip Cancellous 30cc [id number] - [id number] - [id number] Implanted:Qt y: 1 on 01/09/2023 by Sarbjit Vera MD at OR [facility] Tissue - Human N/A: Spine Lumbar MUSCULOSKELETAL TRANSPLANT FND 10/12/2024 [id number] / [id number] / [id number] Screw 7x50 Poly Si [id number] - [id number] Implanted:Qt y: 2 on 03/15/2010 at OR [facility] N/A: Spine Lumbar JNJ : ETHICON CARDIOVATIONS [id number] / / CorAula 7 Bio Composite - [id number] Implanted:Qt y: 2 on 01/25/2016 by Ken Will MD at OR [facility] Left: Shoulder [employer] 06/06/2016 [id number] / / [id number] Dbx 2.5cc [id number] - [id number] Implanted:Qt y: 1 on 02/18/2017 by Sarbjit Vera MD at OR [facility] N/A: Spine Lumbar MUSCULOSKELETAL TRANSPLANT FND 09/26/2018 [id number] / / Screw 7x45 Poly Si [id number] - [id number] Implanted:Qt y: 2 on 02/18/2017 by Sarbjit Vera MD at OR [facility] N/A: Spine Lumbar JNJ : ETHICON CARDIOVATIONS [id number] / / Description:In Set Expedium Ti Sfx 5.5 Lat A5 - [id number] Implanted:Qt y: 1 on 02/18/2017 by Sarbjit Vera MD at OR [facility] N/A: Spine Lumbar JNJ : ETHICON CARDIOVATIONS [id number] / / Description:In Set Clik [place] - [id number] Implanted:Qt y: 1 on 06/06/2020 by Sarbjit Vera MD at OR [facility] N/A: Spine Thoracic [employer] : PAIN MGMT 04/17/2022 [id number] / / [id number] Description:bilateral Valve Lexie 3 Ultra 23mm - [id number] Implanted:Qt y: 1 on 11/27/2020 at CARDIAC LABS [facility] [employer] [id number] / / Gener Wvewriter Alpha Prime 16 - [id number] Implanted:Qt y: 1 on 02/14/2022 by Sarbjit Vera MD at OR [facility] Left: Back [employer] 01/20/2024 [id number] / / [id number] Description:left lower back Screw 6x40 Poly Si [id number] - [id number] Implanted:Qt y: 1 on 01/09/2023 by Sarbjit Vera MD at OR [facility] N/A: Spine Lumbar JNJ : ETH[employer]ON C[employer]ATIONS [id number] / / Screw Set Sng Inner [id number] - [id number] Implanted:Qt y: 8 on 01/09/2023 by Sarbjit Vera MD at OR [facility] N/A: Spine Lumbar JNJ : ETH[employer]ON C[employer]ATIONS [id number] / / Expedium Ti Sfx 5.5 Lat A5 - [id number] Implanted:Qt y: 1 on 01/09/2023 by Sarbjit Vera MD at OR [facility] N/A: Spine Lumbar JNJ : ETH[employer] [id number] / / Screw 6x45 Poly Si [id number] - [id number] Implanted:Qt y: 3 on 01/09/2023 by Sarbjit Vera MD at OR [facility] N/A: Spine Lumbar JNJ : ETH[employer]ON CARD[employer]ATIONS [id number] / / 100mm [place] Implanted:Qt y: 2 on 01/09/2023 by Sarbjit Vera MD at OR [facility] N/A: Spine Lumbar [employer] 0 / / Graft Infuse Bone Lg [id number] - [id number] Implanted:Qt y: 1 on 01/09/2023 by Sarbjit Vera MD at OR [facility] N/A: Spine Lumbar [employer] : NEURO CARE [id number] 09/06/2024 [id number] / / [id number] documented as of this encounter Visit Diagnoses Diagnosis Type 2 diabetes mellitus with hemoglobin A1c goal of 7.0%-8.0% (HCC) documented in this encounter Advance Directives Latest [...] the patient have Health Care Power of Agency Service Representative? No Code Status History Code Status Date Activated Date Inactivated Comments Full Code 01/09/2023 9:33 AM 01/09/2023 1:45 PM This or sabrina reflects the patients wishes and were consensually agreed upon. Question Answer Comments Discussion of Advance Directives occurred with: Patient Does the patient have a Living Will? No Does the patient have Health Care Power of Agency Service Representative? No Full Code 02/14/2022 8:41 AM 02/15/2022 [...] the patient have Health Care Power of Agency Service Representative? No Care Teams Gas Maker Helper Relationship Specialty Start Date End Date Tabitha Brink MD [address] [place] [address] PCP - General 04/21/1996 documented as of this encounter
--- OUTSIDE RECORDS SUMMARY | 2024-03-22 07:47 | External Medical Summary | Summary of Care ---
Author Name Unknown Organization [facility] Address [address] [place] [address] Phone [phone] Care Team Providers Care Holistic Health Practitioner Name Role Phone Tabitha Cunningham MD Primary Care Provider [phone] Reason for Visit * Reason Onset Date Comments Medication Refill 12/28/2023 Encounter Details Date Type Department Care Team (Late st Contact Info) Description 12/28/2023 Refill Family [facility] [place] [address] [place], [place] [id number] Tabitha Cunningham MD [address] [place] [address] Type 2 diabetes mellitus with hemoglobin A1c goal of 7.0%-8.0% ([facility]) Allergies Active Allergy Reactions Criticality [...] Propionate 50 MCG/ACT Nasal Suspension Administer 1 [place] into nostril as needed. 15.8 mL 3 [...] taking medication. 4 Tablet 0 11/30/2023 Active documented as of this encounter (statuses [...] infection 11/05/2020 Overview: by EGD at [facility] Other cirrhosis of liver 10/29/2020 Portal hypertension 10/29/2020 Morbid obesity due to excess calories 10/19/2020 Iron deficiency anemia 10/12/2020 S/P insertion of spinal cord stimulator 06/06/20 Overview: at [facility] per Dr Doty HTN, goal below 150/90 04/02/2020 Sleep apnea in adult 09/07/2018 Overview: seen by Dr Jenifer [place] sleep medicine Obesity, Class II, BMI 35-39.9, isolated (see ac al BMI) 09/28/2017 Lumbar spine pain 12/23/2016 Adjustment [...] program 09/14/2018 04/09/2020 Overview: DO NOT DELETE [facility] DETECT Study: Project # [id number], Fios Line Installer: Sarbjit Garcia, PhD. SUMMARY: Goal: Establish test [...] contact study staff at ; after hours Fios Line Installer via the [facility] hospital switchboard operator . Please contact study team before resolving/deleting from patients problem list. Study phone number: [phone]. Diagnosis changed due to Research Module. Go to Snapshot for study details. Encounter for examination fo r normal comparison and control in clinical research program 09/14/2018 05/08/2022 Overview: DO NOT DELETE - [facility] DETECT Study: Project # [id number], Fios Line Installer: Mario Rene, MS, MPH. SUMMARY: Goal: Establish [...] contact study staff at ; after hours Fios Line Installer via the [facility] hospital switchboard operator . - Please contact study team before resolving/deleting from patients problem list. Study phone number: [phone]. Diagnosis changed due to Research Module. Go [...] encounter Miscellaneous Notes * Telephone Encounter - Ashlie Hansen RPh - 12/29/2023 4:00 PM EDTRefused Prescriptions: Disp Refills metFORMIN HCl 500 MG Oral Tablet (Glucopha*90 Tab*1 Sig: TAKE ONE (1) TABLET BY MOUTH EVERY DAY Refused By: ASHLIE HANSEN Reason for Refusal: Duplicate Request * Telephone Encounter - Lisa Felix submarine element coordinator - 12/28/2023 12:19 PM EDT 3 days left. Did you pend patient's preferred pharmacy and medication before forwarding?yes Pharmacy: [id number] Pending Prescriptions: Disp Refills metFORMIN HCl 500 MG Oral Tablet (Glucoph*90 Tab*1 Sig: TAKE ONE (1) TABLET BY MOUTH EVERY DAY Last Visit: 10/21/2023 (in office), Visit date not found (telemedicine) Next Visit: 04/18/2024 If no future appointments scheduled, and last appointment is greater than a year ago, please schedule patient for a follow-up appointment Last date the medication was ordered: 06/23 Is this request for a controlled substance?No [...] Description 01/04/2024 3:00 PM EDT Office Visit [facility] [place] [address] Renuka Soriano DO [place] [address] 01/18/2024 8:45 AM EDT Office Visit [facility]opa[facility] [address] [place] [address] Rodriguez Jones MD [address] [place] [address] 01/18/2024 10:00 AM EDT [facility] [address] [place] [address] Renuka Soriano DO [address] [place] [address] 01/20/2024 10:30 AM EDT Office Visit Interventional Pain Center, [facility] [address] [place] [address] Rex Pickard CRNP [address] [place] [address] 04/18/2024 9:00 AM EDT Office Visit [facility] [place] [address] [place] [address] Tabitha Cunningham MD [address] [place] [address] 06/28/2024 8:30 AM EDT [facility] [address] [place] [phone] Sarbjit Vera MD [address] [place] [address] 09/16/2024 8:20 AM EST Office Visit [facility] [place] [address] [place] [address] Tabitha Cunningham MD [address] [place] [address] Scheduled Procedures Name Priority Associated Diagnoses Date/Ti me COLONOSCOPY FLEXIBLE PROXIMAL DIAGNOSTIC Recall Change in bowel habits Health Maintenance Due Date Last Done Comments CKD PHOS USE SMARTSET 68319 1963 Hepatitis B (1 of 3 - Risk 3-dose series) 2006 Zoster Vaccines (2 of 3) 10/06/2013 08/11/2013 Diabetic Eye Exam 12/04/2022 12/04/2021, , 02/14/2019, Additional history exists COVID-19 Vaccine (3 - season) 2023 09/13/2021, 12/03/2020 GFR 02/20/2024 08/21/2023, 03/08, 01/30/2023, Additional history exists HbA1c 02/20/2024 08/21/2023, 03/08, 12/04/2022, Additional history exists Albumin/Creatinine Ratio 03/31/2024 023, 01/15/2022, 08/16/2014, Additional history exists B-12 03/31/2024 03/31/2023, 03/08, 10/11/2020, Additional history exists Depression Screening 04/10/2024 04/10/2023 CKD HGB USE SMARTSET 52341 08/21/202408/21, 08/21/2023, 01/30/2023, Additional history exists Diabetic [...] D LEVEL ONCE IN A LIFETIME-USE SMARTSET# 17074 Completed 03/30/2017, 09/17/2009 Influenza Vaccine (FLU shot) Completed , 07/01/2021, 08/24/2020, Additional history exists GARDASIL-HPV IMMUNIZATION SERIES Aged Out No longer eligible based on patient's age to complete this topic MENINGOCOCCAL (MENACTRA/MENVEO) Aged Out No longer eligible based on patient's age to complete this topic documented as of this encounter Medical Devices Implanted Type Area Warehouse Pricing And Inventory Clerk Device Identifier Shelf Expiration Date Model / Serial / Lot Dbx 10cc [id number] - [id number] Implanted:Qt y: 1 on 03/15/2010 at OR [facility] Tissue - Human N/A: Spine Lumbar MUSCULOSKELETAL TRANSPLANT FND 12/14/2011 [id number] / [id number] / Chip Cancellous 30cc [id number] - [id number] 055 - [id number] Implanted:Qt y: 1 on 01/09/2023 by Sarbjit Vera MD at OR [facility] Tissue - Human N/A: Spine Lumbar MUSCULOSKELETAL TRANSPLANT FND 10/12/2024 [id number] / [id number] / [id number] Screw 7x50 Poly Si [id number] - [id number] Implanted:Qt y: 2 on 03/15/2010 at OR [facility] N/A: Spine Lumbar JNJ : ETHICON CARDIOVATIONS [id number] / / Titus[employer] Communicator [employer]jesse [employer] Composite - [id number] Implanted:Qt y: 2 on 01/25/2016 by Ken Will MD at OR [facility] Left: Shoulder [employer] 06/06/2016 [id number] / / [id number] Dbx 2.5cc [id number] - [id number] Implanted:Qt y: 1 on 02/18/2017 by Sarbjit Vera MD at OR [facility] N/A: Spine Lumbar MUSCULOSKELETAL TRANSPLANT FND 09/26/2018 [id number] / / Screw 7x45 Poly Si [id number] - [id number] Implanted:Qt y: 2 on 02/18/2017 by Sarbjit Vera MD at OR [facility] N/A: Spine Lumbar JNJ : ETH[employer]ON CARDI[employer]ATIONS [id number] / / Description:In Set Expedium Ti Sfx 5.5 Lat A5 - [id number] Implanted:Qt y: 1 on 02/18/2017 by Sarbjit Vera MD at OR [facility] N/A: Spine Lumbar JNJ : ETH[employer]ON C[employer]ATIONS [id number] / / Description:In Set Clik [place] - [id number] Implanted:Qt y: 1 on 06/06/2020 by Sarbjit Vera MD at OR [facility] N/A: Spine Thoracic [employer] : PAIN MGMT 04/17/2022 [id number] / / [id number] Description:bilateral Valve Lexie 3 Ultra 23mm - [id number] Implanted:Qt y: 1 on 11/27/2020 at CARDIAC LABS [facility] [employer] [id number] / / Gener Wvewriter Alpha Prime 16 - [id number] Implanted:Qt y: 1 on 02/14/2022 by Sarbjit Vera MD at OR [facility] Left: Back [employer] 01/20/2024 [id number] / / [id number] Description:left lower back Screw 6x40 Poly Si [id number] - [id number] Implanted:Qt y: 1 on 01/09/2023 by Sarbjit Vera MD at OR [facility] N/A: Spine Lumbar JNJ : ETH[employer]ON [employer]ATIONS [id number] / / Screw Set Sng Inner [id number] - [id number] Implanted:Qt y: 8 on 01/09/2023 by Sarbjit Vera MD at OR [facility] N/A: Spine Lumbar JNJ : ETH[employer]ON C[employer]ATIONS [id number] / / Expedium Ti Sfx 5.5 Lat A5 - [id number] Implanted:Qt y: 1 on 01/09/2023 by Sarbjit Vera MD at OR [facility] N/A: Spine Lumbar JNJ : ETH[employer] C[employer]ATIONS [id number] / / Screw 6x45 Poly Si [id number] - [id number] Implanted:Qt y: 3 on 01/09/2023 by Sarbjit Vera MD at OR [facility] N/A: Spine Lumbar JNJ : ETH[employer]ON CARDI[employer]ATIONS [id number] / / 100mm [place] Implanted:Qt y: 2 on 01/09/2023 by Sarbjit Vera MD at OR [facility] N/A: Spine Lumbar [employer] 0 / / Graft Infuse Bone Lg [id number] - [id number] Implanted:Qt y: 1 on 01/09/2023 by Sarbjit Vera MD at OR [facility] N/A: Spine Lumbar [employer] : NEURO CARE [id number] 09/06/2024 [id number] / / [id number] documented as of this encounter Visit Diagnoses [...] the patient have Health Care Power of Open Hearth Worker? No Code Status History Code Status Date Activated Date Inactivated Comments Full Code 01/09/2023 9:33 AM 01/09/2023 1:45 PM This or sabrina reflects the patients wishes and were consensually agreed upon. Question Answer Comments Discussion of Advance Directives occurred with: Patient Does the patient have a Living Will? No Does the patient have Health Care Power of Open Hearth Worker? No Full Code 02/14/2022 8:41 AM 02/15/2022 [...] the patient have Health Care Power of Open Hearth Worker? No Care Teams Holistic Health Practitioner Relationship Specialty Start Date End Date Tabitha Cunningham MD [address] [facility] [place] [address] PCP - General 04/21/1996 documented as of this encounter
--- OUTSIDE RECORDS SUMMARY | 2024-03-22 07:47 | External Medical Summary | Summary of Care ---
Author Name Unknown Organization [facility] Address [address] [facility] [place] [address] Phone [phone] Care Team Providers Care Maxillofacial Surgeon Name Role Phone Tabitha Cunningham MD Primary Care Provider [phone] Reason for Visit * Reason Onset Date Comments Medication Refill 12/28/2023 Encounter Details Date Type Department Care Team (Late st Contact Info) Description 12/28/2023 Refill Cardiology, [place] [address] [facility] [address] Sera Resendez [facility] [address] [place] [address] Allergies Active Allergy Reactions Criticality Noted Date Comments Adhesive Tape 07/06/1998 rash Lisinopril 04/04/2014 cough Oxycodone-Acetaminophen Other (Please comment) 02/05/2017 "jittery" Nauseated Silver Sulfadiazine Rash 12/07/2002 rash Carisoprodol Other (Please comment) 03/29/2012 Restless, jittery Sulfa Antibiotics 10/15/1998 Tendency towards yeast infections. documented as of this encounter (statuses as of 12/28/2023) Medications Medication Sig Dispensed Refills Start Date [...] Propionate 50 MCG/ACT Nasal Suspension Administer 1 Blanchard into nostril as needed. 15.8 mL 3 [...] for mood. 90 Tablet 3 03/02/2023 Active metFORMIN HCl 500 MG Oral Tablet (Glucophage)Indicat ions:Type 2 diabetes mellitus with hemoglobin A1c goal of 7.0%-8.0% (HCC) TAKE ONE (1) TABLET BY MOUTH EVERY DAY 90 Tablet 1 06/23/2023 Active Polyethylene Glycol 3350 17 GM/SCOOP Oral [...] EVERY DAY 90 Tablet 3 12/28/2023 Active Metoprolol Succinate ER 25 MG Oral Tablet Extended Release 24 Hour (toPROL XL) TAKE ONE (1) TABLET BY MOUTH EVERY DAY 90 Tablet 3 11/21/2022 Discontinue d(Refill) documented as of this encounter (statuses as of 12/28/2023) Active Problems Problem Noted Date Diagnosed Date [...] pylori infection 11/05/2020 Overview: by [facility] [facility] Other cirrhosis of liver 10/29/2020 Portal hypertension 10/29/2020 Morbid obesity due to excess calories 10/19/2020 Iron deficiency anemia 10/12/2020 S/P insertion of spinal cord stimulator 06/06/20 Overview: at [facility] [place] Doty HTN, [...] as of this encounter (statuses as of 12/28/2023) Resolved Problems Problem Noted Date Diagnosed Date Resolved Date Anemia 11/05/2020 11/15/2020 Chronic back pain 06/07/2020 11/15/2020 Encounter for examination fo r normal comparison and control in clinical research program 09/14/2018 04/09/2020 Overview: DO NOT DELETE [facility] DETECT Study: Project # [id number], School Counselor: Sarbjit Garcia, PhD. SUMMARY: Goal: Establish test [...] contact study staff at ; after hours School Counselor via the [facility] hospital asphalt paving machine operator . Please contact study team before resolving/deleting from patients problem list. Study phone number: [phone]. Diagnosis changed due to Research Module. Go to Snapshot for study details. Encounter for examination fo r normal comparison and control in clinical research program 09/14/2018 05/08/2022 Overview: DO NOT DELETE - Richy Cisneros PINKY Study: Project # [id number], School Counselor: Mario Rene, MS, MPH. SUMMARY: Goal: Establish [...] contact study staff at ; after hours School Counselor via the [facility] asphalt paving machine operator . - Please contact study team before resolving/deleting from patients problem list. Study phone number: [phone]. Diagnosis changed due to Research Module. Go [...] as of this encounter (statuses as of 12/28/2023) Immunizations Name Administration Dates Next Due COVID-19 [...] encounter Miscellaneous Notes * Telephone Encounter - Sera Resendez DO - 12/28/2023 1:05 PM EDT Signed Prescriptions: Disp Refills Metoprolol Succinate ER 25 MG Oral Tablet *90 Tab*3 Sig: TAKE ONE (1) TABLET BY MOUTH EVERY DAY Authorizing Provider: SERA RESENDEZ * Telephone Encounter - Lisa Felix PHARM Tech - 12/28/2023 12:17 PM EDT Pt 3 days left per office visit 10/25/2021 prn follow up Did you pend patient's preferred pharmacy and medication before forwarding?yes Pharmacy: [id number] Pending Prescriptions: Disp Refills Metoprolol Succinate ER 25 MG Oral Tablet*90 Tab*3 Sig: TAKE ONE (1) TABLET BY MOUTH EVERY DAY Last Visit: Visit date not found (in office), Visit date not found (telemedicine) Next Visit: Visit date not found If no future appointments scheduled, and last appointment is greater than a year ago, please schedule patient for a follow-up appointment Last date the medication was ordered: 11/21 Is this request for a controlled substance?No [...] Team (Late st Contact Info) Description 12/28/2023 3:00 PM EDT Office Visit Ophthalmology, [place] [address] [place] [address] Renuka Soriano, [address] [facility] [place] [address] 01/04/2024 3:00 PM EDT Office Visit Ophthalmology, [place] [address] [facility] [place] [address] Renuka Soriano DO [address] [facility] [place] [address] 01/18/2024 8:45 AM EDT Office Visit Orthopaedics [facility] [address] [place] [address] Rodriguez Jones MD 16 [place] [address] 01/18/2024 10:00 AM EDT Office Visit Ophthalmology, [place] [address] [facility] [address] Renuka Soriano DO 21 [facility] [address] 01/20/2024 10:30 AM EDT Office [facility] [address] Rex Pickard CRNP [address] [facility] [address] 04/18/2024 9:00 AM EDT Office Visit [facility] [address] Tabitha Cunningham MD 27 [place] [address] 06/28/2024 8:30 AM EDT [facility] [address] [place] [phone] Sarbjit Vera MD [address] [place], [place] [address] 09/16/2024 8:20 AM EST Office Visit [facility] 27 [place] [address] Tabitha Cunningham MD 27 [place] [address] Scheduled Procedures Name Priority Associated Diagnoses Date/Ti me COLONOSCOPY FLEXIBLE PROXIMAL DIAGNOSTIC Recall Change in bowel habits Health Maintenance Due Date Last Done Comments CKD PHOS USE SMARTSET 99994 1963 Hepatitis B (1 of 3 - [...] Screening 04/10/2024 04/10/2023 CKD HGB USE SMARTSET 52309 08/21/202408/21, 08/21/2023, 01/30/2023, Additional history exists Diabetic [...] D LEVEL ONCE IN A LIFETIME-USE SMARTSET# 86230 Completed 03/30/2017, 09/17/2009 Influenza Vaccine (FLU shot) Completed , 07/01/2021, 08/24/2020, Additional history exists GARDASIL-HPV IMMUNIZATION SERIES Aged Out No longer eligible based on patient's age to complete this topic MENINGOCOCCAL (MENACTRA/MENVEO) Aged Out No longer eligible based on patient's age to complete this topic documented as of this encounter Medical Devices Implanted Type Area Policy Intern Device Identifier Shelf Expiration Date Model / Serial / Lot Dbx 10cc [id number] - [id number] Implanted:Qt y: 1 on 03/15/[address] [facility] Tissue - Human N/A: Spine Lumbar MUSCULOSKELETAL TRANSPLANT FND 12/14/2011 [id number] / [id number] / Chip Cancellous 30cc [id number] - [id number] - [id number] Implanted:Qt y: 1 on 01/09/2023 by Sarbjit Vera MD at OR [facility] Tissue - Human N/A: Spine Lumbar MUSCULOSKELETAL TRANSPLANT FND 10/12/2024 [id number] / [id number] / [id number] Screw 7x50 Poly Si [id number] - [id number] Implanted:Qt y: 2 on 03/15/[address] [facility] N/A: Spine Lumbar JNJ : ETHICON CARDIOVATIONS [id number] / / Corkscrew [employer] Composite - [id number] Implanted:Qt y: 2 on 01/25/2016 by Ken Will MD at OR [facility] Left: Shoulder [employer] 06/06/2016 [id number] / / [id number] Dbx 2.5cc [id number] - [id number] Implanted:Qt y: 1 on 02/18/2017 by Sarbjit Vera MD at OR [facility] N/A: Spine Lumbar MUSCULOSKELETAL TRANSPLANT FND 09/26/2018 [id number] / / Screw 7x45 Poly Si [id number] - [id number] Implanted:Qt y: 2 on 02/18/2017 by Sarbjit Vera MD at OR [facility] N/A: Spine Lumbar JNJ : ETHICON CARDIOVATIONS [id number] / / Description:In Set Expedium Ti Sfx 5.5 Lat A5 - [id number] Implanted:Qt y: 1 on 02/18/2017 by Sarbjit Vera MD at OR [facility] N/A: Spine Lumbar JNJ : ETHICON CARDIOVATIONS [id number] / / Description:In Set Clik [place] - [id number] Implanted:Qt y: 1 on 06/06/2020 by Sarbjit Vera MD at OR [facility] N/A: Spine Thoracic [employer] : PAIN MGMT 04/17/2022 [id number] / / [id number] Description:bilateral Valve Lexie 3 Ultra 23mm - [id number] Implanted:Qt y: 1 on 11/27/[address] [facility] [employer] [id number] / / Gener Wvewriter Alpha Prime 16 - [id number] Implanted:Qt y: 1 on 02/14/2022 by Sarbjit Vera MD at OR [facility] Left: Back [employer] 01/20/2024 [id number] / / [id number] Description:left lower back Screw 6x40 Poly Si [id number] - [id number] Implanted:Qt y: 1 on 01/09/2023 by Sarbjit Vera MD at OR [facility] N/A: Spine Lumbar JNJ : ETH[employer]ON [employer]ATIONS [id number] / / Screw Set Sng Inner [id number] - [id number] Implanted:Qt y: 8 on 01/09/2023 by Sarbjit Vera MD at OR [facility] N/A: Spine Lumbar JNJ : ETH[employer]ON [employer]ATIONS [id number] / / Expedium Ti Sfx 5.5 Lat A5 - [id number] Implanted:Qt y: 1 on 01/09/2023 by Sarbjit Vera MD at OR [facility] N/A: Spine Lumbar JNJ : ETH[employer]ON [employer]ATIONS [id number] / / Screw 6x45 Poly Si [id number] - [id number] Implanted:Qt y: 3 on 01/09/2023 by Sarbjit Vera MD at OR [facility] N/A: Spine Lumbar JNJ : ETH[employer]ON [employer]ATIONS [id number] / / 100mm [place] Implanted:Qt y: 2 on 01/09/2023 by Sarbjit Vera MD at OR [facility] N/A: Spine Lumbar [employer] 0 / / Graft Infuse Bone Lg [id number] - [id number] Implanted:Qt y: 1 on 01/09/2023 by Sarbjit Vera MD at OR [facility] N/A: Spine Lumbar [employer] : NEURO CARE [id number] 09/06/2024 [id number] / / [id number] documented as of this encounter Advance Directives [...] the patient have Health Care Power of Senior Analytic Consultant? No Code Status History Code Status Date Activated Date Inactivated Comments Full Code 01/09/2023 9:33 AM 01/09/2023 1:45 PM This or sabrina reflects the patients wishes and were consensually agreed upon. Question Answer Comments Discussion of Advance Directives occurred with: Patient Does the patient have a Living Will? No Does the patient have Health Care Power of Senior Analytic Consultant? No Full Code 02/14/2022 8:41 AM 02/15/2022 [...] the patient have Health Care Power of Senior Analytic Consultant? No Care Teams Maxillofacial Surgeon Relationship Specialty Start Date End Date Tabitha Cunningham MD 27 [facility] [place] [address] PCP - General 04/21/1996 documented as of this encounter
--- OUTSIDE RECORDS SUMMARY | 2024-03-22 07:47 | External Medical Summary | Summary of Care ---
Author Name Unknown Organization [facility] Address [address] [facility] [place] [address] Phone [phone] Care Team Providers Care Relief Operator Name Role Phone Tabitha Cunningham MD Primary Care Provider [phone] Reason for Visit * Reason Comments Other Pt here for LPI OD. Encounter Details Date Type Department Care Team (Late st Contact Info) Description 12/28/2023 3:00 PM EDT Office Visit Ophthalmology, [place] [facility] [place] [address] Franck Soriano DO [facility] [place] [address] Anatomical narrow angle* Allergies Active Allergy Reactions [...] Propionate 50 MCG/ACT Nasal Suspension Administer 1 Ferriday into nostril as needed. 15.8 mL 3 [...] before bedtime. 10 mL 0 12/28/2023 Active documented as of this encounter (statuses [...] pylori infection 11/05/2020 Overview: by EGD at [facility] Other cirrhosis of liver 10/29/2020 Portal hypertension 10/29/2020 Morbid obesity due to excess calories 10/19/2020 Iron deficiency anemia 10/12/2020 S/P insertion of spinal cord stimulator 06/06/20 Overview: at [facility] per [place] Doty HTN, goal below 150/90 [...] DELETE [facility] DETECT Study: Project # [id number], Account Services Coordinator: Sarbjit Garcia, PhD. SUMMARY: Goal: Establish test [...] contact study staff at ; after hours Account Services Coordinator via the [facility] hospital fourdrinier operator . Please contact study team before resolving/deleting from patients problem list. Study phone number: [phone]. Diagnosis changed due to Research Module. Go to Snapshot for study details. Encounter for examination fo r normal comparison and control in clinical research program 09/14/2018 05/08/2022 Overview: [facility] DE[facility] Study: Project # [id number], Account Services Coordinator: Mario Rene, MS, MPH. SUMMARY: Goal: Establish [...] contact study staff at ; after hours Account Services Coordinator via the [facility] hospital fourdrinier operator . - Please contact study team before resolving/deleting from patients problem list. Study phone number: [phone]. Diagnosis changed due to Research Module. Go [...] encounter Progress Notes * Franck Soriano, - 12/28/2023 3:00 PM EDT 12/28/23 [facility] Ophthalmology Clinic Note HPI: Hannah Groves is a 78 year old pt who presents to the eye clinic today as a return - referral Dr. Winslow. Location: OU Severity: Mild Quality: Here for LPI Exacerbating/Remitting Factors: Denies Associated Sx: Denies Past Ocular History: T2DM without hx of retinopathy Cataract OU Anatomic narrow angle OU Eye Medications: Systane TID OU Family Ocular History: Denies ROS: Pt denies acute vision changes Pt denies new onset double vision Pt denies new TAYLOR Pt denies new issues surrounding eyes Pt admits to above Please see below for full exam details. Base Eye Exam Visual Acuity (Snellen - Linear) Right Left Dist cc 20/40 20/30 Dist ph cc 20/30 Correction: Glasses Tonometry (Tonopen, 2:57 PM) Right Left Pressure 15 18 Pupils Light Shape React APD Right 3 [...] Anterior Chamber Narrow Narrow Iris Round and reactive Round and reactive Lens NSC NSC A/P: Anatomic narrow angle, OU -Potentially occludable on gonioscopy Plan: -Recommend LPI OU Start OD, then OS, then will dilate OU Pred forte QID OD x 7 days RTC as scheduled or sooner prn. Franck Soriano, 12/28/23 Diagnosis: BRONSON OU Recommend LPI right eye. Discussed risks, benefits, and alternatives, including but not limited to:pain, inflammation, abnormal IOP, vision change, need for drops, need for further treatment, bleeding, retinal tear, retinal detachment, temporary or permanent loss of vision, loss of eye, and/or glaucomatous progression s/p procedure. Explained indication for procedure, which is to decrease the risk of vision loss, not to improve vision. Explained the elective nature of the procedure and that nosurgery is without risk. Discussed the option of continued non-surgical management and risks of worsening disease. The patient verbalized understanding of options, risks/benefits/alternatives of options, and that all questions/concerns were addressed. The patient verbalized a desire to proceed and and provided informed written consent for LPI right EYE (with staff for scanning into [facility]). LPI Right eye 12/28/2023 A ''time out'' was initiated by the physicians prior to procedure. The patient was identified by name and date of . The procedure matches verbalized consent. Correct site identified and marked. Correct positioning (as applicable). There is availability of necessary equipment. Pre-procedure [facility] klist was completed. Alcaine x 1 to operative eye before LPI Nd:YAG, superior E: 3.0 Pulses: 1 per burst #: 32 Good pigment portillo and Aq flow. No heme Patent LPI confirmed at slit lamp post-LPI Patient tolerated well and there were no complications IOP, VA, VS all stable at discharge at least 30 min post-LPI PF to operative eye: QID x 7 days documented in this encounter Nursing Notes * Gena Pak COA - 12/28/2023 2:49 PM EDT Pt states "No changes in vision, but I did get wavy lines appear but they come and go" notes used drops at 11 today Do you check your sugar daily? NO. Last Hemoglobin A1C: Lab Results Component Value Date/Time HGBA1C 5.8 (H) 08/21/2023 12:00 PM HGBA1C 6.1 (H) 03/31/2023 10:10 AM HGBA1C 5.6 12/04/2022 02:02 PM HGBA1C 6.0 (H) 05/29/2020 01:23 PM HGBA1C 5.7 (H) 06/01/2019 09:07 AM HGBA1C 6.0 (H) 11/17/2018 10:26 AM documented in this encounter Plan of Treatment Upcoming Encounters Date Type Department Care Team (Late st Contact Info) Description 01/04/2024 3:00 PM EDT Office Visit Ophthalmology, [place] [address] Franck Soriano DO [address] [place] [address] 01/18/2024 8:45 AM EDT Office Visit Orthopaedics [place] Tir[place] 16 [place] [address] Rodriguez Jones MD 16 [place] [address] 01/18/2024 10:00 AM EDT Office Visit Ophthalmology, [place] [address] [place] [address] Franck Soriano DO [address] [place] [address] 01/20/2024 10:30 AM EDT Office Visit Interventional Pain Center, [facility] [address] [place] [address] Rex Pickard CRNP [address] [place] [address] 04/18/2024 9:00 AM EDT Office Visit [facility] [address] [place] [address] Tabitha Cunningham MD [address] [place] [address] 06/28/2024 8:30 AM EDT [facility] [address] [place] [address] Sarbjit Vera MD [address] [place] [address] 09/16/2024 8:20 AM EST Office Visit [facility] [address] [place] [address] Tabitha Cunningham MD [address] [place] [address] Scheduled Orders Name Type Priority Associated Diagnoses Orde r Schedule IRIDOTOMY / IRIDECTOMY, LASER Procedures Routine Anatomical narrow angle Ordered: 12/28/2023 Scheduled Procedures Name Priority Associated Diagnoses Date/Ti me COLONOSCOPY FLEXIBLE PROXIMAL DIAGNOSTIC Recall Change in bowel habits Health Maintenance Due Date Last Done Comments CKD PHOS USE SMARTSET 70071 1963 Hepatitis B (1 of 3 - [...] Screening 04/10/2024 04/10/2023 CKD HGB USE SMARTSET 38623 08/21/202408/21, 08/21/2023, 01/30/2023, Additional history exists Diabetic [...] D LEVEL ONCE IN A LIFETIME-USE SMARTSET# 10083 Completed 03/30/2017, 09/17/2009 Influenza Vaccine (FLU shot) Completed , 07/01/2021, 08/24/2020, Additional history exists GARDASIL-HPV IMMUNIZATION SERIES Aged Out No longer eligible based on patient's age to complete this topic MENINGOCOCCAL (MENACTRA/MENVEO) Aged Out No longer eligible based on patient's age to complete this topic documented as of this encounter Medical Devices Implanted Type Area Section Weaver Device Identifier Shelf Expiration Date Model / Serial / Lot Dbx 10cc [id number] - [id number] Implanted:Qt y: 1 on 03/15/2010 at OR [facility] Tissue - Human N/A: Spine Lumbar MUSCULOSKELETAL TRANSPLANT FND 12/14/2011 196934 / [id number] / Chip Cancellous 30cc 074092 - [id number] - [id number] Implanted:Qt y: 1 on 01/09/2023 by Sarbjit Vera MD at OR [facility] Tissue - Human N/A: Spine Lumbar MUSCULOSKELETAL TRANSPLANT FND 10/12/2024 769534 / [id number] 1055 / [id number] Screw 7x50 Poly Si [id number] - [id number] Implanted:Qt y: 2 on 03/15/2010 at OR [facility] N/A: Spine Lumbar JNJ : ETHICON CARDIOVATIONS [id number] / / TitusSafari Propertyjesse [employer]posite - [id number] Implanted:Qt y: 2 on 01/25/2016 by Ken Will MD at [facility] Left: Shoulder [employer] 06/06/2016 [id number] / / [id number] Dbx 2.5cc [id number] - [id number] Implanted:Qt y: 1 on 02/18/2017 by Sarbjit Vera MD at OR [facility] N/A: Spine Lumbar MUSCULOSKELETAL TRANSPLANT FND 09/26/2018 [id number] / / Screw 7x45 Poly Si [id number] - [id number] Implanted:Qt y: 2 on 02/18/2017 by Sarbjit Vera MD at OR [facility] N/A: Spine Lumbar JNJ : ETH[employer]ON C[employer] [id number] / / Description:In Set Expedium Ti Sfx 5.5 Lat A5 - [id number] Implanted:Qt y: 1 on 02/18/2017 by Sarbjit Vera MD at OR [facility] N/A: Spine Lumbar JNJ : ETHICON CARDIOVATIONS [id number] / / Description:In Set Clik [facility] - [id number] Implanted:Qt y: 1 on 06/06/2020 by Sarbjit Vera MD at OR [facility] N/A: Spine Thoracic [employer] : PAIN MGMT 04/17/2022 [id number] / / [id number] Description:bilateral Valve Lexie 3 Ultra 23mm - [id number] Implanted:Qt y: 1 on 11/27/2020 at [facility]ARD[facility]AC [facility] [employer] [id number] / / Gener Wvewriter Alpha Prime 16 - [id number] Implanted:Qt y: 1 on 02/14/2022 by Sarbjit Vera MD at OR [facility] Left: Back [employer] 01/20/2024 [id number] / / [id number] Description:left lower back Screw 6x40 Poly Si [id number] - [id number] Implanted:Qt y: 1 on 01/09/2023 by Sarbjit Vera MD at OR [facility] N/A: Spine Lumbar JNJ : ETH[employer] [id number] / / Screw Set Sng Inner [id number] - [id number] Implanted:Qt y: 8 on 01/09/2023 by Sarbjit Vera MD at OR [facility] N/A: Spine Lumbar JNJ : ETH[employer]ON [employer] [id number] / / Expedium Ti Sfx 5.5 Lat A5 - [id number] Implanted:Qt y: 1 on 01/09/2023 by Sarbjit Vera MD at OR [facility] N/A: Spine Lumbar JNJ : [employer] [id number] / / Screw 6x45 Poly Si [id number] - [id number] Implanted:Qt y: 3 on 01/09/2023 by Sarbjit Vera MD at OR [facility] N/A: Spine Lumbar JNJ : [employer] [id number] / / 100mm [place] Implanted:Qt y: 2 on 01/09/2023 by Sarbjit Vera MD at OR [facility] N/A: Spine Lumbar [employer] 0 / / Graft Infuse Bone Lg [id number] - [id number] Implanted:Qt y: 1 on 01/09/2023 by Sarbjit Vera MD at OR [facility] N/A: Spine Lumbar [employer] : NEURO CARE [id number] 09/06/2024 [id number] / / [id number] documented as of this encounter Visit Diagnoses [...] the patient have Health Care Power of Iron Melter? No Code Status History Code Status Date Activated Date Inactivated Comments Full Code 01/09/2023 9:33 AM 01/09/2023 1:45 PM This or sabrina reflects the patients wishes and were consensually agreed upon. Question Answer Comments Discussion of Advance Directives occurred with: Patient Does the patient have a Living Will? No Does the patient have Health Care Power of Iron Melter? No Full Code 02/14/2022 8:41 AM 02/15/2022 [...] the patient have Health Care Power of Iron Melter? No Care Teams Relief Operator Relationship Specialty Start Date End Date Tabitha Cunningham MD 27 [facility] [place] [address] PCP - General 04/21/1996 documented as of this encounter
--- OUTSIDE RECORDS SUMMARY | 2024-03-22 07:48 | External Medical Summary | Summary of Care ---
Author Name Unknown Organization [facility] Address [address] [place] [address] Phone [phone] Care Team Providers Care Welder Operator Name Role Phone Tabitha Cunningham MD Primary Care Provider [phone] Reason for Visit * Reason Comments NEW PATIENT Spinal Stenosis lumb ar region Pain Bilateral low back, hips, buttocks. Constant pain, intermittent shooting. Radiates right anterior thigh and left carbajal/ankle, bilateral knees. Intermittent burning. Pt also has pain moving up thoracic spine to braline radiating around bilaterally to chest, soreness. Ongoing, no trauma. * Evaluate & Treat - Unlimited Visits (Within 10 days (routine)) - Authorized Specialty Diagnoses / Procedures Referred By Andres daniels Referred To Contact Pain Management / Pain Medicine Diagnoses Spinal stenosis of lumbar region without neurogenic claudication Erica Maldonado PA-C [address] [place] [address] Referral ID Status Reason Start Date Expiration Date Visits Requested Visits Authorized [id number] Authorized Specialty Services Required 12/08/2023 [id number] Encounter Details Date Type Department Care Team (Late st Contact Info) Description 12/15/2023 12:30 PM EDT Office Visit [facility], [facility] [address] [place] [address] Rex Pickard CRNP [address] [place] [address] Sacroiliitis (HCC)*; Greater trochanteric bursitis of both hips Allergies Active Allergy Reactions Criticality Noted Date Comments Adhesive Tape 07/06/1998 rash Lisinopril 04/04/2014 cough Oxycodone-Acetaminophen Other (Please comment) 02/05/2017 "jittery" Nauseated Silver Sulfadiazine Rash 12/07/2002 rash Carisoprodol Other (Please comment) 03/29/2012 Restless, jittery Sulfa Antibiotics 10/15/1998 Tendency towards yeast infections. documented as of this encounter (statuses as of 12/15/2023) Medications Medication Sig Dispensed Refills Start Date [...] Propionate 50 MCG/ACT Nasal Suspension Administer 1 [place] into nostril as needed. 15.8 mL 3 01/22/2021 Active Tylenol 325 MG Oral Capsule (Acetaminophen) Take 325 mg by mouth every 6 hours. 30 Capsule 0 07/25/2021 Active traZODone HCl 50 MG Oral Tablet (Desyrel)Indications: Fatigue, unspecified type TAKE ONE TABLET BY MOUTH NIGHTLY AT BEDTIME 90 Tablet 3 10/20/2022 Active Metoprolol Succinate ER 25 MG Oral Tablet Extended Release 24 Hour (toPROL XL) TAKE ONE (1) TABLET BY MOUTH EVERY DAY 90 Tablet 3 11/21/2022 Active Ventolin HFA 108 (90 Base) MCG/ACT [...] as of this encounter (statuses as of 12/15/2023) Active Problems Problem Noted Date Diagnosed Date [...] infection 11/05/2020 Overview: by EGD at [facility] Other cirrhosis of liver 10/29/2020 Portal hypertension 10/29/2020 Morbid obesity due to excess calories 10/19/2020 Iron deficiency anemia 10/12/2020 S/P insertion of spinal cord stimulator 06/06/20 20 Overview: at [facility] per Dr Doty HTN, [...] as of this encounter (statuses as of 12/15/2023) Resolved Problems Problem Noted Date Diagnosed Date Resolved Date Anemia 11/05/2020 11/15/2020 Chronic back pain 06/07/2020 11/15/2020 Encounter for examination fo r normal comparison and control in clinical research program 09/14/2018 04/09/2020 Overview: DO NOT DELETE [facility] DETECT Study: Project # [id number], Commercial Announcer: Tyler Garcia, PhD. SUMMARY: Goal: Establish test [...] contact study staff at ; after hours Commercial Announcer via the [facility] heel washer stringing machine operator . Please contact study team before resolving/deleting from patients problem list. Study phone number: [phone]. Diagnosis changed due to Research Module. Go to Snapshot for study details. Encounter for examination fo r normal comparison and control in clinical research program 09/14/2018 05/08/2022 Overview: DO NOT DELETE - [facility] Study: Project # [id number], Commercial Announcer: Mario Rene, MS, MPH. SUMMARY: Goal: Establish [...] contact study staff at ; after hours Commercial Announcer via the [facility] heel washer stringing machine operator . - Please contact study team before resolving/deleting from patients problem list. Study phone number: [phone]. Diagnosis changed due to Research Module. Go [...] as of this encounter (statuses as of 12/15/2023) Immunizations Name Administration Dates Next Due COVID-19 [...] Date Smoking Tobacco: Never Smokeless Tobacco: Never Tobacco Cessation:Counseling Given: No Alcohol Use Standard Drinks/Week Comments No 0 [...] Sign Reading Time Taken Comments Blood Pressure 179/71 12/15/2023 12:25 PM EDT Pulse 66 12/15/2023 12:25 PM EDT Temperature 36.6 C (97.9 F) 12/15/2023 12:25 PM E DT Respiratory Rate - - Oxygen Saturation 96% 12/15/2023 12:25 PM EDT Inhaled Oxygen Concentration - - Weight - - Height - - Body Mass Index - - documented in this encounter Functional Status Functional [...] as of this encounter Progress Notes * Rxe Pickard CRNP - 12/15/2023 12:35 PM EDT Images from the original note were not included. GENERAL HISTORY & PHYSICAL EXAMINATION - Anesthesia and Pain Service [facility] Name: Hannah Groves Location: [facility] REFERRING PHYSICIAN: Erica Maldonado PA-C Thank you for referring Hannah Groves. Nursing Notes: Merle Evans RN 12/15/23 1228 Addendum Referred by: Erica Maldonado PA-C Imaging: XR L spine 01/12/23, MRI L spine 01/30/23, XR thoracolumbar spine 01/30/23 Chief Complaint Patient presents with NEW PATIENT Spinal Stenosis lumbar region Pain Bilateral low back, hips, buttocks. Constant pain, intermittent shooting. Radiates right anterior thigh and left carbajal/ankle, bilateral knees. Intermittent burning. Pt also has pain moving up thoracicspine to braline radiating around bilaterally to chest, soreness. Ongoing, no trauma. Aggravating factors / limitations: prolonged standing/leaning (doing dishes, preparing food), prolonged walking Alleviating factors: laying down, heat, muscle rubs Previous Injections: Bilateral knees: numerous injections, last done 08/12/23 Lumbar: 11/27/05 Neck/spine Surgery: Lumbar L4-5 hemilaminectomy 2005, fusion 2009, L2-4 2016, L1-3 fusion, removal of SCS 01/08/23 SCS Implant [employer] 06/06/2020 (revision 04/05/21, 02/14/22)- REMOVED 01/08/23 Joint replacement Surgery: none Pain medications: Tylenol Blood thinners: ASA 81mg Diabetic: Yes, A1C 5.8 on 08/21/23 Physical Therapy: [facility] 2022 for low back Consults: Ortho spine /Erica Maldonado PA-C Ortho Boyd Luu (knee injections) Gastroenterology Cassi Jiménezja (liver cirrhosis) Cardiology Sera Rondon (Aortic valve replacement 2020) CHIEF COMPLAINT: She complains of Back pain. Most recent vital signs: BP 179/71 (BP Site: Right Arm, BP Position: Sitting, BP Cuff Size: Large) | Pulse 66 | Temp 36.6 C (97.9 F) (Temporal Artery) | SpO2 96% HPI: Hannah Groves is a 78 year old female who complains of low back pain bilaterally and buttock pain bilaterally. This pain started years ago. She describes her pain as sharp and dull aching. Patient reports that her pain is 8/10. This pain is constant. Pain is increased by most activities. She reports that her pain is decreased by resting/lying down and medications. Her pain is associated withinfrequent numbness in Left foot. Patient denies bowel/bladder dysfunction. She has had multiple back surgeries including recent explant of SCS. Evaluated by Neurosurgery and they don't feel any surgical intervention is warranted at this time. PAST MEDICAL HISTORY: Past Medical History: Diagnosis Date Allergic rhinitis [...] pylori infection 11/2020 by EGD at [facility] HTN, goal below 140/90 INFORMATION 02/05/1998 R Ovarian Cyst--Us by [employer] INFORMATION 12/18/1997 Neuroma, B feet---saw Dr. Ariza Lumbar spine pain 12/23/2016 Menopause Other osteoporosis 11/2008 by DEXA Other specified glaucoma 07/09/2004 narrow angle glaucoma suspect OU, Dr. Mccallum S/P insertion of spinal cord stimulator 06/06/2020 at [facility] per Dr Doty Sensorineural hearing loss left ear hearing aid Sleep apnea in adult 09/[address] Jenifer Carson sleep medicine Spinal stenosis of lumbar region without neurogenic claudication 03/06/2010 Type 2 diabetes mellitus with hemoglobin A1c goal of less than 8.0% ([facility]) ICD-10 update of inactive term Past Medical History - Pertinent Findings: (-) clotting disorder, (-) anesthetic problem, (-) intubation problem PAST SURGICAL HISTORY: Past Surgical History: Procedure Laterality Date ANESTH, LUMBAR SPINE/CORD SURGERY 02/17/2000 lumbar stenosis surgery at [place] per Dr Medina L4-5-see scan ARTHO,SHOUL,W/ROTATOR CUFF Left 01/25/2016 ARTHROSCOPY SHOULDER ROTATOR CUFF performed by Jassi Dooley MD at [facility] CARDIAC CATHETERIZATION REPORT 11/06/2020 Right Heart [...] TUNNEL performed by Emmett Hanna MD at [facility] COLONOSCOPY 11/24/2001 wnl per Yoav COLONOSCOPY 11/06/2020 wnl COLONOSCOPY, DIAGNOSTIC (RECTUM) 09/28/2012 adenomatous polyps, repeat 2 yrs/COLONOSCOPY FLEXIBLE PROXIMAL DIAGNOSTIC performed by Sloan Day MD at ENDOSCOPY [facility] COLONOSCOPY, DIAGNOSTIC (RECTUM) N/A 09/21/2014 Diverticulosis in the sigmoid colon. several hyperplastic polyps, repeat in 5 yrs/COLONOSCOPY FLEXIBLE PROXIMAL DIAGNOSTIC performed by Sloan Day MD at ENDOSCOPY [facility] COLONOSCOPY, DIAGNOSTIC (RECTUM) N/A 11/06/2020 COLONOSCOPY FLEXIBLE PROXIMAL DIAGNOSTIC performed by Kavita Solomon DO at ENDOSCOPY [facility] CORONARY ANGIOGRAPHY W/RIGHT+LEFT CATH 11/05/2020 CORONARY ANGIOGRAPHY W/RIGHT+LEFT CATH performed by Richard Leggett MD at CARDIAC LABS [facility] CREATE SPINAL CORD LESION/STEREOTAX 06/06/2020 spinal cord stimulator [id number] GENERATOR(NO MRI) [id number] LEAD implant at [facility] per Dr Falcon CT 3D RECON TAVR 11/27/2020 at [facility] DECOMPRESS LUMBAR SPINAL CORD SEG 02/18/2017 HWR L3-4, L2-3 lami, psf per Dr Navarro at [facility] DEXA SCAN/BONE MINERAL AXIAL 11/08/2008 high risk-start tx DEXA SCAN/BONE MINERAL AXIAL 01/20/2011 still high risk-no tx change-repeat 2yr ECHO (2-D COMPLETE) 10/07/2005 mild LVH but essentially wnl ECHO (2-D COMPLETE) 10/31/2020 Severe aortic stenosis EF 67% EGD, FLEXIBLE, DIAGNOSTIC N/A 11/06/2020 ESOPHAGOGASTRODUODENOSCOPY (EGD), FLEXIBLE, TRANSORAL, DIAGNOSTIC performed by Kavita Solomon DO at ENDOSCOPY [facility] EMG 2 EXTREMITY 07/08/2021 Mild bilateral medial carpal tunnel syndrome FLUORO UPPER GI WITHOUT AIR WO KUB 11/2002 reflux IMPLANT EPIDURAL NEUROELECTRODES Bilateral 06/06/2020 LAMINECTOMY POSTERIOR FOR IMPLANTATION NEUROSTIMULATOR ELECTRODES EPIDURAL performed by Tyler Vera MD at OR [facility] INFORMATION 02/05/1998 R Ovarian cyst INJECTION LUMBAR/SACRAL 11/27/2005 at [facility]-steroid injection INJECTION LUMBAR/SACRAL winter 2006 Dr June [facility] KNEE ARTHROSCOPY/MENISCECTOMY 09/25/2009 ARTHROSCOPY KNEE MEDIAL OR LATERAL MENISCECTOMY performed by JASSI DOOLEY at OR [facility]-left LAMINECTOMY FOR EXPLORATION/DECOMPRESSION OF SPINAL CORD AND/OR CAUDA EQUINA, MO 01/08/2023 at [facility] Dr Rutherford-Post op HWR L3-4, L2-3 laminectomy, L1-3 psf, L1-4 instrumentation LAMINOTOMY, SINGLE LUMBAR 03/15/2010 Revision spine , L3/L4 Laminectomy and PSFper Lydia LUMBAR HEMILAMINECTOMY 01/27/2006 L4-L5 laminectomy posterior spinal fusion LUMBAR SPINE FUSION, POSTEROLATERAL 03/15/2010 ARTHRODESIS SPINE POSTERIOR LUMBAR performed by TYLER VERA at OR [facility] LUMBAR SPINE FUSION, POSTEROLATERAL N/A 02/18/2017 ARTHRODESIS SPINE POSTERIOR LUMBAR L2-3 performed by Tyler Vera MD at [facility] LUMBAR SPINE FUSION, POSTEROLATERAL N/A 01/09/2023 ARTHRODESIS SPINE POSTERIOR LUMBAR performed by Tyler Vera MD at [facility] MOBILE DXA 10/19/2015 mod risk-no tx-repeat 2 [...] FORAMINOTOMY LUMBAR performed by TYLER VERA at [facility] REMOVE LUMBAR SPINE LAMINA, 1 SEG N/A 02/18/2017 LAMINECTOMY FACETECTOMY AND FORAMINOTOMY LUMBAR performed by Tyler Vera MD at [facility] REMOVE LUMBAR SPINE LAMINA, 1-2 N/A 01/09/2023 LAMINECTOMY POSTERIOR LUMBAR ONE OR TWO SEGMENTS performed by Tyler Vera MD at OR [facility] REMOVE SPINE FIXATION DEVICE, POST 03/15/2010 REMOVAL POSTERIOR SPINAL NONSEGMENTAL INSTRUMENTATION performed by TYLER VERA at [facility] REMOVE SPINE FIXATION DEVICE, POST N/A 02/18/2017 REMOVAL POSTERIOR SPINAL NONSEGMENTAL INSTRUMENTATION performed by Tyler Vera MD at OR [facility] REPLACE AORTIC VALVE, PERCUTANEOUS FEMORAL N/A 11/27/2020 REPLACE AORTIC VALVE, PERCUTANEOUS FEMORAL performed by Richard Leggett MD at CARDIAC LABS [facility] REPLACE AORTIC VALVE, PERCUTANEOUS FEMORAL 11/27/2020 REPLACE AORTIC VALVE, PERCUTANEOUS FEMORAL performed by Fernando Garcia MD at CARDIAC LABS [facility] REVISE/REMOVE SPINAL NEURORECEIVER N/A 04/05/2021 REVISION OR REMOVAL IMPLANTED SPINAL NEUROSTIMULATOR performed by Tyler Vera MD at [facility] REVISE/REMOVE SPINAL NEURORECEIVER N/A 01/09/2023 REVISION OR REMOVAL IMPLANTED SPINAL NEUROSTIMULATOR performed by Tyler Vera MD at [facility] SHOULDER ARTHROSCOPY SURGERY Left 01/25/2016 [facility] Dr Dooley SHOULDER ARTHROSCOPY SURGERY Left 01/25/2016 ARTHROSCOPY SHOULDER DISTAL CLAVICLE RESECTION performed by Jassi Dooley MD at [facility] SHOULDER ARTHROSCOPY/DECOMPRESSION Left 01/25/2016 ARTHROSCOPY SHOULDER SUBACROMIAL DECOMPRESSION performed by Jassi Dooley MD at OR [facility] SPINAL NEUROSTIM ELECTRODE PERC ARRAY,REMOV N/A 02/14/2022 REMOVAL SPINAL NEUROSTIM ELECTRODE PERC ARRAY performed by Tyler Vera MD at OR [facility] SPINAL NEUROSTIM ELECTRODE PERC ARRAY,EVELYN N/A 02/14/2022 REVISION SPINAL NEUROSTIM ELECTRODE PERC ARRAY performed by Tyler Vera MD at OR [facility] SPINE FUSION, EACH ADD'L INTERSPACE N/A 01/09/2023 ARTHRODESIS SPINE POSTERIOR WITH LAMINECTOMY EACH ADDITIONAL performed by Tyler Vera MD atOR [facility] TENDON SHEATH INCISION, FINGER Right 07/25/2021 TRIGGER FINGER RELEASE performed by Emmett Hanna MD at OR [facility] TOTAL HYSTERECTOMY age 37 USO US ABDOMEN LIMITED 10/2002 neg for gallstones FAMILY HISTORY: Family History Problem Relation Age of Onset Heart Disorder Mother valve Replacement Other (Alzheimer's dementia) Father Diabetes Grandmother (Maternal) Diabetes Uncle (Unspecified) mat Heart Disorder Sister cardiac stents Family History - Pertinent Findings: (-) clotting disorder, (-) anesthetic problem, and (-) intubation problem SOCIAL HISTORY: Social History Tobacco Use Smoking status: Never Smokeless tobacco: Never Vaping Use Vaping Use: Never used Substance Use Topics Alcohol use: No Drug use: No CURRENT MEDICATIONS: Note that discontinued and completed medications (per the MAR) continue to display for 24 hours. Ordered medications to be given in the future also display. Current Outpatient Medications Medication Sig Dispense Refill [...] Propionate 50 MCG/ACT Nasal Suspension Administer 1 [place] into nostril as needed. 15.8 mL 3 Tylenol 325 MG Oral Capsule (Acetaminophen) Take 325 mg by mouth every 6 hours. 30 Capsule 0 traZODone HCl 50 MG Oral Tablet (Desyrel) TAKE ONE TABLET BY MOUTH NIGHTLY AT BEDTIME 90 Tablet 3 Metoprolol Succinate ER 25 MG Oral Tablet Extended Release 24 Hour (toPROL XL) TAKE ONE (1) TABLET BY MOUTH EVERY DAY 90 Tablet 3 Ventolin HFA 108 (90 Base) MCG/ACT Inhalation Aerosol Solution Inhale 2 Puffs by mouth 4 times a day as needed for Cough or Shortness of Breath. 18 g 3 Citalopram Hydrobromide 20 MG Oral Tablet (CeleXA) TAKE 1 TABLET BY MOUTH DAILY in the morning for mood. 90 Tablet 3 metFORMIN HCl 500 MG Oral Tablet (Glucophage) TAKE ONE (1) TABLET BY MOUTH EVERY DAY 90 Tablet 1 Polyethylene Glycol 3350 17 GM/SCOOP Oral Powder (MiraLax) Take 17 g by mouth in the morning. hydroCHLOROthiazide 25 MG Oral Tablet (Hydrodiuril) TAKE ONE TABLET BY MOUTH EVERY MORNING for fluid and blood pressure 90 Tablet 3 Atorvastatin Calcium 20 MG Oral Tablet (Lipitor) TAKE ONE (1) TABLET BY MOUTH EVERY DAY 90 Tablet 1 Losartan Potassium 100 MG Oral Tablet (Cozaar) TAKE ONE (1) TABLET BY MOUTH EVERY DAY 90 Tablet 0 Alendronate Sodium 70 MG Oral Tablet (Fosamax) Take 1 tablet once weekly 30 minutes before breakfast with 8oz of water. Remain upright for 30 minutes after taking medication. 4 Tablet 0 No current facility-administered medications for this visit. ALLERGIES: Adhesive tape, Lisinopril, Percocet [oxycodone-acetaminophen], Silver sulfadiazine, Soma [carisoprodol], and Sulfa antibiotics Review of Systems Constitutional: Negative. Negative for chills, fatigue and fever. Respiratory: Negative. Negative for cough, shortness of breath and wheezing. Cardiovascular: Negative. Negative for chest pain and leg swelling. Gastrointestinal: Negative. Endocrine: Negative. Negative for polydipsia and polyuria. Genitourinary: Negative. Musculoskeletal: Positive for arthralgias, back pain, gait problem and myalgias. Negative for jointswelling. Skin: Negative. Negative for color change, rash and wound. Allergic/Immunologic: Negative. Negative for immunocompromised state. Neurological: Positive for numbness. Negative for weakness. Hematological: Negative. Does not bruise/bleed easily. Psychiatric/Behavioral: Positive for sleep disturbance. Negative for dysphoric mood. Most Recent Vital Signs: Filed Vitals: 12/15/23 1225 BP: 179/71 Pulse: 66 Temp: 36.6 C (97.9 F) TempSrc: Temporal Artery SpO2: 96% Physical Exam Constitutional: General: She is awake. Appearance: Normal appearance. She is well-developed. She is obese. Cardiovascular: Rate and Rhythm: Normal rate and regular rhythm. Heart sounds: No murmur heard. Pulmonary: Effort: Pulmonary effort is normal. Breath sounds: Normal breath sounds. Musculoskeletal: Lumbar back: Tenderness and bony tenderness present. Decreased range of motion. Positive right straight leg raise test and positive left straight leg raise test. Back: Right hip: Tenderness and bony tenderness present. Decreased range of motion. Left hip: Tenderness and bony tenderness present. Decreased range of motion. Comments: + Facet loading Sacroiliac Joint Provocative Testing: Iliac compression: + LUIZA test: + Thigh thrust: - Distraction test: + Skin: General: Skin is warm and dry. Capillary Refill: Capillary refill takes less than 2 seconds. Coloration: Skin is not mottled. Findings: No bruising or ecchymosis. Neurological: Mental Status: She is alert, oriented to person, place, and time and easily aroused. GCS: GCS eye subscore is 4. GCS verbal subscore is 5. GCS motor subscore is 6. Cranial Nerves: Cranial nerves 2-12 are intact. Sensory: Sensation is intact. Motor: Motor function is intact. Coordination: Coordination is intact. Gait: Gait abnormal. Deep Tendon Reflexes: Reflex Scores: Patellar reflexes are 1+ on the right side and 1+ on the left side. Achilles reflexes are 1+ on the right side and 1+ on the left side. Psychiatric: Attention and Perception: Attention and perception normal. Mood and Affect: Mood and affect normal. Speech: Speech normal. Behavior: Behavior normal. Behavior is cooperative. Thought Content: Thought content normal. Cognition and Memory: Cognition and memory normal. Judgment: Judgment normal. LABS: Labs reviewed as indicated below: Results for orders placed or performed in visit on 08/21/23 HEMOGLOBIN A1C Result Value Ref Range Hemoglobin A1C 5.8 (H) 4.0 - 5.6 % Estimated Average Glucose 120 <126 mg/dL LIPID PANEL WITH DIRECT LDL IF TG IS HIGH Result Value Ref Range Triglycerides 138 <=174 mg/dL Cholesterol 157 <200 mg/dL HDL Cholesterol 65 >49 mg/dL Non-HDL Cholesterol 92 <=159 mg/dL LDL Cholesterol 64 <=129 mg/dL COMPREHENSIVE METABOLIC PANEL Result Value Ref Range BUN 28 (H) 6 - 20 mg/dL Creatinine 1.0 0.5 - 1.0 mg/dL Estimated Glomerular Filtration Rate 56 (L) >=60 mL/min Sodium 141 135 - 146 mmol/L Potassium 4.2 3.5 - 5.1 mmol/L Chloride 106 98 - 107 mmol/L CO2 24 22 - 32 mmol/L Anion Gap 11 7 - 15 mmol/L Glucose 117 70 - 120 mg/dL Albumin 4.2 3.8 - 5.0 g/dL AST 22 10 - 35 U/L Alkaline Phosphatase 71 35 - 130 U/L Bilirubin, Total 0.5 <=1.2 mg/dL Calcium 9.3 8.4 - 10.2 mg/dL Protein 6.4 6.0 - 8.3 g/dL ALT 26 10 - 35 U/L CBC Result Value Ref Range WBC 8.78 4.00 - 10.80 K/uL RBC 4.68 3.85 - 5.15 M/uL HGB 14.0 12.0 - 15.3 g/dL HCT 43.0 36.0 - 45.2 % MCV 91.9 81.5 - 97.5 fL MCH 29.9 27.0 - 34.0 pg MCHC 32.6 32.0 - 36.0 g/dL RDW 12.9 11.5 - 15.5 % PLT 171 140 - 400 K/uL MPV 10.1 6.6 - 11.1 fL nRBCs 0 <=0 /100 WBCs DIFFERENTIAL, AUTOMATED Result Value Ref Range WBC 8.78 4.00 - 10.80 K/uL Neutrophils % 73.5 40.0 - 75.0 % Lymphocytes % 17.3 (L) 18.0 - 42.0 % Monocytes % 8.3 1.0 - 11.0 % Eosinophils % 0.1 0.0 - 6.0 % Basophils % 0.2 0.0 - 2.0 % Immature Granulocytes % 0.6 0.0 - 2.0 % Absolute Neutrophils 6.45 1.80 - 7.70 K/uL Absolute Lymphocytes 1.52 1.00 - 4.80 K/ul Absolute Monocytes 0.73 0.00 - 1.10 K/uL Absolute Eosinophils 0.01 0.00 - 0.70 K/uL Absolute Basophils 0.02 0.00 - 0.20 K/uL Absolute Immature Granulocytes 0.05 0.00 - 0.20 K/uL *Note: Due to a large number of results and/or encounters for the requested time period, some results have not been displayed. A complete set of results can be found in Results Review. IMAGING: Date 01/30/2023 MRI L SPINE FINDINGS: Since 03/19/2017, there is interval removal of spinal cord stimulator, L1-L2 laminectomy and instrumented posterior spinal fusion spanning L1-L3 level. Prior L3-S1 laminectomy is again seen. A large organized fluid collection is noted in the dorsal lumbar paraspinal soft tissues spanning from [id number] and extending into the laminectomy bed and surrounding the transpedicular screws and verticalrods. The organized fluid collection measures up to 17.0 x 4.8 x 6.2 cm (CC x AP x TR) with suggestion of peripheral rim enhancement and phlegmon. There is mild mass effect on the dorsal thecal sac at L2 level without significant spinal canal stenosis. Evaluation of hardware is limited on MRI and can be better evaluated with CT. There is suggestion of enhancement within the T12 and L1 vertebral bodies, may be reactive. Within the limitation of exam, there is stable alignment with grade 1 retrolisthesis L1 on L2, and L2 on L3 as well as mild anterolisthesis of L4 on L5. Vertebral body heights are maintained. Multilevel disc desiccation and disc space narrowing are noted. The conus medullaris terminates normally atupper L1 level. Multilevel degenerative changes are noted without significant spinal canal stenosisor neural foramen. The thecal sac is decompressed posteriorly at all levels of the lumbar spine. There is a 2.4 cm left renal cyst. IMPRESSION: 1. Interval removal of spinal cord stimulator, L1-L2 laminectomy and instrumented posterior spinal fusion spanning L1-L3 level. There is a 17.0 x 4.8 x 6.2 cm large organized fluid collection in the dorsal lumbar paraspinal soft tissues spanning from T11-L4 level and extending into the laminectomy bed and surrounding the transpedicular screws and vertical rods. Although findings may represent postoperative seroma, suggestion of peripheral rim enhancement and phlegmon is concerning for infection/abscess formation. 2. Suspected mild enhancement and edema within T12 and L1 vertebral bodies, may be reactive from the recent surgery. However, finding may represent additional site of infection in appropriate clinical setting. 3. Additional postsurgical and degenerative changes, detailed above. ASSESSMENT/PLAN: Sacroiliitis (HCC) (Primary) - Please schedule BL SI joint injections under fluoroscopy Greater trochanteric bursitis of both hips - May consider BL GTB's MRI L-spine images viewed by me shows multilevel disc disease along facet arthropathy. She has significant surgical procedures including fusion laminectomy lumbar area. Overall central sheila appears to be maintained. Given the degree of surgery in her lumbar area not sure an epidural would be of any value. I feel she has multifactorial problems and we will start with BL SI joint injections. Plan was discussed with the pt. Risks of the procedure were discussed with the patient that includes bleeding, infection, failed procedure and possible elevation in her glucose levels with her diabetes. Benefits of the procedure and alternative treatments were also explained. Pt verbalized her understanding and agreed with the plan. PRIMARY CARE PHYSICIAN: MD Rex Dailey CRNP 12/15/2023 12:35 PM documented in this encounter Nursing Notes * Merle Evans RN - 12/15/2023 12:09 PM EDT Referred by: Erica Maldonado PA-C Imaging: XR L spine 01/12/23, MRI L spine 01/30/23, XR thoracolumbar spine 01/30/23 Chief Complaint Patient presents with NEW PATIENT Spinal Stenosis lumbar region Pain Bilateral low back, hips, buttocks. Constant pain, intermittent shooting. Radiates right anterior thigh and left carbajal/ankle, bilateral knees. Intermittent burning. Pt also has pain moving up thoracicspine to braline radiating around bilaterally to chest, soreness. Ongoing, no trauma. Aggravating factors / limitations: prolonged standing/leaning (doing dishes, preparing food), prolonged walking Alleviating factors: laying down, heat, muscle rubs Previous Injections: Bilateral knees: 08/12/23 Right TFESI L2-3: 06/30/12 Bilateral SI joint: 2006 Left SI, Left lumbar facet L4-5, L5-S1: 2006 Caudal RICKY: 2005 Left lumbar facet L4-5, L5-S1: 2006 Neck/spine Surgery: Lumbar L4-5 hemilaminectomy 2005, fusion 2009, L2-4 2017, L1-3 fusion, removal of SCS 01/08/23 SCS Implant [employer] 06/06/2020 (revision 04/05/21, 02/14/22)- REMOVED 01/08/23 Joint replacement Surgery: none Pain medications: Tylenol Blood thinners: ASA 81mg Diabetic: Yes, A1C 5.8 on 08/21/23 Physical Therapy: [facility] 2022 for low back Consults: Ortho spine /Erica Maldonado PA-C Ortho Boyd Luu (knee injections) Gastroenterology Cassi Pugh (liver cirrhosis) Cardiology Sera Rondon (Aortic valve replacement 2020) documented in this encounter Plan of Treatment Upcoming Encounters Date Type Department Care Team (Late st Contact Info) Description 12/24/2023 Hospital Encounter [facility], Operating Room [facility] [address] [place], [place] [address] [address] Rosa Rojas MD [address] [place] [address] [place] [address] 12/28/2023 3:00 PM EDT Office Visit Ophthalmology [place] [address] [place] [address] Franck Soriano DO [address] [place] [address] 01/04/2024 3:00 PM EDT [facility] [place] [address] [place] [address] Franck Soriano DO [address] [place] [address] 01/18/2024 8:45 AM EDT Office Visit Orthopaedics [place] [phone] Rodriguez Jones MD [address] [place] [address] 01/18/2024 10:00 AM EDT Office Visit Ophthalmology, [place] [address] [place] [address] Franck Soriano DO [address] [place] [address] 01/20/2024 10:30 AM EDT Office Visit Interventional [facility] Center, [facility] [address] [place] [address] Rex Pickard CRNP [address] [place] [address] 04/18/2024 9:00 AM EDT Office Visit [facility] [address] [place] [phone] Tabitha Cunningham MD [address] [place] [address] 06/28/2024 8:30 AM EDT [facility] [address] [place] [address] Tyler Vera MD [address] [place], [place] [id number] 09/16/2024 8:20 AM EST Office Visit [facility] [address] [place] [address] Tabitha Cunningham MD [address] [place] [address] Scheduled Procedures Name Priority Associated Diagnoses Date/Ti me INJECTION SACROILIAC JOINT Sacroiliitis (HCC) COLONOSCOPY FLEXIBLE PROXIMAL DIAGNOSTIC Recall Change in bowel habits Scheduled Referrals Name Type Priority Associated Diagnoses Orde r Schedule PAIN MEDICINE REFERRAL OP Referral Within 10 days (routine) Spinal stenosis of lumbar region without neurogenic claudication Ordered: 12/08/2023 Health Maintenance Due Date Last Done Comments CKD PHOS USE SMARTSET 29425 1963 Hepatitis B (1 of 3 - Risk 3-dose series) 2006 Zoster Vaccines (2 of 3) 10/06/2013 08/11/2013 Diabetic Eye Exam 12/04/2022 12/04/2021, , 02/14/2019, Additional history exists COVID-19 Vaccine (3 - 2022- season) 2023 09/13/2021, 12/03/2020 GFR 02/20/2024 08/21/2023, 03/08, 01/30/2023, Additional history exists HbA1c 02/20/2024 08/21/2023, 03/08, 12/04/2022, Additional history exists Albumin/Creatinine Ratio 03/31/2024 023, 01/15/2022, 08/16/2014, Additional history exists B-12 03/31/2024 03/31/2023, 03/08, 10/11/2020, Additional history exists Depression Screening 04/10/2024 04/10/2023 CKD HGB USE SMARTSET 71205 08/21/202408/21, 08/21/2023, 01/30/2023, Additional history exists Diabetic [...] D LEVEL ONCE IN A LIFETIME-USE SMARTSET# 23050 Completed 03/30/2017, 09/17/2009 Influenza Vaccine (FLU shot) Completed , 07/01/2021, 08/24/2020, Additional history exists GARDASIL-HPV IMMUNIZATION SERIES Aged Out No longer eligible based on patient's age to complete this topic MENINGOCOCCAL (MENACTRA/MENVEO) Aged Out No longer eligible based on patient's age to complete this topic documented as of this encounter Medical Devices Implanted Type Area Web Merchant Device Identifier Shelf Expiration Date Model / Serial / Lot Dbx 10cc [id number] - [id number] Implanted:Qt y: 1 on 03/15/2010 at [place] [facility] [place] Tissue - Human N/A: Spine Lumbar MUSCULOSKELETAL TRANSPLANT FND 12/14/2011 [id number] / [id number] / Chip Cancellous 30cc [id number] - [id number] - [id number] Implanted:Qt y: 1 on 01/09/2023 by Tyler Vera MD at OR [facility] [place] Tissue - Human N/A: Spine Lumbar MUSCULOSKELETAL TRANSPLANT FND 10/12/2024 [id number] / [id number] / [id number] Screw 7x50 Poly Si [id number] - [id number] Implanted:Qt y: 2 on 03/15/2010 at OR [facility] [place] N/A: Spine Lumbar JNJ : [employer] [id number] / / Corkscrew Bio Composite - [id number] Implanted:Qt y: 2 on 01/25/2016 by Jassi Dooley MD at OR [facility] Left: Shoulder [employer] 06/06/2016 [id number] / / [id number] Dbx 2.5cc [id number] - [id number] Implanted:Qt y: 1 on 02/18/2017 by Tyler Vera MD at OR [facility] [place] N/A: Spine Lumbar MUSCULOSKELETAL TRANSPLANT FND 09/26/2018 [id number] / / Screw 7x45 Poly Si [id number] - [id number] Implanted:Qt y: 2 on 02/18/2017 by Tyler Vera MD at OR [facility] [place] N/A: Spine Lumbar JNJ : ETH[employer]ON C[employer]ATIONS [id number] / / Description:In Set Expedium Ti Sfx 5.5 Lat A5 - [id number] Implanted:Qt y: 1 on 02/18/2017 by Tyler Vera MD at OR [facility] [place] N/A: Spine Lumbar JNJ : ETH[employer]ON C[employer]ATIONS [id number] / / Description:In Set Clik Davis - [id number] Implanted:Qt y: 1 on 06/06/2020 by Tyler Vera MD at OR [facility] [place] N/A: Spine Thoracic [employer] : PAIN MGMT 04/17/2022 [id number] / / [id number] Description:bilateral Valve Lexie 3 Ultra 23mm - [id number] Implanted:Qt y: 1 on 11/27/2020 at CARDIAC LABS [facility] [place] [employer] [id number] / / Gener Wvewriter Alpha Prime 16 - [id number] Implanted:Qt y: 1 on 02/14/2022 by Tyler Vera MD at OR [facility] [place] Left: Back [employer] 01/20/2024 [id number] / / [id number] Description:left lower back Screw 6x40 Poly Si [id number] - [id number] Implanted:Qt y: 1 on 01/09/2023 by Tyler Vera MD at OR [facility] [place] N/A: Spine Lumbar JNJ : [employer] [id number] / / Screw Set Sng Inner [id number] - [id number] Implanted:Qt y: 8 on 01/09/2023 by Tyler Vera MD at OR [facility] [place] N/A: Spine Lumbar JNJ : [employer] C[employer]ATIONS [id number] / / Expedium Ti Sfx 5.5 Lat A5 - [id number] Implanted:Qt y: 1 on 01/09/2023 by Tyler Vera MD at OR [facility] [place] N/A: Spine Lumbar JNJ : [employer] [id number] / / Screw 6x45 Poly Si [id number] - [id number] Implanted:Qt y: 3 on 01/09/2023 by Tyler Vera MD at OR [facility] [place] N/A: Spine Lumbar JNJ : [employer] [id number] / / 100mm Sidney Implanted:Qt y: 2 on 01/09/2023 by Tyler Vera MD at OR [facility] [place] N/A: Spine Lumbar [employer] 0 / / Graft Infuse Bone Lg [id number] - [id number] Implanted:Qt y: 1 on 01/09/2023 by Tyler Vera MD at OR [facility] [place] N/A: Spine Lumbar [employer] : NEURO CARE [id number] 09/06/2024 [id number] / / [id number] documented as of this encounter Visit Diagnoses Diagnosis Sacroiliitis (HCC)- Primary Sacroiliitis, not elsewhere classified Greater trochanteric bursitis of both hips Enthesopathy of hip region documented in this encounter Advance Directives Latest [...] the patient have Health Care Power of Vial Gauger? No Code Status History Code Status Date Activated Date Inactivated Comments Full Code 01/09/2023 9:33 AM 01/09/2023 1:45 PM This or sabrina reflects the patients wishes and were consensually agreed upon. Question Answer Comments Discussion of Advance Directives occurred with: Patient Does the patient have a Living Will? No Does the patient have Health Care Power of Vial Gauger? No Full Code 02/14/2022 8:41 AM 02/15/2022 [...] the patient have Health Care Power of Vial Gauger? No Care Teams Welder Operator Relationship Specialty Start Date End Date Tabitha Cunningham MD [address] [facility] [facility] [address] [place] [address] PCP - General 04/21/1996 documented as of this encounter
--- OUTSIDE RECORDS SUMMARY | 2024-03-22 07:48 | External Medical Summary | Summary of Care ---
Author Name Unknown Organization [facility] Address [address] [place] [address] Phone [phone] Care Team Providers Care Plant And Equipment Worker Name Role Phone Tabitha Cunningham MD Primary Care Provider [phone] Reason for Visit * Reason Onset Date Comments FYI 12/16/2023 Encounter Details Date Type Department Care Team (Late st Contact Info) Description 12/16/2023 Telephone Interventional Pain Center, [facility] [address] [place] [address] Rex Pickard CRNP [address] [place] [address] FY Allergies Active Allergy Reactions Criticality Noted Date Comments Adhesive Tape 07/06/1998 rash Lisinopril 04/04/2014 cough Oxycodone-Acetaminophen Other (Please comment) 02/05/2017 "jittery" Nauseated Silver Sulfadiazine Rash 12/07/2002 rash Carisoprodol Other (Please comment) 03/29/2012 Restless, jittery Sulfa Antibiotics 10/15/1998 Tendency towards yeast infections. documented as of this encounter (statuses as of 12/16/2023) Medications Medication Sig Dispensed Refills Start Date [...] Propionate 50 MCG/ACT Nasal Suspension Administer 1 [place] into nostril as needed. 15.8 mL 3 [...] as of this encounter (statuses as of 12/16/2023) Active Problems Problem Noted Date Diagnosed Date [...] as of this encounter (statuses as of 12/16/2023) Resolved Problems Problem Noted Date Diagnosed Date Resolved Date Anemia 11/05/2020 11/15/2020 Chronic back pain 06/07/2020 11/15/2020 Encounter for examination fo r normal comparison and control in clinical research program 09/14/2018 04/09/2020 Overview: DO NOT DELETE [facility] DETECT Study: Project # [id number], Security Systems Installer: Sarbjit Garcia, PhD. SUMMARY: Goal: Establish [...] contact study staff at ; after hours Security Systems Installer via the [facility] clay mine cutting machine operator . Please contact study team before resolving/deleting from patients problem list. Study phone number: [phone]. Diagnosis changed due to Research Module. Go to Snapshot for study details. Encounter for examination fo r normal comparison and control in clinical research program 09/14/2018 05/08/2022 Overview: DO NOT DELETE - [facility] DETECT Study: Project # [id number], Security Systems Installer: Mario Rene, MS, MPH. SUMMARY: Goal: [...] contact study staff at ; after hours Security Systems Installer via the [facility] clay mine cutting machine operator . - Please contact study team before resolving/deleting from patients problem list. Study phone number: [phone]. Diagnosis changed due to Research Module. Go [...] as of this encounter (statuses as of 12/16/2023) Immunizations Name Administration Dates Next Due COVID-19 [...] the money to buy more. Never true 02/14/20 24 Within the past 12 months, t [...] encounter Miscellaneous Notes * Telephone Encounter - Merle Evans RN - 12/16/2023 3:22 PM EDT Noted. Pt made aware that we have received the message. * Telephone Encounter - Meño Rocha OSA - 12/16/2023 1:56 PM EDT Pt's , Devon, called in today with an FYI for Rex and the office. He states that Hannah is due to have a procedure with us on 12/23 for her back and cataract surgery on 12/27. Her eye doctor was initially concerned about having the appointments close together and whether or not the injections would affect anything for her eye surgery. However, Devon and Hannah had received a call saying that there shouldn't be any conflict and she is cleared for both. If there are any questions or concerns, please give Devon a call back at [phone]. documented in this encounter Plan of Treatment Upcoming Encounters Date Type Department Care Team (Late st Contact Info) Description 12/24/2023 9:39 AM EDT Hospital Encounter OR OSHP, Operating Room OSHP [address] [place] [phone] Rosa Rojas MD [address] [place] [address] 12/24/2023 9:39 AM EDT - 12/24/2023 10:01 AM EDT Surgery OR OSHP, Operating Room OSHP [address] [place] [phone] Rosa Rojas MD [address] [facility] [place] [address] INJECTION SACROILIAC JOINT 12/28/2023 3:00 PM EDT Office Visit Ophthalmology, [place] [address] [place] [address] Franck Soriano, [address] [facility] [place] [address] 01/04/2024 3:00 PM EDT Office Visit [place] [address] [place] [address] Franck Soriano, [address] [place] [address] 01/18/2024 8:45 AM EDT Office Visit [facility] [place] [address] [place] [address] Rodriguez Jones MD [address] [place] [address] 01/18/2024 10:00 AM EDT Office Visit Ophthalmology, [place] [address] [place] [address] Franck Soriano DO [address] [place] [address] 01/20/2024 10:30 AM EDT Office Visit Interventional [facility] Center, [facility] [address] [place] [address] Rex Pickard CRNP [address] [place] [address] 04/18/2024 9:00 AM EDT Office Visit [address] [address] Tabitha Cunningham MD [address] [place] [address] 06/28/2024 8:30 AM EDT [facility] [address] [place] [address] Sarbjit Vera MD [address] [place] [address] 09/16/2024 8:20 AM EST [facility] [address] [place] [address] Tabitha Cunningham MD [address] [place] [address] Scheduled Procedures Name Priority Associated Diagnoses Date/Ti me INJECTION SACROILIAC JOINT Sacroiliitis (HCC) 12/24/2023 9:39 AM EDT COLONOSCOPY FLEXIBLE PROXIMAL DIAGNOSTIC Recall Change in bowel habits Health Maintenance Due Date Last Done Comments CKD PHOS USE SMARTSET 42029 1963 Hepatitis B (1 of 3 - [...] Screening 04/10/2024 04/10/2023 CKD HGB USE SMARTSET 92869 08/21/202408/21, 08/21/2023, 01/30/2023, Additional history exists Diabetic [...] D LEVEL ONCE IN A LIFETIME-USE SMARTSET# 43564 Completed 03/30/2017, 09/17/2009 Influenza Vaccine (FLU shot) Completed , 07/01/2021, 08/24/2020, Additional history exists GARDASIL-HPV IMMUNIZATION SERIES Aged Out No longer eligible based on patient's age to complete this topic MENINGOCOCCAL (MENACTRA/MENVEO) Aged Out No longer eligible based on patient's age to complete this topic documented as of this encounter Medical Devices Implanted Type Area Beef Lugger Device Identifier Shelf Expiration Date Model / Serial / Lot Dbx 10cc [id number] - [id number] Implanted:Qt y: 1 on 03/15/2010 at OR [facility] Tissue - Human N/A: Spine Lumbar MUSCULOSKELETAL TRANSPLANT FND 12/14/2011 [id number] / [id number] / Chip Cancellous 30cc [id number] - [id number] - [id number] Implanted:Qt y: 1 on 01/09/2023 by Sarbjit Vera MD at OR [facility] Tissue - Human N/A: Spine Lumbar MUSCULOSKELETAL TRANSPLANT FND 10/12/2024 [id number] / [id number] / [id number] Screw 7x50 Poly Si [id number] - [id number] Implanted:Qt y: 2 on 03/15/2010 at OR [facility] N/A: Spine Lumbar JNJ : [employer] [id number] / / Corkscrew Bio Composite - [id number] Implanted:Qt y: 2 on 01/25/2016 by Ken Will MD at OR [facility] Left: Shoulder [employer] 06/06/2016 [id number] / / [id number] Dbx 2.5cc [id number] - [id number] Implanted:Qt y: 1 on 02/18/2017 by Sarbjit Vera MD at OR [facility] N/A: Spine Lumbar MUSCULOSKELETAL TRANSPLANT FND 09/26/2018 [id number] / / Screw 7x45 Poly Si [id number] - [id number] Implanted:Qt y: 2 on 02/18/2017 by Sarbjit Vera MD at OR [facility] N/A: Spine Lumbar JNJ : ETH[employer] C[employer]ATIONS [id number] / / Description:In Set Expedium Ti Sfx 5.5 Lat A5 - [id number] Implanted:Qt y: 1 on 02/18/2017 by Sarbjit Vera MD at OR [facility] N/A: Spine Lumbar JNJ : ETH[employer]ON C[employer]ATIONS [id number] / / Description:In Set Clik Vandervoort - [id number] Implanted:Qt y: 1 on 06/06/2020 by Sarbjit Vera MD at OR [facility] N/A: Spine Thoracic [employer] : PAIN MGMT 04/17/2022 [id number] / / [id number] Description:bilateral Valve Lexie 3 Ultra 23mm - [id number] Implanted:Qt y: 1 on 11/27/2020 at CARDIAC LABS [facility] [employer] [id number] / / Gener Wvewriter Alpha Prime 16 - [id number] Implanted:Qt y: 1 on 02/14/2022 by Sarbjit Vera MD at OR [facility] Left: Back [employer] 01/20/2024 [id number] / / [id number] Description:left lower back Screw 6x40 Poly Si [id number] - [id number] Implanted:Qt y: 1 on 01/09/2023 by Sarbjit Vera MD at OR [facility] N/A: Spine Lumbar JNJ : [employer] [id number] / / Screw Set Sng Inner [id number] - [id number] Implanted:Qt y: 8 on 01/09/2023 by Sarbjit Vera MD at OR [facility] N/A: Spine Lumbar JNJ : ETH[employer] C[employer] [id number] / / Expedium Ti Sfx 5.5 Lat A5 - [id number] Implanted:Qt y: 1 on 01/09/2023 by Sarbjit Vera MD at OR [facility] N/A: Spine Lumbar JNJ : [employer] [id number] / / Screw 6x45 Poly Si [id number] - [id number] Implanted:Qt y: 3 on 01/09/2023 by Sarbjit Vera MD at OR [facility] N/A: Spine Lumbar JNJ : [employer] C[employer]ATIONS [id number] / / 100mm [place] Implanted:Qt y: 2 on 01/09/2023 by Sarbjit Vera MD at OR [facility] N/A: Spine Lumbar [employer] 0 / / Graft Infuse Bone Lg [id number] - [id number] Implanted:Qt y: 1 on 01/09/2023 by Sarbjit Vera MD at OR [facility] N/A: Spine Lumbar [employer] : NEURO CARE [id number] 09/06/2024 [id number] / / [id number] documented as of this encounter Advance Directives [...] the patient have Health Care Power of Hot Stick Worker? No Code Status History Code Status Date Activated Date Inactivated Comments Full Code 01/09/2023 9:33 AM 01/09/2023 1:45 PM This or sabrina reflects the patients wishes and were consensually agreed upon. Question Answer Comments Discussion of Advance Directives occurred with: Patient Does the patient have a Living Will? No Does the patient have Health Care Power of Hot Stick Worker? No Full Code 02/14/2022 8:41 AM [...] the patient have Health Care Power of Hot Stick Worker? No Care Teams Plant And Equipment Worker Relationship Specialty Start Date End Date Tabitha Cunningham MD [address] [facility] [place] [address] PCP - General 04/21/1996 documented as of this encounter
--- OUTSIDE RECORDS SUMMARY | 2024-03-22 07:48 | External Medical Summary ---
Author Name Unknown Address Unknown Organization : Laboratory Report Ordering Provider Test Date Status [facility] 12/24/2023 08:28:34 Final Observation Date Value Abnormality Reference (Units ) Status Glucose Point of Care 12/24/2023 08:28:34 119 70-120 (mg/dL) Final Performing Location
--- OUTSIDE RECORDS SUMMARY | 2024-03-22 07:48 | External Medical Summary | Summary of Care ---
Author Name Unknown Organization [facility] Address [address] [place] [address] Phone [phone] Care Team Providers Care Bucket Turner Name Role Phone Tabitha Cunningham MD Primary Care Provider [phone] Reason for Visit * Reason Onset Date Comments Advice 12/11/2023 Encounter Details Date Type Department Care Team (Late st Contact Info) Description 12/11/2023 [facility] [address] [place] [address] Erica Maldonado PA-C [address] [place] [address] Advice Allergies Active Allergy Reactions Criticality Noted Date Comments Adhesive Tape 07/06/1998 rash Lisinopril 04/04/2014 cough Oxycodone-Acetaminophen Other (Please comment) 02/05/2017 "jittery" Nauseated Silver Sulfadiazine Rash 12/07/2002 rash Carisoprodol Other (Please comment) 03/29/2012 Restless, jittery Sulfa Antibiotics 10/15/1998 Tendency towards yeast infections. documented as of this encounter (statuses as of 12/11/2023) Medications Medication Sig Dispensed Refills Start Date [...] Propionate 50 MCG/ACT Nasal Suspension Administer 1 [place] into nostril as needed. 15.8 mL 3 [...] as of this encounter (statuses as of 12/11/2023) Active Problems Problem Noted Date Diagnosed Date [...] pylori infection 11/05/2020 Overview: by EGD at [facility] Other cirrhosis of liver 10/29/2020 Portal hypertension 10/29/2020 Morbid obesity due to excess calories 10/19/2020 Iron deficiency anemia 10/12/2020 S/P insertion of spinal cord stimulator 06/06/20 Overview: at [facility] per Dr Doty HTN, goal below 150/90 [...] as of this encounter (statuses as of 12/11/2023) Resolved Problems Problem Noted Date Diagnosed Date Resolved Date Anemia 11/05/2020 11/15/2020 Chronic back pain 06/07/2020 11/15/2020 Encounter for examination fo r normal comparison and control in clinical research program 09/14/2018 04/09/2020 Overview: DO NOT DELETE [facility] DETECT Study: Project # [id number], Teacher Aide: Sarbjit Garcia, PhD. SUMMARY: Goal: Establish test [...] contact study staff at ; after hours Teacher Aide via the [facility] kettle operator head . Please contact study team before resolving/deleting from patients problem list. Study phone number: [phone]. Diagnosis changed due to Research Module. Go to Snapshot for study details. Encounter for examination fo r normal comparison and control in clinical research program 09/14/2018 05/08/2022 Overview: DO NOT DELETE - [facility] DETECT Study: Project # [id number], Teacher Aide: Mario Rene, MS, MPH. SUMMARY: Goal: Establish [...] contact study staff at ; after hours Teacher Aide via the [facility] hospital kettle operator head . - Please contact study team before resolving/deleting from patients problem list. Study phone number: [phone]. Diagnosis changed due to Research Module. Go [...] as of this encounter (statuses as of 12/11/2023) Immunizations Name Administration Dates Next Due COVID-19 [...] Tetanus/Diptheria (ADULT) 10/17/1996 TD, Preservative Free 03/30/2017 TDAP (age 12 [...] encounter Miscellaneous Notes * Telephone Encounter - Deepa Hernandez RN - 12/11/2023 8:53 AM EDT Looks like pain management already called them and left them a message to call back. I will call and let them know the number to call to schedule. * Telephone Encounter - Jazzy Biggs OSA - 12/11/2023 8:44 AM EDT Pt calling to follow up with how to proceed and scheduling with Pain Medicine. Pt states pt is really uncomfortable. documented in this encounter Plan of Treatment Upcoming Encounters Date Type Department Care Team (Late st Contact Info) Description 12/28/2023 3:00 PM EDT Office Visit Ophthalmology, [place] [address] [place] [address] Franck Soriano, 21 [facility] [place] [place] [address] 01/04/2024 3:00 PM EDT Office Visit Ophthalmology, [place] [address] [place] [address] Franck Soriano DO 21 [facility] [place] [place] [address] 01/18/2024 8:45 AM EDT Office Visit Orthopaedics [address] [phone] Rodriguez Jones MD [address] [place] [address] 01/18/2024 10:00 AM EDT Office Visit [facility]mology, [place] [facility] [place] [address] Franck Soriano DO 21 [place] [address] 04/18/2024 9:00 AM EDT Office Visit [facility] [address] [place] [address] Tabitha Cunningham MD [address] [place] [address] 06/28/2024 8:30 AM EDT [facility] [address] [place] [address] Sarbjit Vera MD [address] [place] [address] 09/16/2024 8:20 AM EST Office Visit [facility] [place] [address] [facility] [address] [place] [address] Tabitha Cunningham MD [address] [facility] [address] [place] [address] Scheduled Procedures Name Priority Associated Diagnoses Date/Ti me COLONOSCOPY FLEXIBLE PROXIMAL DIAGNOSTIC Recall Change in bowel habits Health Maintenance Due Date Last Done Comments CKD PHOS USE SMARTSET 35147 1963 Hepatitis B (1 of 3 - [...] Screening 04/10/2024 04/10/2023 CKD HGB USE SMARTSET 60408 08/21/202408/21, 08/21/2023, 01/30/2023, Additional history exists Diabetic [...] D LEVEL ONCE IN A LIFETIME-USE SMARTSET# 95452 Completed 03/30/2017, 09/17/2009 Influenza Vaccine (FLU shot) Completed , 07/01/2021, 08/24/2020, Additional history exists GARDASIL-HPV IMMUNIZATION SERIES Aged Out No longer eligible based on patient's age to complete this topic MENINGOCOCCAL (MENACTRA/MENVEO) Aged Out No longer eligible based on patient's age to complete this topic documented as of this encounter Medical Devices Implanted Type Area Bull Fiddle Player Device Identifier Shelf Expiration Date Model / Serial / Lot Dbx 10cc [id number] - [id number] Implanted:Qt y: 1 on 03/15/2010 at OR [facility] Tissue - Human N/A: Spine Lumbar MUSCULOSKELETAL TRANSPLANT FND 12/14/2011 [id number] / [id number] / Chip Cancellous 30cc [id number] - [id number] - [id number] Implanted:Qt y: 1 on 01/09/2023 by Sarbjit Vera MD at OR [facility] Tissue - Human N/A: Spine Lumbar MUSCULOSKELETAL TRANSPLANT FND 10/12/2024 [id number] / [id number] / [id number] Screw 7x50 Poly Si [id number] - [id number] Implanted:Qt y: 2 on 03/15/2010 at OR [facility] N/A: Spine Lumbar JNJ : [employer] [id number] / / Corkscrew Bio Composite - [id number] Implanted:Qt y: 2 on 01/25/2016 by Ken Will MD at OR [facility] Left: Shoulder [employer] 06/06/2016 [id number] / / [id number] Dbx 2.5cc [id number] - [id number] Implanted:Qt y: 1 on 02/18/2017 by Sarbjit Vera MD at OR [facility] N/A: Spine Lumbar MUSCULOSKELETAL TRANSPLANT FND 09/26/2018 [id number] / / Screw 7x45 Poly Si [id number] - [id number] Implanted:Qt y: 2 on 02/18/2017 by Sarbjit Vera MD at OR [facility] N/A: Spine Lumbar JNJ : ETH[employer]ON C[employer]ATIONS [id number] / / Description:In Set Expedium Ti Sfx 5.5 Lat A5 - [id number] Implanted:Qt y: 1 on 02/18/2017 by Sarbjit Vera MD at OR [facility] N/A: Spine Lumbar JNJ : ETHICON CARDI[employer]ATIONS [id number] / / Description:In Set Clik [place] - [id number] Implanted:Qt y: 1 on 06/06/2020 by Sarbjit Vera MD at OR [facility] N/A: Spine Thoracic [employer] : PAIN MGMT 04/17/2022 [id number] / / [id number] Description:bilateral Valve Lexie 3 Ultra 23mm - [id number] Implanted:Qt y: 1 on 11/27/2020 at CARDIAC LABS [facility] [employer] [id number] / / Gener Wvewriter Alpha Prime 16 - [id number] Implanted:Qt y: 1 on 02/14/2022 by Sarbjit Vera MD at OR [facility] Left: Back [employer] 01/20/2024 [id number] / / [id number] Description:left lower back Screw 6x40 Poly Si [id number] - [id number] Implanted:Qt y: 1 on 01/09/2023 by Sarbjit Vera MD at OR [facility] N/A: Spine Lumbar JNJ : [employer] [id number] / / Screw Set Sng Inner [id number] - [id number] Implanted:Qt y: 8 on 01/09/2023 by Sarbjit Vera MD at OR [facility] N/A: Spine Lumbar JNJ : [employer] [id number] / / Expedium Ti Sfx 5.5 Lat A5 - [id number] Implanted:Qt y: 1 on 01/09/2023 by Sarbjit Vera MD at OR [facility] N/A: Spine Lumbar JNJ : [employer] [id number] / / Screw 6x45 Poly Si [id number] - [id number] Implanted:Qt y: 3 on 01/09/2023 by Sarbjit Vera MD at OR [facility] N/A: Spine Lumbar JNJ : [employer] [id number] / / 100mm [place] Implanted:Qt y: 2 on 01/09/2023 by Sarbjit Vera MD at OR [facility] N/A: Spine Lumbar [employer] 0 / / Graft Infuse Bone Lg [id number] - [id number] Implanted:Qt y: 1 on 01/09/2023 by Sarbjit Vera MD at OR [facility] N/A: Spine Lumbar [employer] : NEURO CARE [id number] 09/06/2024 [id number] / / [id number] documented as of this encounter Advance Directives [...] the patient have Health Care Power of Chocolate Molder? No Code Status History Code Status Date Activated Date Inactivated Comments Full Code 01/09/2023 9:33 AM 01/09/2023 1:45 PM This or sabrina reflects the patients wishes and were consensually agreed upon. Question Answer Comments Discussion of Advance Directives occurred with: Patient Does the patient have a Living Will? No Does the patient have Health Care Power of Chocolate Molder? No Full Code 02/14/2022 8:41 AM 02/15/2022 [...] the patient have Health Care Power of Chocolate Molder? No Care Teams Bucket Turner Relationship Specialty Start Date End Date Tabitha Cunningham MD [address] [facility] [place] [address] PCP - General 04/21/1996 documented as of this encounter
--- OUTSIDE RECORDS SUMMARY | 2024-03-22 07:48 | External Medical Summary | Summary of Care ---
Author Name Unknown Organization [facility] Address [address] [place] [address] Phone [phone] Care Team Providers Care Klystrom Tube Tester Name Role Phone Tabitha Cunningham MD Primary Care Provider Reason for Visit * Reason Onset Date Comments FYI 12/16/2023 Encounter Details Date Type Department Care Team (Late st Contact Info) Description 12/16/2023 Telephone Interventional Pain Center, [facility] [address] [place] [address] Rex Pickard CRNP [address] [place] [address] FY Allergies Active Allergy Reactions [...] Propionate 50 MCG/ACT Nasal Suspension Administer 1 [place] into nostril as needed. 15.8 mL 3 [...] pylori infection 11/05/2020 Overview: by EGD at [facility] Other cirrhosis of liver 10/29/2020 Portal hypertension 10/29/2020 Morbid obesity due to excess calories 10/19/2020 Iron deficiency anemia 10/12/2020 S/P insertion of spinal cord stimulator 06/06/20 Overview: at [facility] per Dr Doty HTN, goal below 150/90 [...] [facility] DETECT Study: Project # [id number], Fishery Division Chief: Sarbjit Garcia, PhD. SUMMARY: Goal: Establish test [...] contact study staff at ; after hours Fishery Division Chief via the [facility] abrasive coating machine operator . Please contact study team before resolving/deleting from patients problem list. Study phone number: [phone]. Diagnosis changed due to Research Module. Go to Snapshot for study details. Encounter for examination fo r normal comparison and control in clinical research program 09/14/2018 05/08/2022 Overview: DO NOT DELETE - [facility] DETECT Study: Project # [id number], Fishery Division Chief: Mario Rene, MS, MPH. SUMMARY: Goal: Establish [...] contact study staff at ; after hours Fishery Division Chief via the [facility] hospital abrasive coating machine operator . - Please contact study team before resolving/deleting from patients problem list. Study phone number: [phone]. Diagnosis changed due to Research Module. Go [...] please give Devon a call back at [phone]. documented in this encounter Plan of Treatment Upcoming Encounters Date Type Department Care Team (Late st Contact Info) Description 12/24/2023 9:39 AM EDT Hospital Encounter [facility], Operating [facility] [address] [place] [phone] Rosa Rojas MD [address] [place] [address] 12/24/2023 9:39 AM EDT - 12/24/2023 10:01 AM EDT Surgery [facility], Operating Room [facility] [address] [place] [phone] Rosa Rojas MD [address] [place] [address] INJECTION SACROILIAC JOINT 12/28/2023 3:00 PM EDT Office Visit Ophthalmology, [place] [address] [place] [address] Franck Soriano, 21 [facility] [place] [address] 01/04/2024 3:00 PM EDT [facility] [address] [place] [address] Franck Soriano, [address] [place] [address] 01/18/2024 8:45 AM EDT Office [facility] [address] [place] [phone] Rodriguez Jones MD [address] [place] [address] 01/18/2024 10:00 AM EDT Office Visit Ophthalmology, [place] [address] [place] [address] Franck Soriano DO [address] [place] [address] 01/20/2024 10:30 AM EDT Office Visit Interventional Pain Center, [facility] [address] [place] [address] Rex Pickard CRNP [address] [place] [address] 04/18/2024 9:00 AM EDT Office Visit [address] [address] Tabitha Cunningham MD [address] [place] [address] 06/28/2024 8:30 AM EDT [facility] [address] [place] [phone] Sarbjit Vera MD [address] [place] [address] 09/16/2024 8:20 AM EST Office Visit [facility] [address] [place] [address] Tabitha Cunningham MD [address] [place] [address] Scheduled Procedures Name Priority Associated Diagnoses Date/Ti me INJECTION SACROILIAC JOINT Sacroiliitis (HCC) 12/24/2023 9:39 AM EDT COLONOSCOPY FLEXIBLE PROXIMAL DIAGNOSTIC Recall Change in bowel habits Health Maintenance Due Date Last Done Comments CKD PHOS USE SMARTSET 96172 1963 Hepatitis B (1 of 3 - [...] Screening 04/10/2024 04/10/2023 CKD HGB USE SMARTSET 91788 08/21/202408/21, 08/21/2023, 01/30/2023, Additional history exists Diabetic [...] D LEVEL ONCE IN A LIFETIME-USE SMARTSET# 45401 Completed 03/30/2017, 09/17/2009 Influenza Vaccine (FLU shot) Completed , 07/01/2021, 08/24/2020, Additional history exists GARDASIL-HPV IMMUNIZATION SERIES Aged Out No longer eligible based on patient's age to complete this topic MENINGOCOCCAL (MENACTRA/MENVEO) Aged Out No longer eligible based on patient's age to complete this topic documented as of this encounter Medical Devices Implanted Type Area Baton Twirler Device Identifier Shelf Expiration Date Model / Serial / Lot Dbx 10cc [id number] - [id number] Implanted:Qt y: 1 on 03/15/2010 at OR [facility] Tissue - Human N/A: Spine Lumbar MUSCULOSKELETAL TRANSPLANT FND 12/14/2011 [id number] / [id number] / Chip Cancellous 30cc 163797 - [id number] - [id number] Implanted:Qt y: 1 on 01/09/2023 by Sarbjit Vera MD at OR [facility] Tissue - Human N/A: Spine Lumbar MUSCULOSKELETAL TRANSPLANT FND 10/12/2024 838522 / [id number] 1055 / [id number] Screw 7x50 Poly Si [id number] - [id number] Implanted:Qt y: 2 on 03/15/2010 at OR [facility] N/A: Spine Lumbar JNJ : ETH[employer]ON C[employer]IOV[employer] [id number] / / Corkscrew Bio Composite - [id number] Implanted:Qt y: 2 on 01/25/2016 by Ken Will MD at OR [facility] Left: Shoulder [employer] 06/06/2016 [id number] / / [id number] Dbx 2.5cc [id number] - [id number] Implanted:Qt y: 1 on 02/18/2017 by Sarbjit Vera MD at OR [facility] N/A: Spine Lumbar MUSCULOSKELETAL TRANSPLANT FND 09/26/2018 [id number] / / Screw 7x45 Poly Si [id number] - [id number] Implanted:Qt y: 2 on 02/18/2017 by Sarbjit Vera MD at OR [facility] N/A: Spine Lumbar JNJ : [employer] C[employer] [id number] / / Description:In Set Expedium Ti Sfx 5.5 Lat A5 - [id number] Implanted:Qt y: 1 on 02/18/2017 by Sarbjit Vera MD at OR [facility] N/A: Spine Lumbar JNJ : [employer] C[employer] [id number] / / Description:In Set Clik [place] - [id number] Implanted:Qt y: 1 on 06/06/2020 by Sarbjit Vera MD at OR [facility] N/A: Spine Thoracic [employer] : PAIN MGMT 04/17/2022 [id number] / / [id number] Description:bilateral Valve Lexie 3 Ultra 23mm - [id number] Implanted:Qt y: 1 on 11/27/2020 at CARDIAC LABS [facility] [employer] [id number] / / Gener Wvewriter Alpha Prime 16 - [id number] Implanted:Qt y: 1 on 02/14/2022 by Sarbjit Vera MD at OR [facility] Left: Back [employer] 01/20/2024 [id number] / / [id number] Description:left lower back Screw 6x40 Poly Si [id number] - [id number] Implanted:Qt y: 1 on 01/09/2023 by Sarbjit Vera MD at OR [facility] N/A: Spine Lumbar JNJ : [employer] C[employer] [id number] / / Screw Set Sng Inner [id number] - [id number] Implanted:Qt y: 8 on 01/09/2023 by Sarbjit Vera MD at OR [facility] N/A: Spine Lumbar JNJ : [employer] C[employer] [id number] / / Expedium Ti Sfx 5.5 Lat A5 - [id number] Implanted:Qt y: 1 on 01/09/2023 by Sarbjit Vera MD at OR [facility] N/A: Spine Lumbar JNJ : [employer] [id number] / / Screw 6x45 Poly Si [id number] - [id number] Implanted:Qt y: 3 on 01/09/2023 by Sarbjit Vera MD at OR [facility] N/A: Spine Lumbar JNJ : [employer] C[employer] [id number] / / 100mm [place] Implanted:Qt y: 2 on 01/09/2023 by Sarbjit Vera MD at OR [facility] N/A: Spine Lumbar [employer] 0 / / Graft Infuse Bone Lg [id number] - [id number] Implanted:Qt y: 1 on 01/09/2023 by Sarbjit Vera MD at OR [facility] N/A: Spine Lumbar [employer] : NEURO CARE [id number] 09/06/2024 [id number] / / [id number] documented as of this encounter Advance Directives [...] the patient have Health Care Power of Gold Beater? No Code Status History Code Status Date Activated Date Inactivated Comments Full Code 01/09/2023 9:33 AM 01/09/2023 1:45 PM This or sabrina reflects the patients wishes and were consensually agreed upon. Question Answer Comments Discussion of Advance Directives occurred with: Patient Does the patient have a Living Will? No Does the patient have Health Care Power of Gold Beater? No Full Code 02/14/2022 8:41 AM 02/15/2022 [...] the patient have Health Care Power of Gold Beater? No Care Teams Klystrom Tube Tester Relationship Specialty Start Date End Date Tabitha Cunningham MD [address] [facility] [place] [address] PCP - General 04/21/1996 documented as of this encounter
--- OUTSIDE RECORDS SUMMARY | 2024-03-22 07:48 | External Medical Summary | Summary of Care ---
Author Name Unknown Organization [facility] Address [address] [place] [address] Phone [phone] Care Team Providers Care Film Technician Name Role Phone Tabitha Cunningham MD Primary Care Provider Reason for Visit * Auth/Cert Specialty Diagnoses / Procedures Referred By Andres daniels Referred To Contact Diagnoses Sacroiliitis (HCC) Sacroiliitis (HCC) [M46.1] Procedures SACROILIAC JOINT INJECT W/GUIDANCE INJECTION SACROILIAC JOINT Rosa Rojas MD [address] [place] [address] Or [facility] [address] [place] [phone] Referral ID Status Reason Start Date Expiration Date Visits Re quested Visits Authorized [id number] Encounter Details Date Type Department Care Team (Late st Contact Info) Description 12/24/2023 8:11 AM EDT - 12/24/2023 9:53 AM EDT Hospital Encounter OR [facility], Operating Room [facility] [address] [place] [phone] Rosa Rojas MD [address] [place] [address] Discharge Disposition: Home - Self Care Allergies Active Allergy Reactions Criticality Noted Date Comments Adhesive Tape 07/06/1998 rash Lisinopril 04/04/2014 cough Oxycodone-Acetaminophen Other (Please comment) 02/05/2017 "jittery" Nauseated Silver Sulfadiazine Rash 12/07/2002 rash Carisoprodol Other (Please comment) 03/29/2012 Restless, jittery Sulfa Antibiotics 10/15/1998 Tendency towards yeast infections. documented as of this encounter (statuses as of 12/24/2023) Medications Medication Sig Dispensed Refills Start Date [...] Propionate 50 MCG/ACT Nasal Suspension Administer 1 Manderson into nostril as needed. 15.8 mL 3 [...] as of this encounter (statuses as of 12/24/2023) Active Problems Problem Noted Date Diagnosed Date [...] pylori infection 11/05/2020 Overview: by EGD at [facility] [place] Other cirrhosis of liver 10/29/2020 Portal hypertension 10/29/2020 Morbid obesity due to excess calories 10/19/2020 Iron deficiency anemia 10/12/2020 S/P insertion of spinal cord stimulator 06/06/20 20 Overview: at [facility] [place] per Dr Doty HTN, goal below 150/90 [...] as of this encounter (statuses as of 12/24/2023) Resolved Problems Problem Noted Date Diagnosed Date Resolved Date Anemia 11/05/2020 11/15/2020 Chronic back pain 06/07/2020 11/15/2020 Encounter for examination fo r normal comparison and control in clinical research program 09/14/2018 04/09/2020 Overview: DO NOT DELETE [facility] [place] DETECT Study: Project # [id number], Elevator Starter: Tyler Garcia, PhD. SUMMARY: Goal: Establish test [...] contact study staff at ; after hours Elevator Starter via the [facility] lockstitch machine operator . Please contact study team before resolving/deleting from patients problem list. Study phone number: [phone]. Diagnosis changed due to Research Module. Go to Snapshot for study details. Encounter for examination fo r normal comparison and control in clinical research program 09/14/2018 05/08/2022 Overview: DO NOT DELETE - [facility] [place] PINKY Study: Project # [id number], Elevator Starter: Mario Rene, MS, MPH. SUMMARY: Goal: Establish [...] contact study staff at ; after hours Elevator Starter via the [facility] lockstitch machine operator . - Please contact study team before resolving/deleting from patients problem list. Study phone number: [phone]. Diagnosis changed due to Research Module. Go [...] as of this encounter (statuses as of 12/24/2023) Immunizations Name Administration Dates Next Due COVID-19 [...] Sign Reading Time Taken Comments Blood Pressure 191/67 12/24/2023 9:41 AM EDT Pulse 61 12/24/2023 9:41 AM EDT Temperature 36.8 C (98.2 F) 12/24/2023 9:41 AM ED T Respiratory Rate 16 12/24/2023 9:41 AM EDT Oxygen Saturation 95% 12/24/2023 9:41 AM EDT Inhaled Oxygen Concentration - - Weight 89.4 kg (197 lb) 12/24/2023 8:25 AM EDT Height 160 cm (5' 3") 12/24/2023 8:25 AM EDT Body Mass Index 34.9 12/24/2023 8:25 AM EDT documented in this encounter Functional Status [...] No 01/09/2023 documented as of this encounter Discharge Instructions * Discharge Instr - AVS* Rosa Rojas MD - 12/24/2023 9:06 AM EDT Discharge Date: 12/24/2023 Check your Patient Education Brochure for further information. If you have any further questions call your physician at [phone]. The information below provides you with the instructions and the list of medications you need to betaking following discharge from the hospital. If you have any questions, please ask before leaving.If you have questions after you leave, you can reach us at the number above. You had the following procedure performed: Sacroiliac Joint Injection Wound Care: You may shower normally, but be sure to keep the injection site clean and dry. No soaking in a bathfor 48 hours. Activity: You may resume your regular diet as tolerated. Return to normal activities slowly as tolerated. Walking is very important for healing and your rehabilitation. Initially, you should walk at least two to three times daily. Then slowly and gradually increase your distance as your tolerance for physical activity increases. You may go up and down stairs carefully. You may resume home medications. If you received sedation, for the next 24 hours, you should NOT: Drive a vehicle, operate power machinery or power equipment Drink alcoholic beverages, including beer Make important decisions, such as signing contracts, etc. Notify physician for: Temperature greater than 101 degrees F. Increased pain. Calf swelling or tenderness. Drainage or redness of the incision. Chest pain or shortness of breath (and go to the Emergency Department) Date you may return to work or school: N/A documented in this encounter H&P Notes * Rosa Rojas MD - 12/24/2023 9:04 AM EDT Images from the original note were not included. GENERAL HISTORY & PHYSICAL EXAMINATION - Anesthesia and Pain Service [facility] Name: Hannah Groves Location: [facility] CHIEF COMPLAINT: She complains of Back pain. Most recent vital signs: BP 175/66 | Pulse 66 | Temp 36 C (96.8 F) (Tympanic) | Resp 16 | Ht 1.6 m (5' 3") | Wt 89.4 kg (197 lb) | SpO2 95% | BMI 34.90 kg/m | BSA 1.99 m HPI: Hannah Groves is a 78 year [...] H. pylori infection 11/2020 by EGD at [facility] [place] HTN, goal below 140/90 INFORMATION 02/05/1998 R Ovarian Cyst--Us by [employer] INFORMATION 12/18/1997 Neuroma, B feet---saw Dr. Ariza Lumbar spine pain 12/23/2016 Menopause Other osteoporosis 11/2008 by DEXA Other specified glaucoma 07/09/2004 narrow angle glaucoma suspect OU, Dr. Mccallum S/P insertion of spinal cord stimulator 06/06/2020 at [facility] [place] per Dr Doty Sensorineural hearing loss left ear hearing aid Sleep apnea in adult 09/[address] Jenifer Carson sleep medicine Spinal stenosis of lumbar region without neurogenic claudication 03/06/2010 Type 2 diabetes mellitus with hemoglobin A1c goal of less than 8.0% ([facility]) ICD-10 update of inactive term Past Medical History - Pertinent Findings: (-) clotting disorder, (-) anesthetic problem, (-) intubation problem PAST SURGICAL HISTORY: Past Surgical History: Procedure Laterality Date ANESTH, LUMBAR SPINE/CORD SURGERY 02/17/2000 lumbar stenosis surgery [place] [facility] [place] Medina L4-5-see scan ARTHO,SHOUL,W/ROTATOR CUFF Left 01/25/2016 ARTHROSCOPY SHOULDER ROTATOR CUFF performed by Jassi Dooley MD at [facility] CARDIAC CATHETERIZATION REPORT 11/06/2020 Right Heart Catheterization: [...] TUNNEL performed by Emmett Hanna MD at [facility] COLONOSCOPY 11/24/2001 wnl per Yoav COLONOSCOPY 11/06/2020 wnl COLONOSCOPY, DIAGNOSTIC (RECTUM) 09/28/2012 adenomatous polyps, repeat 2 yrs/COLONOSCOPY FLEXIBLE PROXIMAL DIAGNOSTIC performed by Sloan Day MD at ENDOSCOPY [facility] COLONOSCOPY, DIAGNOSTIC (RECTUM) N/A 09/21/2014 Diverticulosis in the sigmoid colon. several hyperplastic polyps, repeat in 5 yrs/COLONOSCOPY FLEXIBLE PROXIMAL DIAGNOSTIC performed by Sloan Day MD at ENDOSCOPY [facility] COLONOSCOPY, DIAGNOSTIC (RECTUM) N/A 11/06/2020 COLONOSCOPY FLEXIBLE PROXIMAL DIAGNOSTIC performed by Kavita Solomon DO at ENDOSCOPY [facility] [place] CORONARY ANGIOGRAPHY W/RIGHT+LEFT CATH 11/05/2020 CORONARY ANGIOGRAPHY W/RIGHT+LEFT CATH performed by Richard Leggett MD at [facility] [place] CREATE SPINAL CORD LESION/STEREOTAX 06/06/2020 spinal cord stimulator [id number] GENERATOR(NO MRI) [id number] LEAD implant at [facility] [place] per Dr Falcon CT 3D RECON TAVR 11/27/2020 at [facility] [place] DECOMPRESS LUMBAR SPINAL CORD SEG 02/18/2017 HWR L3-4, L2-3 lami, psf per Dr Navarro at [facility] [place] DEXA SCAN/BONE MINERAL AXIAL 11/08/2008 high risk-start tx DEXA SCAN/BONE MINERAL AXIAL 01/20/2011 still high risk-no tx change-repeat 2yr ECHO (2-D COMPLETE) 10/07/2005 mild LVH but essentially wnl ECHO (2-D COMPLETE) 10/31/2020 Severe aortic stenosis EF 67% EGD, FLEXIBLE, DIAGNOSTIC N/A 11/06/2020 ESOPHAGOGASTRODUODENOSCOPY (EGD), FLEXIBLE, TRANSORAL, DIAGNOSTIC performed by Kavita Solomon DO at ENDOSCOPY [facility] [place] [place] EMG 2 EXTREMITY 07/08/2021 Mild bilateral medial carpal tunnel syndrome FLUORO UPPER GI WITHOUT AIR WO KUB 11/2002 reflux IMPLANT EPIDURAL NEUROELECTRODES Bilateral 06/06/2020 LAMINECTOMY POSTERIOR FOR IMPLANTATION NEUROSTIMULATOR ELECTRODES EPIDURAL performed by Tyler Vera MD at OR [facility] [place] INFORMATION 02/05/1998 R Ovarian cyst INJECTION LUMBAR/SACRAL 11/27/2005 at [facility] [place]-steroid injection INJECTION LUMBAR/SACRAL winter 2006 Dr June [facility] [place] KNEE ARTHROSCOPY/MENISCECTOMY 09/25/2009 ARTHROSCOPY KNEE MEDIAL OR LATERAL MENISCECTOMY performed by JASSI DOOLEY at OR [facility] [place]-left LAMINECTOMY FOR EXPLORATION/DECOMPRESSION OF SPINAL CORD AND/OR CAUDA EQUINA, MO 01/08/2023 at [facility] [place] Dr Rutherford-Post op HWR L3-4, L2-3 laminectomy, L1-3 psf, L1-4 instrumentation LAMINOTOMY, SINGLE LUMBAR 03/15/2010 Revision spine , L3/L4 Laminectomy and PSFper Lydia LUMBAR HEMILAMINECTOMY 01/27/2006 L4-L5 laminectomy posterior spinal fusion LUMBAR SPINE FUSION, POSTEROLATERAL 03/15/2010 ARTHRODESIS SPINE POSTERIOR LUMBAR performed by TYLER VERA at [facility] LUMBAR SPINE FUSION, POSTEROLATERAL N/A 02/18/2017 ARTHRODESIS SPINE POSTERIOR LUMBAR L2-3 performed by Tyler Vera MD at [facility] LUMBAR SPINE FUSION, POSTEROLATERAL N/A 01/09/2023 ARTHRODESIS SPINE POSTERIOR LUMBAR performed by Tyler Vera MD at [facility] MOBILE DXA 10/19/2015 mod risk-no tx-repeat [...] FORAMINOTOMY LUMBAR performed by TYLER VERA at [facility] REMOVE LUMBAR SPINE LAMINA, 1 SEG N/A 02/18/2017 LAMINECTOMY FACETECTOMY AND FORAMINOTOMY LUMBAR performed by Tyler Vera MD at OR [facility] [place] REMOVE LUMBAR SPINE LAMINA, 1-2 N/A 01/09/2023 LAMINECTOMY POSTERIOR LUMBAR ONE OR TWO SEGMENTS performed by Tyler Vera MD at OR [facility] [place] REMOVE SPINE FIXATION DEVICE, POST 03/15/2010 REMOVAL POSTERIOR SPINAL NONSEGMENTAL INSTRUMENTATION performed by TYLER VERA at [facility] REMOVE SPINE FIXATION DEVICE, POST N/A 02/18/2017 REMOVAL POSTERIOR SPINAL NONSEGMENTAL INSTRUMENTATION performed by Tyler Vera MD at OR [facility] [place] REPLACE AORTIC VALVE, PERCUTANEOUS FEMORAL N/A 11/27/2020 REPLACE AORTIC VALVE, PERCUTANEOUS FEMORAL performed by Richard Leggett MD at [facility] [place] [place] REPLACE AORTIC VALVE, PERCUTANEOUS FEMORAL 11/27/2020 REPLACE AORTIC VALVE, PERCUTANEOUS FEMORAL performed by Fernando Garcia MD at [facility] [place] [place] REVISE/REMOVE SPINAL NEURORECEIVER N/A 04/05/2021 REVISION OR REMOVAL IMPLANTED SPINAL NEUROSTIMULATOR performed by Tyler Vera MD at [facility] REVISE/REMOVE SPINAL NEURORECEIVER N/A 01/09/2023 REVISION OR REMOVAL IMPLANTED SPINAL NEUROSTIMULATOR performed by Tyler Vera MD at [facility] SHOULDER ARTHROSCOPY SURGERY Left 01/25/2016 [facility] [place] Dr Dooley SHOULDER ARTHROSCOPY SURGERY Left 01/25/2016 ARTHROSCOPY SHOULDER DISTAL CLAVICLE RESECTION performed by Jassi Dooley MD at OR [facility] SHOULDER ARTHROSCOPY/DECOMPRESSION Left 01/25/2016 ARTHROSCOPY SHOULDER SUBACROMIAL DECOMPRESSION performed by Jassi Dooley MD at [facility] SPINAL NEUROSTIM ELECTRODE PERC ARRAY,REMOV N/A 02/14/2022 REMOVAL SPINAL NEUROSTIM ELECTRODE PERC ARRAY performed by Tyler Vrea MD at OR [facility] [place] [place] SPINAL NEUROSTIM ELECTRODE PERC ARRAY,EVELYN N/A 02/14/2022 REVISION SPINAL NEUROSTIM ELECTRODE PERC ARRAY performed by Tyler Vera MD at OR [facility] [place] [place] SPINE FUSION, EACH ADD'L INTERSPACE N/A 01/09/2023 ARTHRODESIS SPINE POSTERIOR WITH LAMINECTOMY EACH ADDITIONAL performed by Tyler Vera MD atOR [facility] [place] [place] TENDON SHEATH INCISION, FINGER Right 07/25/2021 TRIGGER FINGER RELEASE performed by Emmett Hanna MD at OR [facility] TOTAL HYSTERECTOMY age 37 USO US ABDOMEN [...] Propionate 50 MCG/ACT Nasal Suspension Administer 1 Manderson into nostril as needed. 15.8 mL 3 [...] below: Results for orders placed or performed during the hospital encounter of 12/24/23 GLUCOSE METER, POINT OF CARE Result Value Ref Range Glucose Meter 119 70 - 120 mg/dL *Note: Due to a large number of [...] dorsal lumbar paraspinal soft tissues spanning from V84-[id number] and extending into the laminectomy bed and [...] detailed above. ASSESSMENT/PLAN: Sacroiliitis (HCC) (Primary) - BL SI joint injections under fluoroscopy documented in this encounter Nursing Notes * Dolores West RN - 12/24/2023 9:50 AM EDT [address] [phone] SameDay Surgery Discharge Note Name: Hannah Groves Date: 12/24/2023 Time: 9:50 AM Discharge Disposition: Home Responsible adult as escort home: spouse Transport Mode: Ambulatory Accompanied by: miguel a west rn To: Car Belongings with patient: Yes Patient meets criteria to be transferred or discharged. documented in this encounter OR Notes * OR Surgeon - Rosa Rojas MD - 12/24/2023 9:05 AM EDT Procedure Note Sacroiliac Joint Injection Procedure Date: 12/24/2023 PREOPERATIVE DIAGNOSIS: Sacroiliac Joint Dysfunction POSTOPERATIVE DIAGNOSIS: Same PROCEDURE PERFORMED: Sacroiliac joint injection under fluoroscopic guidance SIDE: Bilateral ESTIMATED BLOOD LOSS: None SPECIMENS AND DRAINS: None INDICATIONS FOR PROCEDURE: Patient presents with a clinical picture consistent with sacroiliac joint pain. PROCEDURE AND FINDINGS: The patient was greeted in the pre procedure holding area. The risk, benefits and alternatives to the procedure were again reviewed with the patient and written informed consent was placed in the chart. Prior to the procedure a time out was completed, verifying correct patient, procedure, site, positioning, and implants and/or special equipment. The patient was taken to the procedure room and positioned prone on the fluoroscopy table. A tubing mill operator film was taken to identify the correct level. The skin was prepped and draped in the usual sterile fashion. The overlying skin and subcutaneous tissue was anesthetized using a 25-gauge 1-1/2 inch needle with 1% preservative-free lidocaine for a total volume of 3 mls. Then a 22-gauge 3.5- inch Quinckespinal needle was advanced into the joint space between the sacrum and ilium under intermittent fluoroscopic guidance Bilaterally. Needle position was confirmed on both AP and lateral views. 1mL of Omnipaque 180 mg/ml showed intraarticular spread. After negative aspiration, 2.0 mls containing 0.5% b upivacaine and 40 mg of Triamcinalone was injected without incident. The needle was re-styletted and removed. The needle insertion site was dressed appropriately. The patient was taken to the recovery room where they were monitored for a brief period of time. They tolerated the procedure well and were discharged home in stable condition with post procedural instructions. COMPLICATIONS: None documented in this encounter Plan of Treatment Upcoming Encounters Date Type Department Care Team (Late st Contact Info) Description 12/28/2023 3:00 PM EDT Office [address]mology [address] [phone] Franck Soriano DO [address] [place] [address] [place] [address] 01/04/2024 3:00 PM EDT Office [address] [place] [address] [phone] Franck Soriano DO [address] [place], [place] [address] [address] 01/18/2024 8:45 AM EDT Office Visit Orthopaedics [address] [phone] Rodriguez Jones MD [address] [place] [address] 01/18/2024 10:00 AM EDT Office Visit Donald Carrillo[address] [place] [address] Franck Sor[facility] [address] 01/20/2024 10:30 AM EDT Office Visit [facility] [address] [facility] [address] Rex Pickard CRNP [address] [place] [address] 04/18/2024 9:00 AM EDT Office Visit [facility] [address] [place] [address] Tabitha Cunningham MD [address] [place] [address] 06/28/2024 8:30 AM EDT [facility] [address] [place] [phone] Tyler Vera MD [facility] [address], [place] [id number] 09/16/2024 8:20 AM EST Office Visit [facility] [address] [place] [address] Tabitha Cunningham MD [address] [place] [address] Scheduled Procedures Name Priority Associated Diagnoses Date/Ti me INJECTION SACROILIAC JOINT Sacroiliitis (HCC) 12/24/2023 9:21 AM EDT COLONOSCOPY FLEXIBLE PROXIMAL DIAGNOSTIC Recall Change in bowel habits Health Maintenance Due Date Last Done Comments CKD PHOS USE SMARTSET 94320 1963 Hepatitis B (1 of 3 - [...] Screening 04/10/2024 04/10/2023 CKD HGB USE SMARTSET 24888 08/21/202408/21, 08/21/2023, 01/30/2023, Additional history exists Diabetic [...] D LEVEL ONCE IN A LIFETIME-USE SMARTSET# 74256 Completed 03/30/2017, 09/17/2009 Influenza Vaccine (FLU shot) Completed , 07/01/2021, 08/24/2020, Additional history exists GARDASIL-HPV IMMUNIZATION SERIES Aged Out No longer eligible based on patient's age to complete this topic MENINGOCOCCAL (MENACTRA/MENVEO) Aged Out No longer eligible based on patient's age to complete this topic documented as of this encounter Medical Devices Implanted Type Area Relocation Commissioner Device Identifier Shelf Expiration Date Model / Serial / Lot Dbx 10cc [id number] - [id number] Implanted:Qt y: 1 on 03/15/2010 at OR [facility] [place] Tissue - Human N/A: Spine Lumbar MUSCULOSKELETAL TRANSPLANT FND 12/14/2011 [id number] / [id number] / Chip Cancellous 30cc [id number] - [id number] - [id number] Implanted:Qt y: 1 on 01/09/2023 by Tyler Vera MD at OR [facility] [place] [place] Tissue - Human N/A: Spine Lumbar MUSCULOSKELETAL TRANSPLANT FND 10/12/2024 [id number] / [id number] / [id number] Screw 7x50 Poly Si [id number] - [id number] Implanted:Qt y: 2 on 03/15/2010 at OR [facility] [place] N/A: Spine Lumbar JNJ : [employer] [id number] / / Corkscrew [employer]posite - [id number] Implanted:Qt y: 2 on 01/25/2016 by Jassi Dooley MD at [facility] Left: Shoulder [employer] 06/06/2016 [id number] / / [id number] Dbx 2.5cc [id number] - [id number] Implanted:Qt y: 1 on 02/18/2017 by Tyler Vera MD at OR [facility] [place] [place] N/A: Spine Lumbar MUSCULOSKELETAL TRANSPLANT FND 09/26/2018 [id number] / / Screw 7x45 Poly Si [id number] - [id number] Implanted:Qt y: 2 on 02/18/2017 by Tyler Vera MD at OR [facility] [place] [place] N/A: Spine Lumbar JNJ : [employer] [id number] / / Description:In Set Expedium Ti Sfx 5.5 Lat A5 - [id number] Implanted:Qt y: 1 on 02/18/2017 by Tyler Vera MD at OR [facility] [place] [place] N/A: Spine Lumbar JNJ : [employer] [id number] / / Description:In Set [employer] [place] - [id number] Implanted:Qt y: 1 on 06/06/2020 by Tyler Vera MD at OR [facility] [place] [place] N/A: Spine Thoracic [employer] : PAIN MGMT 04/17/2022 [id number] / / [id number] Description:bilateral Valve Lexie 3 Ultra 23mm - [id number] Implanted:Qt y: 1 on 11/27/2020 at [facility] [place] [place] [employer] [id number] / / Gener Wvewriter Alpha Prime 16 - [id number] Implanted:Qt y: 1 on 02/14/2022 by Tyler Vera MD at OR [facility] [place] [place] Left: Back [employer] 01/20/2024 [id number] / / [id number] Description:left lower back Screw 6x40 Poly Si [id number] - [id number] Implanted:Qt y: 1 on 01/09/2023 by Tyler Vera MD at OR [facility] [place] N/A: Spine Lumbar JNJ : [employer] [id number] / / Screw Set Sng Inner [id number] - [id number] Implanted:Qt y: 8 on 01/09/2023 by Tyler Vera MD at OR [facility] [place] [place] N/A: Spine Lumbar JNJ : [employer] [id number] / / Expedium Ti Sfx 5.5 Lat A5 - [id number] Implanted:Qt y: 1 on 01/09/2023 by Tyler Vera MD at OR [facility] [place] N/A: Spine Lumbar JNJ : [employer] [id number] / / Screw 6x45 Poly Si [id number] - [id number] Implanted:Qt y: 3 on 01/09/2023 by Tyler Vera MD at OR [facility] [place] [place] N/A: Spine Lumbar JNJ : [employer] [id number] / / 100mm [place] Implanted:Qt y: 2 on 01/09/2023 by Tyler Vera MD at OR [facility] [place] [place] N/A: Spine Lumbar [employer] 0 / / Graft Infuse Bone Lg [id number] - [id number] Implanted:Qt y: 1 on 01/09/2023 by Tyler Vera MD at OR [facility] [place] [place] N/A: Spine Lumbar [employer] : NEURO CARE [id number] 09/06/2024 [id number] / / [id number] documented as of this encounter Procedures Procedure Name Priority Date/Time Associated Diagnosis Comments FLUORO INTERVENTIONAL PAIN PROCEDURE NONBILLABLE Routine 12/24/2023 9:44 AM EDT GLUCOSE METER, POINT OF CARE CACHORRO 12/24/2023 8:28 AM EDT documented in this encounter Results * FLUORO INTERVENTIONAL PAIN PROCEDURE NONBILLABLE (12/24/2023 9:44 AM EDT) Narrative Scheduling, Silent - 12/24/2023 9:44 AM EDT This procedure will not be read by a Radiologist. Please see operative note. Rosa Rojas MD RAD FLUOROSCOPY * GLUCOSE METER, POINT OF CARE (12/24/2023 8:28 AM EDT) Glucose Meter 119 70 - 120 mg/dL 12/24/2023 8:35 AM EDT LABORAT[facility] 45-20 Blood Whole blood specimen / Unknown 12/24/2023 8:28 AM EDT 12/24/2023 8:35 AM EDT Rosa Rojas MD LAB POINT OF CA RE TEST DOCKED DEVICE UNSOLICITED RESULTS [facility] [address] [place] [phone] documented in this encounter Active and Recently Administered Medications Times are shown in EDT. PRN Medication Order 12/22/2023 12/23/2023 12/24/2023 buffered lidocaine 1 % inj (CANCELED) ONCE PRN INTRA PROCEDURE, Starting on Lizbeth 4/24 at 0934, Until Lizbeth 24 at 0940, Intra-Op 0934 (Given - Provid er: Rosa Rojas MD) bupivacaine 2 mL, Triamcinolone Acetonide 40 mg inj (CANCELED) ONCE PRN INTRA PROCEDURE, Starting on Lizbeth 24 at 0935, Until Lizbeth 24 at 0940, Intra-Op 0935 (Given - Provid er: Rosa Rojas MD) Iopamidol (Isovue M 200) inj (CANCELED) ONCE PRN INTRA PROCEDURE, Starting on Lizbeth 4/24 at 0934, Until Lizbeth [address] at 0940, Intra-Op 0934 (Given - Provid er: Rosa Rojas MD) documented in this encounter Advance Directives Latest [...] the patient have Health Care Power of Belt And Link Shop Supervisor? No Code Status History Code Status Date Activated Date Inactivated Comments Full Code 01/09/2023 9:33 AM 01/09/2023 1:45 PM This or sabrina reflects the patients wishes and were consensually agreed upon. Question Answer Comments Discussion of Advance Directives occurred with: Patient Does the patient have a Living Will? No Does the patient have Health Care Power of Belt And Link Shop Supervisor? No Full Code 02/14/2022 8:41 AM 02/15/2022 [...] the patient have Health Care Power of Belt And Link Shop Supervisor? No Care Teams Film Technician Relationship Specialty Start Date End Date Tabitha Cunningham MD [address] [facility] [place] [address] PCP - General 04/21/1996 documented as of this encounter
--- OUTSIDE RECORDS SUMMARY | 2024-03-22 07:48 | External Medical Summary | Summary of Care ---
Author Name Unknown Organization [facility] Address [address] [facility] [place] [address] Phone [phone] Care Team Providers Care Vertical Boring Mill Operator Name Role Phone Tabitha Cunningham MD Primary Care Provider [phone] Reason for Visit * Reason Onset Date Comments Advice 12/15/2023 Encounter Details Date Type Department Care Team (Late st Contact Info) Description 12/15/2023 Telephone Ophthalmology, [place] [facility] [place] [address] Franck Soriano DO [facility] [place] [address] Advice Allergies Active Allergy Reactions Criticality Noted [...] Propionate 50 MCG/ACT Nasal Suspension Administer 1 [place] into nostril as needed. 15.8 mL 3 [...] pylori infection 11/05/2020 Overview: by EGD at [facility] Other cirrhosis of liver 10/29/2020 Portal hypertension 10/29/2020 Morbid obesity due to excess calories 10/19/2020 Iron deficiency anemia 10/12/2020 S/P insertion of spinal cord stimulator 06/06/20 Overview: at [facility] per Dr Doty HTN, goal below 150/90 [...] [facility] DETECT Study: Project # [id number], Retail Sales Director: Sarbjit Garcia, PhD. SUMMARY: Goal: Establish test [...] contact study staff at ; after hours Retail Sales Director via the [facility] hospital well testing operator . Please contact study team before resolving/deleting from patients problem list. Study phone number: [phone]. Diagnosis changed due to Research Module. Go to Snapshot for study details. Encounter for examination fo r normal comparison and control in clinical research program 09/14/2018 05/08/2022 Overview: DO NOT DELETE - [facility] DETECT Study: Project # [id number], Retail Sales Director: Mario Rene, MS, MPH. SUMMARY: Goal: Establish [...] contact study staff at ; after hours Retail Sales Director via the [facility] hospital well testing operator . - Please contact study team before resolving/deleting from patients problem list. Study phone number: [phone]. Diagnosis changed due to Research Module. Go [...] Miscellaneous Notes * Telephone Encounter - Trinidad Emery OSA - 12/16/2023 1:43 PM EDT Spoke to patient's . Advised that it's ok to sleep on belly, side, back etc Pt verbalized understanding. CLEMENTINA Dao 12/16/2023 1:44 PM * Telephone Encounter - Trinidad Emery OSA - 12/15/2023 2:12 PM EDT Called back. He just wants to make sure that there there will not be any issues with her eyes if she needs to sleep on her stomach. Advised that I would let Dr Soriano know if his concerns and I will get back to him. CLEMENTINA Dao 12/15/2023 2:16 PM * Telephone Encounter - Sobia Dolan OSA - 12/15/2023 1:23 PM EDT Pt's calling to ask how long after having her laser procedure can she sleep on her stomach?Pt is getting steroid injections for her back pain as well and they want to know if that will interfere with the laser procedures. Please advise. Devon [phone] CLEMENTINA Monaco 12/15/2023 1:25 PM documented in this encounter Plan of Treatment Upcoming Encounters Date Type Department Care Team (Late st Contact Info) Description 12/24/2023 9:39 AM EDT Hospital Encounter [facility], Operating Room [facility] [address] [place] [address] [place] [phone] Rosa Rojas MD [address] [place] [address] 12/24/2023 9:39 AM EDT - 12/24/2023 10:01 AM EDT Surgery [facility], Operating Room [facility] [address] [place] [address] [place] [phone] Rosa Rojas MD [address] [place] [address] INJECTION SACROILIAC JOINT 12/28/2023 3:00 PM EDT Office Visit [facility] Carrillo [address] [place] [address] Franck Soriano DO [address] [place] [address] 01/04/2024 3:00 PM EDT Office Visit OphthalmologyYamileth 21 [place] [address] Franck Soriano, DO [address] [place] [address] 01/18/2024 8:45 AM EDT Office Visit Orthopaedics [facility] [address] [place] [phone] Rodriguez Jones MD [address] [place] [address] 01/18/2024 10:00 AM EDT [facility] [address] [place] [address] Franck Soriano DO [address] [place] [address] 01/20/2024 10:30 AM EDT Office Visit [facility], [facility] [address] [place] [address] Rex Pickard CRNP [address] [place] [address] 04/18/2024 9:00 AM EDT Office Visit [facility] 27 [place] [address] Tabitha Cunningham MD 27 [place] [address] 06/28/2024 8:30 AM EDT [facility] [address] [place] [phone] Sarbjit Vera MD [facility] [place] [address] 09/16/2024 8:20 AM EST Office Visit [facility] 27 [place] [address] Tabitha Cunningham MD [address] [place] [address] Scheduled Procedures Name Priority Associated Diagnoses Date/Ti me INJECTION SACROILIAC JOINT Sacroiliitis (HCC) 12/24/2023 9:39 AM EDT COLONOSCOPY FLEXIBLE PROXIMAL DIAGNOSTIC Recall Change in bowel habits Health Maintenance Due Date Last Done Comments CKD PHOS USE SMARTSET 90847 1963 Hepatitis B (1 of 3 - [...] Screening 04/10/2024 04/10/2023 CKD HGB USE SMARTSET 38698 08/21/202408/21, 08/21/2023, 01/30/2023, Additional history exists Diabetic [...] D LEVEL ONCE IN A LIFETIME-USE SMARTSET# 84548 Completed 03/30/2017, 09/17/2009 Influenza Vaccine (FLU shot) Completed , 07/01/2021, 08/24/2020, Additional history exists GARDASIL-HPV IMMUNIZATION SERIES Aged Out No longer eligible based on patient's age to complete this topic MENINGOCOCCAL (MENACTRA/MENVEO) Aged Out No longer eligible based on patient's age to complete this topic documented as of this encounter Medical Devices Implanted Type Area Overnight Houseperson Device Identifier Shelf Expiration Date Model / Serial / Lot Dbx 10cc [id number] - [id number] Implanted:Qt y: 1 on 03/15/2010 at OR [facility] Tissue - Human N/A: Spine Lumbar MUSCULOSKELETAL TRANSPLANT FND 12/14/2011 [id number] / [id number] / Chip Cancellous 30cc [id number] - [id number] - [id number] Implanted:Qt y: 1 on 01/09/2023 by Sarbjit Vera MD at OR [facility] Tissue - Human N/A: Spine Lumbar MUSCULOSKELETAL TRANSPLANT FND 10/12/2024 084205 / [id number] 1055 / [id number] Screw 7x50 Poly Si [id number] - [id number] Implanted:Qt y: 2 on 03/15/2010 at OR [facility] N/A: Spine Lumbar JNJ : [employer] [id number] / / Corkscrew Bio Composite - [id number] Implanted:Qt y: 2 on 01/25/2016 by Ken Will MD at OR [facility] Left: Shoulder [employer] 06/06/2016 [id number] / / [id number] Dbx 2.5cc [id number] - [id number] Implanted:Qt y: 1 on 02/18/2017 by Sarbjit Vera MD at OR [facility] N/A: Spine Lumbar MUSCULOSKELETAL TRANSPLANT FND 09/26/2018 [id number] / / Screw 7x45 Poly Si [id number] - [id number] Implanted:Qt y: 2 on 02/18/2017 by Sarbjit Vera MD at OR [facility] N/A: Spine Lumbar JNJ : [employer]ON [employer] [id number] / / Description:In Set Expedium Ti Sfx 5.5 Lat A5 - [id number] Implanted:Qt y: 1 on 02/18/2017 by Sarbjit Vera MD at OR [facility] N/A: Spine Lumbar JNJ : [employer] [id number] / / Description:In Set Clik [place] - [id number] Implanted:Qt y: 1 on 06/06/2020 by Sarbjit Vera MD at OR [facility] N/A: Spine Thoracic [employer] : PAIN MGMT 04/17/2022 [id number] / / [id number] Description:bilateral Valve Lexie 3 Ultra 23mm - [id number] Implanted:Qt y: 1 on 11/27/2020 at CARDIAC LABS [facility] [employer] [id number] / / Gener Wvewriter Alpha Prime 16 - [id number] Implanted:Qt y: 1 on 02/14/2022 by Sarbjit Vera MD at OR [facility] Left: Back [employer] 01/20/2024 [id number] / / [id number] Description:left lower back Screw 6x40 Poly Si [id number] - [id number] Implanted:Qt y: 1 on 01/09/2023 by Sarbjit Vera MD at OR [facility] N/A: Spine Lumbar JNJ : [employer] [id number] / / Screw Set Sng Inner [id number] - [id number] Implanted:Qt y: 8 on 01/09/2023 by Sarbjit Vera MD at OR [facility] N/A: Spine Lumbar JNJ : [employer] [id number] / / Expedium Ti Sfx 5.5 Lat A5 - [id number] Implanted:Qt y: 1 on 01/09/2023 by Sarbjit Vera MD at OR [facility] N/A: Spine Lumbar JNJ : [employer] [id number] / / Screw 6x45 Poly Si [id number] - [id number] Implanted:Qt y: 3 on 01/09/2023 by Sarbjit Vera MD at OR [facility] N/A: Spine Lumbar JNJ : [employer] [id number] / / 100mm [place] Implanted:Qt y: 2 on 01/09/2023 by Sarbjit Vera MD at OR [facility] N/A: Spine Lumbar [employer] 0 / / Graft Infuse Bone Lg [id number] - [id number] Implanted:Qt y: 1 on 01/09/2023 by Sarbjit Vera MD at OR [facility] N/A: Spine Lumbar [employer] : NEURO CARE [id number] 09/06/2024 [id number] / / [id number] documented as of this encounter Advance Directives [...] the patient have Health Care Power of Binder And Box Builder? No Code Status History Code Status Date Activated Date Inactivated Comments Full Code 01/09/2023 9:33 AM 01/09/2023 1:45 PM This or sabrina reflects the patients wishes and were consensually agreed upon. Question Answer Comments Discussion of Advance Directives occurred with: Patient Does the patient have a Living Will? No Does the patient have Health Care Power of Binder And Box Builder? No Full Code 02/14/2022 8:41 AM 02/15/2022 [...] the patient have Health Care Power of Binder And Box Builder? No Care Teams Vertical Boring Mill Operator Relationship Specialty Start Date End Date Tabitha Cunningham MD [address] [facility] [place] [address] PCP - General 04/21/1996 documented as of this encounter
--- OUTSIDE RECORDS SUMMARY | 2024-03-22 07:49 | External Medical Summary | Summary of Care ---
Author Name Unknown Organization [facility] Address [address] [place] [address] Phone [phone] Care Team Providers Care Diesel Mechanic Name Role Phone Tabitha Cunningham MD Primary Care Provider [phone] Reason for Visit * Reason Onset Date Comments Advice 12/11/2023 Encounter Details Date Type Department Care Team (Late st Contact Info) Description 12/11/2023 [facility]phone [facility] [address] [place] [address] Erica Maldonado PA-C [address] [place] [address] Advice Allergies Active Allergy Reactions [...] Propionate 50 MCG/ACT Nasal Suspension Administer 1 [place] into nostril as needed. 15.8 mL 3 [...] [facility] DETECT Study: Project # [id number], Digital Producer: Sarbjit Garcia, PhD. SUMMARY: Goal: Establish test [...] contact study staff at ; after hours Digital Producer via the [facility] fork operator . Please contact study team before resolving/deleting from patients problem list. Study phone number: [phone]. Diagnosis changed due to Research Module. Go to Snapshot for study details. Encounter for examination fo r normal comparison and control in clinical research program 09/14/2018 05/08/2022 Overview: DO NOT DELETE - [facility] DETECT Study: Project # [id number], Digital Producer: Mario Rene, MS, MPH. SUMMARY: Goal: Establish [...] contact study staff at ; after hours Digital Producer via the [facility] hospital fork operator . - Please contact study team before resolving/deleting from patients problem list. Study phone number: [phone]. Diagnosis changed due to Research Module. Go [...] EDT Office Visit Ophthalmology, [place] [address] [place] [address] Franck Soriano, 21 [facility] [address] 01/04/2024 3:00 PM EDT Office Visit Ophthalmology, [place] [address] [place] [address] Franck Soriano DO 21 [facility] [address] 01/18/2024 8:45 AM EDT Office Visit Orthopaedics [address] [phone] Rodriguez Jones MD [address] [place] [address] 01/18/2024 10:00 AM EDT Office Visit Ophthalmology, [place] [facility] [place] [address] Franck Soriano DO 21 [place] [address] 04/18/2024 9:00 AM EDT [facility] [address] [place] [address] Tabitha Cunningham MD [address] [place] [address] 06/28/2024 8:30 AM EDT Office [facility] [address] [place] [address] Sarbjit Vera MD [address] [place] [address] 09/16/2024 8:20 AM EST Office Visit [facility] [place] [address] [place] [address] Tabitha Cunningham MD [address] [place] [address] Scheduled Procedures Name Priority Associated Diagnoses Date/Ti me COLONOSCOPY FLEXIBLE PROXIMAL DIAGNOSTIC Recall Change in bowel habits Health Maintenance Due Date Last Done Comments CKD PHOS USE SMARTSET 36705 1963 Hepatitis B (1 of 3 - [...] Screening 04/10/2024 04/10/2023 CKD HGB USE SMARTSET 42272 08/21/202408/21, 08/21/2023, 01/30/2023, Additional history exists Diabetic [...] D LEVEL ONCE IN A LIFETIME-USE SMARTSET# 19084 Completed 03/30/2017, 09/17/2009 Influenza Vaccine (FLU shot) Completed , 07/01/2021, 08/24/2020, Additional history exists GARDASIL-HPV IMMUNIZATION SERIES Aged Out No longer eligible based on patient's age to complete this topic MENINGOCOCCAL (MENACTRA/MENVEO) Aged Out No longer eligible based on patient's age to complete this topic documented as of this encounter Medical Devices Implanted Type Area Gristmiller Device Identifier Shelf Expiration Date Model / Serial / Lot Dbx 10cc [id number] - [id number] Implanted:Qt y: 1 on 03/15/2010 at OR [facility] Tissue - Human N/A: Spine Lumbar MUSCULOSKELETAL TRANSPLANT FND 12/14/2011 102507 / [id number] / Chip Cancellous 30cc 032678 - [id number] 055 - [id number] Implanted:Qt y: 1 on 01/09/2023 by Sarbjit Vera MD at OR [facility] Tissue - Human N/A: Spine Lumbar MUSCULOSKELETAL TRANSPLANT FND 10/12/2024 804893 / [id number] 1055 / [id number] Screw 7x50 Poly Si [id number] - [id number] Implanted:Qt y: 2 on 03/15/2010 at OR [facility] N/A: Spine Lumbar JNJ : [employer] [id number] / / Corkscrew Bio Composite - [id number] Implanted:Qt y: 2 on 01/25/2016 by Ken Will MD at OR [facility] Left: Shoulder [employer] 06/06/2016 [id number] / / [id number] Dbx 2.5cc [id number] - [id number] Implanted:Qt y: 1 on 02/18/2017 by Sarbjit Vera MD at OR [facility] N/A: Spine Lumbar MUSCULOSKELETAL TRANSPLANT FND 09/26/2018 [id number] / / Screw 7x45 Poly Si [id number] - [id number] Implanted:Qt y: 2 on 02/18/2017 by Sarbjit Vera MD at OR [facility] N/A: Spine Lumbar JNJ : [employer] [id number] / / Description:In Set Expedium Ti Sfx 5.5 Lat A5 - [id number] Implanted:Qt y: 1 on 02/18/2017 by Sarbjit Vera MD at OR [facility] N/A: Spine Lumbar JNJ : [employer] [id number] / / Description:In Set Clik [place] - [id number] Implanted:Qt y: 1 on 06/06/2020 by Sarbjit Vera MD at OR [facility] N/A: Spine Thoracic [employer] : PAIN MGMT 04/17/2022 [id number] / / [id number] Description:bilateral Valve Lexie 3 Ultra 23mm - [id number] Implanted:Qt y: 1 on 11/27/2020 at CARDIAC LABS [facility] [employer] [id number] / / Gener Wvewriter Alpha Prime 16 - [id number] Implanted:Qt y: 1 on 02/14/2022 by Sarbjit Vera MD at OR [facility] Left: Back [employer] 01/20/2024 [id number] / / [id number] Description:left lower back Screw 6x40 Poly Si [id number] - [id number] Implanted:Qt y: 1 on 01/09/2023 by Sarbjit Vera MD at OR [facility] N/A: Spine Lumbar JNJ : [employer] [id number] / / Screw Set Sng Inner [id number] - [id number] Implanted:Qt y: 8 on 01/09/2023 by Sarbjit Vera MD at OR [facility] N/A: Spine Lumbar JNJ : [employer] [id number] / / Expedium Ti Sfx 5.5 Lat A5 - [id number] Implanted:Qt y: 1 on 01/09/2023 by Sarbjit Vera MD at OR [facility] N/A: Spine Lumbar JNJ : [employer] [id number] / / Screw 6x45 Poly Si [id number] - [id number] Implanted:Qt y: 3 on 01/09/2023 by Sarbjit Vera MD at OR [facility] N/A: Spine Lumbar JNJ : [employer] [id number] / / 100mm [place] Implanted:Qt y: 2 on 01/09/2023 by Sarbjit Vera MD at OR [facility] N/A: Spine Lumbar [employer] 0 / / Graft Infuse Bone Lg [id number] - [id number] Implanted:Qt y: 1 on 01/09/2023 by Sarbjit Vera MD at OR [facility] N/A: Spine Lumbar [employer] : NEURO CARE [id number] 09/06/2024 [id number] / / [id number] documented as of this encounter Advance Directives [...] the patient have Health Care Power of Artificial Flowers Dyer? No Code Status History Code Status Date Activated Date Inactivated Comments Full Code 01/09/2023 9:33 AM 01/09/2023 1:45 PM This or sabrina reflects the patients wishes and were consensually agreed upon. Question Answer Comments Discussion of Advance Directives occurred with: Patient Does the patient have a Living Will? No Does the patient have Health Care Power of Artificial Flowers Dyer? No Full Code 02/14/2022 8:41 AM 02/15/2022 [...] the patient have Health Care Power of Artificial Flowers Dyer? No Care Teams Diesel Mechanic Relationship Specialty Start Date End Date Tabitha Cunningham MD 27 [facility] [place] [address] PCP - General 04/21/1996 documented as of this encounter
--- OUTSIDE RECORDS SUMMARY | 2024-03-22 07:49 | External Medical Summary | Summary of Care ---
Author Name Unknown Organization [facility] Address [address] [place] [address] Phone [phone] Care Team Providers Care Manager Media Name Role Phone Tabitha Cunningham MD Primary Care Provider [phone] Reason for Visit * Reason Onset Date Comments Advice 12/11/2023 Encounter Details Date Type Department Care Team (Late st Contact Info) Description 12/11/2023 [facility] [address] [place] [address] Erica Maldonado PA-C [address] [place] [address] Advice Allergies Active Allergy Reactions [...] Propionate 50 MCG/ACT Nasal Suspension Administer 1 [place] into nostril as needed. 15.8 mL 3 [...] pylori infection 11/05/2020 Overview: by EGD at [facility] Other cirrhosis of liver 10/29/2020 Portal hypertension 10/29/2020 Morbid obesity due to excess calories 10/19/2020 Iron deficiency anemia 10/12/2020 S/P insertion of spinal cord stimulator 06/06/20 Overview: at [facility] per Dr Doty HTN, goal below 150/90 [...] [facility] DETECT Study: Project # [id number], Sr Solutions Consultant: Sarbjit Garcia, PhD. SUMMARY: Goal: Establish test [...] contact study staff at ; after hours Sr Solutions Consultant via the [facility] tow motor operator . Please contact study team before resolving/deleting from patients problem list. Study phone number: [phone]. Diagnosis changed due to Research Module. Go to Snapshot for study details. Encounter for examination fo r normal comparison and control in clinical research program 09/14/2018 05/08/2022 Overview: DO NOT DELETE - [facility] DETECT Study: Project # [id number], Sr Solutions Consultant: Mario Rene, MS, MPH. SUMMARY: Goal: Establish [...] contact study staff at ; after hours Sr Solutions Consultant via the [facility] hospital tow motor operator . - Please contact study team before resolving/deleting from patients problem list. Study phone number: [phone]. Diagnosis changed due to Research Module. Go [...] call to schedule. * Telephone Encounter - aJzzy Biggs OSA - 12/11/2023 8:44 AM EDT Pt calling to follow up with how to proceed and scheduling with Pain Medicine. Pt states pt is really uncomfortable. documented in this encounter Plan of Treatment Upcoming Encounters Date Type Department Care Team (Late st Contact Info) Description 12/28/2023 3:00 PM EDT Office Visit Ophthalmology, [place] [address] [place] [address] Franck Soriano, [address] [facility] [place] [address] 01/04/2024 3:00 PM EDT Office Visit Ophthalmology, [place] [address] [place] [address] Franck Soriano DO [address] [facility] [place] [address] 01/18/2024 8:45 AM EDT Office Visit Orthopaedics [address] [phone] Rodriguez Jones MD [address] [place] [address] 01/18/2024 10:00 AM EDT Office Visit Ophthalmology, [place] [address] [place] [address] Franck Soriano DO 21 [place] [address] 04/18/2024 9:00 AM EDT Office Visit [facility] [address] [place] [address] Tabitha Cunningham MD [address] [place] [address] 06/28/2024 8:30 AM EDT [facility] [address] [place] [address] Sarbjit Vera MD [address] [place] [address] 09/16/2024 8:20 AM EST Office Visit [facility] [place] [address] [place] [address] Tabitha Cunningham MD [address] [place] [address] Scheduled Procedures Name Priority Associated Diagnoses Date/Ti me COLONOSCOPY FLEXIBLE PROXIMAL DIAGNOSTIC Recall Change in bowel habits Health Maintenance Due Date Last Done Comments CKD PHOS USE SMARTSET 37824 1963 Hepatitis B (1 of 3 - [...] Screening 04/10/2024 04/10/2023 CKD HGB USE SMARTSET 01952 08/21/202408/21, 08/21/2023, 01/30/2023, Additional history exists Diabetic [...] D LEVEL ONCE IN A LIFETIME-USE SMARTSET# 77160 Completed 03/30/2017, 09/17/2009 Influenza Vaccine (FLU shot) Completed , 07/01/2021, 08/24/2020, Additional history exists GARDASIL-HPV IMMUNIZATION SERIES Aged Out No longer eligible based on patient's age to complete this topic MENINGOCOCCAL (MENACTRA/MENVEO) Aged Out No longer eligible based on patient's age to complete this topic documented as of this encounter Medical Devices Implanted Type Area Agricultural Services Director Device Identifier Shelf Expiration Date Model / Serial / Lot Dbx 10cc [id number] - [id number] Implanted:Qt y: 1 on 03/15/2010 at [place] [facility] Tissue - Human N/A: Spine Lumbar MUSCULOSKELETAL TRANSPLANT FND 12/14/2011 [id number] / [id number] / Chip Cancellous 30cc [id number] - [id number] - [id number] Implanted:Qt y: 1 on 01/09/2023 by Sarbjit Vera MD at OR [facility] Tissue - Human N/A: Spine Lumbar MUSCULOSKELETAL TRANSPLANT FND 10/12/2024 [id number] / [id number] / [id number] Screw 7x50 Poly Si [id number] - [id number] Implanted:Qt y: 2 on 03/15/2010 at OR [facility] N/A: Spine Lumbar JNJ : ETHICON CARDIOVATIONS [id number] / / Corkscrew Bio Composite - [id number] Implanted:Qt y: 2 on 01/25/2016 by Ken Will MD at OR [facility] Left: Shoulder [employer] 06/06/2016 [id number] / / [id number] Dbx 2.5cc [id number] - [id number] Implanted:Qt y: 1 on 02/18/2017 by Sarbjit Vera MD at OR [facility] N/A: Spine Lumbar MUSCULOSKELETAL TRANSPLANT FND 09/26/2018 [id number] / / Screw 7x45 Poly Si [id number] - [id number] Implanted:Qt y: 2 on 02/18/2017 by Sarbjit Vera MD at OR [facility] N/A: Spine Lumbar JNJ : ETHICON CARDIOVATIONS [id number] / / Description:In Set Expedium Ti Sfx 5.5 Lat A5 - [id number] Implanted:Qt y: 1 on 02/18/2017 by Sarbjit Vera MD at OR [facility] N/A: Spine Lumbar JNJ : ETHICON CARDIOVATIONS [id number] / / Description:In Set Clik [place] - [id number] Implanted:Qt y: 1 on 06/06/2020 by Sarbjit Vera MD at OR [facility] N/A: Spine Thoracic [employer] : PAIN MGMT 04/17/2022 [id number] / / [id number] Description:bilateral Valve Lexie 3 Ultra 23mm - [id number] Implanted:Qt y: 1 on 11/27/2020 at [facility]ARDIAC LABS [facility] [employer] [id number] / / Gener Wvewriter Alpha Prime 16 - [id number] Implanted:Qt y: 1 on 02/14/2022 by Sarbjit Vera MD at OR [facility] Left: Back [employer] 01/20/2024 [id number] / / [id number] Description:left lower back Screw 6x40 Poly Si [id number] - [id number] Implanted:Qt y: 1 on 01/09/2023 by Sarbjit Vera MD at OR [facility] N/A: Spine Lumbar JNJ : ETHICON CARDIOVATIONS [id number] / / Screw Set Sng Inner [id number] - [id number] Implanted:Qt y: 8 on 01/09/2023 by Sarbjit Vera MD at OR [facility] N/A: Spine Lumbar JNJ : ETHICON CARDIOVATIONS [id number] / / Expedium Ti Sfx 5.5 Lat A5 - [id number] Implanted:Qt y: 1 on 01/09/2023 by Sarbjit Vera MD at OR [facility] N/A: Spine Lumbar JNJ : ETHICON CARDIOVATIONS [id number] / / Screw 6x45 Poly Si [id number] - [id number] Implanted:Qt y: 3 on 01/09/2023 by Sarbjti Vera MD at OR [facility] N/A: Spine Lumbar JNJ : ETHICON CARDIOVATIONS [id number] / / 100mm [place] Implanted:Qt y: 2 on 01/09/2023 by Sarbjit Vera MD at OR [facility] N/A: Spine Lumbar [employer] 0 / / Graft Infuse Bone Lg [id number] - [id number] Implanted:Qt y: 1 on 01/09/2023 by Sarbjit Vera MD at OR [facility] N/A: Spine Lumbar [employer] : NEURO CARE [id number] 09/06/2024 [id number] / / [id number] documented as of this encounter Advance Directives [...] the patient have Health Care Power of Vendor Analyst? No Code Status History Code Status Date Activated Date Inactivated Comments Full Code 01/09/2023 9:33 AM 01/09/2023 1:45 PM This or sabrina reflects the patients wishes and were consensually agreed upon. Question Answer Comments Discussion of Advance Directives occurred with: Patient Does the patient have a Living Will? No Does the patient have Health Care Power of Vendor Analyst? No Full Code 02/14/2022 8:41 AM 02/15/2022 [...] the patient have Health Care Power of Vendor Analyst? No Care Teams Manager Media Relationship Specialty Start Date End Date Tabitha Cunningham MD [address] [facility] [place] [address] PCP - General 04/21/1996 documented as of this encounter
--- OUTSIDE RECORDS SUMMARY | 2024-03-22 07:49 | External Medical Summary | Summary of Care ---
Author Name Unknown Organization [facility] Address [address] [place] [address] Phone [phone] Care Team Providers Care Slot Key Person Name Role Phone Tabitha Cunningham MD Primary Care Provider [phone] Reason for Referral * Evaluate & Treat - Unlimited Visits (Within 10 days (routine)) - Authorized Specialty Diagnoses / Procedures Referred By Andres daniels Referred To Contact Pain Management / Pain Medicine Diagnoses Spinal stenosis of lumbar region without neurogenic claudication Erica Maldonado PA-C [address] [place] [address] Referral ID Status Reason Start Date Expiration Date Visits Requested Visits Authorized [id number] Authorized Specialty Services Required 12/08/2023 999 999 Question Answer Referral Priority Within 10 days (routine) Where should this appointment be scheduled? [facility] Reason for referral? Interventional Pain Management - (Injection) What condition is the patient being referred for? Back Axial What is the preferred location to have this test performed? [facility] Comments Patient Name: Hannah Groves Date of : 1945 Department Phone Number: MRI or CT (if unable to have a MRI) is recommended if any of the following apply: 1. Patient has neck or back pain with radiation to extremities. A previous MRI will be accepted if symptoms unchanged since prior MRI. 2. Spinal surgery since last MRI. If yes, order a MRI with and without contrast. 3. Hx or ongoing cancer treatment. Patient will need spine x-ray (Ap/Lat) for axial neck or back pain if not done previously. Fax No. [facility] [phone] or contact front office java developer [phone] Fax No. [facility] [phone] or contact front office java developer [phone] Fax No. [facility] [phone] or contact front office java developer [phone] * Evaluate & Treat - Unlimited Visits (Within 10 days (routine)) - Authorized Specialty Diagnoses / Procedures Referred By Andres daniels Referred To Contact Orthopaedic Surgery / Orthopedics Diagnoses Chronic pain of both knees Erica Maldonado PA-C [address] [place] [address] Rodriguez Jones MD [address] [place] [address] Referral ID Status Reason Start Date Expiration Date Visits Requested Visits Authorized [id number] Authorized Specialty Services Required 12/08/2023 999 999 Question Answer Referral Priority Within 10 days (routine) Where should this appointment be scheduled? [facility] What body part is the patient being seen for? Thigh/Knee What condition is the patient being seen for? Arthritis including related infection Reason for Visit * Reason Comments NEW PATIENT Lumbar pain (previou sly seen Chuy) Encounter Details Date Type Department Care Team (Late st Contact Info) Description 12/08/2023 1:30 PM EDT Office Visit Orthopaedics Spine Surgery, [place] [address] [place] [phone] Erica Maldonado PA-C [address] [place] [address] Spinal stenosis of lumbar region without neurogenic claudication*; Chronic pain of both knees Allergies Active Allergy Reactions Criticality Noted Date Comments Adhesive Tape 07/06/1998 rash Lisinopril 04/04/2014 cough Oxycodone-Acetaminophen Other (Please comment) 02/05/2017 "jittery" Nauseated Silver Sulfadiazine Rash 12/07/2002 rash Carisoprodol Other (Please comment) 03/29/2012 Restless, jittery Sulfa Antibiotics 10/15/1998 Tendency towards yeast infections. documented as of this encounter (statuses as of 12/08/2023) Medications Medication Sig Dispensed Refills Start Date [...] Propionate 50 MCG/ACT Nasal Suspension Administer 1 [place] into nostril as needed. 15.8 mL 3 [...] as of this encounter (statuses as of 12/08/2023) Active Problems Problem Noted Date Diagnosed Date [...] pylori infection 11/05/2020 Overview: by EGD at [facility] Other cirrhosis of liver 10/29/2020 Portal hypertension 10/29/2020 Morbid obesity due to excess calories 10/19/2020 Iron deficiency anemia 10/12/2020 S/P insertion of spinal cord stimulator 06/06/20 20 Overview: at [facility] per Dr Doty HTN, goal [...] as of this encounter (statuses as of 12/08/2023) Resolved Problems Problem Noted Date Diagnosed Date Resolved Date Anemia 11/05/2020 11/15/2020 Chronic back pain 06/07/2020 11/15/2020 Encounter for examination fo r normal comparison and control in clinical research program 09/14/2018 04/09/2020 Overview: DO NOT DELETE [facility] DETECT Study: Project # [id number], Mixer Whipped Topping: Sarbjit Garcia, PhD. SUMMARY: Goal: Establish test [...] contact study staff at ; after hours Mixer Whipped Topping via the [facility] deposition operator . Please contact study team before resolving/deleting from patients problem list. Study phone number: [phone]. Diagnosis changed due to Research Module. Go to Snapshot for study details. Encounter for examination fo r normal comparison and control in clinical research program 09/14/2018 05/08/2022 Overview: DO NOT DELETE - [facility] Study: Project # [id number], Mixer Whipped Topping: Mario Rene, MS, MPH. SUMMARY: Goal: Establish [...] contact study staff at ; after hours Mixer Whipped Topping via the [facility] deposition operator . - Please contact study team before resolving/deleting from patients problem list. Study phone number: [phone]. Diagnosis changed due to Research Module. Go to Snapshot for study details. Extrinsic asthma without complication 09/28/2017 10/11/2020 Body mass index (BMI) of 40. 0 to 44.9 in adult 06/08/2017 09/28/2017 Overview: Per Obesity protocol #1 Full thickness rotator cuff tear 12/20/2015 09/28/2017 MEDICATION USE AGREEMENT 08/16/2014 03/ Overview: 08/16/2014 - Vicodin Type 2 diabetes [...] as of this encounter (statuses as of 12/08/2023) Immunizations Name Administration Dates Next Due COVID-19 [...] 12/28/2023 3:00 PM EDT Office Visit Ophthalmology, [place] [address] [place] [address] Franck Soriano, [address] [place] [address] 01/04/2024 3:00 PM EDT Office Visit Ophthalmology, [place] [address] [place] [address] Franck Soriano, [address] [place] [address] 01/18/2024 8:45 AM EDT Office Visit Orthopaedics [address] [phone] Rodriguez Jones MD [address] [place] [address] 01/18/2024 10:00 AM EDT Office Visit Ophthalmology, [place] [address] [place] [address] Franck Soriano, [address] [place] [address] 04/18/2024 9:00 AM EDT Office Visit [facility] [address] [place] [address] Tabitha Cunningham MD [address] [place] [address] 06/28/2024 8:30 AM EDT [facility] [address] [place] [phone] Sarbjit Vera MD [address] [place] [address] 09/16/2024 8:20 AM EST Office Visit [facility] [address] [facility] [place] [address] Tabitha Cunningham MD [address] [place] [address] Pending Results Name Type Priority Associated Diagnoses Date /Time XR L SPINE AP AND LATERAL Medical Imaging Routine Spinal stenosis of lumbar region without neurogenic claudication 12/08/2023 1:16 PM EDT Scheduled Procedures Name Priority Associated Diagnoses Date/Ti me COLONOSCOPY FLEXIBLE PROXIMAL DIAGNOSTIC Recall Change in bowel habits Scheduled Referrals Name Type Priority Associated Diagnoses Orde r Schedule ORTHOPAEDICS REFERRAL OP Referral Within 10 days (routine) Chronic pain of both knees Ordered: 12/08/2023 PAIN MEDICINE REFERRAL OP Referral Within 10 days (routine) Spinal stenosis of lumbar region without neurogenic claudication Ordered: 12/08/2023 Health Maintenance Due Date Last Done Comments CKD PHOS USE SMARTSET 67288 1963 Hepatitis B (1 of 3 - [...] Screening 04/10/2024 04/10/2023 CKD HGB USE SMARTSET 07067 08/21/202408/21, 08/21/2023, 01/30/2023, Additional history exists Diabetic [...] D LEVEL ONCE IN A LIFETIME-USE SMARTSET# 20561 Completed 03/30/2017, 09/17/2009 Influenza Vaccine (FLU shot) Completed , 07/01/2021, 08/24/2020, Additional history exists GARDASIL-HPV IMMUNIZATION SERIES Aged Out No longer eligible based on patient's age to complete this topic MENINGOCOCCAL (MENACTRA/MENVEO) Aged Out No longer eligible based on patient's age to complete this topic documented as of this encounter Medical Devices Implanted Type Area Fitness Supervisor Device Identifier Shelf Expiration Date Model / Serial / Lot Dbx 10cc [id number] - [id number] Implanted:Qt y: 1 on 03/15/2010 at OR [facility] Tissue - Human N/A: Spine Lumbar MUSCULOSKELETAL TRANSPLANT FND 12/14/2011 [id number] / [id number] / Chip Cancellous 30cc [id number] - [id number] 055 - [id number] Implanted:Qt y: 1 on 01/09/2023 by Sarbjit Vera MD at OR [facility] Tissue - Human N/A: Spine Lumbar MUSCULOSKELETAL TRANSPLANT FND 10/12/2024 991535 / [id number] 1055 / [id number] Screw 7x50 Poly Si [id number] - [id number] Implanted:Qt y: 2 on 03/15/2010 at OR [facility] N/A: Spine Lumbar JNJ : ETH[employer]ON CARDIOVATIONS [id number] / / Corksrajesh Bio Composite - [id number] Implanted:Qt y: 2 on 01/25/2016 by Ken Will MD at OR [facility] Left: Shoulder [employer] 06/06/2016 [id number] / / [id number] Dbx 2.5cc [id number] - [id number] Implanted:Qt y: 1 on 02/18/2017 by Sarbjit Vera MD at OR [facility] N/A: Spine Lumbar MUSCULOSKELETAL TRANSPLANT FND 09/26/2018 [id number] / / Screw 7x45 Poly Si [id number] - [id number] Implanted:Qt y: 2 on 02/18/2017 by Sarbjit Vera MD at OR [facility] N/A: Spine Lumbar JNJ : ETH[employer]ON CARDIOVATIONS [id number] / / Description:In Set Expedium Ti Sfx 5.5 Lat A5 - [id number] Implanted:Qt y: 1 on 02/18/2017 by Sarbjit Vera MD at OR [facility] N/A: Spine Lumbar JNJ : ETH[employer]ON CARDIOVATIONS [id number] / / Description:In Set Clik [place] - [id number] Implanted:Qt y: 1 on 06/06/2020 by Sarbjit Vera MD at OR [facility] N/A: Spine Thoracic [employer] : PAIN MGMT 04/17/2022 [id number] / / [id number] Description:bilateral Valve Lexie 3 Ultra 23mm - [id number] Implanted:Qt y: 1 on 11/27/2020 at CARDIAC LABS [facility] [employer] [id number] / / Gener Wvewriter Alpha Prime 16 - [id number] Implanted:Qt y: 1 on 02/14/2022 by Sarbjit Vera MD at OR [facility] Left: Back [employer] 01/20/2024 [id number] / / [id number] Description:left lower back Screw 6x40 Poly Si [id number] - [id number] Implanted:Qt y: 1 on 01/09/2023 by Sarbjit Vera MD at OR [facility] N/A: Spine Lumbar JNJ : [employer] [id number] / / Screw Set Sng Inner [id number] - [id number] Implanted:Qt y: 8 on 01/09/2023 by Sarbjit Vera MD at OR [facility] N/A: Spine Lumbar JNJ : ETH[employer]ON C[employer]ATIONS [id number] / / Expedium Ti Sfx 5.5 Lat A5 - [id number] Implanted:Qt y: 1 on 01/09/2023 by Sarbjit Vera MD at OR [facility] N/A: Spine Lumbar JNJ : ETH[employer] C[employer] [id number] / / Screw 6x45 Poly Si [id number] - [id number] Implanted:Qt y: 3 on 01/09/2023 by Sarbjit Vera MD at OR [facility] N/A: Spine Lumbar JNJ : ETH[employer]ON CARDIOVATIONS [id number] / / 100mm [place] Implanted:Qt y: 2 on 01/09/2023 by Sarbjit Vera MD at OR [facility] N/A: Spine Lumbar [employer] 0 / / Graft Infuse Bone Lg [id number] - [id number] Implanted:Qt y: 1 on 01/09/2023 by Sarbjit Vera MD at OR [facility] N/A: Spine Lumbar [employer] : NEURO CARE [id number] 09/06/2024 [id number] / / [id number] documented as of this encounter Visit Diagnoses Diagnosis Spinal stenosis of lumbar region without neurogenic claudication- Primary Spinal stenosis, lumbar region, without neurogenic claudication Chronic pain of both knees documented in this encounter Advance Directives Latest [...] the patient have Health Care Power of Java Jsf Developer? No Code Status History Code Status Date Activated Date Inactivated Comments Full Code 01/09/2023 9:33 AM 01/09/2023 1:45 PM This or sabrina reflects the patients wishes and were consensually agreed upon. Question Answer Comments Discussion of Advance Directives occurred with: Patient Does the patient have a Living Will? No Does the patient have Health Care Power of Java Jsf Developer? No Full Code 02/14/2022 8:41 AM 02/15/2022 [...] the patient have Health Care Power of Java Jsf Developer? No Care Teams Slot Key Person Relationship Specialty Start Date End Date Tabitha Cunningham MD [address] [facility] [address] [place] [address] PCP - General 04/21/1996 documented as of this encounter
--- OUTSIDE RECORDS SUMMARY | 2024-03-22 07:49 | External Medical Summary | Summary of Care ---
Author Name Unknown Organization [facility] Address [address] [place] [address] Phone [phone] Care Team Providers Care Histopathology Technician Name Role Phone Tabitha Brink MD Primary Care Provider [phone] Reason for Visit * Reason Comments eRx-Medication Refill Encounter Details Date Type Department Care Team (Late st Contact Info) Description 11/29/2023 Refill [facility], [place] [address] [facility] [place] [phone] Tabitha Brink MD [address] [facility] [place] [address] Allergies Active Allergy Reactions Criticality Noted Date Comments Adhesive Tape 07/06/1998 rash Lisinopril 04/04/2014 cough Oxycodone-Acetaminophen Other (Please comment) 02/05/2017 "jittery" Nauseated Silver Sulfadiazine Rash 12/07/2002 rash Carisoprodol Other (Please comment) 03/29/2012 Restless, jittery Sulfa Antibiotics 10/15/1998 Tendency towards yeast infections. documented as of this encounter (statuses as of 11/30/2023) Medications Medication Sig Dispensed Refills Start Date End Date Status ASPIRIN EC LOW STRENGTH 81 MG PO TBECIndications:Oth er nonspecific abnormal cardiovascular system function study one by mouth daily 34 5 6 Active Amoxicillin 500 MG Oral Capsule (Amoxil) Take 4 tablets by mouth one hour prior to any dental procedure or cleaning 12 Cap 3 1 Active Loratadine 10 MG Oral Tablet (Claritin)Indicatio ns:Allergic disorder, subsequent encounter One tab each julisa for allergies 30 Tab 5 1 Active Fluticasone Propionate 50 MCG/ACT Nasal Suspension Administer 1 [place] into nostril as needed. 15.8 mL 3 1 Active Tylenol 325 MG Oral Capsule (Acetaminophen) Take 325 mg by mouth every 6 hours. 30 Capsule 0 1 Active traZODone HCl 50 MG Oral Tablet (Desyrel)Indication s:Fatigue, unspecified type TAKE ONE TABLET BY MOUTH NIGHTLY AT BEDTIME 90 Tablet 3 3 Active Metoprolol Succinate ER 25 MG Oral Tablet Extended Release 24 Hour (toPROL XL) TAKE ONE (1) TABLET BY MOUTH EVERY DAY 90 Tablet 3 3 Active Ventolin HFA [...] for mood. 90 Tablet 3 3 Active metFORMIN HCl 500 MG Oral Tablet (Glucophage)Indicat ions:Type 2 diabetes mellitus with hemoglobin A1c goal of 7.0%-8.0% (HCC) TAKE ONE (1) TABLET BY MOUTH EVERY DAY 90 Tablet 1 3 Active Polyethylene Glycol 3350 17 GM/SCOOP [...] EVERY DAY 90 Tablet 1 4 Active Losartan Potassium 100 MG Oral Tablet (Cozaar)Indications :HTN, goal below 140/90 TAKE ONE (1) TABLET BY MOUTH EVERY DAY 90 Tablet 0 4 Active Alendronate Sodium 70 MG Oral Tablet (Fosamax) Take 1 tablet once weekly 30 minutes before breakfast with 8oz of water. Remain upright for 30 minutes after taking medication. 4 Tablet 0 4 Active Alendronate Sodium 70 MG Oral Tablet (Fosamax) Take 1 Tablet by mouth once a week. 0 3 11/30/19 24 Discontinued documented as of this encounter (statuses as of 11/30/2023) Active Problems Problem Noted Date Diagnosed Date [...] pylori infection 11/05/2020 Overview: by EGD at [facility] Other cirrhosis of liver 10/29/2020 Portal hypertension 10/29/2020 Morbid obesity due to excess calories 10/19/2020 Iron deficiency anemia 10/12/2020 S/P insertion of spinal cord stimulator 06/06/20 Overview: at [facility] per [place] Doty HTN, goal below 150/90 [...] as of this encounter (statuses as of 11/30/2023) Resolved Problems Problem Noted Date Diagnosed Date Resolved Date Anemia 11/05/2020 11/15/2020 Chronic back pain 06/07/2020 11/15/2020 Encounter for examination fo r normal comparison and control in clinical research program 09/14/2018 04/09/2020 Overview: DO NOT DELETE [facility] DETECT Study: Project # [id number], Spa Host: Sarbjit Garcia, PhD. SUMMARY: Goal: Establish test [...] contact study staff at ; after hours Spa Host via the [facility] hospital twisting operator . Please contact study team before resolving/deleting from patients problem list. Study phone number: [phone]. Diagnosis changed due to Research Module. Go to Snapshot for study details. Encounter for examination fo r normal comparison and control in clinical research program 09/14/2018 05/08/2022 Overview: [facility] NOT DELETE [facility] [place] [facility] Study: Project # [id number], Spa Host: Mario Rene, MS, MPH. SUMMARY: Goal: Establish [...] contact study staff at ; after hours Spa Host via the [facility] hospital twisting operator . - Please contact study team before resolving/deleting from patients problem list. Study phone number: [phone]. Diagnosis changed due to Research Module. Go [...] as of this encounter (statuses as of 11/30/2023) Immunizations Name Administration Dates Next Due COVID-19 [...] Telephone Encounter - Tabitha Brink MD - 11/30/2023 1:18 PM EDTSigned Prescriptions: Disp Refills Alendronate Sodium 70 MG Oral Tablet (Fosa*4 Tabl*0 Sig: Take 1 tablet once weekly 30 minutes before breakfast with 8oz of water. Remain upright for 30 minutes after taking medication. Authorizing Provider: TABITHA BRINK * Telephone Encounter - Reinier Patton, [facility] - 11/30/2023 1:18 PM EDT Pending Prescriptions: Disp Refills Alendronate Sodium 70 MG Oral Tablet [Phar*4 Tabl*0 Sig: Take 1 tablet once weekly 30 minutes before breakfast with 8oz of water. Remain upright for 30 minutes after taking medication. * Telephone Encounter - Reinier Patton, [facility] - 11/30/2023 1:18 PM EDT Pharmacists cannot authorize refills for meds listed as "historical" in chart. Please approve if appropriate. Thank you, Reinier Patton, PharmD Clinical Pharmacist [facility] [phone] 11/30/2023, 1:18 PM * Telephone Encounter - Reinier Patton, [facility] - 11/30/2023 1:16 PM EDT Did you pend patient's preferred pharmacy and medication before forwarding?yes Pharmacy: [id number] Pending Prescriptions: Disp Refills Alendronate Sodium 70 MG Oral Tablet (Fos*4 Tabl*0 Sig: Take 1 tablet once weekly 30 minutes before breakfast with 8oz of water. Remain upright for 30 minutes after taking medication. Last Visit: 10/21/2023 (in office), Visit date not found (telemedicine) Next Visit: 04/18/2024 If no future appointments scheduled, and last appointment is greater than a year ago, please schedule patient for a follow-up appointment Last date the medication was ordered: historical (11/17) Is this request for a controlled substance?No [...] PM EDT Office Visit Orthopaedics Spine Surgery, [place] [address] [place] [facility] [place] [address] Erica Maldonado PA-C [address] [facility] [address] 12/28/2023 3:00 PM EDT Office Visit Ophthalmology, [place] [address] [place] [address] Renuka Soriano DO [address] [place] [address] 01/04/2024 3:00 PM EDT Office Visit Ophthalmology, [place] [address] [place] [address] Renuka Soriano, [address] [place] [address] 01/18/2024 10:00 AM EDT Office Visit Ophthalmology, [place] [address] [place] [address] Renuka Soriano, [address] [place] [address] 04/18/2024 9:00 AM EDT Office Visit [facility] [place] [address] [facility] [place] [phone] Tabitha Brink MD [address] [facility] [place] [address] 06/28/2024 8:30 AM EDT [facility] [address] [place] [phone] Sarjbit Vera MD [address], [place] [phone] 09/16/2024 8:20 AM EST Office Visit [facility] [place] [address] [facility] [place] [address] Tabitha Brink MD [address] [facility] [place] [address] Scheduled Procedures Name Priority Associated Diagnoses Date/Ti me COLONOSCOPY FLEXIBLE PROXIMAL DIAGNOSTIC Recall Change in bowel habits Health Maintenance Due Date Last Done Comments CKD PHOS USE SMARTSET 12184 1963 Hepatitis B (1 of 3 - [...] Screening 04/10/2024 04/10/2023 CKD HGB USE SMARTSET 81408 08/21/202408/21, 08/21/2023, 01/30/2023, Additional history exists Diabetic [...] D LEVEL ONCE IN A LIFETIME-USE SMARTSET# 49679 Completed 03/30/2017, 09/17/2009 Influenza Vaccine (FLU shot) Completed , 07/01/2021, 08/24/2020, Additional history exists GARDASIL-HPV IMMUNIZATION SERIES Aged Out No longer eligible based on patient's age to complete this topic MENINGOCOCCAL (MENACTRA/MENVEO) Aged Out No longer eligible based on patient's age to complete this topic documented as of this encounter Medical Devices Implanted Type Area Business Consultant Device Identifier Shelf Expiration Date Model / Serial / Lot Dbx 10cc [id number] - [id number] Implanted:Qt y: 1 on 03/15/2010 at [place] [facility] Tissue - Human N/A: Spine Lumbar MUSCULOSKELETAL TRANSPLANT FND 12/14/2011 [id number] / [id number] / Chip Cancellous 30cc [id number] - [id number] - [id number] Implanted:Qt y: 1 on 01/09/2023 by Sarbjit Vera MD at OR [facility] Tissue - Human N/A: Spine Lumbar MUSCULOSKELETAL TRANSPLANT FND 10/12/2024 [id number] / [id number] 1055 / [id number] Screw 7x50 Poly Si [id number] - [id number] Implanted:Qt y: 2 on 03/15/2010 at OR [facility] N/A: Spine Lumbar JNJ : ETH[employer]ON [employer] [id number] / / Corkscrew Bio Composite - [id number] Implanted:Qt y: 2 on 01/25/2016 by Ken Will MD at [facility] Left: Shoulder [employer] 06/06/2016 [id number] / / [id number] Dbx 2.5cc [id number] - [id number] Implanted:Qt y: 1 on 02/18/2017 by Sarbjit Vera MD at OR [facility] N/A: Spine Lumbar MUSCULOSKELETAL TRANSPLANT FND 09/26/2018 [id number] / / Screw 7x45 Poly Si [id number] - [id number] Implanted:Qt y: 2 on 02/18/2017 by Sarbjit Vera MD at OR [facility] N/A: Spine Lumbar JNJ : ETH[employer]ON [employer] [id number] / / Description:In Set Expedium Ti Sfx 5.5 Lat A5 - [id number] Implanted:Qt y: 1 on 02/18/2017 by Sarbjit Vera MD at OR [facility] N/A: Spine Lumbar JNJ : ETH[employer]ON [employer]ATIONS [id number] / / Description:In Set Clik Tillman - [id number] Implanted:Qt y: 1 on 06/06/2020 by Sarbjit Vera MD at OR [facility] N/A: Spine Thoracic [employer] : PAIN MGMT 04/17/2022 [id number] / / [id number] Description:bilateral Valve Lexie 3 Ultra 23mm - [id number] Implanted:Qt y: 1 on 11/27/2020 at [facility]ARDIAC LABS [facility] [employer] [id number] / / Gener Wvewriter Alpha Prime 16 - [id number] Implanted:Qt y: 1 on 02/14/2022 by Sarbjit Vera MD at OR [facility] Left: Back ChartCube 01/20/2024 [id number] / / [id number] Description:left lower back Screw 6x40 Poly Si [id number] - [id number] Implanted:Qt y: 1 on 01/09/2023 by Sarbjit Vera MD at OR [facility] N/A: Spine Lumbar JNJ : [employer] [id number] / / Screw Set Sng Inner [id number] - [id number] Implanted:Qt y: 8 on 01/09/2023 by Srabjit Vera MD at OR [facility] N/A: Spine Lumbar JNJ : [employer] [id number] / / Expedium Ti Sfx 5.5 Lat A5 - [id number] Implanted:Qt y: 1 on 01/09/2023 by Sarbjit Vera MD at OR [facility] N/A: Spine Lumbar JNJ : [employer] [id number] / / Screw 6x45 Poly Si [id number] - [id number] Implanted:Qt y: 3 on 01/09/2023 by Sarbjit Vera MD at OR [facility] N/A: Spine Lumbar JNJ : [employer] [id number] / / 100mm [place] Implanted:Qt y: 2 on 01/09/2023 by Sarbjit Vera MD at OR [facility] N/A: Spine Lumbar [employer] 0 / / Graft Infuse Bone Lg [id number] - [id number] Implanted:Qt y: 1 on 01/09/2023 by Sarbjit Vera MD at OR [facility] N/A: Spine Lumbar [employer] : NEURO CARE [id number] 09/06/2024 [id number] / / [id number] documented as of this encounter Advance Directives [...] the patient have Health Care Power of Soft Tile Setter? No Code Status History Code Status Date Activated Date Inactivated Comments Full Code 01/09/2023 9:33 AM 01/09/2023 1:45 PM This or sabrina reflects the patients wishes and were consensually agreed upon. Question Answer Comments Discussion of Advance Directives occurred with: Patient Does the patient have a Living Will? No Does the patient have Health Care Power of Soft Tile Setter? No Full Code 02/14/2022 8:41 AM 02/15/2022 [...] the patient have Health Care Power of Soft Tile Setter? No Care Teams Histopathology Technician Relationship Specialty Start Date End Date Tabitha Brink MD [address] [facility] [place] [address] PCP - General 04/21/1996 documented as of this encounter
--- OUTSIDE RECORDS SUMMARY | 2024-03-22 07:49 | External Medical Summary | Summary of Care ---
Author Name Unknown Organization [facility] Address [address] [place] [address] Phone [phone] Care Team Providers Care Type Disk Quality Control Supervisor Name Role Phone Tabitha Cunningham MD Primary Care Provider [phone] Encounter Details Date Type Department Care Team (Latest Contact Info) Description 12/08/2023 1:09 PM EDT - 12/08/2023 11:59 PM EDT Hospital Encounter Radiology, [place] [address] [place] [address] Arrived Discharge Disposition: Home - Self Care Allergies Active Allergy Reactions Criticality Noted Date Comments Adhesive Tape 07/06/1998 rash Lisinopril 04/04/2014 cough Oxycodone-Acetaminophen Other (Please comment) 02/05/2017 "jittery" Nauseated Silver Sulfadiazine Rash 12/07/2002 rash Carisoprodol Other (Please comment) 03/29/2012 Restless, jittery Sulfa Antibiotics 10/15/1998 Tendency towards yeast infections. documented as of this encounter (statuses as of 12/09/2023) Medications Medication Sig Dispensed Refills Start Date [...] Propionate 50 MCG/ACT Nasal Suspension Administer 1 [place] into nostril as needed. 15.8 mL 3 [...] as of this encounter (statuses as of 12/09/2023) Active Problems Problem Noted Date Diagnosed Date [...] infection 11/05/2020 Overview: by EGD at [facility] Other cirrhosis of liver 10/29/2020 Portal hypertension 10/29/2020 Morbid obesity due to excess calories 10/19/2020 Iron deficiency anemia 10/12/2020 S/P insertion of spinal cord stimulator 06/06/20 20 Overview: at [facility] per [place] Doty HTN, goal below 150/90 [...] as of this encounter (statuses as of 12/09/2023) Resolved Problems Problem Noted Date Diagnosed Date Resolved Date Anemia 11/05/2020 11/15/2020 Chronic back pain 06/07/2020 11/15/2020 Encounter for examination fo r normal comparison and control in clinical research program 09/14/2018 04/09/2020 Overview: DO NOT DELETE [facility] DETECT Study: Project # [id number], Adobe Flex Developer: Sarbjit Garcia, PhD. SUMMARY: Goal: Establish test [...] contact study staff at ; after hours Adobe Flex Developer via the [facility] wrapper operator . Please contact study team before resolving/deleting from patients problem list. Study phone number: [phone]. Diagnosis changed due to Research Module. Go to Snapshot for study details. Encounter for examination fo r normal comparison and control in clinical research program 09/14/2018 05/08/2022 Overview: DO NOT DELETE - [facility] DETECT Study: Project # [id number], Adobe Flex Developer: Mario Rene, MS, MPH. SUMMARY: Goal: Establish [...] contact study staff at ; after hours Adobe Flex Developer via the [facility] hospital wrapper operator . - Please contact study team before resolving/deleting from patients problem list. Study phone number: [phone]. Diagnosis changed due to Research Module. Go [...] as of this encounter (statuses as of 12/09/2023) Immunizations Name Administration Dates Next Due COVID-19 [...] Description 12/28/2023 3:00 PM EDT Office Visit OphthalmologyYamileth [address] [place] [address] Franck Soriano, [place] [address] 01/04/2024 3:00 PM EDT Office Visit OphthalmologyYamileth [address] [place] [address] Franck Soriano DO [place] [address] 01/18/2024 8:45 AM EDT Office Visit Orthopaedics Taylor Tirado [address] [place] [phone] Rodriguez Jones MD [address] [place] [address] 01/18/2024 10:00 AM EDT Office Visit Ophthalmology, [place] [address] [place] [address] Franck Soriano DO [address] [place] [address] 04/18/2024 9:00 AM EDT Office Visit [facility] [address] [place] [address] Tabitha Cunningham MD [address] [place] [address] 06/28/2024 8:30 AM EDT [facility] [address] [place] [phone] Sarbjit Vera MD [facility] [place] [address] 09/16/2024 8:20 AM EST Office Visit [facility] [address] [place] [address] Tabitha Cunningham MD [address] [place] [address] Pending Results Name Type Priority Associated Diagnoses Date /Time XR L SPINE AP AND LATERAL Medical Imaging Routine Spinal stenosis of lumbar region without neurogenic claudication 12/08/2023 1:16 PM EDT Scheduled Procedures Name Priority Associated Diagnoses Date/Ti me COLONOSCOPY FLEXIBLE PROXIMAL DIAGNOSTIC Recall Change in bowel habits Health Maintenance Due Date Last Done Comments CKD PHOS USE SMARTSET 47578 1963 Hepatitis B (1 of 3 - [...] Screening 04/10/2024 04/10/2023 CKD HGB USE SMARTSET 41183 08/21/202408/21, 08/21/2023, 01/30/2023, Additional history exists Diabetic [...] D LEVEL ONCE IN A LIFETIME-USE SMARTSET# 77853 Completed 03/30/2017, 09/17/2009 Influenza Vaccine (FLU shot) Completed , 07/01/2021, 08/24/2020, Additional history exists GARDASIL-HPV IMMUNIZATION SERIES Aged Out No longer eligible based on patient's age to complete this topic MENINGOCOCCAL (MENACTRA/MENVEO) Aged Out No longer eligible based on patient's age to complete this topic documented as of this encounter Medical Devices Implanted Type Area Market Risk Analyst Device Identifier Shelf Expiration Date Model / Serial / Lot Dbx 10cc [id number] - [id number] Implanted:Qt y: 1 on 03/15/2010 at [place] [facility] Tissue - Human N/A: Spine Lumbar MUSCULOSKELETAL TRANSPLANT FND 12/14/2011 [id number] / [id number] / Chip Cancellous 30cc [id number] - [id number] - [id number] Implanted:Qt y: 1 on 01/09/2023 by Sarbjit Vera MD at OR [facility] Tissue - Human N/A: Spine Lumbar MUSCULOSKELETAL TRANSPLANT FND 10/12/2024 [id number] / [id number] 1055 / [id number] Screw 7x50 Poly Si [id number] - [id number] Implanted:Qt y: 2 on 03/15/2010 at OR [facility] N/A: Spine Lumbar JNJ : ETH[employer]ON [employer]ATIONS [id number] / / Corkscrew Bio Composite - [id number] Implanted:Qt y: 2 on 01/25/2016 by Ken Will MD at OR [facility] Left: Shoulder [employer] 06/06/2016 [id number] / / [id number] Dbx 2.5cc [id number] - [id number] Implanted:Qt y: 1 on 02/18/2017 by Sarbjit Vera MD at [place] [facility] N/A: Spine Lumbar MUSCULOSKELETAL TRANSPLANT FND 09/26/2018 [id number] / / Screw 7x45 Poly Si [id number] - [id number] Implanted:Qt y: 2 on 02/18/2017 by Sarbjit Vera MD at OR [facility] N/A: Spine Lumbar JNJ : ETH[employer]ON [employer] [id number] / / Description:In Set Expedium Ti Sfx 5.5 Lat A5 - [id number] Implanted:Qt y: 1 on 02/18/2017 by Sarbjit Vera MD at [place] [facility] N/A: Spine Lumbar JNJ : ETH[employer]ON C[employer]ATIONS [id number] / / Description:In Set Clik Volant - [id number] Implanted:Qt y: 1 on 06/06/2020 by Sarbjit Vera MD at OR [facility] N/A: Spine Thoracic [employer] : PAIN MGMT 04/17/2022 [id number] / / [id number] Description:bilateral Valve Lexie 3 Ultra 23mm - [id number] Implanted:Qt y: 1 on 11/27/2020 at CARDIAC LABS [facility] [employer] [id number] / / Clarice Wvewriter Alpha Prime 16 - [id number] Implanted:Qt y: 1 on 02/14/2022 by Sarbjit Vera MD at OR [facility] Left: Back Xinguodu 01/20/2024 [id number] / / [id number] Description:left lower back Screw 6x40 Poly Si [id number] - [id number] Implanted:Qt y: 1 on 01/09/2023 by Sarbjit Vera MD at OR [facility] N/A: Spine Lumbar JNJ : ETH[employer] [id number] / / Screw Set Sng Inner [id number] - [id number] Implanted:Qt y: 8 on 01/09/2023 by Sarbjit Vera MD at OR [facility] N/A: Spine Lumbar JNJ : ETH[employer]ON C[employer] [id number] / / Expedium Ti Sfx 5.5 Lat A5 - [id number] Implanted:Qt y: 1 on 01/09/2023 by Sarbjit Vera MD at OR [facility] N/A: Spine Lumbar JNJ : ETH[employer]ON [employer] [id number] / / Screw 6x45 Poly Si [id number] - [id number] Implanted:Qt y: 3 on 01/09/2023 by Sarbjit Vera MD at OR [facility] N/A: Spine Lumbar JNJ : ETH[employer] [id number] / / 100mm [place] Implanted:Qt y: 2 on 01/09/2023 by Sarbjit Vera MD at OR [facility] N/A: Spine Lumbar [employer] 0 / / Graft Infuse Bone Lg [id number] - [id number] Implanted:Qt y: 1 on 01/09/2023 by Sarbjit Vera MD at OR [facility] N/A: Spine Lumbar [employer] : NEURO CARE [id number] 09/06/2024 [id number] / / [id number] documented as of this encounter Advance Directives [...] the patient have Health Care Power of Brush Cleaner? No Code Status History Code Status Date Activated Date Inactivated Comments Full Code 01/09/2023 9:33 AM 01/09/2023 1:45 PM This or sabrina reflects the patients wishes and were consensually agreed upon. Question Answer Comments Discussion of Advance Directives occurred with: Patient Does the patient have a Living Will? No Does the patient have Health Care Power of Brush Cleaner? No Full Code 02/14/2022 8:41 AM 02/15/2022 [...] the patient have Health Care Power of Brush Cleaner? No Care Teams Type Disk Quality Control Supervisor Relationship Specialty Start Date End Date Tabitha Cunningham MD [address] [facility] [place] [address] PCP - General 04/21/1996 documented as of this encounter
--- OUTSIDE RECORDS SUMMARY | 2024-03-22 07:50 | External Medical Summary | Summary of Care ---
Author Name Unknown Organization [facility] Address [address] [facility] [place] [address] Phone [phone] Care Team Providers Care Hydraulic Hammer Operator Name Role Phone Tabitha Cunningham MD Primary Care Provider [phone] Reason for Visit * Reason Comments Earache Complaining of R/ear ache Lump Lump R/side of neck x 1 1/2 weeks Encounter Details Date Type Department Care Team (Late st Contact Info) Description 10/21/2023 1:00 PM EST Office Visit [facility], [place] [address] [place] [address] Kleber Gomez [facility] [id number] Type 2 diabetes mellitus with hemoglobin A1c goal of less than 8.0% ([facility])*; Right otitis media, unspecified otitis media type; Acute otitis externa of right ear, unspecified type Allergies Active Allergy Reactions Criticality Noted Date Comments Adhesive Tape 07/06/1998 rash Lisinopril 04/04/2014 cough Oxycodone-Acetaminophen Other (Please comment) 02/05/2017 "jittery" Nauseated Silver Sulfadiazine Rash 12/07/2002 rash Carisoprodol Other (Please comment) 03/29/2012 Restless, jittery Sulfa Antibiotics 10/15/1998 Tendency towards yeast infections. documented as of this encounter (statuses as of 10/21/2023) Medications Medication Sig Dispensed Refills Start Date End Date Status ASPIRIN EC LOW STRENGTH 81 MG PO TBECIndications:Othe r nonspecific abnormal cardiovascular system function study one by mouth daily 34 5 09/12/2005 Active Amoxicillin 500 MG Oral Capsule (Amoxil) Take 4 tablets by mouth one hour prior to any dental procedure or cleaning 12 Cap 3 12/04/2020 Active Loratadine 10 MG Oral Tablet (Claritin)Indication s:Allergic disorder, subsequent encounter One tab each julisa for allergies 30 Tab 5 12/10/2020 Active Fluticasone Propionate 50 MCG/ACT Nasal Suspension Administer 1 Ball into nostril as needed. 15.8 mL 3 01/22/2021 Active Tylenol 325 MG Oral Capsule (Acetaminophen) Take 325 mg by mouth every 6 hours. 30 Capsule 0 07/25/2021 Active traZODone HCl 50 MG Oral Tablet (Desyrel)Indications :Fatigue, unspecified type TAKE ONE TABLET BY MOUTH NIGHTLY AT BEDTIME 90 Tablet 3 10/20/2022 Active Metoprolol Succinate ER 25 MG Oral Tablet Extended Release 24 Hour (toPROL XL) TAKE ONE (1) TABLET BY MOUTH EVERY DAY 90 Tablet 3 11/21/2022 Active Ventolin HFA 108 (90 Base) MCG/ACT Inhalation Aerosol SolutionIndications: Mild intermittent extrinsic asthma without complication Inhale 2 Puffs by mouth 4 times a day as needed for Cough or Shortness of Breath. 18 g 3 12/24/2022 Active Citalopram Hydrobromide 20 MG Oral Tablet (CeleXA)Indications: Adjustment disorder with depressed mood TAKE 1 TABLET BY MOUTH DAILY in the morning for mood. 90 Tablet 3 03/02/2023 Active Alendronate Sodium 70 MG Oral Tablet (Fosamax) Take 1 Tablet by mouth once a week. 0 05/04/2023 Active metFORMIN HCl 500 MG Oral Tablet (Glucophage)Indicati ons:Type 2 diabetes mellitus with hemoglobin A1c goal of 7.0%-8.0% (HCC) TAKE ONE (1) TABLET BY MOUTH EVERY DAY 90 Tablet 1 06/23/2023 Active Polyethylene Glycol 3350 17 GM/SCOOP Oral Powder (MiraLax) Take 17 g by mouth in the morning. 0 Active Losartan Potassium 100 MG Oral Tablet (Cozaar)Indications: HTN, goal below 140/90 TAKE ONE (1) TABLET BY MOUTH EVERY DAY 90 Tablet 0 08/03/2023 Active hydroCHLOROthiazide 25 MG Oral Tablet (Hydrodiuril)Indicat ions:HTN, goal below 140/90 TAKE ONE TABLET BY MOUTH EVERY MORNING for fluid and blood pressure 90 Tablet 3 09/09/2023 Active Atorvastatin Calcium 20 MG Oral Tablet (Lipitor)Indications :Mixed hyperlipidemia TAKE ONE (1) TABLET BY MOUTH EVERY DAY 90 Tablet 1 09/28/2023 Active Cipro HC 0.2-1 % Otic Suspension (Ciprofloxacin-[place] cortisone)Indication s:Right otitis media, unspecified otitis media type,Acute otitis externa of right ear, unspecified type Administer 3 Drops to the right ear in the morning and 3 Drops before bedtime. Do all this for 7 days. 3 mL 0 10/21/2023 10/28/2023 Active documented as of this encounter (statuses as of 10/21/2023) Active Problems Problem Noted Date Diagnosed Date [...] pylori infection 11/05/2020 Overview: by EGD at [facility] Other cirrhosis of liver 10/29/2020 Portal hypertension 10/29/2020 Morbid obesity due to excess calories 10/19/2020 Iron deficiency anemia 10/12/2020 S/P insertion of spinal cord stimulator 06/06/20 20 Overview: at [facility] per Dr Doty HTN, goal below 150/90 [...] as of this encounter (statuses as of 10/21/2023) Resolved Problems Problem Noted Date Diagnosed Date Resolved Date Anemia 11/05/2020 11/15/2020 Chronic back pain 06/07/2020 11/15/2020 Encounter for examination fo r normal comparison and control in clinical research program 09/14/2018 04/09/2020 Overview: DO NOT DELETE [facility] DETECT Study: Project # [id number], Assessment Services Manager: Sarbjit Garcia, PhD. SUMMARY: Goal: Establish test [...] contact study staff at ; after hours Assessment Services Manager via the [facility] pig furnace operator . Please contact study team before resolving/deleting from patients problem list. Study phone number: [phone]. Diagnosis changed due to Research Module. Go to Snapshot for study details. Encounter for examination fo r normal comparison and control in clinical research program 09/14/2018 05/08/2022 Overview: DO NOT DELETE - [facility] Study: Project # [id number], Assessment Services Manager: Mario Rene, MS, MPH. SUMMARY: Goal: Establish [...] contact study staff at ; after hours Assessment Services Manager via the [facility] hospital pig furnace operator . - Please contact study team before resolving/deleting from patients problem list. Study phone number: [phone]. Diagnosis changed due to Research Module. Go [...] as of this encounter (statuses as of 10/21/2023) Immunizations Name Administration Dates Next Due COVID-19 [...] Never Smokeless Tobacco: Never Tobacco Cessation:Counseling Given: Not Answered Alcohol Use Standard Drinks/Week Comments No 0 (1 standard drink = 0.6 oz pur e alcohol) PHQ-2 Answer Date Recorded PHQ Adult Total Score 2 04/10/2023 Hunger Vital Sign Answer Date Recorded Within the past 12 months, y ou worried that your food would run out before you got the money to buy more. Never true 08/15/20 22 Within the past 12 months, t he food you bought just didn't last and you didn't have money to get more. Never true 08/15/2022 Sex and Gender Information Value Date Recorded Sex Assigned at Female 10/18/2019 10:37 AM EST Gender Identity Female 10/18/2019 10:37 AM EST Sexual Orientation Straight 10/18/2019 10 :37 AM EST Job Start Date Occupation Industry Not on file Not on file Not on file documented as of this encounter Last Filed Vital Signs Vital Sign Reading Time Taken Comments Blood Pressure 118/76 10/21/2023 12:51 PM EST Pulse 67 10/21/2023 12:51 PM EST Temperature 36.4 C (97.6 F) 10/21/2023 12:[address] Respiratory Rate 16 10/21/2023 12:51 PM EST Oxygen Saturation 98% 10/21/2023 12:51 PM EST Inhaled Oxygen Concentration - - Weight 89.6 kg (197 lb 8 oz) 10/21/2023 12:51 PM EST Height 160 cm (5' 3") 10/21/2023 12:51 PM EST Body Mass Index 34.99 10/21/2023 12:51 PM EST documented in this encounter Functional Status Functional [...] No 01/09/2023 documented as of this encounter Patient Instructions * Patient Instructions* Magalis Gleason, MED ASSIST - 10/21/2023 12:56 PM EST Diabetes: Keeping Feet Healthy Inspect your feet every day for signs of a problem. Diabetes can damage nerves in your feet and cause neuropathy. This condition makes it hard for you to feel injuries or sore spots. Diabetes can also change blood flow, making it harder for small problems, like a blister, to heal properly. In fact, minor injuries can quickly become serious infections that send you to the hospital. Practice self-care to protect your feet and keep them healthy. Take Special Care Inspect your feet daily for problems such as redness, blisters, cracks, dry skin, or numbness. Use a mirror to see the bottoms of your feet. Or, ask for help. Manage your diabetes. Monitor and control your blood sugar. Take all your medications as prescribed. Avoid walking barefoot, even indoors. Wash your feet with warm water and mild soap. Dry well, especially between toes. Dont treat corns or calluses yourself. Talk to your doctor or protohistorian (a doctor who specializes in foot care) if you need assistance trimming your toenails. Use moisturizing cream or lotion if you have dry skin, but dont use it between toes. Dont use heating pads on your feet. If you have neuropathy, you could get a burn and not feel it. Stop smoking. Smoking restricts blood flow and can make it harder for wounds to heal. Have Regular Checkups Foot problems can develop quickly. So be sure to follow your healthcare teams schedule for regular checkups. During office visits, take off your shoes and socks as soon as you get in the exam room. Ask your healthcare provider to examine your feet for problems. This will make it easier to find and treat small skin irritations before they get worse. Regular checkups can also help keep track of the blood flow and feeling in your feet. If you have neuropathy, you may need to have checkups more often. Wear Proper Footwear Wearing proper footwear is very important. If areas of your feet have been damaged by too much pressure, your healthcare provider may recommend changing your footwear. In some cases, avoiding high heels or tight work boots may be all thats needed. Or, your healthcare provider may recommend special shoes or custom inserts. These help protect your feet and keep existing irritations from getting worse. If you need special footwear, ask your healthcare provider if you qualify for [employer] diabetic shoe program. Make Sure Shoes and Socks Fit Any pair of shoes--new or old--should feel comfortable as soon as you put them on. There shouldnt be any rubbing when you walk. Wear the right shoe for any activity. For instance, a running shoe is designed to keep your feet injury-free while jogging. Buy shoes at the end of the day, when your feet are larger. Make sure they provide support without feeling too loose. Make sure your socks fit, t oo. Wear soft, seamless, well-padded socks for activity. Cotton or microfiber socks are best to help to absorb sweat. To protect your feet, avoid shoes that are open-toed or open-heeled. If you have questions about what kinds of shoes and socks are best, talk to your healthcare team. Get Regular Exercise Regular exercise improves blood flow in your feet. It also increases foot strength and flexibility.Gentle exercises, like walking or riding a stationary bicycle, are best. You can also do special foot exercises. Just be sure to talk with your healthcare provider before starting any exercise program. Also mention if any exercise causes pain, redness, or other signs of foot problems. Note: If you have any kind of break in the skin of your foot or ankle, keep the area clean. Then call your doctor--especially if the area doesnt appear to be healing. [id number] [employer], [address] [place] [address], [place] [address]. All rights reserved. This information is not intended as a substitute for professional medical care. Always follow your healthcare professional's instructions. documented in this encounter Progress Notes * Kleber Gomez DO - 10/21/2023 1:00 PM EST Subjective Hannah Gorves is a 78 year old female. Chief Complaint Patient presents with Earache Complaining of R/earache Lump Lump R/side of neck x 1 1/2 weeks HPI: -Right ear pain -Onset:1 week ago -Change in hearing:yes, decreased in right ear -Recent illness:COVID-19 in August -Pharyngitis:yes -Tinnitus:No -Fevers:Yes -Feels a lump on the right side of her neck PMH: Patient Active Problem List Diagnosis Code GERD (gastroesophageal reflux disease) K21.9 ADVANCE DIRECTIVE INFORMATION Menopause Z78.0 GENERAL OSTEOARTHROSIS M15.9 SENSORNEUR HEAR LOSS NOS H90.5 Allergic rhinitis J30.9 POSTLAMINECT SYND-LUMBAR M96.1 Other osteoporosis without current pathological fracture M81.8 Osteoarthritis of knee M17.9 Spinal stenosis of lumbar region without neurogenic claudication M48.061 Hyperlipemia E78.5 Type 2 diabetes mellitus with hemoglobin A1c goal of less than 8.0% (HCC) E11.9 ACEI/ARB contraindicated EG3824 Adjustment disorder with depressed mood F43.21 Lumbar spine pain M54.50 Obesity, Class II, BMI 35-39.9, isolated (see actual BMI) E66.9 Asthma in remission J45.998 Sleep apnea in adult G47.30 HTN, goal below 150/90 I10 S/P insertion of spinal cord stimulator Z96.89 Iron deficiency anemia D50.9 Morbid obesity due to excess calories (HCC) E66.01 Other cirrhosis of liver (HCC) K74.69 Portal hypertension (HCC) K76.6 H. 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 15.8 mL 3 [...] the morning for mood. 90 Tablet 3 Alendronate Sodium 70 MG Oral Tablet (Fosamax) Take 1 Tablet by mouth once a week. metFORMIN HCl 500 MG Oral Tablet (Glucophage) TAKE ONE (1) TABLET BY MOUTH EVERY DAY 90 Tablet 1 Polyethylene Glycol 3350 17 GM/SCOOP Oral Powder (MiraLax) Take 17 g by mouth in the morning. Losartan Potassium 100 MG Oral Tablet (Cozaar) TAKE ONE (1) TABLET BY MOUTH EVERY DAY 90 Tablet 0 hydroCHLOROthiazide 25 MG Oral Tablet (Hydrodiuril) TAKE ONE TABLET BY MOUTH EVERY MORNING for fluid and blood pressure 90 Tablet 3 Atorvastatin Calcium 20 MG Oral Tablet (Lipitor) TAKE ONE (1) TABLET BY MOUTH EVERY DAY 90 Tablet 1 Cipro HC 0.2-1 % Otic Suspension (Ciprofloxacin-Hydrocortisone) Administer 3 Drops to the right earin the morning and 3 Drops before bedtime. Do all this for 7 days. 3 mL 0 Amoxicillin 500 MG Oral Capsule (Amoxil) Take 4 tablets by mouth one hour prior to any dental procedure or cleaning 12 Cap 03 No current facility-administered medications for this visit. Review of patient's allergies indicates: Allergen Reactions Adhesive Tape rash Lisinopril cough Percocet [Oxycodone-Acetaminophen] Other (Please comment) "jittery" Nauseated Silver Sulfadiazine Rash rash Soma [Carisoprodol] Other (Please comment) Restless, jittery Sulfa Antibiotics Tendency towards yeast infections. Objective BP 118/76 (BP Site: Left Arm, BP Position: Sitting, BP Cuff Size: Regular) | Pulse 67 | Temp 36.4 C (97.6 F) (Tympanic) | Resp 16 | Ht 1.6 m (5' 3") | Wt 89.6 kg (197 lb 8 oz) | SpO2 98% | BMI 34.99 kg/m | BSA 2 m Physical Exam Vitals and nursing note reviewed. HENT: Head: Normocephalic and atraumatic. Right Ear: There is no impacted cerumen. Left Ear: Tympanic membrane, ear canal and external ear normal. There is no impacted cerumen. Ears: Comments: Right Ear: Canal swelling and tenderness, erythematous TM Nose: Rhinorrhea present. No congestion. Mouth/Throat: Mouth: Mucous membranes are moist. Pharynx: No oropharyngeal exudate. Eyes: Conjunctiva/sclera: Conjunctivae normal. Cardiovascular: Rate and Rhythm: Normal rate and regular rhythm. Pulses: Normal pulses. Heart sounds: Normal heart sounds. Pulmonary: Effort: Pulmonary effort is normal. Breath sounds: Normal breath sounds. Abdominal: General: Abdomen is flat. Bowel sounds are normal. Palpations: Abdomen is soft. Tenderness: There is no abdominal tenderness. Musculoskeletal: Cervical back: No tenderness. Lymphadenopathy: Cervical: No cervical adenopathy. Psychiatric: Mood and Affect: Mood normal. Behavior: Behavior normal. ASSESSMENT/PLAN: Type 2 diabetes mellitus with hemoglobin A1c goal of less than 8.0% ([facility]) (Primary) - DIABETES FOOT EXAM Right otitis media, unspecified otitis media type - Cipro HC 0.2-1 % Otic Suspension (Ciprofloxacin-Hydrocortisone); Administer 3 Drops to the right ear in the morning and 3 Drops before bedtime. Do all this for 7 days. Acute otitis externa of right ear, unspecified type - Cipro HC 0.2-1 % Otic Suspension (Ciprofloxacin-Hydrocortisone); Administer 3 Drops to the right ear in the morning and 3 Drops before bedtime. Do all this for 7 days. -Patient with swollen and tender right ear canal -Erythematous right TM -Antibiotic otic drops sent; allergy list reviewed -Patient has to count 3 drops -Instructed patient to warm bottle under warm water Kleber Sink, DO I have discussed the patient's management with the medical trainee and agree with the note. Please refer to the documented findings and plan of care. This patient's visit today consisted of an evaluation [facility]. I have reviewed the medical history, physical examination, diagnosis, andplan. Tabitha Cunningham MD * Magalis Gleason MED ASSIST - 10/21/2023 12:56 PM EST DM Foot Exam completed today. Provider aware. ISABELLA Dunne Socks and Shoes Removed for Annual Diabetic Foot Screening RIGHT FOOT: No Reddened, Cracking, Or Open Areas Noted. RIGHT Dorsalis Pedis Pulse: Palpable RIGHT Posterior Tibial Pulse: Palpable RIGHT Monofilament:Patient reports feeling monofilament pressure on plantar surface of foot LEFT FOOT: No Reddened, Cracking or Open Areas Noted. LEFT Dorsalis Pedis Pulse: Palpable LEFT Posterior Tibial Pulse: Palpable LEFT Monofilament:Patient reports feeling monofilament pressure on plantar surface of foot Do you need diabetic shoes: No documented in this encounter Nursing Notes * Magalis Gleason MED ASSIST - 10/21/2023 12:54 PM EST Chief Complaint Patient presents with Earache Complaining of R/earache Lump Lump R/side of neck x 1 1/2 weeks documented in this encounter Plan of Treatment Upcoming Encounters Date Type Department Care Team (Late st Contact Info) Description 10/26/2023 1:30 PM EST Office Visit Ophthalmology, [place] [address] [address] Franck Soriano DO [address] [address] 11/09/2023 10:00 AM EST Office Visit Cardiology [address], [place] [address] [place] [address] Bernarda De Los Santos CRNP [address] [place] [id number] 11/11/2023 9:30 AM EST [facility] [place] [facility] [place] [address] [place] [address] Boyd Luu PA-C [address] [place] [address] 11/25/2023 3:00 PM EDT Office Visit [facility] [address] [facility] [place] [address] Jessica Zavaleta MD [address] [facility] [place] [address] 04/18/2024 9:00 AM EDT Office Visit [facility] [address] [facility] [place] [address] Tabitha Cunningham MD [address] [facility] [place] [address] 06/28/2024 8:30 AM EDT Office Visit Orthopaedics Spine Surgery, [place] [address] [place] [facility] [id number] Sarbjit Vera MD [address] [place] [address] 09/16/2024 8:20 AM EST Office Visit [facility] [place] [address] [facility] [place] [address] Tabitha Cunningham MD [address] [facility] [address] [facility] [address] [place] [address] Scheduled Procedures Name Priority Associated Diagnoses Date/Ti me COLONOSCOPY FLEXIBLE PROXIMAL DIAGNOSTIC Recall Change in bowel habits Health Maintenance Due Date Last Done Comments CKD PHOS USE SMARTSET 68038 1963 Hepatitis B (1 of 3 - [...] Screening 04/10/2024 04/10/2023 CKD HGB USE SMARTSET 78651 08/21/202408/21, 08/21/2023, 01/30/2023, Additional history exists Diabetic [...] D LEVEL ONCE IN A LIFETIME-USE SMARTSET# 42310 Completed 03/30/2017, 09/17/2009 Influenza Vaccine (FLU shot) Completed , 07/01/2021, 08/24/2020, Additional history exists GARDASIL-HPV IMMUNIZATION SERIES Aged Out No longer eligible based on patient's age to complete this topic MENINGOCOCCAL (MENACTRA/MENVEO) Aged Out No longer eligible based on patient's age to complete this topic documented as of this encounter Medical Devices Implanted Type Area Attendant Honor Bar Device Identifier Shelf Expiration Date Model / Serial / Lot Dbx 10cc [id number] - [id number] Implanted:Qt y: 1 on 03/15/2010 at OR [facility] Tissue - Human N/A: Spine Lumbar [employer]OSKELETAL TRANSPLANT FND 12/14/2011 [id number] / [id number] / Chip Cancellous 30cc [id number] - [id number] - [id number] Implanted:Qt y: 1 on 01/09/2023 by Sarbjit Vera MD at OR [facility] Tissue - Human N/A: Spine Lumbar MUSCULOSKELETAL TRANSPLANT FND 10/12/2024 [id number] / [id number] / [id number] Screw 7x50 Poly Si [id number] - [id number] Implanted:Qt y: 2 on 03/15/2010 at OR [facility] N/A: Spine Lumbar [place] : [employer] [id number] / / [employer] - [id number] Implanted:Qt y: 2 on 01/25/2016 by Ken Will MD at OR [facility] Left: Shoulder [employer] 06/06/2016 [id number] / / [id number] Expedium Ti Sfx 5.5 Lat A5 - [id number] Implanted:Qt y: 1 on 02/18/2017 by Sarbjit Vera MD at OR [facility] N/A: Spine Lumbar [place] : [employer] [id number] / / Description:In Set Clik [place] - [id number] Implanted:Qt y: 1 on 06/06/2020 by Sarbjit Vera MD at OR [facility] N/A: Spine Thoracic [employer] : PAIN MGMT 04/17/2022 [id number] / / [id number] Description:bilateral Valve Lexie 3 Ultra 23mm - [id number] Implanted:Qt y: 1 on 11/27/2020 at CARDIAC LABS [facility] [employer] [id number] / / Gener Wvewriter Alpha Prime 16 - [id number] Implanted:Qt y: 1 on 02/14/2022 by Sarbjit Vera MD at OR [facility] Left: Back [employer] 01/20/2024 [id number] / / [id number] Description:left lower back 100mm [place] Implanted:Qt y: 2 on 01/09/2023 by Sarbjit Vera MD at OR [facility] N/A: Spine Lumbar [employer] 0 / / documented as of this encounter Visit Diagnoses Diagnosis Type 2 diabetes mellitus with hemoglobin A1c goal of less than 8.0% ([facility])- Primary Right otitis media, unspecified otitis media type Acute otitis externa of right ear, unspecified type documented in this encounter Advance Directives Latest [...] the patient have Health Care Power of Scuba Diver? No Code Status History Code Status Date Activated Date Inactivated Comments Full Code 01/09/2023 9:33 AM 01/09/2023 1:45 PM This or sabrina reflects the patients wishes and were consensually agreed upon. Question Answer Comments Discussion of Advance Directives occurred with: Patient Does the patient have a Living Will? No Does the patient have Health Care Power of Scuba Diver? No Full Code 02/14/2022 8:41 AM 02/15/2022 [...] the patient have Health Care Power of Scuba Diver? No Care Teams Hydraulic Hammer Operator Relationship Specialty Start Date End Date Tabitha Cunningham MD [address] [facility] [place] [address] PCP - General 04/21/1996 documented as of this encounter
--- OUTSIDE RECORDS SUMMARY | 2024-03-22 07:50 | External Medical Summary | Summary of Care ---
Author Name Unknown Organization [facility] Address [address] [facility] [place] [address] Phone [phone] Care Team Providers Care Quality Control Systems Manager Name Role Phone Tabitha Cunningham MD Primary Care Provider [phone] Reason for Visit * Reason Comments eRx-Medication Refill Encounter Details Date Type Department Care Team (Late st Contact Info) Description 09/27/2023 Refill Cardiology [place] Yamileth Ortiz [address] [place] [address] Sera Rondon [address] [facility] [place] [address] Mixed hyperlipidemia Allergies Active Allergy Reactions Criticality Noted Date Comments Adhesive Tape 07/06/1998 rash Lisinopril 04/04/2014 cough Oxycodone-Acetaminophen Other (Please comment) 02/05/2017 "jittery" Nauseated Silver Sulfadiazine Rash 12/07/2002 rash Carisoprodol Other (Please comment) 03/29/2012 Restless, jittery Sulfa Antibiotics 10/15/1998 Tendency towards yeast infections. documented as of this encounter (statuses as of 09/28/2023) Medications Medication Sig Dispensed Refills Start Date [...] Propionate 50 MCG/ACT Nasal Suspension Administer 1 Jewell into nostril as needed. 15.8 mL 3 [...] for mood. 90 Tablet 3 3 Active Alendronate Sodium 70 MG Oral Tablet (Fosamax) Take 1 Tablet by mouth once a week. 0 3 Active metFORMIN HCl 500 MG Oral [...] BY MOUTH EVERY DAY 90 Tablet 0 3 Active hydroCHLOROthiazide 25 MG Oral Tablet (Hydrodiuril)Indica tions:HTN, goal below 140/90 TAKE ONE TABLET BY MOUTH EVERY MORNING for fluid and blood pressure 90 Tablet 3 4 Active Atorvastatin Calcium 20 MG Oral Tablet (Lipitor)Indication s:Mixed hyperlipidemia TAKE ONE (1) TABLET BY MOUTH EVERY DAY 90 Tablet 1 4 Active Atorvastatin Calcium 20 MG Oral Tablet (Lipitor)Indication s:Mixed hyperlipidemia Take 1 Tablet by mouth daily. 90 Tablet 3 3 09/28/19 24 Discontinued documented as of this encounter (statuses as of 09/28/2023) Active Problems Problem Noted Date Diagnosed Date [...] pylori infection 11/05/2020 Overview: by EGD at [facility] [place] [place] Other cirrhosis of liver 10/29/2020 Portal hypertension 10/29/2020 Morbid obesity due to excess calories 10/19/2020 Iron deficiency anemia 10/12/2020 S/P insertion of spinal cord stimulator 06/06/20 Overview: at [facility] [place] [place] per Dr Doty HTN, goal below [...] as of this encounter (statuses as of 09/28/2023) Resolved Problems Problem Noted Date Diagnosed Date Resolved Date Anemia 11/05/2020 11/15/2020 Chronic back pain 06/07/2020 11/15/2020 Encounter for examination fo r normal comparison and control in clinical research program 09/14/2018 04/09/2020 Overview: DO NOT DELETE [facility] DETECT Study: Project # [id number], Salesperson [employer]: Sarbjit Garcia, PhD. SUMMARY: Goal: Establish test [...] contact study staff at ; after hours Salesperson [employer] via the [facility] [place] [place] hospital chief lock operator . Please contact study team before resolving/deleting from patients problem list. Study phone number: [phone]. Diagnosis changed due to Research Module. Go to Snapshot for study details. Encounter for examination fo r normal comparison and control in clinical research program 09/14/2018 05/08/2022 Overview: [facility] DELETE [facility] Study: Project # [id number], Salesperson [employer]: Mario Rene, MS, MPH. SUMMARY: Goal: Establish [...] contact study staff at ; after hours Salesperson [employer] via the [facility] [place] [place] hospital chief lock operator . - Please contact study team before resolving/deleting from patients problem list. Study phone number: [phone]. Diagnosis changed due to Research Module. Go [...] as of this encounter (statuses as of 09/28/2023) Immunizations Name Administration Dates Next Due COVID-19 [...] money to buy more. Never true 08/15/20 Within the past 12 months, t he [...] encounter Miscellaneous Notes * Telephone Encounter - Brandie De Los Santos CRNP - 09/28/2023 9:20 AM ESTSigned Prescriptions: Disp Refills Atorvastatin Calcium 20 MG Oral Tablet (Li*90 Tab*1 Sig: TAKE ONE (1) TABLET BY MOUTH EVERY DAY Authorizing Provider: BRANDIE DE LOS SANTOS * Telephone Encounter - Ewelina Mcfadden RN - 09/28/2023 9:00 AM ESTPending Prescriptions: Disp Refills Atorvastatin Calcium 20 MG Oral Tablet (Li*90 Tab*1 Sig: TAKE ONE (1) TABLET BY MOUTH EVERY DAY * Telephone Encounter - Ewelina Mcfadden RN - 09/28/2023 9:00 AM EST Pending Prescriptions: Disp Refills Atorvastatin Calcium 20 MG Oral Tablet (L*90 Tab*1 Sig: TAKE ONE (1) TABLET BY MOUTH EVERY DAY documented in this encounter Plan of Treatment Upcoming Encounters Date Type Department Care Team (Late st Contact Info) Description 11/09/2023 10:00 AM EST Office Visit Cardiology Yamileth Mirza [address] [place] [address] Brandie De Los Santos CRNP [address] [place] [address] 11/11/2023 9:30 AM EST Office Visit Orthopaedics, [place] Yamileth Ortiz [address] [place] [address] Boyd Luu PA-C [address] [place] [address] 11/25/2023 3:00 PM EDT [facility] [address] [facility] [place] [address] Jessica Zavaleta MD [address] [facility] [place] [address] 04/18/2024 9:00 AM EDT Office [facility] [place] [address] [facility] [place] [address] Tabitha Cunningham MD [address] [facility] [place] [address] 06/28/2024 8:30 AM EDT [facility] [address] [place] [address] Sarbjit Vera MD [address] [place], [place] [phone] 09/16/2024 8:20 AM EST Office Visit [facility] [place] [address] [facility] [place], [place] [phone] Tabitha Cunningham MD [address] [facility] [place], [place] [phone] Scheduled Procedures Name Priority Associated Diagnoses Date/Ti me COLONOSCOPY FLEXIBLE PROXIMAL DIAGNOSTIC Recall Change in bowel habits Health Maintenance Due Date Last Done Comments Hepatitis B (1 of 3 - Risk 3-dose series) 2006 Zoster Vaccines (2 of 3) 10/06/2013 08/11/2013 Diabetic Eye Exam 12/04/2022 12/04/2021, , 02/14/2019, Additional history exists COVID-19 Vaccine ( season) 2023 09/13/2021, 12/03/2020 Diabetic Foot Exam 08/15/2023 08/15/2022, 0 11/15/2020, 06/01/2019, Additional history exists GFR 02/20/2024 08/21/2023, 03/08, 01/30/2023, Additional history exists HbA1c 02/20/2024 08/21/2023, 03/08, 12/04/2022, Additional history exists Albumin/Creatinine Ratio 03/31/2024 023, 01/15/2022, 08/16/2014, Additional history exists B-12 03/31/2024 03/31/2023, 03/08, 10/11/2020, Additional history exists Depression Screening 04/10/2024 04/10/2023 DXA Scan 11/13/2024 11/13/2022, 10/08, 10/05/2017, Additional history exists COLONOSCOPY-EVERY 5 YRS AGES 18-100 11/06/2025 11/06/2020, 11/06/2020, 09/21/2014, Additional history exists DTaP,Tdap,and Td Vaccines (3 - Td or Tdap) 03/30/2027 03/30/2017, 11/05/2006, 10/17/1996 Pneumococcal Vaccine: 65+ Years Completed 08/30/2015, 12/16/2011 VITAMIN D LEVEL ONCE IN A LIFETIME-USE SMARTSET# 87225 Completed 03/30/2017, 09/17/2009 Influenza Vaccine (FLU shot) Completed , 07/01/2021, 08/24/2020, Additional history exists GARDASIL-HPV IMMUNIZATION SERIES Aged Out No longer eligible based on patient's age to complete this topic MENINGOCOCCAL (MENACTRA/MENVEO) Aged Out No longer eligible based on patient's age to complete this topic documented as of this encounter Medical Devices Implanted Type Area Information Resources Manager Device Identifier Shelf Expiration Date Model / Serial / Lot Dbx 10cc [id number] - [id number] Implanted:Qt y: 1 on 03/15/2010 at OR [facility] [place] [place] Tissue - Human N/A: Spine Lumbar MUSCULOSKELETAL TRANSPLANT FND 12/14/2011 [id number] / [id number] / Chip Cancellous 30cc [id number] - [id number] - [id number] Implanted:Qt y: 1 on 01/09/2023 by Sarbjit Vera MD at OR [facility] [place] [place] Tissue - Human N/A: Spine Lumbar MUSCULOSKELETAL TRANSPLANT FND 10/12/2024 [id number] / [id number] / [id number] Screw 7x50 Poly Si [id number] - [id number] Implanted:Qt y: 2 on 03/15/2010 at OR [facility] [place] [place] N/A: Spine Lumbar JNJ : [employer] [id number] / / Demetrius [facility] - [id number] Implanted:Qt y: 2 on 01/25/2016 by Ken Will MD at OR [facility] Left: Shoulder [employer] 06/06/2016 [id number] / / [id number] Expedium Ti Sfx 5.5 Lat A5 - [id number] Implanted:Qt y: 1 on 02/18/2017 by Sarbjit Vera MD at OR [facility] [place] [place] N/A: Spine Lumbar JNJ : [employer] [id number] / / Description:In Set Clik [place] - [id number] Implanted:Qt y: 1 on 06/06/2020 by Sarbjit Vera MD at OR [facility] [place] [place] N/A: Spine Thoracic [employer] : PAIN MGMT 04/17/2022 [id number] / / [id number] Description:bilateral Valve Lexie 3 Ultra 23mm - [id number] Implanted:Qt y: 1 on 11/27/2020 at CARDIAC LABS [facility] [place] [place] [employer] [id number] / / Gener Wvewriter Alpha Prime 16 - [id number] Implanted:Qt y: 1 on 02/14/2022 by Sarbjit Vera MD at OR [facility] [place] [place] Left: Back [employer] 01/20/2024 [id number] / / [id number] Description:left lower back 100mm [place] Implanted:Qt y: 2 on 01/09/2023 by Sarbjit Vera MD at OR [facility] [place] [place] N/A: Spine Lumbar [employer] 0 / / documented as of this encounter Visit Diagnoses Diagnosis Mixed hyperlipidemia documented in this encounter Advance Directives Latest [...] the patient have Health Care Power of Landing Support Specialist? No Code Status History Code Status Date Activated Date Inactivated Comments Full Code 01/09/2023 9:33 AM 01/09/2023 1:45 PM This or sabrina reflects the patients wishes and were consensually agreed upon. Question Answer Comments Discussion of Advance Directives occurred with: Patient Does the patient have a Living Will? No Does the patient have Health Care Power of Landing Support Specialist? No Full Code 02/14/2022 8:41 AM [...] the patient have Health Care Power of Landing Support Specialist? No Care Teams Quality Control Systems Manager Relationship Specialty Start Date End Date Tabitha Cunningham MD [address] [facility] [place] [address] PCP - General 04/21/1996 documented as of this encounter
--- OUTSIDE RECORDS SUMMARY | 2024-03-22 07:50 | External Medical Summary | Summary of Care ---
Author Name Unknown Organization [facility] Address [address] [facility] [address] Phone [phone] Care Team Providers Care Retail Stocker Name Role Phone Tabitha Cunningham MD Primary Care Provider [phone] Reason for Visit * Reason Comments Earache Complaining of R/ear ache Lump Lump R/side of neck x 1 1/2 weeks Encounter Details Date Type Department Care Team (Late st Contact Info) Description 10/21/2023 1:00 PM EST Office Visit [facility] [place] [address] [place] [address] Kleber Gomez DO [address] [facility] [phone] Type 2 diabetes mellitus with hemoglobin A1c goal of less than 8.0% ([facility])*; Right otitis media, unspecified otitis media type; [...] Propionate 50 MCG/ACT Nasal Suspension Administer 1 [place] into nostril as needed. 15.8 mL 3 [...] Active Cipro HC 0.2-1 % Otic Suspension (Ciprofloxacin-Greenleaf cortisone)Indication s:Right otitis media, unspecified otitis media [...] spinal cord stimulator 06/06/20 20 Overview: at [facility] [...] program 09/14/2018 04/09/2020 Overview: DO NOT DELETE [facility] DETECT Study: Project # [id number], Fur Mixer Operator: Sarbjit Garcia, PhD. SUMMARY: Goal: Establish [...] contact study staff at ; after hours Fur Mixer Operator via the [facility] pit operator . Please contact study team before resolving/deleting from patients problem list. Study phone number: [phone]. Diagnosis changed due to Research Module. Go to Snapshot for study details. Encounter for examination fo r normal comparison and control in clinical research program 09/14/2018 05/08/2022 Overview: DO NOT DELETE - [facility] Study: Project # [id number], Fur Mixer Operator: Mario Rene, MS, MPH. SUMMARY: Goal: [...] contact study staff at ; after hours Fur Mixer Operator via the [facility] hospital pit operator . - Please contact study team before resolving/deleting from patients problem list. Study phone number: [phone]. Diagnosis changed due to Research Module. Go [...] calluses yourself. Talk to your doctor or premium cancellation clerk (a doctor who specializes in foot care) [...] the area doesnt appear to be healing. [phone] [employer], [address] [place] [address], [place] [address]. All rights reserved. This information is not intended as a substitute for professional medical care. Always follow your healthcare professional's instructions. documented in this encounter Progress Notes * Kleber Gomez DO - 10/21/2023 1:00 PM EST Subjective Hannah Groves is a 78 year old female. Chief [...] less than 8.0% (HCC) E11.9 ACEI/ARB contraindicated CO0573 Adjustment disorder with depressed mood F43.21 Lumbar [...] Propionate 50 MCG/ACT Nasal Suspension Administer 1 [place] into nostril as needed. 15.8 mL 3 [...] goal of less than 8.0% ([facility]) (Primary) - DIABETES FOOT EXAM Right otitis [...] 10/26/2023 1:30 PM EST Office Visit Ophthalmology, [place] [address] [place] [address] Franck Soriano DO [address] [place] [address] 11/09/2023 10:00 AM EST Office Visit Cardiology [address] [place] [address] [place] [address] Bernarda De Los Santos CRNP [address] [facility] [place] [phone] 11/11/2023 9:30 AM EST Office [place] [address] [place] [address] Boyd Luu PA-C [address] [place] [address] 11/25/2023 3:00 PM EDT Office Visit [facility] [address] [facility] [place] [address] Jessica Zavaleta MD [address] [facility] [place] [address] 04/18/2024 9:00 AM EDT Office [facility] [address] [facility] [place] [address] Tabitha Cunningham MD [address] [facility] [place] [address] 06/28/2024 8:30 AM EDT Office Visit Orthopaedics Spine Surgery, [place] [address] [place] [facility] [place] [phone] Sarbjit Vera MD [address] [place] [address] 09/16/2024 8:20 AM EST Office Visit [facility] [place] [address] [facility] [place] [address] Tabitha Cunningham MD [address] [facility] [address] [place] [address] Scheduled Procedures Name Priority Associated Diagnoses Date/Ti me COLONOSCOPY FLEXIBLE PROXIMAL DIAGNOSTIC Recall Change in bowel habits Health Maintenance Due Date Last Done Comments CKD PHOS USE SMARTSET 25690 1963 Hepatitis B (1 of 3 - [...] Screening 04/10/2024 04/10/2023 CKD HGB USE SMARTSET 49085 08/21/202408/21, 08/21/2023, 01/30/2023, Additional history exists Diabetic [...] D LEVEL ONCE IN A LIFETIME-USE SMARTSET# 99177 Completed 03/30/2017, 09/17/2009 Influenza Vaccine (FLU shot) Completed , 07/01/2021, 08/24/2020, Additional history exists GARDASIL-HPV IMMUNIZATION SERIES Aged Out No longer eligible based on patient's age to complete this topic MENINGOCOCCAL (MENACTRA/MENVEO) Aged Out No longer eligible based on patient's age to complete this topic documented as of this encounter Medical Devices Implanted Type Area Brush Or Broom Cutter Device Identifier Shelf Expiration Date Model / Serial / Lot Dbx 10cc [id number] - [id number] Implanted:Qt y: 1 on 03/15/2010 at [place] [facility] Tissue - Human N/A: Spine Lumbar MUSCULOSKELETAL TRANSPLANT FND 12/14/2011 [id number] / [id number] / Chip Cancellous 30cc [id number] - [id number] - [id number] Implanted:Qt y: 1 on 01/09/2023 by Sarbjit Vera MD at OR [facility] Tissue - Human N/A: Spine Lumbar MUSCULOSKELETAL TRANSPLANT FND 10/12/2024 [id number] / [id number] 1055 / [id number] Screw 7x50 Poly Si [id number] - [id number] Implanted:Qt y: 2 on 03/15/2010 at OR [facility] N/A: Spine Lumbar JNJ : [employer] [id number] / / [employer] - [id number] Implanted:Qt y: 2 on 01/25/2016 by Ken Will MD at OR [facility] Left: Shoulder [employer] 06/06/2016 [id number] / / [id number] Expedium Ti Sfx 5.5 Lat A5 - [id number] Implanted:Qt y: 1 on 02/18/2017 by Sarbjit Vera MD at OR [facility] N/A: Spine Lumbar JNJ : [employer] [id number] / / Description:In Set Clik [place] - [id number] Implanted:Qt y: 1 on 06/06/2020 by Sarbjit Vera MD at OR [facility] N/A: Spine Thoracic [employer] : PAIN MGMT 04/17/2022 [id number] / / [id number] Description:bilateral Valve Lexie 3 Ultra 23mm - [id number] Implanted:Qt y: 1 on 11/27/2020 at CARDIAC LABS [facility] [employer] [id number] / / Gener Wvewriter Alpha Prime 16 - [id number] Implanted:Qt y: 1 on 02/14/2022 by Sarbjit Vera MD at OR [facility] Left: Back [employer] 01/20/2024 [id number] / / [id number] Description:left lower back 100mm [place] Implanted:Qt y: 2 on 01/09/2023 by Sarbjit Vera MD at OR [facility] N/A: Spine Lumbar [email or web address] 0 / / documented as of this encounter Visit Diagnoses Diagnosis Type 2 diabetes mellitus with hemoglobin A1c goal of less than 8.0% ([facility])- Primary Right otitis media, unspecified otitis media [...] the patient have Health Care Power of Patient Transporter? No Code Status History Code Status Date Activated Date Inactivated Comments Full Code 01/09/2023 9:33 AM 01/09/2023 1:45 PM This or sabrina reflects the patients wishes and were consensually agreed upon. Question Answer Comments Discussion of Advance Directives occurred with: Patient Does the patient have a Living Will? No Does the patient have Health Care Power of Patient Transporter? No Full Code 02/14/2022 8:41 AM 02/15/2022 [...] the patient have Health Care Power of Patient Transporter? No Care Teams Retail Stocker Relationship Specialty Start Date End Date Tabitha Cunningham MD [address] [facility] [place] [address] PCP - General 04/21/1996 documented as of this encounter
--- OUTSIDE RECORDS SUMMARY | 2024-03-22 07:50 | External Medical Summary | Summary of Care ---
Author Name Unknown Organization [facility] Address [address] [place] [place] [address] Phone [phone] Care Team Providers Care Engineering Technologist Name Role Phone Tabitha Cunningham MD Primary Care Provider [phone] Reason for Visit * Reason Comments NEW PATIENT Encounter Details Date Type Department Care Team (Late st Contact Info) Description 10/26/2023 1:30 PM EST Office Visit Ophthalmology, [place] [address] [facility] [place] [address] Franck Soriano DO [address] [facility] [place] [address] Anatomical narrow angle*; Dry eyes, bilateral Allergies Active Allergy Reactions Criticality Noted Date Comments Adhesive Tape 07/06/1998 rash Lisinopril 04/04/2014 cough Oxycodone-Acetaminophen Other (Please comment) 02/05/2017 "jittery" Nauseated Silver Sulfadiazine Rash 12/07/2002 rash Carisoprodol Other (Please comment) 03/29/2012 Restless, jittery Sulfa Antibiotics 10/15/1998 Tendency towards yeast infections. documented as of this encounter (statuses as of 10/26/2023) Medications Medication Sig Dispensed Refills Start Date [...] Propionate 50 MCG/ACT Nasal Suspension Administer 1 Delta into nostril as needed. 15.8 mL 3 [...] Active Cipro HC 0.2-1 % Otic Suspension (Ciprofloxacin-[place] cortisone)Indication s:Right otitis media, unspecified otitis media type,Acute otitis externa of right ear, unspecified type Administer 3 Drops to the right ear in the morning and 3 Drops before bedtime. Do all this for 7 days. 3 mL 0 10/21/2023 10/28/2023 Active documented as of this encounter (statuses as of 10/26/2023) Active Problems Problem Noted Date Diagnosed Date [...] pylori infection 11/05/2020 Overview: by EGD at [facility] Other cirrhosis of liver 10/29/2020 Portal hypertension 10/29/2020 Morbid obesity due to excess calories 10/19/2020 Iron deficiency anemia 10/12/2020 S/P insertion of spinal cord stimulator 06/06/20 20 Overview: at [facility] per Dr Doty HTN, goal [...] as of this encounter (statuses as of 10/26/2023) Resolved Problems Problem Noted Date Diagnosed Date Resolved Date Anemia 11/05/2020 11/15/2020 Chronic back pain 06/07/2020 11/15/2020 Encounter for examination fo r normal comparison and control in clinical research program 09/14/2018 04/09/2020 Overview: DO NOT DELETE [facility] DETECT Study: Project # [id number], Medical Coding Technician: Sarbjit Garcia, PhD. SUMMARY: Goal: Establish test [...] contact study staff at ; after hours Medical Coding Technician via the [facility] hospital welding machine operator . Please contact study team before resolving/deleting from patients problem list. Study phone number: [phone]. Diagnosis changed due to Research Module. Go to Snapshot for study details. Encounter for examination fo r normal comparison and control in clinical research program 09/14/2018 05/08/2022 Overview: DO NOT DELETE - Richy Cisneros PINKY Study: Project # [id number], Medical Coding Technician: Mario Rene, MS, MPH. SUMMARY: Goal: Establish [...] contact study staff at ; after hours Medical Coding Technician via the [facility] hospital welding machine operator . - Please contact study team before resolving/deleting from patients problem list. Study phone number: [phone]. Diagnosis changed due to Research Module. Go [...] as of this encounter (statuses as of 10/26/2023) Immunizations Name Administration Dates Next Due COVID-19 [...] encounter Progress Notes * Franck Soriano, - 10/26/2023 1:30 PM EST 10/26/2023 [facility] Note HPI: Hannah Groves is a 78 year old pt who presents to the eye clinic today as a new patient to me for evaluation - referral Dr. Winslow, narrow angle, cataract, diabetic eye exam. Location: OU Severity: Mild Quality: No current complaints, sent from [facility] for further work-up Exacerbating/Remitting Factors: Denies Associated Sx: Denies Past [...] (Snellen - Linear) Right Left Dist cc 20/30 20/30 Correction: Glasses Tonometry (Tonopen, 1:29 PM) Right Left Pressure 20 15 Gonioscopy (Zbigniew, four mirror) Right Left Temporal B30f 1+ptm B30f 1+ptm Nasal B30f 1+ptm B30f 1+ptm Superior C30f 1+ptm C30f 1+ptm Inferior C30f 1+ptm C30f 1+ptm Pupils Pupils Dark Light Shape React APD Right PERRL 4 3 Round Brisk None Left PERRL 4 3 Round Brisk None Visual Sosa (Counting fingers) Right Left Full Full Extraocular Movement Right Left Full Full Additional Tests Keratometry K1 [place] K2 [place] Right 43.50 010 44.75 100 Left 43.00 166 44.50 076 Slit Lamp and Fundus Exam External Exam Right Left External Normal Normal Slit Lamp Exam Right Left Lids/Lashes Normal Normal Conjunctiva/Sclera White and quiet White and quiet Cornea PEK inferior PEK inferior Anterior Chamber Narrow Narrow Iris Round and reactive Round and reactive Lens NSC NSC Refraction Wearing Rx Sphere Add Right +2.50 +2.75 Left +2.50 +2.75 Manifest Refraction Sphere Cylinder [place] Right +2.75 +0.25 175 Left +2.25 +0.25 130 A/P: Anatomic narrow angle, OU -Explained in detail -Potentially occludable on gonioscopy Plan: -Recommend LPI OU Dry Eyes, OU -Recommend artificial tears up to 4 times daily -Brand names given - Systane Cataract, OU -LPI first, then will dilate and evaluate Diabetic eye exam -LPI first RTC next available LPI or sooner prn. Franck Soriano DO 10/26/23 I spent a total of 20-29 minutes (exact time 20 mins) on the date of service in preparation, delivery, and documentation of the care provided to Hannah Groves excluding any time spent in the performance of separately billed services. documented in this encounter Nursing Notes * Fara Monterroso COT - 10/26/2023 1:23 PM EST New pt here for diabetic exam Not sure why she's being referred, thought maybe for cataracts? Picked up new pair of glasses this morning Do you check your sugar daily? NO. [...] 11/09/2023 10:00 AM EST Office [place] [address] [place] [address] Bernarda De Los Santos CRNP [address] [place] [phone] 11/11/2023 9:30 AM EST Office Visit Orthopaedics, [place] Ortiz [address] [place] [address] Boyd Luu PA-C [address] [place] [address] 11/25/2023 3:00 PM EDT Office Visit [address] [place] [address] Jessica Zavaleta MD [address] [facility] [place] [address] 12/28/2023 3:00 PM EDT Office Visit Ophthalmology, [place] [address] [place] [address] Franck Soriano, DO [address] [place] [address] 01/04/2024 3:00 PM EDT Office Visit Ophthalmology, [place] [address] [place] [address] Franck Soriano, DO [address] [place] [place] [address] 01/18/2024 10:00 AM EDT Office Visit Ophthalmology, [place] [address] [place] [address] Franck Soriano, DO [address] [place] [address] 04/18/2024 9:00 AM EDT Office Visit [facility] [address] [place] [address] Tabitha Cunningham MD [address] [place] [address] 06/28/2024 8:30 AM EDT Office Visit Orthopaedics Spine [facility], [place] [address] [place] [phone] Sarbjit Vera MD [address] [place] [address] 09/16/2024 8:20 AM EST Office Visit [facility] [address] [place] [address] Tabitha Cunningham MD [address] [facility] [place] [address] Scheduled Orders Name Type Priority Associated Diagnoses Orde r Schedule GONIOSCOPY Procedures Routine Anatomical narrow angle Ordered: 10/26/2023 Scheduled Procedures Name Priority Associated Diagnoses Date/Ti me COLONOSCOPY FLEXIBLE PROXIMAL DIAGNOSTIC Recall Change in bowel habits Health Maintenance Due Date Last Done Comments CKD PHOS USE SMARTSET 43912 1963 Hepatitis B (1 of 3 - [...] Screening 04/10/2024 04/10/2023 CKD HGB USE SMARTSET 54800 08/21/202408/21, 08/21/2023, 01/30/2023, Additional history exists Diabetic [...] D LEVEL ONCE IN A LIFETIME-USE SMARTSET# 08874 Completed 03/30/2017, 09/17/2009 Influenza Vaccine (FLU shot) Completed , 07/01/2021, 08/24/2020, Additional history exists GARDASIL-HPV IMMUNIZATION SERIES Aged Out No longer eligible based on patient's age to complete this topic MENINGOCOCCAL (MENACTRA/MENVEO) Aged Out No longer eligible based on patient's age to complete this topic documented as of this encounter Medical Devices Implanted Type Area Maintenance Technician 3Rd Shift Device Identifier Shelf Expiration Date Model / Serial / Lot Dbx 10cc [id number] - [id number] Implanted:Qt y: 1 on 03/15/2010 at OR [facility] Tissue - Human N/A: Spine Lumbar MUSCULOSKELETAL TRANSPLANT FND 12/14/2011 [id number] / [id number] / Chip Cancellous 30cc [id number] - [id number] - [id number] Implanted:Qt y: 1 on 01/09/2023 by Sarbjit Vera MD at OR [facility] Tissue - Human N/A: Spine Lumbar MUSCULOSKELETAL TRANSPLANT FND 10/12/2024 [id number] / [id number] / [id number] Screw 7x50 Poly Si [id number] - [id number] Implanted:Qt y: 2 on 03/15/2010 at OR [facility] N/A: Spine Lumbar JNJ : [employer] [id number] / / Corkscrew [employer] - [id number] Implanted:Qt y: 2 on 01/25/2016 by Ken Will MD at OR [facility] Left: Shoulder [employer] 06/06/2016 [id number] / / [id number] Dbx 2.5cc [id number] - [id number] Implanted:Qt y: 1 on 02/18/2017 by Sarbjit Vera MD at OR [facility] N/A: Spine Lumbar MUSCULOSKELETAL TRANSPLANT FND 09/26/2018 [id number] / / Screw 7x45 Poly Si [id number] - [id number] Implanted:Qt y: 2 on 02/18/2017 by Sarbjit Vera MD at OR [facility] N/A: Spine Lumbar JNJ : [employer] [id number] / / Description:In Set Expedium Ti Sfx 5.5 Lat A5 - [id number] Implanted:Qt y: 1 on 02/18/2017 by Sarbjit Vera MD at OR [facility] N/A: Spine Lumbar JNJ : [employer] [id number] / / Description:In Set Clik Dennison - [id number] Implanted:Qt y: 1 on 06/06/2020 by Sarbjit Vera MD at OR [facility] N/A: Spine Thoracic [employer] : PAIN MGMT 04/17/2022 [id number] / / [id number] Description:bilateral Valve Lexie 3 Ultra 23mm - [id number] Implanted:Qt y: 1 on 11/27/2020 at CARDIAC LABS [facility] [employer] [id number] / / Gener Wvewriter Alpha Prime 16 - [id number] Implanted:Qt y: 1 on 02/14/2022 by Sarbjit Vera MD at OR [facility] Left: Back [employer] 01/20/2024 [id number] / / [id number] Description:left lower back Screw 6x40 Poly Si [id number] - [id number] Implanted:Qt y: 1 on 01/09/2023 by Sarbjit Vera MD at OR [facility] N/A: Spine Lumbar JNJ : [employer] [id number] / / Screw Set Sng Inner [id number] - [id number] Implanted:Qt y: 8 on 01/09/2023 by Sarbjit Vera MD at OR [facility] N/A: Spine Lumbar JNJ : [employer] [id number] / / Expedium Ti Sfx 5.5 Lat A5 - [id number] Implanted:Qt y: 1 on 01/09/2023 by Sarbjit Vera MD at OR [facility] N/A: Spine Lumbar JNJ : [employer] [id number] / / Screw 6x45 Poly Si [id number] - [id number] Implanted:Qt y: 3 on 01/09/2023 by Sarbjit Vera MD at OR [facility] N/A: Spine Lumbar JNJ : [employer] [id number] / / 100mm [place] Implanted:Qt y: 2 on 01/09/2023 by Sarbjit Vera MD at OR [facility] N/A: Spine Lumbar [employer] 0 / / Graft Infuse Bone Lg [id number] - [id number] Implanted:Qt y: 1 on 01/09/2023 by Sarbjit Vera MD at OR [facility] N/A: Spine Lumbar [employer] : NEURO CARE [id number] 09/06/2024 [id number] / / [id number] documented as of this encounter Visit Diagnoses Diagnosis Anatomical narrow angle- Primary Anatomical narrow angle borderline glaucoma Dry eyes, bilateral Tear film insufficiency, unspecified documented in this encounter Advance Directives Latest [...] the patient have Health Care Power of Tipple Tender? No Code Status History Code Status Date Activated Date Inactivated Comments Full Code 01/09/2023 9:33 AM 01/09/2023 1:45 PM This or sabrina reflects the patients wishes and were consensually agreed upon. Question Answer Comments Discussion of Advance Directives occurred with: Patient Does the patient have a Living Will? No Does the patient have Health Care Power of Tipple Tender? No Full Code 02/14/2022 8:41 AM 02/15/2022 [...] the patient have Health Care Power of Tipple Tender? No Care Teams Engineering Technologist Relationship Specialty Start Date End Date Tabitha Cunningham MD [address] [facility] [place] [address] PCP - General 04/21/1996 documented as of this encounter
--- OUTSIDE RECORDS SUMMARY | 2024-03-22 07:50 | External Medical Summary | Summary of Care ---
Author Name Unknown Organization [facility] Address [address] [facility] [place] [address] Phone [phone] Care Team Providers Care Manager Gas Name Role Phone Tabitha Cunningham MD Primary Care Provider [phone] Reason for Visit * Reason Onset Date Comments Medication Refill 11/17/2023 Encounter Details Date Type Department Care Team (Late st Contact Info) Description 11/17/2023 Refill Card[facility] [address] [facility] [address] Sera Rondon [address] [place] [address] HTN, goal below 140/90 Allergies Active Allergy Reactions Criticality Noted Date Comments Adhesive Tape 07/06/1998 rash Lisinopril 04/04/2014 cough Oxycodone-Acetaminophen Other (Please comment) 02/05/2017 "jittery" Nauseated Silver Sulfadiazine Rash 12/07/2002 rash Carisoprodol Other (Please comment) 03/29/2012 Restless, jittery Sulfa Antibiotics 10/15/1998 Tendency towards yeast infections. documented as of this encounter (statuses as of 11/19/2023) Medications Medication Sig Dispensed Refills Start Date [...] Propionate 50 MCG/ACT Nasal Suspension Administer 1 [place] into nostril as needed. 15.8 mL 3 [...] EVERY DAY 90 Tablet 0 11/19/2023 Active Losartan Potassium 100 MG Oral Tablet (Cozaar)Indications :HTN, goal below 140/90 TAKE ONE (1) TABLET BY MOUTH EVERY DAY 90 Tablet 0 08/03/2023 Discontinue d(Refill) documented as of this encounter (statuses as of 11/19/2023) Active Problems Problem Noted Date Diagnosed Date [...] pylori infection 11/05/2020 Overview: by EGD at [facility] Other cirrhosis of liver 10/29/2020 Portal hypertension 10/29/2020 Morbid obesity due to excess calories 10/19/2020 Iron deficiency anemia 10/12/2020 S/P insertion of spinal cord stimulator 06/06/20 Overview: at [facility] per Dr Doty HTN, [...] as of this encounter (statuses as of 11/19/2023) Resolved Problems Problem Noted Date Diagnosed Date Resolved Date Anemia 11/05/2020 11/15/2020 Chronic back pain 06/07/2020 11/15/2020 Encounter for examination fo r normal comparison and control in clinical research program 09/14/2018 04/09/2020 Overview: DO NOT DELETE [facility] DETECT Study: Project # [id number], Telecommunication Tower Technician: Sarbjit Garcia, PhD. SUMMARY: Goal: Establish [...] contact study staff at ; after hours Telecommunication Tower Technician via the [facility] hospital ingot buggy operator . Please contact study team before resolving/deleting from patients problem list. Study phone number: [phone]. Diagnosis changed due to Research Module. Go to Snapshot for study details. Encounter for examination fo r normal comparison and control in clinical research program 09/14/2018 05/08/2022 Overview: DO NOT DELETE - Richy VANCE Study: Project # [id number], Telecommunication Tower Technician: Mario Rene, MS, MPH. SUMMARY: Goal: [...] contact study staff at ; after hours Telecommunication Tower Technician via the [facility] hospital ingot buggy operator . - Please contact study team before resolving/deleting from patients problem list. Study phone number: [phone]. Diagnosis changed due to Research Module. Go [...] muscle pain 06/30/201209/28 Myalgia and myositis 06/30/2012 01/22/2 018 Joint pain, knee 08/27/2009 09/28/2017 Inflammation [...] as of this encounter (statuses as of 11/19/2023) Immunizations Name Administration Dates Next Due COVID-19 [...] encounter Miscellaneous Notes * Telephone Encounter - Leela Baumann RPh - 11/19/2023 6:21 AM EDT Pending Prescriptions: Disp Refills Losartan Potassium 100 MG Oral Tablet (Coz*90 Tab*0 Sig: TAKE ONE (1) TABLET BY MOUTH EVERY DAY * Telephone Encounter - Carmen Ford, dental resident - 11/18/2023 1:04 PM EDT Patient spouse calling for script. Is currently out, since Thursday. Thank you, Carmen Ford Flag Maker 11/18/2023,1:05 PM * Telephone Encounter - Mary Ann Ade Ciro dental resident - 11/17/2023 2:28 PM EDT Did you pend patient's preferred pharmacy and medication before forwarding?yes Pharmacy: [id number] Pending Prescriptions: Disp Refills Losartan Potassium 100 MG Oral Tablet (Co*90 Tab*0 Last Visit: Visit date not found (in office), Visit date not found (telemedicine) Next Visit: Visit date not found If no future appointments scheduled, and last appointment is greater than a year ago, please schedule patient for a follow-up appointment Last date the medication was ordered: 08/03/23 Is this request for a controlled substance?No [...] Care Team (Late st Contact Info) Description 11/25/2023 3:00 PM EDT Office Visit [facility] [place] [address] [facility] [place] [address] Jessica Zavaleta MD [address] [facility] [place] [address] 12/02/2023 2:00 PM EDT Office [facility] [place] [address] [address] [place] [address] Boyd Luu PA-C [address] [place] [address] 12/08/2023 1:30 PM EDT Office Visit Orthopaedics Spine Surgery, [place] [address] [place] [id number] Erica Maldonado PA-C [address] [place] [address] 12/28/2023 3:00 PM EDT Office Visit Ophthalmology, [place] [address] [place] [address] Renuka Soriano DO [address] [place] [address] 01/04/2024 3:00 PM EDT Office Visit Ophthalmology, [place] [address] [place] [address] Renuka Soriano DO [address] [place] [address] 01/18/2024 10:00 AM EDT Office Visit Ophthalmology, [place] [address] [place] [address] Renuka Soriano DO [address] [place] [address] 04/18/2024 9:00 AM EDT Office Visit [facility] [address] [facility] [place] [phone] Tabitha Cunningham MD 27 [facility] [place] [address] 06/28/2024 8:30 AM EDT Office [facility] [place] [address] [place] [phone] Sarbjit Vera MD [facility] [place] [address] 09/16/2024 8:20 AM EST Office Visit [facility] [address] [facility] [place] [address] Tabitha Cunningham MD [address] [facility] [place] [address] Scheduled Procedures Name Priority Associated Diagnoses Date/Ti me COLONOSCOPY FLEXIBLE PROXIMAL DIAGNOSTIC Recall Change in bowel habits Health Maintenance Due Date Last Done Comments CKD PHOS USE SMARTSET 33789 1963 Hepatitis B (1 of 3 - [...] Screening 04/10/2024 04/10/2023 CKD HGB USE SMARTSET 58568 08/21/202408/21, 08/21/2023, 01/30/2023, Additional history exists Diabetic [...] D LEVEL ONCE IN A LIFETIME-USE SMARTSET# 13547 Completed 03/30/2017, 09/17/2009 Influenza Vaccine (FLU shot) Completed , 07/01/2021, 08/24/2020, Additional history exists GARDASIL-HPV IMMUNIZATION SERIES Aged Out No longer eligible based on patient's age to complete this topic MENINGOCOCCAL (MENACTRA/MENVEO) Aged Out No longer eligible based on patient's age to complete this topic documented as of this encounter Medical Devices Implanted Type Area Marine Engineer Cpvec Device Identifier Shelf Expiration Date Model / Serial / Lot Dbx 10cc [id number] - [id number] Implanted:Qt y: 1 on 03/15/2010 at OR [facility] Tissue - Human N/A: Spine Lumbar MUSCULOSKELETAL TRANSPLANT FND 12/14/2011 [id number] / [id number] / Chip Cancellous 30cc [id number] - [id number] - [id number] Implanted:Qt y: 1 on 01/09/2023 by Sarbjit Vera MD at OR [facility] Tissue - Human N/A: Spine Lumbar MUSCULOSKELETAL TRANSPLANT FND 10/12/2024 [id number] / [id number] / [id number] 1055 Screw 7x50 Poly Si [id number] - [id number] Implanted:Qt y: 2 on 03/15/2010 at OR [facility] N/A: Spine Lumbar JNJ : [employer] [id number] / / Corkscrew Bio Composite - [id number] Implanted:Qt y: 2 on 01/25/2016 by Ken Will MD at [facility] Left: Shoulder [employer] 06/06/2016 [id number] / / [id number] Dbx 2.5cc [id number] - [id number] Implanted:Qt y: 1 on 02/18/2017 by Sarbjit Vera MD at OR [facility] N/A: Spine Lumbar MUSCULOSKELETAL TRANSPLANT FND 09/26/2018 [id number] / / Screw 7x45 Poly Si [id number] - [id number] Implanted:Qt y: 2 on 02/18/2017 by Sarbjit Vera MD at OR [facility] N/A: Spine Lumbar JNJ : [employer] [id number] / / Description:In Set Expedium Ti Sfx 5.5 Lat A5 - [id number] Implanted:Qt y: 1 on 02/18/2017 by Sarbjit Vera MD at OR [facility] N/A: Spine Lumbar JNJ : [employer] [id number] / / Description:In Set Clik Orlinda - [id number] Implanted:Qt y: 1 on 06/06/2020 by Sarbjit Vera MD at OR [facility] N/A: Spine Thoracic [employer] : PAIN MGMT 04/17/2022 [id number] / / [id number] Description:bilateral Valve Lexie 3 Ultra 23mm - [id number] Implanted:Qt y: 1 on 11/27/2020 at CARDIAC LABS [facility] [employer] [id number] / / Gener Wvewriter Alpha Prime 16 - [id number] Implanted:Qt y: 1 on 02/14/2022 by Sarbjit Vera MD at OR [facility] Left: Back [employer] 01/20/2024 [id number] / / [id number] Description:left lower back Screw 6x40 Poly Si [id number] - [id number] Implanted:Qt y: 1 on 01/09/2023 by Sarbjit Vera MD at OR [facility] N/A: Spine Lumbar JNJ : [employer] [id number] / / Screw Set Sng Inner [id number] - [id number] Implanted:Qt y: 8 on 01/09/2023 by Sarbjit Vera MD at OR [facility] N/A: Spine Lumbar JNJ : [employer] [id number] / / Expedium Ti Sfx 5.5 Lat A5 - [id number] Implanted:Qt y: 1 on 01/09/2023 by Sarbjit Vera MD at OR [facility] N/A: Spine Lumbar JNJ : [employer] [id number] / / Screw 6x45 Poly Si [id number] - [id number] Implanted:Qt y: 3 on 01/09/2023 by Sarbjit Vera MD at OR [facility] N/A: Spine Lumbar JNJ : [employer] [id number] / / 100mm [place] Implanted:Qt y: 2 on 01/09/2023 by Sarbjit Vera MD at OR [facility] N/A: Spine Lumbar [employer] 0 / / Graft Infuse Bone Lg [id number] - [id number] Implanted:Qt y: 1 on 01/09/2023 by Sarbjit Vera MD at OR [facility] N/A: Spine Lumbar [employer] : NEURO CARE [id number] 09/06/2024 [id number] / / [id number] documented as of this encounter Visit Diagnoses Diagnosis HTN, goal below 140/90 Unspecified essential hypertension documented in this encounter Advance Directives Latest [...] the patient have Health Care Power of Diamond Die Driller? No Code Status History Code Status Date Activated Date Inactivated Comments Full Code 01/09/2023 9:33 AM 01/09/2023 1:45 PM This or sabrina reflects the patients wishes and were consensually agreed upon. Question Answer Comments Discussion of Advance Directives occurred with: Patient Does the patient have a Living Will? No Does the patient have Health Care Power of Diamond Die Driller? No Full Code 02/14/2022 8:41 AM 02/15/2022 [...] the patient have Health Care Power of Diamond Die Driller? No Care Teams Manager Gas Relationship Specialty Start Date End Date Tabitha Cunningham MD [address] [facility] [address] [place] [address] PCP - General 04/21/1996 documented as of this encounter
--- NOTE | 2024-03-22 07:52 | XRay Report ---
SINGLE VIEW CHEST CLINICAL HISTORY: Sepsis FINDINGS: An AP, portable, upright chest radiograph is obtained. No prior studies are available for c omparison at the time of dictation. There is evidence of previous cardiac valve surgery. The heart is enlarged. The pulmonary vasculature is noncongested. Nonspecific interstitial thickening is likely c hronic. No airspace consolidation or large pleural effusion is identified. No pneumothorax is seen. T he skeletal structures are osteopenic. The bony thorax is grossly intact. Arthritic change is seen in the shoulders. IMPRESSION: Cardiomegaly with no acute cardiopulmonary abnormality identified. ACT 112: Negative or not required by law. Electronically signed by: Bonilla Alcala M.D. 03/22/2024 7:49 AM
[2024-03-22] MEDS ORDERED: METOPROLOL SUCC 25MG EXT REL TAB PO SCH (09:00)
[2024-03-22] MEDS: ACETAMINOPHEN 500 MG TAB PO PRN (09:54)
[2024-03-22] MEDS: cephALEXin 500 MG CAP PO SCH (09:54)
[2024-03-22] MEDS: prednisoLONE acetate 1% OP SUSP 5 ML BTL OPB SCH (09:55)
[2024-03-22] MEDS: CEROVITE ADV FORMULA TAB PO SCH (09:55)
[2024-03-22] MEDS: METOPROLOL SUCC 25MG EXT REL TAB PO SCH (09:55)
[2024-03-22] MEDS: LOSARTAN POTASSIUM 50 MG TAB PO SCH (09:55)
[2024-03-22] MEDS: POLYETHYLENE (MIRALAX) 17 GM PACK PO SCH (10:02)
--- NOTE | 2024-03-22 11:08 | Electrocardiogram Report ---
Test Reason : Blood Pressure : / mmHG Vent. Rate : 085 BPM Atrial Rate : 085 BPM P-R Int : 160 ms QRS Dur : 076 ms QT Int : 394 ms P-R-T Axes : 014 002 076 degrees QTc Int : 468 ms Sinus rhythm with Premature ventricular complexes Nonspecific ST abnormality Abnormal ECG No previous ECGs available Confirmed by Chet Spaulding ([id number]) on 03/22/2024 11:08:15 AM Referred By: [facility] Confirmed By:Chet Spaulding
--- NOTE | 2024-03-22 15:29 | Hospitalist Progress Note ---
Date of Service March 22, 2024 Assessment & Plan (1) Postoperative delirium: (2) Acute on chronic anemia: (3) Demand ischemia: (4) Diabetes mellitus type 2 with complications: (5) Hypertension: Plan Patient 78-year-old female from [facility] after she was there for only a few hours after being discharged from [facility] post knee surgery. Patient significantly delirious, labile behaviors. Reviewed outside EMR, patient was displaying some delirium prior to discharge from [facility] Phone conversation with , he reports that she did not have significant issues with memory or behaviors prior to surgery. States that she has tolerated anesthesia in the past. Will attempt to continue to redirect and use soft restraints. Avoid medicine to control behaviors, suspect patient will just need some additional time for delirium to clear. Therapies as able Troponins elevated and flat, low suspicion for acute coronary syndrome suspect likely due to delirium state. Low suspicion for infectious process Case management to coordinate return to [facility] Admission and Anticipated Discharge Date Admission Date: March 21, 2024 Subjective Patient drowsy this morning. But did wake up but was confused and cannot contribute to history Physical Exam Physical Exam: Constitutional: Drowsy, able to be awakened HEENT: Mucous membranes extremely dry and caked Lungs: Clear to auscultation, decreased, no wheezes rales or rhonchi CV: S1-S2, regular Abdomen: Soft, nontender, nondistended Extremities: No significant edema, surgical dressing intact and clean Neuro: No focal deficits Psych: Labile, at times agitated and aggressive Results & Data Results & Data Vital Signs (Past 12 Hours) Vital Signs Temp Pulse Pulse Pulse Resp BP BP 03/22/24 12:55 36.9 C 80 16 175/79 H 03/22/24 08:49 37.7 C H 89 17 155/53 H 03/22/24 08:09 03/22/24 06:06 87 03/22/24 04:23 93 H 150/67 H 03/22/24 03:38 97 H 20 163/58 H Pulse Ox O2 Del Method 03/22/24 12:55 95 Room Air 03/22/24 08:49 91 Room Air 03/22/24 08:09 Room Air 03/22/24 06:06 03/22/24 04:23 03/22/24 03:38 94 Room Air Diagnostic Findings Reviewed imaging, laboratory and diagnostic studies. Pertinent findings as be low. Hemoglobin 9.9, stable Troponins reviewed, stable and flat TSH 1.8 Procalcitonin negative Urinalysis unremarkable
[2024-03-22] MEDS ORDERED: Nursing to Pharmacy Communication SCH (16:30)
[2024-03-22] MEDS: LORATADINE 10 MG TAB PO SCH (20:30)
[2024-03-22] MEDS: SODIUM CHLORIDE 0.9% 1,000 ML IV SCH (20:31)
[2024-03-22] MEDS: APIXABAN 2.5 MG TAB PO SCH (20:53)
--- NOTE | 2024-03-22 22:38 | Communication Note ---
Date of Service: March 22, 2024 Made aware by RN of persistent elevated BP SBP 160s Patient comfortable as per RN. AP Uncontrolled hypertension Keep px in medical telemetry for now Cancel MedSurg transfer Titrate home BP medications
[2024-03-22] MEDS: traZODone HCL 50 MG TAB PO PRN (22:54)
[2024-03-22] MEDS: METOPROLOL SUCC 25MG EXT REL TAB PO STA (22:55)
[2024-03-23] MEDS: METOPROLOL SUCC 50MG EXT REL TAB PO SCH (13:47)
--- NOTE | 2024-03-23 15:49 | Hospitalist Progress Note ---
Date of Service March 23, 2024 Assessment & Plan (1) Postoperative delirium: Plan: Status post left knee surgery on 03/17/2024 and noted to have acute confusion since on the last Patient 78-year-old female from [facility] after she was there for only a few hours after being discharged from [facility] post knee surgery. She was discharged to [facility] with some delirium and was sent back from the facility within hours of arrival their Patient remains significantly delirious, labile behaviors as of today. Reviewed outside EMR, patient was displaying some delirium prior to discharge from [facility] Phone conversation with , he reports that she did not have significant issues with memory or behaviors prior to surgery. States that she has tolerated anesthesia in the past. Will attempt to continue to redirect and use soft restraints. CT of the head has been negative clinically not any better discussed in detail with the daughter patient remains hemodynamically stable will continue current supportive care and will not give any narcotics and/or anxiolytics or even antihistamines expected to improve (2) Acute on chronic anemia: (3) Demand ischemia: Plan: initial troponin was high at 116.5 and the second test came back at 113 does not have any cardiac symptoms (4) Diabetes mellitus type 2 with complications: (5) Hypertension: Plan: remains on the upper side at 162/70 Plan other significant medical conditions remained stable and are as below; Progressive anemia, postop hemoglobin was 10.9 yesterday, no overt bleed for now hx nonocclusive CAD 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 bronchial asthma, CLEMENT[place] CPAP noncompliant, pulmonary hypertension, patient currently without lung issues DM2 on oral medications, well-controlled as of recent hemoglobin A1c of 5.7 last month cirrhosis as per records, likely NAFLD anxiety/mood disorder postop UTI ongoing Keflex Rx Admission and Anticipated Discharge Date Admission Date: March 21, 2024 Subjective 03/23/2024 The patient was seen and examined in medical telemetry unit in presence of the daughter she has been confused since Thursday last she is status post left knee surgery on 03/17/2024 as of this morning she remains totally confused Review of Systems Review of Systems: Unobtainable due to cognitive status Physical Exam Physical Exam: lying in bed with acute distress Constitutional: well developed, well nourished and + ill appearing Eyes: PERRL, conjunctivae normal, anicteric sclerae ENMT: external ear and nose normal, oropharynx normal Neck: trachea midline, no thyromegaly Respiratory: no respiratory distress Auscultation: lungs clear to auscultation bilaterally Cardiovascular: Rate/Rhythm: regular rate and regular rhythm; not tachycardic Heart Sounds: normal S1 and normal S2; no murmur Extremities: no edema Gastrointestinal (Abdomen): Inspection/Auscultation: normal bowel sounds; abdomen not distended Percussion/Palpation: abdomen soft; abdomen nontender Musculoskeletal: left knee is painful on movement Neurologic: alert and awake. totally confused. a little agitated at times but not aggressive Lymphatic: no cervical or axillary lymphadenopathy Results & Data Results & Data Vital Signs (Past 12 Hours) Vital Signs Temp Pulse Pulse Resp BP Pulse Ox O2 Del Method 03/23/24 14:49 96 H 03/23/24 11:41 37.9 C H 86 16 168/70 H 91 Room Air 03/23/24 08:00 89 03/23/24 07:58 37.1 C 90 16 161/61 H 93 Room Air Medications Administered Current Inpatient Medications Acetaminophen (Acetaminophen 500 Mg Tab) 500 mg PO Q6H PRN PRN Reason: fever/pain Stop: 04/21/24 03:30 Last Admin: 03/22/24 20:29 Dose: 500 mg Apixaban (Apixaban 2.5 Mg Tab) 2.5 mg PO BID MAGUI Stop: 04/21/24 20:59 Last Admin: 03/23/24 13:47 Dose: Not Given Dextrose (Dextrose 50% 50 Ml Syringe) 25 - 50 ml IV UD PRN; Protocol PRN Reason: Hypoglycemia Protocol Stop: 04/21/24 02:49 Fluticasone Propionate (Fluticasone Propionate Na Spr 16 Gm Btl) 1 sprays NA DAILY PRN PRN Reason: Congestion Stop: 04/21/24 02:49 Glucagon (Glucagon For Inj 1 Mg Vial) 1 mg SQ UD PRN; Protocol PRN Reason: Hypoglycemia Protocol Stop: 04/21/24 02:49 Glucose (Glucose 40% Gel 15 Gm Tube) 15 - 30 gm PO UD PRN; Protocol PRN Reason: Hypoglycemia Protocol Stop: 04/21/24 02:49 Glucose (Glucose 10 Tab/Tube) 4 - 8 tab PO UD PRN; Protocol PRN Reason: Hypoglycemia Treatment Stop: 04/21/24 02:49 Sodium Chloride (Nss) 1,000 mls @ 60 mls/hr IV .[id number] MAGUI Stop: 04/21/24 15:44 Last Admin: 03/23/24 09:25 Dose: 60 mls/hr Insulin Aspart (Insulin Aspart Per Unit Charge) 0 units SC ACHS MAGUI Stop: 04/21/24 02:49 Last Admin: 03/23/24 13:50 Dose: Not Given Loratadine (Loratadine 10 Mg Tab) 10 mg PO PM MAGUI Stop: 04/21/24 20:59 Last Admin: 03/22/24 20:30 Dose: 10 mg Losartan Potassium (Losartan Potassium 50 Mg Tab) 100 mg PO DAILY MAGUI Stop: 04/21/24 08:59 Last Admin: 03/23/24 13:47 Dose: Not Given Melatonin (Melatonin 3 Mg Tab) 3 mg PO HS PRN PRN Reason: Sleep Stop: 04/20/24 23:24 Last Admin: 03/22/24 20:29 Dose: 3 mg Metoprolol Succinate (Metoprolol Succ 50mg Ext Rel Tab) 50 mg PO BID MAGUI Stop: 04/22/24 08:59 Last Admin: 03/23/24 13:47 Dose: Not Given Miscellaneous (Carbohydrates For Hypoglycemia ) 15 - 30 gm PO UD PRN PRN Reason: Hypoglycemia Protocol Stop: 04/21/24 02:49 Multivitamins/Minerals (Cerovite Adv Formula Tab) 1 tab PO DAILY MAGUI Stop: 04/21/24 08:59 Last Admin: 03/23/24 13:47 Dose: Not Given Polyethylene Glycol (Polyethylene (Miralax) 17 Gm Pack) 17 gm PO QAM MAGUI Stop: 04/21/24 08:59 Last Admin: 03/23/24 13:47 Dose: Not Given Prednisolone Acetate (Prednisolone Acetate 1% Op Susp 5 Ml Btl) 1 drops OPB QID MAGUI Stop: 04/21/24 08:59 Last Admin: 03/23/24 14:11 Dose: 1 drops Trazodone HCl (Trazodone Hcl 50 Mg Tab) 50 mg PO HS [facility] Stop: 04/21/24 03:24 Last Admin: 03/22/24 20:30 Dose: 50 mg Trazodone HCl (Trazodone Hcl 50 Mg Tab) 12.5 mg PO TID PRN PRN Reason: Anxiety/Agitation Stop: 04/21/24 08:59 Last Admin: 03/22/24 22:54 Dose: 12.5 mg
[2024-03-23] MEDS: ACETAMINOPHEN 1,000 MG/100 ML VIAL IV PRN (17:09)
[2024-03-23] MEDS: PIPER/TAZO 4.5g in D5W MINI-B 100 ML IV ONE (18:33)
[2024-03-23 21:17] LABS: Base Excess ABG -0.3 mEq/L (-9-1.8); HCO3 ABG 22 mmol/L (19-24); PCO2 ABG 30 mmHg (35-46); PO2 ABG 113 mmHg (80-95); pH ABG 7.48 (7.35-7.45)
[2024-03-23 21:18] LABS: Allen Test Pos (Pos)
[2024-03-23] MEDS: PIPERACILLIN/TAZOBACTAM 4.5 GM in DEXTROSE 5% MINI-B 100 ML IV SCH (23:05)
[2024-03-24 07:54] LABS: Basophils # (auto) 0.01 K/uL (0.00-0.20); Basophils % (auto) 0.3 %; Eosinophils # (auto) 0.19 K/uL (0.00-0.50); Hematocrit (blood only) 28.9 % (37.0-47.0); Hemoglobin 9.9 g/dl (12.0-16.0); Lymphocytes # (auto) 0.81 K/uL (1.20-3.40); Lymphocytes % (auto) 21.4 %; Mean Corpuscular Hemoglobin 30.2 pg (25.0-34.0); Mean Corpuscular Hgb Conc 34.3 g/dL (32.0-36.0); Mean Corpuscular Volume 88.1 fL (80.0-100.0); Mean Platelet Volume 8.9 fL (9.4-12.4); Monocytes # (auto) 0.39 K/uL (0.11-0.59); Monocytes % (auto) 10.3 %; Neutrophils # (auto) 2.39 K/uL (1.40-6.50); Platelet Count 156 K/uL (130-400); RDW Coefficient of Variation 12.6 % (11.5-14.5); RDW Standard Deviation 41.2 fL (36.4-46.3); Red Blood Count 3.28 M/uL (4.20-5.40); White Blood Count 3.79 K/ul (4.8-10.8)
[2024-03-24 08:19] LABS: BUN Creatinine Ratio 26.8 (10-20); Calcium 8.1 mg/dl (8.6-10.3); Est GFR (African American) 95.2 ml/min; Est GFR (Non-African American) 82.2 ml/min; Magnesium 1.7 mg/dl (1.7-2.4); Phosphorus 3.7 mg/dl (2.5-4.9); Potassium 3.6 mmol/L (3.5-5.1)
--- NOTE | 2024-03-24 17:15 | Hospitalist Progress Note ---
Date of Service March 24, 2024 Assessment & Plan (1) Postoperative delirium: Plan: Status post left knee surgery on 03/17/2024 and noted to have acute confusion since on the last Patient 78-year-old female from [facility] after she was there for only a few hours after being discharged from [facility] post knee surgery. She was discharged to [facility] with some delirium and was sent back from the facility within hours of arrival their Patient remains significantly delirious, labile behaviors as of today. Reviewed outside EMR, patient was displaying some delirium prior to discharge from [facility] Phone conversation with , he reports that she did not have significant issues with memory or behaviors prior to surgery. States that she has tolerated anesthesia in the past. Will attempt to continue to redirect and use soft restraints. CT of the head has been negative clinically not any better discussed in detail with the daughter patient remains hemodynamically stable will continue current supportive care and will not give any narcotics and/or anxiolytics or even antihistamines clinically much better today and has been complicating normally remains pleasantly confused will continue current management will get PT OT evaluation and possible discharge in a day or 2 high temperature has had fever of 38 C yesterday and is started on intravenous Zosyn empirically will continue antibiotic for 48 to 72 hours in total (2) Acute on chronic anemia: Plan: hemoglobin remains stable at 9.9 (3) Demand ischemia: Plan: initial troponin was high at 116.5 and the second test came back at 113 does not have any cardiac symptoms (4) Diabetes mellitus type 2 with complications: (5) Hypertension: Plan: remains on the upper side at 162/70 Plan other significant medical conditions remained stable and are as below; Progressive anemia, postop hemoglobin was 10.9 yesterday, no overt bleed for now hx nonocclusive CAD 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 bronchial asthma, CLEMENTINA CPAP noncompliant, pulmonary hypertension, patient currently without lung issues DM2 on oral medications, well-controlled as of recent hemoglobin A1c of 5.7 last month cirrhosis as per records, likely NAFLD anxiety/mood disorder postop UTI ongoing Keflex Rx Admission and Anticipated Discharge Date Admission Date: March 21, 2024 Subjective 03/23/2024 The patient was seen and examined in medical telemetry unit in presence of the daughter she has been confused since Thursday last she is status post left knee surgery on 03/17/2024 as of this morning she remains totally confused 10/14/1823 The patient was seen and examined in medical telemetry unit in presence of the She has been feeling much better Denies any significant symptoms and remains pleasantly confused event today Review of Systems Review of Systems: all systems reviewed and are unremarkable except as noted below Physical Exam 2 Physical Exam: sitting on a chair without any acute distress Constitutional: well developed, well nourished and + ill appearing Eyes: PERRL, conjunctivae normal, anicteric sclerae ENMT: external ear and nose normal, oropharynx normal Neck: trachea midline, no thyromegaly Respiratory: no respiratory distress Auscultation: lungs clear to auscultation bilaterally Cardiovascular: Rate/Rhythm: regular rate and regular rhythm; not tachycardic Heart Sounds: normal S1 and normal S2; no murmur Extremities: no edema Gastrointestinal (Abdomen): Inspection/Auscultation: normal bowel sounds; abdomen not distended Percussion/Palpation: abdomen soft; abdomen nontender Neurologic: alert, awake and oriented x 3. pleasantly confused Lymphatic: no cervical or axillary lymphadenopathy Results & Data Results & Data Vital Signs (Past 12 Hours) Vital Signs Temp Pulse Pulse Resp BP BP Pulse Ox 03/24/24 16:23 83 03/24/24 15:46 37.3 C 82 20 167/68 H 95 03/24/24 12:16 37.5 C 82 18 158/73 H 93 03/24/24 07:39 75 03/24/24 07:21 37.2 C 84 18 171/71 H 93 O2 Del Method 03/24/24 16:23 03/24/24 15:46 Room Air 03/24/24 12:16 Room Air 03/24/24 07:39 03/24/24 07:21 Room Air Laboratory Results Short CBC 03/24/24 Range/Units 07:31 WBC 3.79 L (4.8-10.8) K/ul Hgb 9.9 L (12.0-16.0) g/dl Hct 28.9 L (37.0-47.0) % Plt Count 156 (130-400) K/uL BMP 03/24/24 07:31 Sodium 142 Potassium 3.6 Chloride 110 H Carbon Dioxide 24 BUN 19 Creatinine 0.71 Glucose 116 H Calcium 8.1 L Medications Administered Current Inpatient Medications Acetaminophen (Acetaminophen 500 Mg Tab) 500 mg PO Q6H PRN PRN Reason: fever/pain Stop: 04/21/24 03:30 Last Admin: 03/24/24 17:10 Dose: 500 mg Apixaban (Apixaban 2.5 Mg Tab) 2.5 mg PO BID MAGUI Stop: 04/21/24 20:59 Last Admin: 03/24/24 09:32 Dose: 2.5 mg Dextrose (Dextrose 50% 50 Ml Syringe) 25 - 50 ml IV UD PRN; Protocol PRN Reason: Hypoglycemia Protocol Stop: 04/21/24 02:49 Fluticasone Propionate (Fluticasone Propionate Na Spr 16 Gm Btl) 1 sprays NA DAILY PRN PRN Reason: Congestion Stop: 04/21/24 02:49 Glucagon (Glucagon For Inj 1 Mg Vial) 1 mg SQ UD PRN; Protocol PRN Reason: Hypoglycemia Protocol Stop: 04/21/24 02:49 Glucose (Glucose 40% Gel 15 Gm Tube) 15 - 30 gm PO UD PRN; Protocol PRN Reason: Hypoglycemia Protocol Stop: 04/21/24 02:49 Glucose (Glucose 10 Tab/Tube) 4 - 8 tab PO UD PRN; Protocol PRN Reason: Hypoglycemia Treatment Stop: 04/21/24 02:49 Sodium Chloride (Nss) 1,000 mls @ 60 mls/hr IV .[id number] [facility] Stop: 04/21/24 15:44 Last Admin: 03/24/24 05:26 Dose: 60 mls/hr Acetaminophen (Ofirmev) 1,000 mg in 100 mls @ 400 mls/hr IV Q8H PRN PRN Reason: Pain or Fever Stop: 03/26/24 16:37 Last Infusion: 03/23/24 17:44 Dose: Infused Piperacillin Sod/Tazobactam (Sod 4.5 gm/ Dextrose) 100 mls @ 25 mls/hr IV Q8H MAGUI; Protocol Stop: 03/25/24 22:59 Last Admin: 03/24/24 17:08 Dose: 25 mls/hr Insulin Aspart (Insulin Aspart Per Unit Charge) 0 units SC ACHS MAGUI Stop: 04/21/24 02:49 Last Admin: 03/24/24 13:16 Dose: Not Given Loratadine (Loratadine 10 Mg Tab) 10 mg PO PM [facility] Stop: 04/21/24 20:59 Last Admin: 03/23/24 20:20 Dose: Not Given Losartan Potassium (Losartan Potassium 50 Mg Tab) 100 mg PO DAILY MAGUI Stop: 04/21/24 08:59 Last Admin: 03/24/24 09:32 Dose: 100 mg Melatonin (Melatonin 3 Mg Tab) 3 mg PO HS PRN PRN Reason: Sleep Stop: 04/20/24 23:24 Last Admin: 03/22/24 20:29 Dose: 3 mg Metoprolol Succinate (Metoprolol Succ 50mg Ext Rel Tab) 50 mg PO BID MAGUI Stop: 04/22/24 08:59 Last Admin: 03/24/24 09:32 Dose: 50 mg Miscellaneous (Carbohydrates For Hypoglycemia ) 15 - 30 gm PO UD PRN PRN Reason: Hypoglycemia Protocol Stop: 04/21/24 02:49 Multivitamins/Minerals (Cerovite Adv Formula Tab) 1 tab PO DAILY MAGUI Stop: 04/21/24 08:59 Last Admin: 03/24/24 09:33 Dose: 1 tab Polyethylene Glycol (Polyethylene (Miralax) 17 Gm Pack) 17 gm PO QAM MAGUI Stop: 04/21/24 08:59 Last Admin: 03/24/24 09:33 Dose: 17 gm Prednisolone Acetate (Prednisolone Acetate 1% Op Susp 5 Ml Btl) 1 drops OPB QID MAGUI Stop: 04/21/24 08:59 Last Admin: 03/24/24 17:08 Dose: 1 drops Trazodone HCl (Trazodone Hcl 50 Mg Tab) 50 mg PO HS MAGUI Stop: 04/21/24 03:24 Last Admin: 03/23/24 20:21 Dose: Not Given Trazodone HCl (Trazodone Hcl 50 Mg Tab) 12.5 mg PO TID PRN PRN Reason: Anxiety/Agitation Stop: 04/21/24 08:59 Last Admin: 03/22/24 22:54 Dose: 12.5 mg
[2024-03-26 06:54] LABS: Basophils # (auto) 0.01 K/uL (0.00-0.20); Basophils % (auto) 0.2 %; Eosinophils # (auto) 0.23 K/uL (0.00-0.50); Eosinophils % (auto) 5.1 %; Hematocrit (blood only) 31.6 % (37.0-47.0); Hemoglobin 10.6 g/dl (12.0-16.0); Immature Granulocytes # (auto) 0.01 K/uL (0.01-0.20); Immature Granulocytes % (auto) 0.2 %; Lymphocytes # (auto) 1.08 K/uL (1.20-3.40); Lymphocytes % (auto) 24.1 %; Mean Corpuscular Hemoglobin 29.5 pg (25.0-34.0); Mean Corpuscular Hgb Conc 33.5 g/dL (32.0-36.0); Monocytes # (auto) 0.49 K/uL (0.11-0.59); Monocytes % (auto) 10.9 %; Neutrophils # (auto) 2.66 K/uL (1.40-6.50); Neutrophils % (auto) 59.5 %; Platelet Count 191 K/uL (130-400); RDW Coefficient of Variation 12.4 % (11.5-14.5); Red Blood Count 3.59 M/uL (4.20-5.40); White Blood Count 4.48 K/ul (4.8-10.8)
[2024-03-26 11:46] LABS: Calcium 8.3 mg/dl (8.6-10.3); Potassium 3.5 mmol/L (3.5-5.1)
[2024-03-26 11:52] LABS: BUN Creatinine Ratio 23.1 (10-20); Creatinine Clr Calc Pharmacy 83.1 ml/min; Est GFR (African American) 99.3 ml/min; Est GFR (Non-African American) 85.6 ml/min
--- NOTE | 2024-03-26 14:48 | Hospitalist Progress Note ---
Date of Service March 26, 2024 Assessment & Plan (1) Postoperative delirium: Plan: Status post left knee surgery on 03/17/2024 and noted to have acute confusion since on the last Patient 78-year-old female from [facility] after she was there for only a few hours after being discharged from [facility] post knee surgery. She was discharged to [facility] with some delirium and was sent back from the facility within hours of arrival their Patient remains significantly delirious, labile behaviors as of today. Reviewed outside EMR, patient was displaying some delirium prior to discharge from [facility] Phone conversation with , he reports that she did not have significant issues with memory or behaviors prior to surgery. States that she has tolerated anesthesia in the past. Will attempt to continue to redirect and use soft restraints. CT of the head has been negative clinically not any better discussed in detail with the daughter patient remains hemodynamically stable will continue current supportive care and will not give any narcotics and/or anxiolytics or even antihistamines clinically much better today and has been complicating normally remains pleasantly confused will continue current management will get PT OT evaluation and possible discharge in a day or 2 Postop delirium has improved a lot Minimally confused at rest but has been tolerating diet Likely discharge in a day or 2 high temperature has had fever of 38 C yesterday and is started on intravenous Zosyn empirically will continue antibiotic for 48 to 72 hours in total Blood cultures have been negative and UA was not supportive of an infection Left knee surgical site has minimal inflammation but doubt any cellulitis Will continue antibiotic for 2 more days (2) Acute on chronic anemia: Plan: hemoglobin remains stable at 9.9 (3) Demand ischemia: Plan: initial troponin was high at 116.5 and the second test came back at 113 does not have any cardiac symptoms (4) Diabetes mellitus type 2 with complications: (5) Hypertension: Plan: remains on the upper side at 162/70 Plan other significant medical conditions remained stable and are as below; Progressive anemia, postop hemoglobin was 10.9 yesterday, no overt bleed for now hx nonocclusive CAD 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 bronchial asthma, CLEMENTINA CPAP noncompliant, pulmonary hypertension, patient currently without lung issues DM2 on oral medications, well-controlled as of recent hemoglobin A1c of 5.7 last month cirrhosis as per records, likely NAFLD anxiety/mood disorder postop UTI ongoing Keflex Rx Admission and Anticipated Discharge Date Admission Date: March 21, 2024 Subjective 03/23/2024 The patient was seen and examined in medical telemetry unit in presence of the daughter she has been confused since Thursday last she is status post left knee surgery on 03/17/2024 as of this morning she remains totally confused 03/24/2024 The patient was seen and examined in medical telemetry unit in presence of the She has been feeling much better Denies any significant symptoms and remains pleasantly confused 03/25/2024 The patient was seen and examined in medical telemetry unit and the progress note is in the paper chart 03/26/2024 The patient was seen and examined in medical telemetry unit She has been much better today and has had bedside swallow evaluation She has been started with a diet and has been tolerating Remains pleasantly confused Review of Systems Review of Systems: all systems reviewed and are unremarkable except as noted below Physical Exam Physical Exam: sitting on a chair without any acute distress Constitutional: well developed, well nourished and + ill appearing Eyes: PERRL, conjunctivae normal, anicteric sclerae ENMT: external ear and nose normal, oropharynx normal Neck: trachea midline, no thyromegaly Respiratory: no respiratory distress Auscultation: lungs clear to auscultation bilaterally Cardiovascular: Rate/Rhythm: regular rate and regular rhythm; not tachycardic Heart Sounds: normal S1 and normal S2; no murmur Extremities: no edema Gastrointestinal (Abdomen): Inspection/Auscultation: normal bowel sounds; abdomen not distended Percussion/Palpation: abdomen soft; abdomen nontender Musculoskeletal: Left knee swelling is persisting with surgical site seems to be intact and the melonie are intact too No acute arthritis involving the left Neurologic: normal touch/pain/proprioception and moves all extremities; no focal motor deficits Lymphatic: no cervical or axillary lymphadenopathy Results & Data Results & Data Vital Signs (Past 12 Hours) Vital Signs Temp Pulse Pulse Resp BP BP Pulse Ox 03/26/24 11:21 37.0 C 72 20 171/68 H 96 03/26/24 07:27 37.0 C 81 20 178/95 H 95 03/26/24 07:25 80 03/26/24 03:27 36.9 C 79 18 197/70 H 184/82 H 95 O2 Del Method 03/26/24 11:21 Room Air 07/20/24 07:27 Room Air 03/26/24 07:25 03/26/24 03:27 Room Air Laboratory Results Short CBC 03/26/24 Range/Units 06:11 WBC 4.48 L (4.8-10.8) K/ul Hgb 10.6 L (12.0-16.0) g/dl Hct 31.6 L (37.0-47.0) % Plt Count 191 (130-400) K/uL BMP 03/26/24 06:11 Sodium 140 Potassium 3.5 Chloride 107 Carbon Dioxide 22 BUN 15 Creatinine 0.65 Glucose 115 H Calcium 8.3 L Medications Administered Current Inpatient Medications Acetaminophen (Acetaminophen 500 Mg Tab) 500 mg PO Q6H PRN PRN Reason: fever/pain Stop: 04/21/24 03:30 Last Admin: 03/26/24 08:45 Dose: 500 mg Apixaban (Apixaban 2.5 Mg Tab) 2.5 mg PO BID MAGUI Stop: 04/21/24 20:59 Last Admin: 03/26/24 08:44 Dose: 2.5 mg Dextrose (Dextrose 50% 50 Ml Syringe) 25 - 50 ml IV UD PRN; Protocol PRN Reason: Hypoglycemia Protocol Stop: 04/21/24 02:49 Fluticasone Propionate (Fluticasone Propionate Na Spr 16 Gm Btl) 1 sprays NA DAILY PRN PRN Reason: Congestion Stop: 04/21/24 02:49 Glucagon (Glucagon For Inj 1 Mg Vial) 1 mg SQ UD PRN; Protocol PRN Reason: Hypoglycemia Protocol Stop: 04/21/24 02:49 Glucose (Glucose 40% Gel 15 Gm Tube) 15 - 30 gm PO UD PRN; Protocol PRN Reason: Hypoglycemia Protocol Stop: 04/21/24 02:49 Glucose (Glucose 10 Tab/Tube) 4 - 8 tab PO UD PRN; Protocol PRN Reason: Hypoglycemia Treatment Stop: 04/21/24 02:49 Acetaminophen (Ofirmev) 1,000 mg in 100 mls @ 400 mls/hr IV Q8H PRN PRN Reason: Pain or Fever Stop: 03/26/24 16:37 Last Infusion: 03/23/24 17:44 Dose: Infused Insulin Aspart (Insulin Aspart Per Unit Charge) 0 units SC ACHS MAGUI Stop: 04/21/24 02:49 Last Admin: 03/26/24 12:30 Dose: Not Given Loratadine (Loratadine 10 Mg Tab) 10 mg PO PM MAGUI Stop: 04/21/24 20:59 Last Admin: 03/25/24 20:59 Dose: 10 mg Losartan Potassium (Losartan Potassium 50 Mg Tab) 100 mg PO DAILY MAGUI Stop: 04/21/24 08:59 Last Admin: 03/26/24 08:44 Dose: 100 mg Melatonin (Melatonin 3 Mg Tab) 3 mg PO HS PRN PRN Reason: Sleep Stop: 04/20/24 23:24 Last Admin: 03/22/24 20:29 Dose: 3 mg Metoprolol Succinate (Metoprolol Succ 50mg Ext Rel Tab) 50 mg PO BID MAGUI Stop: 04/22/24 08:59 Last Admin: 03/26/24 08:44 Dose: 50 mg Miscellaneous (Carbohydrates For Hypoglycemia ) 15 - 30 gm PO UD PRN PRN Reason: Hypoglycemia Protocol Stop: 04/21/24 02:49 Multivitamins/Minerals (Cerovite Adv Formula Tab) 1 tab PO DAILY MAGUI Stop: 04/21/24 08:59 Last Admin: 03/26/24 08:44 Dose: 1 tab Polyethylene Glycol (Polyethylene (Miralax) 17 Gm Pack) 17 gm PO QAM MAGUI Stop: 04/21/24 08:59 Last Admin: 03/26/24 08:44 Dose: Not Given Prednisolone Acetate (Prednisolone Acetate 1% Op Susp 5 Ml Btl) 1 drops OPB QID MAGUI Stop: 04/21/24 08:59 Last Admin: 03/26/24 13:19 Dose: 1 drops Trazodone HCl (Trazodone Hcl 50 Mg Tab) 50 mg PO HS MAGUI Stop: 04/21/24 03:24 Last Admin: 03/25/24 20:59 Dose: 50 mg Trazodone HCl (Trazodone Hcl 50 Mg Tab) 12.5 mg PO TID PRN PRN Reason: Anxiety/Agitation Stop: 04/21/24 08:59 Last Admin: 03/22/24 22:54 Dose: 12.5 mg
[2024-03-26] MEDS: amLODIPine BESYLATE 5 MG TAB PO SCH (18:28)
[2024-03-27] MEDS: OLANZapine ZYDIS 5 MG ORALLY DIS. TAB PO STA (02:35)
[2024-03-27] MEDS: D5NSS + 20MEQ KCL 20 MEQ/1,000 ML BAG IV SCH (11:27)
--- NOTE | 2024-03-27 11:35 | CT Scan Report ---
HEAD CT NONCONTRAST CT DOSE: 580.53 mGy.cm HISTORY: Confusion. R/O bleed TECHNIQUE: Multiaxial CT images of the head were performed without the use of intravenous contrast. A utomated exposure control was utilized for this study. A dose lowering technique was utilized adheri ng to the principles of ALARA. Comparison: Head CT 03/21/2024. Findings: Chronic opacification the right sphenoid sinus again noted. The remaining paranasal sinuses and mastoid air cells are clear. Mild motion artifact. The calvarium and skull base are intact. The ventricles and sulci are within normal limits. There is no mass, hematoma, midline shift, or acute in farct. Impression: No acute intracranial abnormality. ACT 112: Negative or not required by law. Electronically signed by: Ced Garcia M.D. 03/27/2024 11:32 AM
--- NOTE | 2024-03-27 15:49 | Hospitalist Progress Note ---
Date of Service March 27, 2024 Assessment & Plan (1) Postoperative delirium: Plan: Status post left knee surgery on 03/17/2024 and noted to have acute confusion since on the last Patient 78-year-old female from [facility] after she was there for only a few hours after being discharged from [facility] post knee surgery. She was discharged to [facility] with some delirium and was sent back from the facility within hours of arrival their Patient remains significantly delirious, labile behaviors as of today. Reviewed outside EMR, patient was displaying some delirium prior to discharge from [facility] Phone conversation with , he reports that she did not have significant issues with memory or behaviors prior to surgery. States that she has tolerated anesthesia in the past. Will attempt to continue to redirect and use soft restraints. CT of the head has been negative clinically not any better discussed in detail with the daughter patient remains hemodynamically stable will continue current supportive care and will not give any narcotics and/or anxiolytics or even antihistamines clinically much better today and has been complicating normally remains pleasantly confused will continue current management will get PT OT evaluation and possible discharge in a day or 2 Postop delirium has improved a lot Minimally confused at rest but has been tolerating diet Likely discharge in a day or 2 Condition has been worse since last night when she required a dose of Zyprexa due to agitation and psychosis She has been less responsive but remains very drowsy and confused this morning Remains hemodynamically stable Condition has been deteriorating since this morning and will repeat the blood test Has had repeat CAT scan which was unremarkable Will discuss with the daughter High temperature has had fever of 38 C yesterday and is started on intravenous Zosyn empirically will continue antibiotic for 48 to 72 hours in total Blood cultures have been negative and UA was not supportive of an infection Left knee surgical site has minimal inflammation but doubt any cellulitis Will continue antibiotic for 2 more days (2) Acute on chronic anemia: Plan: hemoglobin remains stable at 9.9 (3) Demand ischemia: Plan: initial troponin was high at 116.5 and the second test came back at 113 does not have any cardiac symptoms (4) Diabetes mellitus type 2 with complications: (5) Hypertension: Plan: remains on the upper side at 162/70 Plan other significant medical conditions remained stable and are as below; Progressive anemia, postop hemoglobin was 10.9 yesterday, no overt bleed for now hx nonocclusive CAD 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 bronchial asthma, CLEMENTINA CPAP noncompliant, pulmonary hypertension, patient currently without lung issues DM2 on oral medications, well-controlled as of recent hemoglobin A1c of 5.7 last month cirrhosis as per records, likely NAFLD anxiety/mood disorder postop UTI ongoing Keflex Rx Admission and Anticipated Discharge Date Admission Date: March 21, 2024 Subjective 03/23/2024 The patient was seen and examined in medical telemetry unit in presence of the daughter she has been confused since Thursday last she is status post left knee surgery on 03/17/2024 as of this morning she remains totally confused 03/24/2024 The patient was seen and examined in medical telemetry unit in presence of the She has been feeling much better Denies any significant symptoms and remains pleasantly confused 03/25/2024 The patient was seen and examined in medical telemetry unit and the progress note is in the paper chart 03/26/2024 The patient was seen and examined in medical telemetry unit She has been much better today and has had bedside swallow evaluation She has been started with a diet and has been tolerating Remains pleasantly confused 03/26/2024 The patient was seen and examined in medical telemetry unit She has had Zyprexa last night because of acute psychosis Has been sleeping since this morning Only responding to vocal commands with name Remains very confused Reexamined at 4:25 PM Reported to have fairly normal conversation with the family members Remains very drowsy and sleepy Remains confused with stable vitals and unremarkable examination Awaiting stat blood test Will not receive any more benzodiazepines, antipsychotics or narcotics Updated the Review of Systems Review of Systems: all systems reviewed and are unremarkable except as noted below Physical Exam Physical Exam: Lying in bed with decreased responsiveness Constitutional: well developed, well nourished and + ill appearing Eyes: PERRL, conjunctivae normal, anicteric sclerae ENMT: external ear and nose normal, oropharynx normal Neck: trachea midline, no thyromegaly Respiratory: no respiratory distress Auscultation: lungs clear to auscultation bilaterally Cardiovascular: Rate/Rhythm: regular rate and regular rhythm; not tachycardic Heart Sounds: normal S1 and normal S2; no murmur Extremities: no edema Gastrointestinal (Abdomen): Inspection/Auscultation: normal bowel sounds; abdomen not distended Percussion/Palpation: abdomen soft; abdomen nontender Neurologic: normal touch/pain/proprioception and moves all extremities; no focal motor deficits Lymphatic: no cervical or axillary lymphadenopathy Results & Data Results & Data Vital Signs (Past 12 Hours) Vital Signs Temp Pulse Pulse Resp BP Pulse Ox O2 Del Method 03/27/24 14:58 36.7 C 83 19 175/72 H 93 Room Air 03/27/24 14:43 69 03/27/24 11:30 Room Air 03/27/24 11:20 36.6 C 74 19 176/80 H 96 Room Air 03/27/24 08:22 37.0 C 81 19 126/91 92 Room Air 03/27/24 07:08 78 Medications Administered Current Inpatient Medications Acetaminophen (Acetaminophen 500 Mg Tab) 500 mg PO Q6H PRN PRN Reason: fever/pain Stop: 04/21/24 03:30 Last Admin: 03/27/24 01:10 Dose: 500 mg Amlodipine Besylate (Amlodipine Besylate 5 Mg Tab) 5 mg PO QAM [facility] Stop: 04/25/24 17:59 Last Admin: 03/27/24 11:26 Dose: 5 mg Apixaban (Apixaban 2.5 Mg Tab) 2.5 mg PO BID MAGUI Stop: 04/21/24 20:59 Last Admin: 03/27/24 11:26 Dose: 2.5 mg Dextrose (Dextrose 50% 50 Ml Syringe) 25 - 50 ml IV UD PRN; Protocol PRN Reason: Hypoglycemia Protocol Stop: 04/21/24 02:49 Fluticasone Propionate (Fluticasone Propionate Na Spr 16 Gm Btl) 1 sprays NA DAILY PRN PRN Reason: Congestion Stop: 04/21/24 02:49 Glucagon (Glucagon For Inj 1 Mg Vial) 1 mg SQ UD PRN; Protocol PRN Reason: Hypoglycemia Protocol Stop: 04/21/24 02:49 Glucose (Glucose 40% Gel 15 Gm Tube) 15 - 30 gm PO UD PRN; Protocol PRN Reason: Hypoglycemia Protocol Stop: 04/21/24 02:49 Glucose (Glucose 10 Tab/Tube) 4 - 8 tab PO UD PRN; Protocol PRN Reason: Hypoglycemia Treatment Stop: 04/21/24 02:49 Potassium Chloride/Dextrose/Sod Cl (D5nss + 20meq Kcl) 20 meq in 1,000 mls @ 80 mls/hr IV .[id number] [facility]; Protocol Stop: 03/29/24 00:29 Last Admin: 03/27/24 11:27 Dose: 80 mls/hr Insulin Aspart (Insulin Aspart Per Unit Charge) 0 units SC ACHS [facility] Stop: 04/21/24 02:49 Last Admin: 03/27/24 12:44 Dose: 1 units Loratadine (Loratadine 10 Mg Tab) 10 mg PO PM [facility] Stop: 04/21/24 20:59 Last Admin: 03/26/24 19:32 Dose: 10 mg Losartan Potassium (Losartan Potassium 50 Mg Tab) 100 mg PO DAILY [facility] Stop: 04/21/24 08:59 Last Admin: 03/27/24 11:26 Dose: 100 mg Melatonin (Melatonin 3 Mg Tab) 3 mg PO HS PRN PRN Reason: Sleep Stop: 04/20/24 23:24 Last Admin: 03/26/24 20:58 Dose: 3 mg Metoprolol Succinate (Metoprolol Succ 50mg Ext Rel Tab) 50 mg PO BID [facility] Stop: 04/22/24 08:59 Last Admin: 03/27/24 11:26 Dose: 50 mg Miscellaneous (Carbohydrates For Hypoglycemia ) 15 - 30 gm PO UD PRN PRN Reason: Hypoglycemia Protocol Stop: 04/21/24 02:49 Multivitamins/Minerals (Cerovite Adv Formula Tab) 1 tab PO DAILY [facility] Stop: 04/21/24 08:59 Last Admin: 03/27/24 11:26 Dose: 1 tab Polyethylene Glycol (Polyethylene (Miralax) 17 Gm Pack) 17 gm PO QAM [facility] Stop: 04/21/24 08:59 Last Admin: 03/27/24 11:26 Dose: Not Given Prednisolone Acetate (Prednisolone Acetate 1% Op Susp 5 Ml Btl) 1 drops OPB QID [facility] Stop: 04/21/24 08:59 Last Admin: 03/27/24 12:42 Dose: 1 drops Trazodone HCl (Trazodone Hcl 50 Mg Tab) 50 mg PO HS [facility] Stop: 04/21/24 03:24 Last Admin: 03/26/24 19:34 Dose: 50 mg Trazodone HCl (Trazodone Hcl 50 Mg Tab) 12.5 mg PO TID PRN PRN Reason: Anxiety/Agitation Stop: 04/21/24 08:59 Last Admin: 03/22/24 22:54 Dose: 12.5 mg
[2024-03-27 16:41] LABS: Basophils # (auto) 0.02 K/uL (0.00-0.20); Basophils % (auto) 0.5 %; Eosinophils # (auto) 0.22 K/uL (0.00-0.50); Eosinophils % (auto) 5.6 %; Hematocrit (blood only) 30.5 % (37.0-47.0); Hemoglobin 10.1 g/dl (12.0-16.0); Immature Granulocytes # (auto) 0.02 K/uL (0.01-0.20); Immature Granulocytes % (auto) 0.5 %; Lymphocytes # (auto) 1.03 K/uL (1.20-3.40); Mean Corpuscular Hemoglobin 29.3 pg (25.0-34.0); Mean Corpuscular Hgb Conc 33.1 g/dL (32.0-36.0); Mean Corpuscular Volume 88.4 fL (80.0-100.0); Mean Platelet Volume 9.1 fL (9.4-12.4); Monocytes # (auto) 0.43 K/uL (0.11-0.59); Monocytes % (auto) 10.9 %; Neutrophils # (auto) 2.24 K/uL (1.40-6.50); Neutrophils % (auto) 56.5 %; Platelet Count 191 K/uL (130-400); RDW Coefficient of Variation 12.8 % (11.5-14.5); RDW Standard Deviation 41.1 fL (36.4-46.3); Red Blood Count 3.45 M/uL (4.20-5.40); White Blood Count 3.96 K/ul (4.8-10.8)
[2024-03-27 16:58] LABS: Albumin Globulin Ratio 1.2 (0.9-2); Albumin Level 3.2 gm/dl (3.4-5.0); BUN Creatinine Ratio 15.8 (10-20); Bilirubin,Total 1.4 mg/dl (0.2-1.0); C Reactive Protein 1.75 mg/dl (0-0.5); Calcium 8.8 mg/dl (8.6-10.3); Creatinine Clr Calc Pharmacy 71.1 ml/min; Est GFR (African American) 87.7 ml/min; Est GFR (Non-African American) 75.7 ml/min; Globulin 2.7 gm/dl (2.5-4.0); Potassium 3.7 mmol/L (3.5-5.1); Total Protein 5.9 gm/dl (6.0-8.3)
--- NOTE | 2024-03-27 16:58 | Communication Note ---
Date of Service: March 27, 2024 Remains very drowsy and confused but hemodynamically stable. Stat blood test are unremarkable. Will not give any narcotics, angiolytics, antihistamines or antipsychotic for any agitation or delirium. Dr Ryan Garcia
--- NOTE | 2024-03-28 12:08 | Fluoroscopy Report ---
FL video swallow HISTORY: dysphagia TECHNIQUE: Video fluoroscopic evaluation of swallowing was performed in the AP and lateral projection s by the speech pathology staff. The patient is fed nectar-thick and thin liquid barium, a barium coa camron wafer, and barium pudding. FLUOROSCOPY TIME: 1 minute 13 seconds. Ka,r: 7.99 mGy COMPARISON STUDY: None. FINDINGS: There is normal hyoid excursion and epiglottic deflection. No significant penetration or as piration identified. Swallowing function is within normal limits. The final images demonstrate esopha geal dysmotility. IMPRESSION: 1. No aspiration identified. 2. Please see the speech pathologist report for detailed findings and recommendations. ACT 112: Negative or not required by law. Electronically signed by: Ced Garcia M.D. 03/28/2024 12:06 PM
--- NOTE | 2024-03-28 13:16 | Hospitalist Progress Note ---
Date of Service March 28, 2024 Assessment & Plan (1) Postoperative delirium: Plan: Status post left knee surgery on 03/17/2024 and noted to have acute confusion since on the last Patient 78-year-old female from [facility] after she was there for only a few hours after being discharged from [facility] post knee surgery. She was discharged to [facility] with some delirium and was sent back from the facility within hours of arrival their Patient remains significantly delirious, labile behaviors as of today. Reviewed outside EMR, patient was displaying some delirium prior to discharge from [facility] Phone conversation with , he reports that she did not have significant issues with memory or behaviors prior to surgery. States that she has tolerated anesthesia in the past. Will attempt to continue to redirect and use soft restraints. CT of the head has been negative clinically not any better discussed in detail with the daughter patient remains hemodynamically stable will continue current supportive care and will not give any narcotics and/or anxiolytics or even antihistamines clinically much better today and has been complicating normally remains pleasantly confused will continue current management will get PT OT evaluation and possible discharge in a day or 2 Postop delirium has improved a lot Minimally confused at rest but has been tolerating diet Likely discharge in a day or 2 Condition has been worse since last night when she required a dose of Zyprexa due to agitation and psychosis She has been less responsive but remains very drowsy and confused this morning Remains hemodynamically stable Condition has been deteriorating since this morning and will repeat the blood test Has had repeat CAT scan which was unremarkable Discussed with the She has been feeling much better today Has had barium swallow without any significant aspiration She will likely to be discharged tomorrow to [facility] High temperature has had fever of 38 C yesterday and is started on intravenous Zosyn empirically will continue antibiotic for 48 to 72 hours in total Blood cultures have been negative and UA was not supportive of an infection Left knee surgical site has minimal inflammation but doubt any cellulitis Will continue antibiotic for 2 more days No more fever and or chills and no signs and or symptoms of infection (2) Acute on chronic anemia: Plan: hemoglobin remains stable at 9.9 (3) Demand ischemia: Plan: initial troponin was high at 116.5 and the second test came back at 113 does not have any cardiac symptoms (4) Diabetes mellitus type 2 with complications: (5) Hypertension: Plan: remains on the upper side at 162/70 Plan other significant medical conditions remained stable and are as below; Progressive anemia, postop hemoglobin was 10.9 yesterday, no overt bleed for now hx nonocclusive CAD 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 bronchial asthma, [place] CPAP noncompliant, pulmonary hypertension, patient currently without lung issues DM2 on oral medications, well-controlled as of recent hemoglobin A1c of 5.7 last month cirrhosis as per records, likely NAFLD anxiety/mood disorder postop UTI- Received Keflex and also intravenous antibiotic for 2 to 3 days in the hospital Admission and Anticipated Discharge Date Admission Date: March 21, 2024 Subjective 03/23/2024 The patient was seen and examined in medical telemetry unit in presence of the daughter she has been confused since Thursday last she is status post left knee surgery on 03/17/2024 as of this morning she remains totally confused 03/24/2024 The patient was seen and examined in medical telemetry unit in presence of the She has been feeling much better Denies any significant symptoms and remains pleasantly confused 03/25/2024 The patient was seen and examined in medical telemetry unit and the progress note is in the paper chart 03/26/2024 The patient was seen and examined in medical telemetry unit She has been much better today and has had bedside swallow evaluation She has been started with a diet and has been tolerating Remains pleasantly confused 03/27/2024 The patient was seen and examined in medical telemetry unit She has had Zyprexa last night because of acute psychosis Has been sleeping since this morning Only responding to vocal commands with name Remains very confused Reexamined at 4:25 PM Reported to have fairly normal conversation with the family members Remains very drowsy and sleepy Remains confused with stable vitals and unremarkable examination Awaiting stat blood test Will not receive any more benzodiazepines, antipsychotics or narcotics Updated the 03/28/2024 She has been feeling little better today and has been communicating almost normally Pleasantly confused but otherwise denies any other significant symptoms She will have video swallow study today Review of Systems Review of Systems: all systems reviewed and are unremarkable except as noted below Physical Exam Physical Exam: Lying in bed without any acute distress Constitutional: well developed, well nourished and + ill appearing Eyes: PERRL, conjunctivae normal, anicteric sclerae ENMT: external ear and nose normal, oropharynx normal Neck: trachea midline, no thyromegaly Respiratory: no respiratory distress Auscultation: lungs clear to auscultation bilaterally Cardiovascular: Rate/Rhythm: regular rate and regular rhythm; not tachycardic Heart Sounds: normal S1 and normal S2; no murmur Extremities: no edema Gastrointestinal (Abdomen): Inspection/Auscultation: normal bowel sounds; abdomen not distended Percussion/Palpation: abdomen soft; abdomen nontender Neurologic: normal touch/pain/proprioception and moves all extremities; no focal motor deficits Lymphatic: no cervical or axillary lymphadenopathy Results & Data Results & Data Vital Signs (Past 12 Hours) Vital Signs Temp Pulse Pulse Resp BP Pulse Ox O2 Del Method 03/28/24 08:06 36.6 C 89 18 154/66 H 96 Room Air 03/28/24 07:37 61 03/28/24 03:53 36.7 C 76 16 148/73 H 95 Room Air Laboratory Results Short CBC 03/27/24 Range/Units 16:18 WBC 3.96 L (4.8-10.8) K/ul Hgb 10.1 L (12.0-16.0) g/dl Hct 30.5 L (37.0-47.0) % Plt Count 191 (130-400) K/uL BMP 03/27/24 16:18 Sodium 141 Potassium 3.7 Chloride 109 H Carbon Dioxide 26 BUN 12 Creatinine 0.76 Glucose 123 H Calcium 8.8 Liver Function 03/27/24 Range/Units 16:18 Total Bilirubin 1.4 H (0.2-1.0) mg/dl AST 20 (13-39) U/L ALT 13 (7-52) U/L Alkaline Phosphatase 46 (34-104) U/L Albumin 3.2 L (3.4-5.0) gm/dl Medications Administered Current Inpatient Medications Acetaminophen (Acetaminophen 500 Mg Tab) 500 mg PO Q6H PRN PRN Reason: fever/pain Stop: 04/21/24 03:30 Last Admin: 03/28/24 12:22 Dose: 500 mg Amlodipine Besylate (Amlodipine Besylate 5 Mg Tab) 5 mg PO QAM [facility] Stop: 04/25/24 17:59 Last Admin: 03/28/24 10:35 Dose: 5 mg Apixaban (Apixaban 2.5 Mg Tab) 2.5 mg PO BID [facility] Stop: 04/21/24 20:59 Last Admin: 03/28/24 10:35 Dose: 2.5 mg Dextrose (Dextrose 50% 50 Ml Syringe) 25 - 50 ml IV UD PRN; Protocol PRN Reason: Hypoglycemia Protocol Stop: 04/21/24 02:49 Fluticasone Propionate (Fluticasone Propionate Na Spr 16 Gm Btl) 1 sprays NA DAILY PRN PRN Reason: Congestion Stop: 04/21/24 02:49 Glucagon (Glucagon For Inj 1 Mg Vial) 1 mg SQ UD PRN; Protocol PRN Reason: Hypoglycemia Protocol Stop: 04/21/24 02:49 Glucose (Glucose 40% Gel 15 Gm Tube) 15 - 30 gm PO UD PRN; Protocol PRN Reason: Hypoglycemia Protocol Stop: 04/21/24 02:49 Glucose (Glucose 10 Tab/Tube) 4 - 8 tab PO UD PRN; Protocol PRN Reason: Hypoglycemia Treatment Stop: 04/21/24 02:49 Potassium Chloride/Dextrose/Sod Cl (D5nss + 20meq Kcl) 20 meq in 1,000 mls @ 80 mls/hr IV .[id number] [facility]; Protocol Stop: 03/29/24 00:29 Last Admin: 03/28/24 01:00 Dose: 80 mls/hr Insulin Aspart (Insulin Aspart Per Unit Charge) 0 units SC ACHS [facility] Stop: 04/21/24 02:49 Last Admin: 03/28/24 10:43 Dose: Not Given Loratadine (Loratadine 10 Mg Tab) 10 mg PO PM [facility] Stop: 04/21/24 20:59 Last Admin: 03/27/24 22:43 Dose: Not Given Losartan Potassium (Losartan Potassium 50 Mg Tab) 100 mg PO DAILY [facility] Stop: 04/21/24 08:59 Last Admin: 03/28/24 10:35 Dose: 100 mg Melatonin (Melatonin 3 Mg Tab) 3 mg PO HS PRN PRN Reason: Sleep Stop: 04/20/24 23:24 Last Admin: 03/26/24 20:58 Dose: 3 mg Metoprolol Succinate (Metoprolol Succ 50mg Ext Rel Tab) 50 mg PO BID [facility] Stop: 04/22/24 08:59 Last Admin: 03/28/24 10:36 Dose: 50 mg Miscellaneous (Carbohydrates For Hypoglycemia ) 15 - 30 gm PO UD PRN PRN Reason: Hypoglycemia Protocol Stop: 04/21/24 02:49 Multivitamins/Minerals (Cerovite Adv Formula Tab) 1 tab PO DAILY [facility] Stop: 04/21/24 08:59 Last Admin: 03/28/24 10:36 Dose: 1 tab Polyethylene Glycol (Polyethylene (Miralax) 17 Gm Pack) 17 gm PO QAM [facility] Stop: 04/21/24 08:59 Last Admin: 03/28/24 11:47 Dose: Not Given Prednisolone Acetate (Prednisolone Acetate 1% Op Susp 5 Ml Btl) 1 drops OPB QID [facility] Stop: 04/21/24 08:59 Last Admin: 03/28/24 12:23 Dose: 1 drops Trazodone HCl (Trazodone Hcl 50 Mg Tab) 50 mg PO HS [facility] Stop: 04/21/24 03:24 Last Admin: 03/27/24 22:44 Dose: Not Given Trazodone HCl (Trazodone Hcl 50 Mg Tab) 12.5 mg PO TID PRN PRN Reason: Anxiety/Agitation Stop: 04/21/24 08:59 Last Admin: 03/22/24 22:54 Dose: 12.5 mg
[2024-03-29] MEDS: LABETALOL HCL IV 5 MG/ML 20ML IV STA (04:17)
--- NOTE | 2024-03-29 13:39 | Hospitalist Progress Note ---
Date of Service March 29, 2024 Assessment & Plan (1) Postoperative delirium: Plan: Status post left knee surgery on 03/17/2024 and noted to have acute confusion since on the last Patient 78-year-old female from [facility] after she was there for only a few hours after being discharged from [facility] post knee surgery. She was discharged to [facility] with some delirium and was sent back from the facility within hours of arrival their Patient remains significantly delirious, labile behaviors as of today. Reviewed outside EMR, patient was displaying some delirium prior to discharge from [facility] Phone conversation with , he reports that she did not have significant issues with memory or behaviors prior to surgery. States that she has tolerated anesthesia in the past. Will attempt to continue to redirect and use soft restraints. CT of the head has been negative clinically not any better discussed in detail with the daughter patient remains hemodynamically stable will continue current supportive care and will not give any narcotics and/or anxiolytics or even antihistamines clinically much better today and has been complicating normally remains pleasantly confused will continue current management will get PT OT evaluation and possible discharge in a day or 2 Postop delirium has improved a lot Minimally confused at rest but has been tolerating diet Likely discharge in a day or 2 Condition has been worse since last night when she required a dose of Zyprexa due to agitation and psychosis She has been less responsive but remains very drowsy and confused this morning Remains hemodynamically stable Condition has been deteriorating since this morning and will repeat the blood test Has had repeat CAT scan which was unremarkable Discussed with the She has been feeling much better today Has had barium swallow without any significant aspiration She will likely to be discharged tomorrow to [facility] No more delirium She still is pleasantly confused She has been eating and drinking well and participating with the physical therapy with controled pain She will be discharged to [facility] to continue the care High temperature has had fever of 38 C yesterday and is started on intravenous Zosyn empirically will continue antibiotic for 48 to 72 hours in total Blood cultures have been negative and UA was not supportive of an infection Left knee surgical site has minimal inflammation but doubt any cellulitis Will continue antibiotic for 2 more days No more fever and or chills and no signs and or symptoms of infection (2) Acute on chronic anemia: Plan: hemoglobin remains stable at 9.9 (3) Demand ischemia: Plan: initial troponin was high at 116.5 and the second test came back at 113 does not have any cardiac symptoms (4) Diabetes mellitus type 2 with complications: (5) Hypertension: Plan: remains on the upper side at 162/70 Plan other significant medical conditions remained stable and are as below; Progressive anemia, postop hemoglobin was 10.9 yesterday, no overt bleed for now hx nonocclusive CAD 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 bronchial asthma, CLEMENTINA CPAP noncompliant, pulmonary hypertension, patient currently without lung issues DM2 on oral medications, well-controlled as of recent hemoglobin A1c of 5.7 last month cirrhosis as per records, likely NAFLD anxiety/mood disorder postop UTI- Received Keflex and also intravenous antibiotic for 2 to 3 days in the hospital Admission and Anticipated Discharge Date Admission Date: March 21, 2024 Subjective 03/23/2024 The patient was seen and examined in medical telemetry unit in presence of the daughter she has been confused since Thursday last she is status post left knee surgery on 03/17/2024 as of this morning she remains totally confused 03/24/2024 The patient was seen and examined in medical telemetry unit in presence of the She has been feeling much better Denies any significant symptoms and remains pleasantly confused 03/25/2024 The patient was seen and examined in medical telemetry unit and the progress note is in the paper chart 03/26/2024 The patient was seen and examined in medical telemetry unit She has been much better today and has had bedside swallow evaluation She has been started with a diet and has been tolerating Remains pleasantly confused 03/27/2024 The patient was seen and examined in medical telemetry unit She has had Zyprexa last night because of acute psychosis Has been sleeping since this morning Only responding to vocal commands with name Remains very confused Reexamined at 4:25 PM Reported to have fairly normal conversation with the family members Remains very drowsy and sleepy Remains confused with stable vitals and unremarkable examination Awaiting stat blood test Will not receive any more benzodiazepines, antipsychotics or narcotics Updated the 03/28/2024 She has been feeling little better today and has been communicating almost normally Pleasantly confused but otherwise denies any other significant symptoms She will have video swallow study today 03/29/2024 She has been doing much better today Her confusion is almost resolved She has been eating and drinking reasonably She will be discharged to [facility] to continue with the physical therapy Review of Systems Review of Systems: all systems reviewed and are unremarkable except as noted below Physical Exam Physical Exam: Lying in bed without any acute distress Constitutional: well developed, well nourished and + ill appearing Eyes: PERRL, conjunctivae normal, anicteric sclerae ENMT: external ear and nose normal, oropharynx normal Neck: trachea midline, no thyromegaly Respiratory: no respiratory distress Auscultation: lungs clear to auscultation bilaterally Cardiovascular: Rate/Rhythm: regular rate and regular rhythm; not tachycardic Heart Sounds: normal S1 and normal S2; no murmur Extremities: no edema Gastrointestinal (Abdomen): Inspection/Auscultation: normal bowel sounds; abdomen not distended Percussion/Palpation: abdomen soft; abdomen nontender Neurologic: normal touch/pain/proprioception and moves all extremities; no focal motor deficits Lymphatic: no cervical or axillary lymphadenopathy Results & Data Results & Data Vital Signs (Past 12 Hours) Vital Signs Temp Pulse Pulse Resp BP BP Pulse Ox 03/29/24 11:53 36.8 C 72 18 179/69 H 98 03/29/24 08:10 36.7 C 76 18 180/68 H 97 03/29/24 07:15 79 03/29/24 04:39 75 166/70 H 03/29/24 04:17 93 H 181/63 H 03/29/24 03:41 36.5 C 93 H 18 181/63 H 96 O2 Del Method 03/29/24 11:53 Room Air 03/29/24 08:10 Room Air 03/29/24 07:15 03/29/24 04:39 03/29/24 04:17 03/29/24 03:41 Room Air Medications Administered Current Inpatient Medications Acetaminophen (Acetaminophen 500 Mg Tab) 500 mg PO Q6H PRN PRN Reason: fever/pain Stop: 04/21/24 03:30 Last Admin: 03/29/24 13:30 Dose: 500 mg Amlodipine Besylate (Amlodipine Besylate 5 Mg Tab) 5 mg PO QAM [facility] Stop: 04/25/24 17:59 Last Admin: 03/29/24 08:45 Dose: 5 mg Apixaban (Apixaban 2.5 Mg Tab) 2.5 mg PO BID [facility] Stop: 04/21/24 20:59 Last Admin: 03/29/24 08:46 Dose: 2.5 mg Dextrose (Dextrose 50% 50 Ml Syringe) 25 - 50 ml IV UD PRN; Protocol PRN Reason: Hypoglycemia Protocol Stop: 04/21/24 02:49 Fluticasone Propionate (Fluticasone Propionate Na Spr 16 Gm Btl) 1 sprays NA DAILY PRN PRN Reason: Congestion Stop: 04/21/24 02:49 Glucagon (Glucagon For Inj 1 Mg Vial) 1 mg SQ UD PRN; Protocol PRN Reason: Hypoglycemia Protocol Stop: 04/21/24 02:49 Glucose (Glucose 40% Gel 15 Gm Tube) 15 - 30 gm PO UD PRN; Protocol PRN Reason: Hypoglycemia Protocol Stop: 04/21/24 02:49 Glucose (Glucose 10 Tab/Tube) 4 - 8 tab PO UD PRN; Protocol PRN Reason: Hypoglycemia Treatment Stop: 04/21/24 02:49 Insulin Aspart (Insulin Aspart Per Unit Charge) 0 units SC ACHS MAGUI Stop: 04/21/24 02:49 Last Admin: 03/29/24 13:21 Dose: 4 units Loratadine (Loratadine 10 Mg Tab) 10 mg PO PM MAGUI Stop: 04/21/24 20:59 Last Admin: 03/28/24 20:27 Dose: 10 mg Losartan Potassium (Losartan Potassium 50 Mg Tab) 100 mg PO DAILY MAGUI Stop: 04/21/24 08:59 Last Admin: 03/29/24 08:45 Dose: 100 mg Melatonin (Melatonin 3 Mg Tab) 3 mg PO HS PRN PRN Reason: Sleep Stop: 04/20/24 23:24 Last Admin: 03/26/24 20:58 Dose: 3 mg Metoprolol Succinate (Metoprolol Succ 50mg Ext Rel Tab) 50 mg PO BID MAGUI Stop: 04/22/24 08:59 Last Admin: 03/29/24 08:45 Dose: 50 mg Miscellaneous (Carbohydrates For Hypoglycemia ) 15 - 30 gm PO UD PRN PRN Reason: Hypoglycemia Protocol Stop: 04/21/24 02:49 Multivitamins/Minerals (Cerovite Adv Formula Tab) 1 tab PO DAILY MAGUI Stop: 04/21/24 08:59 Last Admin: 03/29/24 08:45 Dose: 1 tab Polyethylene Glycol (Polyethylene (Miralax) 17 Gm Pack) 17 gm PO QAM MAGUI Stop: 04/21/24 08:59 Last Admin: 03/29/24 09:06 Dose: Not Given Prednisolone Acetate (Prednisolone Acetate 1% Op Susp 5 Ml Btl) 1 drops OPB QID [facility] Stop: 04/21/24 08:59 Last Admin: 03/29/24 13:31 Dose: 1 drops Trazodone HCl (Trazodone Hcl 50 Mg Tab) 50 mg PO HS [facility] Stop: 04/21/24 03:24 Last Admin: 03/28/24 20:28 Dose: 50 mg Trazodone HCl (Trazodone Hcl 50 Mg Tab) 12.5 mg PO TID PRN PRN Reason: Anxiety/Agitation Stop: 04/21/24 08:59 Last Admin: 03/22/24 22:54 Dose: 12.5 mg
--- NOTE | 2024-03-30 11:41 | Discharge Summary ---
Date of Service March 30, 2024 Admission HPI Per Admitting Provider History obtained from patient, family, and records. Limited history from patient secondary to confusion. Medical history significant for nonocclusive CAD, status post TAVR, mild MR/TR, hypertension, bronchial asthma, CLEMENTINA CPAP noncompliance, pulmonary hypertension, DM2 on oral medications, GERD, cirrhosis as per records, anxiety/mood disorder, chronic back pain status post surgery, recent left knee surgery, postop UTI ongoing Keflex Rx. Recent confinement [facility] last March 17 to 2023 for elective left knee surgery. Marked delirium postprocedure. Patient started on Keflex course for possible UTI. Specimen not sent for urine CS. CT head was negative. Psychiatry note pharmacologic recommendations as follows: Continue patient's home trazodone 50 mg p.o. HS. Melatonin 3 mg p.o. at bedtime as needed insomnia Trazodone 12.5 mg 3 times daily as needed agitation Zyprexa 2.5 mg PO/IM every 6 hours as needed agitation not responsive to trazodone. Patient still not back to baseline upon discharge to rehab facility today as per daughter. Postop hemoglobin on discharge last March 20 was 10.9. Patient discharged on Xarelto for postop DVT prophylaxis. Home aspirin held on discharge. Patient noted to be combative and agitated upon arrival at [facility] rehab facility. Patient unable to answer questions regarding chest pain, SOB, abdominal pain, or worsening knee pain. Patient brought to ER for evaluation. 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 Admission Exam Per Admitting Provider Physical Exam: GENERAL: Agitated, uncomfortable, obese, no respiratory distress SKIN: Pallor, warm HEENT: Pale palpebral conjunctivae, no ptosis, dry buccal mucosa NECK : Supple, short neck, no tenderness CHEST : Decreased breath sounds, no tenderness HEART : Tachycardic,, no obvious murmurs ABDOMEN: Some distention, nontender EXTREMITIES : LE swelling, minimal left knee tenderness, no other conspicuous deformities noted NEUROLOGIC : Agitated, no facial asymmetry, gait and stance not assessed Principal Diagnosis Postop delirium, status post left knee surgery on 03/17/2024, no infection found Discharge Exam Lying in bed without any acute distress Constitutional well developed, well nourished and + ill appearing Eyes PERRL, conjunctivae normal, anicteric sclerae ENMT external ear and nose normal, oropharynx normal Neck trachea midline, no thyromegaly Respiratory no respiratory distress Auscultation: lungs clear to auscultation bilaterally Cardiovascular Rate/Rhythm: regular rate and regular rhythm; not tachycardic Heart Sounds: normal S1 and normal S2; no murmur Extremities: no edema Gastrointestinal (Abdomen) Inspection/Auscultation: normal bowel sounds; abdomen not distended Percussion/Palpation: abdomen soft; abdomen nontender Neurologic normal touch/pain/proprioception and moves all extremities; no focal motor deficits Lymphatic no cervical or axillary lymphadenopathy Discharge Data Allergies Allergy/AdvReac Type Severity Reaction Status Date / Time adhesive Allergy Unknown Rash Verified 03/22/24 05:30 silver sulfadiazine Allergy Rash Verified 03/22/24 05:33 acetaminophen [From Percocet] AdvReac Shakiness Verified 03/22/24 05:31 carisoprodol [From Soma] AdvReac Shakiness Verified 03/22/24 05:31 lisinopril AdvReac Cough Verified 03/22/24 05:30 oxycodone [From Percocet] AdvReac Shakiness Verified 03/22/24 05:31 Sulfa (Sulfonamide AdvReac Itching Verified 03/22/24 05:33 Antibiotics) Consultations 03/21/24 21:50 ED Decision to Admit Stat Ordered Studies 03/21/24 19:15 CT head/brain wo con Stat 03/27/24 10:30 CT Brain [CT head/brain wo con] Urgent 03/28/24 10:30 FL video swallow Routine Hospital Course (1) Postoperative delirium: Status post left knee surgery on 03/17/2024 and noted to have acute confusion since on the last Patient 78-year-old female from [facility] after she was there for only a few hours after being discharged from [facility] post knee surgery. She was discharged to [facility] with some delirium and was sent back from the facility within hours of arrival their Patient remains significantly delirious, labile behaviors as of today. Reviewed outside EMR, patient was displaying some delirium prior to discharge from [facility] Phone conversation with , he reports that she did not have significant issues with memory or behaviors prior to surgery. States that she has tolerated anesthesia in the past. Will attempt to continue to redirect and use soft restraints. CT of the head has been negative clinically not any better discussed in detail with the daughter patient remains hemodynamically stable will continue current supportive care and will not give any narcotics and/or anxiolytics or even antihistamines clinically much better today and has been complicating normally remains pleasantly confused will continue current management will get PT OT evaluation and possible discharge in a day or 2 Postop delirium has improved a lot Minimally confused at rest but has been tolerating diet Likely discharge in a day or 2 Condition has been worse since last night when she required a dose of Zyprexa due to agitation and psychosis She has been less responsive but remains very drowsy and confused this morning Remains hemodynamically stable Condition has been deteriorating since this morning and will repeat the blood test Has had repeat CAT scan which was unremarkable Discussed with the She has been feeling much better today Has had barium swallow without any significant aspiration She will likely to be discharged tomorrow to [facility] No more delirium She still is pleasantly confused She has been eating and drinking well and participating with the physical therapy with controled pain She will be discharged to [facility] to continue the care High temperature has had fever of 38 C yesterday and is started on intravenous Zosyn empirically will continue antibiotic for 48 to 72 hours in total Blood cultures have been negative and UA was not supportive of an infection Left knee surgical site has minimal inflammation but doubt any cellulitis Will continue antibiotic for 2 more days No more fever and or chills and no signs and or symptoms of infection (2) Acute on chronic anemia: hemoglobin remains stable at 9.9 (3) Demand ischemia: initial troponin was high at 116.5 and the second test came back at 113 does not have any cardiac symptoms (4) Diabetes mellitus type 2 with complications: (5) Hypertension: remains on the upper side at 162/70 Plan other significant medical conditions remained stable and are as below; Progressive anemia, postop hemoglobin was 10.9 yesterday, no overt bleed for now hx nonocclusive CAD 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 bronchial asthma, CLEMENTINA CPAP noncompliant, pulmonary hypertension, patient currently without lung issues DM2 on oral medications, well-controlled as of recent hemoglobin A1c of 5.7 last month cirrhosis as per records, likely NAFLD anxiety/mood disorder postop UTI- Received Keflex and also intravenous antibiotic for 2 to 3 days in the hospital Total Time Total Time Spent Total Time Spent (In Minutes): 35 minutes Discharge Plan Discharge Items Patient Disposition: Transfer Inpatient Rehab Fac Reason For Visit: DELIRIUM Discharge Diagnosis: Postop delirium, status post left knee surgery on 03/17/2024, no infection found Condition on Discharge: Fair Activity: As commented below Activity Comment: Will need to continue PT and OT Non-emergency contact: Primary Care Provider Call non-emergency contact if: you have any medication questions and your symptoms worsen Follow-up/Referrals: Tabitha Cunningham MD [Primary Care Provider] - (Please make an appointment with your PCP within 7 days following discharge from the facility) Diet: Carb Consistent or DM2 Addtl Attending Provider Instructions: Please take precautions to avoid falls No change in your current medications-amlodipine has been added and your metoprolol doses have been increased to 50 mg twice daily for better control of blood pressure You will need to continue physical therapy and Occupational Therapy as advised before The melonie from the left knee surgery has to be removed in due time Use of narcotic pain medication and benzodiazepines should be avoided or reduced Pending Studies at Discharge: No Stand-Alone Forms: My [facility] Skilled Items Patient informed of condition?: Yes DNR: No Discharge Level of Care: Acute rehab Communicable Disease: No Discharge Prognosis: Stable Lines: None Urinary Catheter: No Medications and DC Order Prescriptions: New metoprolol succinate 50 mg Tablet Extended Release 24 Hr 50 mg PO BID Qty: 60 0RF amlodipine [Norvasc] 5 mg Tablet 5 mg PO QAM Qty: 30 0RF Continued amoxicillin 500 mg Capsule 2,000 mg PO USEASDIRECTD PRN (Reason: Dental Procedures) metformin 500 mg tablet 500 mg PO 1XD atorvastatin 20 mg tablet 20 mg PO 1XD trazodone 50 mg Tablet 50 mg PO HS polyethylene glycol 3350 [Miralax] 17 gram Powder In Packet 17 g PO QAM alendronate 70 mg tablet 70 mg PO WK citalopram 20 mg tablet 20 mg PO 1XD prednisolone acetate 1 % drops,suspension 1 drp ophthalmic (eye) QID Rx Instructions: Instill 1 drop into both eyes in the morning and 1 drop at noon and 1 drop in the evening and 1 drop before bedtime [id number] 1 mg Tablet 1 tab PO 1XD hydrochlorothiazide 25 mg tablet 25 mg PO QAM albuterol sulfate [Ventolin HFA] 90 mcg/actuation Hfa Aerosol Inhaler 2 puff INHALATION QID PRN (Reason: sob) losartan 100 mg tablet 100 mg PO 1XD fluticasone propionate 50 mcg/actuation Galva,Suspension 1 spray INTRANASAL DIRECTED PRN (Reason: Congestion) Rx Instructions: administer into each nostril loratadine 10 mg Tablet 10 mg PO PM acetaminophen [Tylenol] 325 mg Capsule 325 mg PO QID PRN (Reason: Pain) Eliquis 2.5 mg tablet 2.5 mg PO BID melatonin 3 mg Tablet,Disintegrating 3 mg PO HS PRN (Reason: Insomnia) tramadol 25 mg Tablet 25 mg PO Q8 PRN (Reason: Pain) Discontinued cephalexin 500 mg capsule 500 mg PO 4XD metoprolol succinate 25 mg Tablet Extended Release 24 Hr 25 mg PO DAILY Discharge Orders: Discharge Order (Routine); Ordered 03/29/24 Ordered By: Husam Rushing/Other Patient Handouts: Managing Type 2 Diabetes, Diabetes: Meal Planning Admission Data Admit Date/Time: 03/21/24 23:23 Attending Provider: Husam Garcia Admit Provider: Kahlil Garcia Primary Care Provider: Tabitha Cunningham Other Providers: [facility]; Kahlil Garcia; Ole Preston Other Interventions: Discharge Summary Assessment (RN) Last Done: 03/29/24 14:29
== END 2024-03-29 14:56 | DRG 948 ==
LOC: ED 19:04 → 2W 23:23 → SUATTDRO 23:23 → 2W 03-22 02:26